=== PATIENT | male | born 1945 | race Caucasian/White ===

== ENCOUNTER 2020-07-25 16:13 | Outpatient (CLI) | payer BC, SELFPAY ==
--- NOTE | ~2020-07-25 | XR_ITS ---
XR foot LT min 3V 07/25/2020 17:17 Indication: Diabetic foot ulcer Procedure: 4 views left foot Comparison: No prior studies for comparison. Findings: There is soft tissue gas along the plantar surface at the metatarsophalangeal level. There is moderate osteoarthritis of the first MTP joint. Mild osteoarthritis of the distal interphalangeal and proximal interphalangeal joints. No erosive changes to suggest osteomyelitis. Lisfranc joint inta ct. There is a degenerative calcaneal enthesophyte at the plantar surface. No fracture or traumatic m alalignment. Impression: 1: No evidence for osteomyelitis. Subtle soft tissue gas along the plantar surface, suspicious for ce llulitis. If there is continuing concern for osteomyelitis, correlation with MRI recommended. 2: Mild-moderate polyarticular osteoarthritis. Reviewed, dictated and finalized at location A. Impression: 1: No evidence for osteomyelitis. Subtle soft tissue gas along the plantar surf mundo, suspicious for cellulitis. If there is continuing concern for osteomyeliti s, correlation with MRI recommended. 2: Mild-moderate polyarticular osteoarthritis.
--- NOTE | ~2020-07-25 | XR_ITS ---
EXAMINATION: XR chest 2V 07/25/2020 17:13 INDICATION: Diabetes. Chest pain. PROCEDURE: 2 view chest COMPARISON: No prior studies for comparison. FINDINGS: The lungs are clear. The cardiomediastinal silhouette is within normal limits. There are no pleural effusions. There is no pneumothorax suspected. IMPRESSION: 1: NO ACUTE CARDIOPULMONARY DISEASE. Reviewed, dictated and finalized at location A.
[2020-07-25 16:47] LABS: Basophils Percent Auto 1.4 % (0.0-1.0); Eosinophils Absolute Auto 0.13 K/mm3 (0.02-0.50); Eosinophils Percent Auto 1.8 % (1.0-6.0); Hematocrit 35.2 % (37.0-46.0); Hemoglobin 11.1 g/dL (12.4-15.3); Immature Granulocyte Absolute 0.03 K/mm3 (0.00-0.00); Immature Granulocyte Percent A 0.4 % (0.0-0.0); Lymphocytes Absolute Auto 1.54 K/mm3 (1.10-4.50); Lymphocytes Percent Auto 21.7 % (18.0-42.0); Mean Corpuscular HGB Conc 31.5 g/dL (32.0-36.0); Mean Corpuscular Hemoglobin 28.8 pg (27.0-31.0); Mean Corpuscular Volume 91.2 fL (78.0-102.0); Mean Platelet Volume 9.6 fl (8.7-11.0); Monocytes Absolute Auto 0.45 K/mm3 (0.10-0.90); Monocytes Percent Auto 6.3 % (2.0-11.0); Neutrophils Absolute Auto 4.8 K/mm3 (1.7-7.2); Neutrophils Percent Auto 68.4 % (50.0-70.0); Platelet Count Result 317 K/mm3 (150-420); Red Blood Count 3.86 M/mm3 (4.70-6.10); Red Cell Distribution Width 12.2 % (11.6-14.4); White Blood Count 7.1 K/mm3 (4.8-10.8)
[2020-07-25 16:48] LABS: Add Urine Microscopic? YES; Appearance Urine Clear (Clear); Bilirubin Urine Negative (Negative); Blood Urine Negative (Negative); Color Urine Yellow (Yellow); Glucose Urine UA Negative (Negative); Ketones Urine Negative (Negative); Leukocyte Esterase Ur Negative (Negative); Nitrate Urine Negative (Negative); Protein Urine 1+ (Negative); Urobilinogen Urine 0.2 mg/dL (0.2-1.0)
[2020-07-25 16:56] LABS: Bacteria Urine 1+ /hpf; RBC Urine 0-2 /hpf (0-2); Squamous Epithelial Cell Urine Few /hpf (Few); WBC Urine 0-3 /hpf (0-3)
[2020-07-25 17:00] LABS: Hemoglobin A1C 7.9 % (<5.7)
[2020-07-25 17:01] LABS: Creatinine Urine 126.04 mg/dL (40-278)
[2020-07-25 17:03] LABS: MALB Creatinine Ratio 174.7 mg/g (0-30); Microalbumin Urine Random 220.3 mg/L
[2020-07-25 17:33] LABS: Alanine Aminotransferase 27 U/L (16-63); Albumin Level 3.6 g/dL (3.4-5.0); Alkaline Phosphatase 86 U/L (46-116); Anion Gap 11 mmol/L (8-16); Aspartate Amino Transferase 22 U/L (15-37); Bilirubin,Total 0.2 mg/dL (0.00-1.00); Blood Urea Nitrogen 22 mg/dL (7-18); Calcium 9.3 mg/dL (8.5-10.1); Carbon Dioxide 24 mmol/L (21-32); Chloride 101 mmol/L (98-108); Cholesterol 112 mg/dL (0-200); Estimated Glomerular Filt Rate 35; Free T3 1.99 pg/mL (2.18-3.98); Free T4 Free Thyroxine 0.94 ng/dL (0.76-1.46); Glucose 158 mg/dL (70-99); HDL Direct 34 mg/dL (40-60); LDL Cholesterol Calculated 61 mg/dL (<130); Osmolality Calculated 288 mOsm/kg (285-295); Potassium 4.7 mmol/L (3.5-5.1); Sodium 136 mmol/L (136-145); Thyroid Stimulating Hormone 1.49 uIU/mL (0.36-3.74); Total Protein 7.2 g/dL (6.4-8.2); Triglycerides 84 mg/dL (0-150)
[2020-07-25 17:34] LABS: CRP < 0.5 mg/dL (0.0-0.9)
== END 2020-07-25 16:14 | disposition home or self-care (01) ==
LOC: CHSLAB 16:24
PROVIDERS: PCP Internal Medicine; Visit Provider Internal Medicine
DX: E78.5 Hyperlipidemia, unspecified (principal); R63.4 Abnormal weight loss; E11.621 Type 2 diabetes mellitus with foot ulcer
CPT/HCPCS: 36415; 71046; 73630; 80053; 80061; 81001; 82043; 83036; 84439; 84443; 84481; 85025; 86140

== ENCOUNTER 2020-07-30 12:04 | Outpatient (CLI) | payer BC, SELFPAY ==
--- NOTE | ~2020-07-30 | US_ITS ---
EXAMINATION: US arterial ankle brachial ind DATE: 07/30/2020 13:06 INDICATION: Peripheral arterial occlusive disease. TECHNIQUE: Segmental pressures and plethysmographic and Doppler waveforms of the brachial and lower e xtremity arteries were obtained. COMPARISON: None. FINDINGS: Right and left brachial artery pressures of 122 mm Hg and 123 mm Hg, respectively, are concordant (no rmal difference <= 30 mmHg). The right ankle-brachial index (NARAYAN) is 1.54 (normal >= 0.9-1.0). The right great toe-brachial index (TBI) is 0.52 (normal >= 0.65). Arterial Doppler waveforms are biphasic with brisk systolic upstrokes at both the right posterior tibial and dorsalis pedis arteries. The left NARAYAN is 1.05. The left TBI is 0.91. Arterial Doppler waveforms are biphasic at the left poste rior tibial artery and triphasic at the left dorsalis pedis artery, both with brisk systolic upstroke s. IMPRESSION: 1. Arterial occlusive disease to the right lower limb with mildly decreased right TBI. 2. No significant arterial occlusive disease to the left lower limb with normal left NARAYAN and TBI. Reviewed, dictated and finalized at location A. IMPRESSION: 1. Arterial occlusive disease to the right lower limb with mildly decreased rig ht TBI. 2. No significant arterial occlusive disease to the left lower limb with normal left NARAYAN and TBI.
== END 2020-07-30 12:05 | disposition home or self-care (01) ==
LOC: CHSIMG 12:06
PROVIDERS: PCP Internal Medicine; Visit Provider Internal Medicine
DX: I73.9 Peripheral vascular disease, unspecified (principal)
CPT/HCPCS: 93922

== ENCOUNTER 2020-08-19 13:36 | Outpatient (CLI) | payer BC, SELFPAY ==
--- NOTE | ~2020-08-19 | US_ITS ---
US retroperitoneal comp 08/19/2020 14:10 Procedure: Realtime transabdominal ultrasound of the kidneys and bladder. Indication: Diabetic nephropathy Comparison: No prior studies for comparison. Findings: Renal echotexture is normal bilaterally without hydronephrosis, contour deforming mass or r enal calculus. The right kidney measures 10.9 cm and left kidney measures 11 cm. There are bilateral renal cysts measuring 1.6 cm on the right and 2.3 cm on the left. Bladder within normal limits. Impression: 1: Bilateral renal cysts. Reviewed, dictated and finalized at location B. Impression: 1: Bilateral renal cysts.
== END 2020-08-19 13:37 | disposition home or self-care (01) ==
LOC: CHSIMG 13:40
PROVIDERS: PCP Internal Medicine; Visit Provider Internal Medicine
DX: E11.21 Type 2 diabetes mellitus with diabetic nephropathy (principal)
CPT/HCPCS: 76770

== ENCOUNTER 2020-08-28 14:23 | Outpatient (CLI) | payer BC, SELFPAY ==
--- NOTE | ~2020-08-28 | XR_ITS ---
EXAMINATION: XR foot LT min 3V DATE: 08/28/2020 14:51 INDICATION: Left foot diabetic ulcer. TECHNIQUE: 4 views of left foot were obtained. COMPARISON: Left foot radiographs 07/25/2020 FINDINGS: Bone alignment is normal. No fracture. There is moderate osteoarthritis of first metatarsop halangeal joint and mild osteoarthritis of some of the interphalangeal joints and midfoot joints. The re is an enthesophyte at plantar aspect of calcaneal tuberosity. IMPRESSION: 1. No evidence of osteomyelitis. 2. Polyarticular osteoarthritis. Reviewed, dictated and finalized at location A.
== END 2020-08-28 14:24 | disposition home or self-care (01) ==
LOC: CHSIMG 14:31
PROVIDERS: PCP Internal Medicine; Visit Provider Internal Medicine
DX: E11.621 Type 2 diabetes mellitus with foot ulcer (principal)
CPT/HCPCS: 73630

== ENCOUNTER 2020-10-20 15:44 | Outpatient (CLI) | payer BC, SELFPAY ==
[2020-10-20 17:37] LABS: SARS-CoV-2 Ag Negative (Negative)
== END 2020-10-20 15:45 | disposition home or self-care (01) ==
LOC: CHSLAB 15:49
PROVIDERS: PCP Internal Medicine; Visit Provider Nurse Practitioner Family
DX: J02.9 Acute pharyngitis, unspecified (principal); Z20.822 Contact with and (suspected) exposure to COVID-19
CPT/HCPCS: 87081; 87426; 87880; C9803

== ENCOUNTER 2020-11-07 07:17 | Outpatient (RCR) | payer BC, SELFPAY ==
[2020-08-12 13:00] VITALS: BMI 21.4
--- NOTE | 2020-09-09 10:17 | PM.CNOR ---
Assessment and Plan Assessment and plan (1) Diabetic foot ulcer associated with type 2 diabetes mellitus: Qualifiers: Diabetic foot ulcer location: toe Laterality: left Non-pressure ulcer stage: with bone involvement without evidence of necrosis Qualified Code(s): E11.621 - Type 2 diabetes mellitus with foot ulcer; L97.526 - Non-pressure chronic ulcer of other part of left foot with bone involvement without evidence of necrosis Code(s): E11.621 - Type 2 diabetes mellitus with foot ulcer; L97.509 - Non-pressure chronic ulcer of other part of unspecified foot with unspecified severity Status: Acute Assessment and Plan: New patient evaluation for chief complaint left foot plantar ulcer, diabetes, neuropathy. History, physical exam and radiographs reviewed with the patient. Chronic ulceration with more recent treatment over the past month. Patient with uncontrolled diabetes until this year. Previous A1c in 2020 was over 13. Currently 7.9. Radiographs reviewed. Prominent sesamoids noted otherwise normal radiographs. No evidence of osteomyelitis. Discussed the condition, nature, etiology and course of natural history with the patient. Treatment options including surgical and nonoperative treatment were reviewed. Risks and benefits of each as well as alternatives reviewed. The patient's questions were answered. Patient has declined surgical treatment at this time. He would like to continue with non operative treatment and reserve operative treatment for failure of conservative. Conservative treatment compression and elevation. Patient has had a fracture boot. He has not had any improvement in the ulcer size. We discussed further offloading with a total contact cast. Risks and benefits discussed in detail. He is in agreement with starting with total contact casting. Absorbent dressing placed on the left foot followed by well-padded total contact cast. Discussed activity limitations. Follow up in 1 week for cast change. (2) Diabetes mellitus with autonomic neuropathy: Qualifiers: Diabetes mellitus type: type 2 Diabetes mellitus [facility] insulin use: with [facility] use Qualified Code(s): E11.43 - Type 2 diabetes mellitus with diabetic autonomic (poly)neuropathy; Z79.4 - rn long term care (current) use of insulin Code(s): E11.43 - Type 2 diabetes mellitus with diabetic autonomic (poly)neuropathy Status: Acute (3) Neuropathy in diabetes: Qualifiers: Diabetes mellitus type: type 2 Diabetes mellitus complication detail: diabetic polyneuropathy Qualified Code(s): E11.42 - Type 2 diabetes mellitus with diabetic polyneuropathy Code(s): E11.40 - Type 2 diabetes mellitus with diabetic neuropathy, unspecified Status: Acute (4) Peripheral arterial disease: Code(s): I73.9 - Peripheral vascular disease, unspecified Status: Acute Assessment and Plan: Pulses not palpable bilateral feet. Patient had ABIs and toe pressures performed. Moderate decreased blood flow on the right. Fairly normal measurements on the left. Will continue to observe at this time. May need vascular evaluation. History of Present Illness HPI Consult date: 09/09/20 Requesting physician: Shawn Vargas MD Chief complaint: wound left plantar foot Narrative: 75-year-old gentleman presents to the [facility] for evaluation of left diabetic foot ulcer. Ulcer on the plantar aspect of the great toe for some time. Patient noted bleeding from the foot a month ago. He states that prior to that there may have been wound that he was unaware about. He has been followed here in the Wound Clinic with the wound care team doing dressing changes. He denies fever or chills. He states he has complete absence of sensation in both feet secondary to neuropathy. Review of Systems Constitutional: Constitutional: Denies fever(s) Eyes: Eyes: Denies blurry vision ENT: Repo
--- NOTE | 2020-09-16 12:10 | PM.IMHP ---
H&P: HPI History of Present Illness Date/Time: 09/16/20 12:10 Chief Complaint: left diabetic foot ulcer Narrative: Patient presents [place] wound clinic today for re-evaluation of left plantar diabetic foot ulcer. Patient underwent total contact casting last week to begin conservative treatment for a chronic ulcer on the plantar aspect of the 1st MTP joint. Patient reports having taken a shower on Tuesday with his cast on. He has not sought medical treatment in the interim. Cast removed today and his foot has a very wet appearance. No new signs of infection. Patient denies fever, chills, night sweats, nausea, vomiting or diarrhea. Review of Systems Constitutional: Constitutional: Denies fever(s) Eyes: Eyes: Denies blurry vision ENT: Reports Normal hearing present Cardiovascular: Cardiovascular: Denies chest pain and Denies dyspnea Respiratory: Respiratory: Denies dyspnea and Denies wheezing Gastrointestinal: Gastrointestinal: Denies abdominal pain Genitourinary: Genitourinary: Denies urinary urgency Musculoskeletal: Musculoskeletal: Reports as per HPI and Reports numbness ( Both feet) Integumentary/Breasts: Skin/Breast: Denies changing lesions and Denies sores Neurologic: Reports Normal hearing present, Denies behavioral changes, Denies confusion, Reports numbness ( bilateral feet) and Denies convulsions Psychiatric: Psychiatric: Denies behavioral changes, Denies confusion and Denies hallucinations Endocrine: Endocrine: Denies heat intolerance Hematologic/Lymphatic: Hematologic/Lymphatic: Denies easy bleeding Allergic/Immunologic: Allergic/Immunologic: Denies wheezing [facility] Past Medical History Medical History Diabetes mellitus with autonomic neuropathy Diabetic foot ulcer associated with type 2 diabetes mellitus Neuropathy in diabetes Peripheral arterial disease Social History Social History Gender identity (if verbalized by the patient): Male Meds Home Medications and Allergies Home Medications Medication Instructions Recorded Confirmed Type aspirin [Adult Aspirin] 81 mg PO DAILY 08/12/20 08/12/20 History cholecalciferol (vitamin D3) 50 mcg PO DAILY 08/12/20 08/12/20 History dulaglutide [Trulicity] 1.5 mg SUBCUT WEEKLY 08/12/20 08/12/20 History insulin degludec [Tresiba U-100 40 unit SUBCUT DAILY 08/12/20 08/12/20 History Insulin] levofloxacin 250 mg PO DAILY 08/12/20 08/12/20 History metronidazole 500 mg PO Q8H 08/12/20 08/12/20 History omeprazole 20 mg PO 3XW 08/12/20 08/12/20 History rosuvastatin 20 mg PO DAILY 08/12/20 08/12/20 History Allergies Allergy/AdvReac Type Severity Reaction Status Date / Time No Known Allergies Allergy Verified 08/21/20 12:42 Exam Const: General: healthy appearing; No in distress or confusion Orientation/consciousness: oriented to person, oriented to place, oriented to time and No confusion HENMT: Head: normal to inspection, normocephalic and atraumatic Eyes: Conjunctivae: conjunctivae normal Sclera: sclerae normal Neck: Neck: supple and nontender Resp: Effort & Inspection: normal respiratory effort and no audible wheezes Cardio: Rhythm: regular rhythm Skin: General skin exam: no rashes or lesions noted Neuro: General: oriented to person, oriented to place, oriented to time and No confusion Extrem: Right upper extremity: normal to inspection Left upper extremity: normal to inspection Right lower extremity: ankle Details: normal ROM; no tenderness and no swelling and foot Details: toes with normal ROM, vascular exam Details: normal capillary refill; dorsalis pedis pulse absent and posterior tibial pulse absent and motor-sensory exam Details: two point discrimination abnormal Location: in all toes and light-touch abnormal Location: in all toes; no tenderness and no unusual warmth Left lower extremity: ankle Details: normal to inspe
--- NOTE | 2020-09-23 09:02 | PM.IMHP ---
H&P: HPI History of Present Illness Date/Time: 09/23/20 09:02 Chief Complaint: Left diabetic foot ulcer Narrative: 75-year-old male returns to [place] [facility] 1 week status post discontinuation of total contact cast due to maceration past have look. Patient denies new concerns. No fever, chills, night sweats, nausea, vomiting or diarrhea. He has been performing daily dressing changes with antibiotic ointment, Mepilex foam and covering dry. He has been continuing his fracture boot without complications. Review of Systems Constitutional: Constitutional: Denies fever(s) Eyes: Eyes: Denies blurry vision ENT: Reports Normal hearing present Cardiovascular: Cardiovascular: Denies chest pain and Denies dyspnea Respiratory: Respiratory: Denies dyspnea and Denies wheezing Gastrointestinal: Gastrointestinal: Denies abdominal pain Genitourinary: Genitourinary: Denies urinary urgency Musculoskeletal: Musculoskeletal: Reports as per HPI and Reports numbness ( Both feet) Integumentary/Breasts: Skin/Breast: Denies changing lesions and Denies sores Neurologic: Reports Normal hearing present, Denies behavioral changes, Denies confusion, Reports numbness ( bilateral feet) and Denies convulsions Psychiatric: Psychiatric: Denies behavioral changes, Denies confusion and Denies hallucinations Endocrine: Endocrine: Denies heat intolerance Hematologic/Lymphatic: Hematologic/Lymphatic: Denies easy bleeding Allergic/Immunologic: Allergic/Immunologic: Denies wheezing PMFSH Past Medical History Medical History Diabetes mellitus with autonomic neuropathy Diabetic foot ulcer associated with type 2 diabetes mellitus Neuropathy in diabetes Peripheral arterial disease Social History Social History Gender identity (if verbalized by the patient): Male Meds Home Medications and Allergies Home Medications Medication Instructions Recorded Confirmed Type aspirin [Adult Aspirin] 81 mg PO DAILY 08/12/20 08/12/20 History cholecalciferol (vitamin D3) 50 mcg PO DAILY 08/12/20 08/12/20 History dulaglutide [Trulicity] 1.5 mg SUBCUT WEEKLY 08/12/20 08/12/20 History insulin degludec [Tresiba U-100 40 unit SUBCUT DAILY 08/12/20 08/12/20 History Insulin] levofloxacin 250 mg PO DAILY 08/12/20 08/12/20 History metronidazole 500 mg PO Q8H 08/12/20 08/12/20 History omeprazole 20 mg PO 3XW 08/12/20 08/12/20 History rosuvastatin 20 mg PO DAILY 08/12/20 08/12/20 History Allergies Allergy/AdvReac Type Severity Reaction Status Date / Time No Known Allergies Allergy Verified 08/21/20 12:42 Exam Const: General: healthy appearing; No in distress or confusion Orientation/consciousness: oriented to person, oriented to place, oriented to time and No confusion HENMT: Head: normal to inspection, normocephalic and atraumatic Eyes: Conjunctivae: conjunctivae normal Sclera: sclerae normal Neck: Neck: supple and nontender Resp: Effort & Inspection: normal respiratory effort and no audible wheezes Cardio: Rhythm: regular rhythm Skin: General skin exam: no rashes or lesions noted Neuro: General: oriented to person, oriented to place, oriented to time and No confusion Extrem: Right upper extremity: normal to inspection Left upper extremity: normal to inspection Right lower extremity: ankle Details: normal ROM; no tenderness and no swelling and foot Details: toes with normal ROM, vascular exam Details: normal capillary refill; dorsalis pedis pulse absent and posterior tibial pulse absent and motor-sensory exam Details: two point discrimination abnormal Location: in all toes and light-touch abnormal Location: in all toes; no tenderness and no unusual warmth Left lower extremity: ankle Details: normal to inspection, normal ROM ( ankle dorsiflexion 5?, plantar flexion 45?, inversion 20?, eversion 10?) and other ( negative Homans sign,
--- NOTE | 2020-09-30 09:27 | PM.IMHP ---
H&P: HPI History of Present Illness Date/Time: 09/30/20 09:27 Chief Complaint: Left DFU Narrative: 75-year-old male returns to [place] [facility] clinic 2 week status post discontinuation of total contact cast due to maceration past have look. Patient denies new concerns. No fever, chills, night sweats, nausea, vomiting or diarrhea. He has been performing daily dressing changes with antibiotic ointment, Mepilex foam and covering dry. He has been continuing his fracture boot without complications. Review of Systems Constitutional: Constitutional: Denies fever(s) Eyes: Eyes: Denies blurry vision ENT: Reports Normal hearing present Cardiovascular: Cardiovascular: Denies chest pain and Denies dyspnea Respiratory: Respiratory: Denies dyspnea and Denies wheezing Gastrointestinal: Gastrointestinal: Denies abdominal pain Genitourinary: Genitourinary: Denies urinary urgency Musculoskeletal: Musculoskeletal: Reports as per HPI and Reports numbness ( Both feet) Integumentary/Breasts: Skin/Breast: Denies changing lesions and Denies sores Neurologic: Reports Normal hearing present, Denies behavioral changes, Denies confusion, Reports numbness ( bilateral feet) and Denies convulsions Psychiatric: Psychiatric: Denies behavioral changes, Denies confusion and Denies hallucinations Endocrine: Endocrine: Denies heat intolerance Hematologic/Lymphatic: Hematologic/Lymphatic: Denies easy bleeding Allergic/Immunologic: Allergic/Immunologic: Denies wheezing PMFSH Past Medical History Medical History Diabetes mellitus with autonomic neuropathy Diabetic foot ulcer associated with type 2 diabetes mellitus Neuropathy in diabetes Peripheral arterial disease Social History Social History Gender identity (if verbalized by the patient): Male Meds Home Medications and Allergies Home Medications Medication Instructions Recorded Confirmed Type aspirin [Adult Aspirin] 81 mg PO DAILY 08/12/20 08/12/20 History cholecalciferol (vitamin D3) 50 mcg PO DAILY 08/12/20 08/12/20 History dulaglutide [Trulicity] 1.5 mg SUBCUT WEEKLY 08/12/20 08/12/20 History insulin degludec [Tresiba U-100 40 unit SUBCUT DAILY 08/12/20 08/12/20 History Insulin] levofloxacin 250 mg PO DAILY 08/12/20 08/12/20 History metronidazole 500 mg PO Q8H 08/12/20 08/12/20 History omeprazole 20 mg PO 3XW 08/12/20 08/12/20 History rosuvastatin 20 mg PO DAILY 08/12/20 08/12/20 History Allergies Allergy/AdvReac Type Severity Reaction Status Date / Time No Known Allergies Allergy Verified 08/21/20 12:42 Exam Const: General: healthy appearing; No in distress or confusion Orientation/consciousness: oriented to person, oriented to place, oriented to time and No confusion HENMT: Head: normal to inspection, normocephalic and atraumatic Eyes: Conjunctivae: conjunctivae normal Sclera: sclerae normal Neck: Neck: supple and nontender Resp: Effort & Inspection: normal respiratory effort and no audible wheezes Cardio: Rhythm: regular rhythm Skin: General skin exam: no rashes or lesions noted Neuro: General: oriented to person, oriented to place, oriented to time and No confusion Extrem: Right upper extremity: normal to inspection Left upper extremity: normal to inspection Right lower extremity: ankle Details: normal ROM; no tenderness and no swelling and foot Details: toes with normal ROM, vascular exam Details: normal capillary refill; dorsalis pedis pulse absent and posterior tibial pulse absent and motor-sensory exam Details: two point discrimination abnormal Location: in all toes and light-touch abnormal Location: in all toes; no tenderness and no unusual warmth Left lower extremity: ankle Details: normal to inspection, normal ROM ( ankle dorsiflexion 5?, plantar flexion 45?, inversion 20?, eversion 10?) and other ( negative Homans sign, negative Lamar'
--- NOTE | 2020-10-07 09:31 | PM.IMHP ---
H&P: HPI History of Present Illness Date/Time: 10/07/20 09:31 Chief Complaint: Left DFU Narrative: 75-year-old male returns to [place] wound clinic for reevaluation of left plantar DFU. Patient denies new concerns. No fever, chills, night sweats, nausea, vomiting or diarrhea. He has been performing daily dressing changes with antibiotic ointment, Mepilex foam and covering dry. He has been continuing his fracture boot without complications. He attempted to obtain custom orthotics/depth shoes but is waiting on final sign off from PCP who manages his diabetes. Review of Systems Constitutional: Constitutional: Denies fever(s) Eyes: Eyes: Denies blurry vision ENT: Reports Normal hearing present Cardiovascular: Cardiovascular: Denies chest pain and Denies dyspnea Respiratory: Respiratory: Denies dyspnea and Denies wheezing Gastrointestinal: Gastrointestinal: Denies abdominal pain Genitourinary: Genitourinary: Denies urinary urgency Musculoskeletal: Musculoskeletal: Reports as per HPI and Reports numbness ( Both feet) Integumentary/Breasts: Skin/Breast: Denies changing lesions and Denies sores Neurologic: Reports Normal hearing present, Denies behavioral changes, Denies confusion, Reports numbness ( bilateral feet) and Denies convulsions Psychiatric: Psychiatric: Denies behavioral changes, Denies confusion and Denies hallucinations Endocrine: Endocrine: Denies heat intolerance Hematologic/Lymphatic: Hematologic/Lymphatic: Denies easy bleeding Allergic/Immunologic: Allergic/Immunologic: Denies wheezing PMFSH Past Medical History Medical History Diabetes mellitus with autonomic neuropathy Diabetic foot ulcer associated with type 2 diabetes mellitus Neuropathy in diabetes Peripheral arterial disease Social History Social History Gender identity (if verbalized by the patient): Male Meds Home Medications and Allergies Home Medications Medication Instructions Recorded Confirmed Type aspirin [Adult Aspirin] 81 mg PO DAILY 08/12/20 08/12/20 History cholecalciferol (vitamin D3) 50 mcg PO DAILY 08/12/20 08/12/20 History dulaglutide [Trulicity] 1.5 mg SUBCUT WEEKLY 08/12/20 08/12/20 History insulin degludec [Tresiba U-100 40 unit SUBCUT DAILY 08/12/20 08/12/20 History Insulin] levofloxacin 250 mg PO DAILY 08/12/20 08/12/20 History metronidazole 500 mg PO Q8H 08/12/20 08/12/20 History omeprazole 20 mg PO 3XW 08/12/20 08/12/20 History rosuvastatin 20 mg PO DAILY 08/12/20 08/12/20 History Allergies Allergy/AdvReac Type Severity Reaction Status Date / Time No Known Allergies Allergy Verified 08/21/20 12:42 Exam Const: General: healthy appearing; No in distress or confusion Orientation/consciousness: oriented to person, oriented to place, oriented to time and No confusion HENMT: Head: normal to inspection, normocephalic and atraumatic Eyes: Conjunctivae: conjunctivae normal Sclera: sclerae normal Neck: Neck: supple and nontender Resp: Effort & Inspection: normal respiratory effort and no audible wheezes Cardio: Rhythm: regular rhythm Skin: General skin exam: no rashes or lesions noted Neuro: General: oriented to person, oriented to place, oriented to time and No confusion Extrem: Right upper extremity: normal to inspection Left upper extremity: normal to inspection Right lower extremity: ankle Details: normal ROM; no tenderness and no swelling and foot Details: toes with normal ROM, vascular exam Details: normal capillary refill; dorsalis pedis pulse absent and posterior tibial pulse absent and motor-sensory exam Details: two point discrimination abnormal Location: in all toes and light-touch abnormal Location: in all toes; no tenderness and no unusual warmth Left lower extremity: ankle Details: normal to inspection, normal ROM ( ankle dorsiflexion 5?, plantar flexion 45?, inversion 20?
--- NOTE | 2020-11-07 10:06 | PM.IMHP ---
H&P: HPI History of Present Illness Date/Time: 11/07/20 10:06 Chief Complaint: Left DFU Narrative: Patient returns today for reevaluation of left DFU. No new complaints. Awaiting custom orthotics/depth shoes from [facility]. Still with no appt for fitting. PCP and patient have attempted to call. No new open ulcers. No signs of infection. Review of Systems Constitutional: Constitutional: Denies fever(s) Eyes: Eyes: Denies blurry vision ENT: Reports Normal hearing present Cardiovascular: Cardiovascular: Denies chest pain and Denies dyspnea Respiratory: Respiratory: Denies dyspnea and Denies wheezing Gastrointestinal: Gastrointestinal: Denies abdominal pain Genitourinary: Genitourinary: Denies urinary urgency Musculoskeletal: Musculoskeletal: Reports as per HPI and Reports numbness ( Both feet) Integumentary/Breasts: Skin/Breast: Denies changing lesions and Denies sores Neurologic: Reports Normal hearing present, Denies behavioral changes, Denies confusion, Reports numbness ( bilateral feet) and Denies convulsions Psychiatric: Psychiatric: Denies behavioral changes, Denies confusion and Denies hallucinations Endocrine: Endocrine: Denies heat intolerance Hematologic/Lymphatic: Hematologic/Lymphatic: Denies easy bleeding Allergic/Immunologic: Allergic/Immunologic: Denies wheezing PMFSH Past Medical History Medical History Diabetes mellitus with autonomic neuropathy Diabetic foot ulcer associated with type 2 diabetes mellitus Neuropathy in diabetes Peripheral arterial disease Social History Social History Gender identity (if verbalized by the patient): Male Meds Home Medications and Allergies Home Medications Medication Instructions Recorded Confirmed Type aspirin [Adult Aspirin] 81 mg PO DAILY 08/12/20 08/12/20 History cholecalciferol (vitamin D3) 50 mcg PO DAILY 08/12/20 08/12/20 History dulaglutide [Trulicity] 1.5 mg SUBCUT WEEKLY 08/12/20 08/12/20 History insulin degludec [Tresiba U-100 40 unit SUBCUT DAILY 08/12/20 08/12/20 History Insulin] levofloxacin 250 mg PO DAILY 08/12/20 08/12/20 History metronidazole 500 mg PO Q8H 08/12/20 08/12/20 History omeprazole 20 mg PO 3XW 08/12/20 08/12/20 History rosuvastatin 20 mg PO DAILY 08/12/20 08/12/20 History Allergies Allergy/AdvReac Type Severity Reaction Status Date / Time No Known Allergies Allergy Verified 08/21/20 12:42 Exam Const: General: healthy appearing; No in distress or confusion Orientation/consciousness: oriented to person, oriented to place, oriented to time and No confusion HENMT: Head: normal to inspection, normocephalic and atraumatic Eyes: Conjunctivae: conjunctivae normal Sclera: sclerae normal Neck: Neck: supple and nontender Resp: Effort & Inspection: normal respiratory effort and no audible wheezes Cardio: Rhythm: regular rhythm Skin: General skin exam: no rashes or lesions noted Neuro: General: oriented to person, oriented to place, oriented to time and No confusion Extrem: Right upper extremity: normal to inspection Left upper extremity: normal to inspection Right lower extremity: ankle Details: normal ROM; no tenderness and no swelling and foot Details: toes with normal ROM, vascular exam Details: normal capillary refill; dorsalis pedis pulse absent and posterior tibial pulse absent and motor-sensory exam Details: two point discrimination abnormal Location: in all toes and light-touch abnormal Location: in all toes; no tenderness and no unusual warmth Left lower extremity: ankle Details: normal to inspection, normal ROM ( ankle dorsiflexion 5?, plantar flexion 45?, inversion 20?, eversion 10?) and other ( negative Homans sign, negative Lamar's test); no tenderness and no swelling and foot Details: normal capillary refill, tenderness (hallux mtp joint), abnormal ROM of toe (Hallux DF 25, PF 10
== END 2020-11-10 23:59 | disposition home or self-care (01) ==
LOC: ANHWOC 07:17
PROVIDERS: PCP Internal Medicine; Referring Provider Nurse Practitioner Family; Visit Provider Orthopaedic Surgery
DX: S91.302D Unspecified open wound, left foot, subsequent encounter (principal)
CPT/HCPCS: 11042; 29445; 99212; 99213; A9270; G0463; L2116

== ENCOUNTER 2020-11-11 07:24 | Outpatient (CLI) | payer BC, SELFPAY ==
--- NOTE | ~2020-11-11 | US_ITS ---
US right upper quadrant INDICATION: Abnormal liver function tests. PROCEDURE: Realtime right upper abdominal ultrasound. COMPARISON: No prior studies for comparison. FINDINGS: The pancreas is normal without focal mass or pancreatic ductal dilation. Within the right hepatic lobe there is a 1 cm hyperechoic mass. There is normal directional flow in the portal vein. The gallbladder is normal without stones, gallbladder wall thickening or pericholecystic fluid. Comm on bile duct measures 4 mm. No sonographic Roca's sign. There are right renal cysts, largest measu ring 1.4 cm. IMPRESSION: 1: Hyperechoic 1 cm liver mass right hepatic lobe. This likely represents benign hemangioma in the ab sence of known malignancy. Recommend follow-up ultrasound in 6 months. Reviewed, dictated and finalized at location A. IMPRESSION: 1: Hyperechoic 1 cm liver mass right hepatic lobe. This likely represents benig n hemangioma in the absence of known malignancy. Recommend follow-up ultrasound in 6 months.
== END 2020-11-11 07:25 | disposition home or self-care (01) ==
LOC: CHSIMG 07:25
PROVIDERS: PCP Internal Medicine; Visit Provider Internal Medicine
DX: R94.5 Abnormal results of liver function studies (principal)
CPT/HCPCS: 76705

== ENCOUNTER 2021-03-17 13:40 | Outpatient (CLI) | payer BC, SELFPAY ==
[2021-03-17 14:39] LABS: SARS-CoV-2 Ag Positive (Negative)
== END 2021-03-17 13:41 | disposition home or self-care (01) ==
LOC: CHSLAB 13:44
PROVIDERS: PCP Internal Medicine; Visit Provider Internal Medicine
DX: U07.1 COVID-19 (principal); J06.9 Acute upper respiratory infection, unspecified
CPT/HCPCS: 87426; C9803

== ENCOUNTER 2021-06-15 01:04 | Day surgery (SDC) | payer BC, SELFPAY ==
[2021-06-01 15:34] VITALS: BMI 22.7
[2021-06-15 08:06] VITALS: BP 142/69; PULSE 74; RESP 18; TEMP 36.7; O2SAT 99
--- NOTE | 2021-06-15 08:07 | SUR.PREOP ---
Dr Branch made aware patient took two glucose tablets this morning at 0700 for a low blood sugar at home.
[2021-06-15 08:22] LABS: Glucose Point of Care 97 mg/dl (65-105)
--- NOTE | 2021-06-15 08:23 | P.PNAN_ITS ---
Anes - Initial Pre Proc Eval Procedure: Operation Date: 06/15/21 09:15 Proposed Procedures p Esophagogastroduodenoscopy - Elvis Stern MD Date/Time: 06/15/21 08:23 Surgeon: Elvis Stern MD Pre Op Diagnosis: GERD Patient Data Age: 76 Gender: M Height: 1.83 m Weight: 78.5 kg Last Vital Signs Temp 36.7 C 06/15/21 08:06 Pulse 74 06/15/21 08:06 Resp 18 06/15/21 08:06 BP 142/69 H 06/15/21 08:06 Pulse Ox 99 06/15/21 08:06 Allergies Allergy/AdvReac Type Severity Reaction Status Date / Time No Known Allergies Allergy Verified 06/15/21 08:05 Home Medications Medication Instructions Recorded Confirmed Type aspirin [Adult Aspirin] 81 mg PO DAILY 08/12/20 06/01/21 History cholecalciferol (vitamin D3) 50 mcg PO DAILY 08/12/20 06/01/21 History dulaglutide [Trulicity] 1.5 mg SUBCUT WEEKLY 08/12/20 06/01/21 History insulin degludec [Tresiba U-100 40 unit SUBCUT DAILY 08/12/20 06/01/21 History Insulin] omeprazole 20 mg PO DAILY 08/12/20 06/01/21 History rosuvastatin 20 mg PO DAILY 08/12/20 06/01/21 History Laboratory Tests 06/15/21 08:18 POC Capillary Glucose 97 mg/dl mg/dl (65-105) Patient hx anesthesia problems: none Family hx anesthesia problems: none Results Review: All pre-operative results and documents have been reviewed as part of the pre-operative evaluation. [facility] Past Medical History Medical History Diabetes mellitus with autonomic neuropathy Diabetic foot ulcer associated with type 2 diabetes mellitus Neuropathy in diabetes Peripheral arterial disease Social History Social History Smoking status: Former smoker Additional smoking assessment comments: HAS NOT SMOKED IN OVER 30 YRS Substance use: never Substance use type: does not use Living arrangements: with family Gender identity (if verbalized by the patient): Male Spiritual care concerns: No Anes - Eval Final PreProcedure Day of Procedure 06/15/21 08:23 Patient weight: normal Heart: regular rate and rhythm Lungs: clear to auscultation Airway: Mallampati scale class III Neurological: alert and oriented Last oral intake: >/= 8 hours ASA classification: III Emergent: no Anesthetic plan: proceed Anesthesia type and monitoring: general GIVS and standard monitoring Results Review: All pre-operative results and documents have been reviewed as part of the pre-operative evaluation. Informed Consent: The patient's anesthetic plan and its attendant risks and benefits were discussed with the patient/family/POA. Questions were solicited and answers provided to the satisfaction of the patient/family/POA.
[2021-06-15] MEDS: LACTATED RINGERS 1,000 ML 150 ML IV CONT (08:25)
--- NOTE | 2021-06-15 08:52 | PM.HPGS ---
History of Present Illness History of Present Illness Consent: Risks, benefits, and alternatives have been discussed and questions answered. Patient agrees to proceed with procedure. Chief complaint: GERD Narrative: Charles Hannah is a 76 year old male He who has difficulty swallowing. He may be eating a meal or even finish the meal and will bring up foamy liquid. He has had difficulty with rice. He cannot tell if it is stuck substernally or not. He does not have chronic acid reflux problems. He did try omeprazole for a while which did not seem to help. He also tried famotidine without much benefit, adding that he does not get heartburn. Review of Systems Review of Systems: All systems reviewed & are unremarkable except as noted in HPI and below PMFSH Past Medical History Medical History Diabetes mellitus with autonomic neuropathy Diabetic foot ulcer associated with type 2 diabetes mellitus Neuropathy in diabetes Peripheral arterial disease Social History Social History Smoking status: Former smoker Additional smoking assessment comments: HAS NOT SMOKED IN OVER 30 YRS Substance use: never Substance use type: does not use Living arrangements: with family Gender identity (if verbalized by the patient): Male Spiritual care concerns: No Meds Home Medications and Allergies Home Medications Medication Instructions Recorded Confirmed Type aspirin [Adult Aspirin] 81 mg PO DAILY 08/12/20 06/01/21 History cholecalciferol (vitamin D3) 50 mcg PO DAILY 08/12/20 06/01/21 History dulaglutide [Trulicity] 1.5 mg SUBCUT WEEKLY 08/12/20 06/01/21 History insulin degludec [Tresiba U-100 40 unit SUBCUT DAILY 08/12/20 06/01/21 History Insulin] omeprazole 20 mg PO DAILY 08/12/20 06/01/21 History rosuvastatin 20 mg PO DAILY 08/12/20 06/01/21 History Allergies Allergy/AdvReac Type Severity Reaction Status Date / Time No Known Allergies Allergy Verified 06/15/21 08:05 Vital Signs Vital Signs - 24 hr 06/15/21 08:06 Temperature 36.7 C Pulse Rate 74 Respiratory Rate 18 Blood Pressure 142/69 H Pulse Oximetry 99 Exam Const: General: alert Orientation/consciousness: patient oriented x3 Resp: Auscultation: clear to auscultation bilaterally Cardio: Rhythm: regular rhythm GI: GI Palp: Yes Soft to palpation and No Tenderness to palpation present (GI) Neuro: General: patient oriented x3 Assessment and Plan Assessment and plan (1) Dysphagia: Code(s): R13.10 - Dysphagia, unspecified Status: Acute Assessment and Plan: EGD with possible biopsy or dilatation or cautery.
[2021-06-15] MEDS: BENZOCAINE (*SP) 60 ML SPRAY CAN (HURRICAINE) 1 SPRAY MUCOUS MEM (09:05)
[2021-06-15 09:18] VITALS: BP 99/52; PULSE 73; RESP 16; O2SAT 100
[2021-06-15 09:27] LABS: Glucose Point of Care 89 mg/dl (65-105)
[2021-06-15 09:28] VITALS: BP 118/70; PULSE 78; RESP 19; O2SAT 100
[2021-06-15 09:38] VITALS: BP 129/72; PULSE 79; RESP 17; O2SAT 100
== END 2021-06-15 09:55 | disposition home or self-care (01) ==
PROVIDERS: PCP Internal Medicine; Visit Provider Internal Medicine Gastroenterology
PROC: 0DJ08ZZ Inspection of Upper Intestinal Tract, Via Natural or Artificial Opening Endoscopic (ICD-10-PCS; CPT 43235; principal; 2021-06-15 09:15)
DX: K22.2 Esophageal obstruction (principal); E11.43 Type 2 diabetes mellitus with diabetic autonomic (poly)neuropathy; E11.51 Type 2 diabetes mellitus with diabetic peripheral angiopathy without gangrene; E11.40 Type 2 diabetes mellitus with diabetic neuropathy, unspecified; Z79.899 Other long term (current) drug therapy; Z79.82 Long term (current) use of aspirin; Z79.4 Long term (current) use of insulin
CPT/HCPCS: 43249; 82948; 88305; C1726; J2704; J7120

== ENCOUNTER 2021-09-10 14:34 | Outpatient (CLI) | payer BC, SELFPAY ==
--- NOTE | ~2021-09-10 | XR_ITS ---
XR lumbar spine 2-3V 09/10/2021 15:07 Indication: Low back pain Procedure: 3 views lumbar spine Comparison: No prior studies for comparison. Findings: There is mild disc narrowing at all lumbar levels. There is mild facet hypertrophy at L3-4, L4-5 and L5-S1. No fracture, subluxation or spondylolisthesis. There is atherosclerosis of the aorta . Pedicles intact. Sacral foramen are symmetric. Moderate retained fecal material in the colon. Bowel pattern nonobstructive. Impression: 1: Moderate lumbar spondylosis. Reviewed, dictated and finalized at location A. Impression: 1: Moderate lumbar spondylosis.
== END 2021-09-10 14:35 | disposition home or self-care (01) ==
LOC: CHSIMG 14:36
PROVIDERS: PCP Internal Medicine; Visit Provider Nurse Practitioner Family
DX: M54.50 Low back pain, unspecified (principal)
CPT/HCPCS: 72100

== ENCOUNTER 2021-09-16 17:00 | Outpatient (RCR) | payer BC, SELFPAY ==
--- NOTE | 2021-09-17 07:50 | PTOPEVAL ---
Thank you for referring Charles Hannah to [facility].? The patient is scheduled to be seen for therapy? 1-2x/week for 10 visits. Please review, sign, date and return this plan of care CHARLY. I agree with and certify that the following plan of care is medically necessary. Referring Physician Date Admitting Provider: Attending Provider: Shawn Vargas MD Referring Provider: *PT Outpatient Evaluation Start: 09/16/21 17:01 Freq: Status: Active Protocol: Document 09/16/21 17:01 [facility] (Rec: 09/16/21 18:23 [facility] [id number]) Therapy Assessment Status Assessment Status Assessment Status Evaluation Outpatient Past Medical History Neurological History Hx Other Neurological Disorders Yes: neuropathy in feet Cardiovascular History Hx Hypercholesterolemia Yes Respiratory History Hx COVID-19 Yes: 03/08/2021 Gastrointestinal History Hx Gastroesophageal Reflux Disease Yes Genitourinary History Hx Renal Disease Yes Musculoskeletal History Hx Musculoskeletal Disorders No Significant History Hematological History Hx Hematological Disorders No Significant History Endocrine History Hx Diabetes Yes: TYPE 2 HEENT History Hx Cataracts Yes: both eyes SURGERY Integumentary History Hx Skin Disorders No Significant History Reproductive History Hx Reproductive Disorders No Significant History Psychosocial History Hx Psychiatric Disorders No Significant History Pain History History of Any Previous or Ongoing No Significant History Instance of Pain Anesthesia History Hx Anesthesia Reactions No Significant History Evaluation Information Problem Diagnosis lower back pain Onset 08/26/21 Subjective Information Pt reports history of low back Query Text:As Reported By Patient/ pain initially starting 2 Family years ago after reaching down and now flared up again 3 weeks ago. 3 weeks ago he was staring up at a hawk in the [place] and turned to watch it fly when he felt shooting pain in back and R leg. He reports that pain waxes and wanes but is generally worse with extension-based activities and maintaining positions for much longer than 10 min. Pt does not want to have surgery and is looking for other forms of relief. He wants to be able to keep active to keep up
== END 2021-09-29 13:56 | disposition home or self-care (01) ==
LOC: CHSPT 17:00
PROVIDERS: PCP Internal Medicine; Visit Provider Internal Medicine
DX: M54.50 Low back pain, unspecified (principal); G89.29 Other chronic pain
CPT/HCPCS: 97014; 97110; 97140; 97161; G0283

== ENCOUNTER 2021-10-10 09:28 | Outpatient (CLI) | payer BC, SELFPAY ==
--- NOTE | ~2021-10-10 | MR_ITS ---
EXAMINATION: MR lumbar spine wo con DATE: 10/10/2021 10:10 INDICATION: Spinal stenosis with low back pain TECHNIQUE: Magnetic resonance imaging (MRI) of the lumbar spine was performed without intravenous con trast. Sequences included sagittal T2-weighted FSE, sagittal T2-weighted FS FSE, sagittal T1-weighted FSE, and axial T2-weighted FSE. COMPARISON: Lumbar spine radiographs dated 09/10/2021 FINDINGS: Alignment is normal. Vertebral body heights are normal. Small Schmorl's nodes along the endplates at both sides of the L3-L4 disc space and along the inferior endplate of L2. Low signal intensity sclero tic bone island at L2.. Minimal fibrovascular degenerative endplate changes at a few levels in the kenny mbar spine. Marrow signal is otherwise normal. Mild disc desiccation throughout the lumbar spine with mild disc height loss at L2-L3 and L3-L4 and without minimal disc height loss at L1-L2, L4-L5 and L5 -S1. The conus medullaris terminates at L1. There is normal signal in the caudal spinal cord. Bilater al T2 hyperintense renal cysts, the larger at the lower pole of the left kidney measuring 2.7 cm in m aximal diameter. Paravertebral soft tissues are unremarkable. The following disc levels are specifica lly discussed: T12-L1: The disc does not extend beyond the endplate margin. There is mild bilateral facet joint oste oarthritis. There is no neural foraminal stenosis. There is no central canal stenosis. L1-L2: Disc is mildly bulging with superimposed left subarticular zone disc protrusion. There is mild hypertrophy of the ligamentum flavum. There is mild bilateral facet joint osteoarthritis. There is m ild bilateral, left greater than right neural foraminal stenosis. There is mild central canal stenosi s. L2-L3: Moderate diffuse disc bulge. There is hypertrophy of the ligamentum flavum. There is mild denys ateral facet joint osteoarthritis. There is moderate right and mild to moderate left neural foraminal stenosis. There is mild to moderate central canal stenosis. L3-L4: Moderate diffuse disc bulge. There is hypertrophy of the ligamentum flavum. There is mild to m oderate left and moderate right greater than facet joint osteoarthritis. There is moderate right and mild to moderate left neural foraminal stenosis. There is moderate to severe central canal stenosis. L4-L5: Disc is mildly bulging. There is mild hypertrophy of the ligamentum flavum. There is mild bila teral facet joint osteoarthritis. There is moderate right and mild to moderate left neural foraminal stenosis. There is mild central canal stenosis. L5-S1: Disc is mildly bulging. There is mild right and moderate left facet joint osteoarthritis. Ther e is mild bilateral neural foraminal stenosis. There is no central canal stenosis. IMPRESSION: 1. Mild to moderate lumbar spondylosis most notable for moderate to severe central canal stenosis at L3-L4. Reviewed, dictated and finalized at location A. IMPRESSION: 1. Mild to moderate lumbar spondylosis most notable for moderate to severe cent ral canal stenosis at L3-L4.
== END 2021-10-10 09:29 | disposition home or self-care (01) ==
LOC: CHSIMG 09:31
PROVIDERS: PCP Internal Medicine; Visit Provider Internal Medicine
DX: M48.00 Spinal stenosis, site unspecified (principal)
CPT/HCPCS: 72148

== ENCOUNTER 2021-11-10 19:02 | Emergency (ER) | payer BC, SELFPAY ==
--- NOTE | ~2021-11-10 | XR_ITS ---
EXAM: XR forearm LT 2V DATE: 11/10/2021 19:32 HISTORY: fall TODAY,DISTAL ULNA PAIN WITH SMALL LAC . COMPARISON: None available. FINDINGS: Normal mineralization. Oblique fracture of the distal left ulna with mild posterior displa cement. No lytic or blastic lesion. Degenerative change at the elbow. No erosion or periosteal change . Soft tissues within normal limits. IMPRESSION: Mildly displaced oblique fracture of the distal left ulna. Reviewed, dictated and finalized at location K.
[2021-11-10 19:24] VITALS: BP 145/65; PULSE 70; RESP 16; TEMP 36.4; O2SAT 99
--- NOTE | 2021-11-10 19:56 | ED.FALL ---
HPI - Fall General Chief Complaint: Fall Stated Complaint: fell, has pain in left wrist Time Seen by Provider: 11/10/21 19:06 Source: patient and RN notes reviewed Mode of arrival: ambulatory Limitations: no limitations History of Present Illness MD complaint: fall Onset (ago): day(s) (1) Fall from: standing Place fall occurred: home Loss of consciousness: none Prolonged down time: no Symptoms prior to fall: none Context: tripped/slipped Location of injury: other (left wrist) Location of injury - extremities: Left: forearm Severity scale (1-10): 3 Quality: aching Associated symptoms (after fall): other (none) Related Data Home Medications Medication Instructions Recorded Confirmed aspirin 81 mg tablet 81 mg PO DAILY 08/12/20 11/10/21 cholecalciferol (vitamin D3) 50 50 mcg PO DAILY 08/12/20 11/10/21 mcg (2,000 unit) tablet dulaglutide 1.5 mg/0.5 mL 1.5 mg subcut WEEKLY 08/12/20 11/10/21 subcutaneous pen injector ([id number]) insulin degludec 100 unit/mL 40 unit subcut DAILY 08/12/20 11/10/21 subcutaneous solution (Tresiba U-100 Insulin) omeprazole 20 mg tablet,delayed 20 mg PO DAILY 08/12/20 11/10/21 release rosuvastatin 20 mg tablet 20 mg PO DAILY 08/12/20 11/10/21 duloxetine 20 mg capsule,delayed 20 mg PO DAILY 11/10/21 11/10/21 release gabapentin 100 mg capsule 100 mg PO DAILY 11/10/21 11/10/21 insulin glargine 100 unit/mL (3 100 unit subcut DAILY 11/10/21 11/10/21 mL) subcutaneous pen (Basaglar KwikPen U-100 Insulin) Allergies Allergy/AdvReac Type Severity Reaction Status Date / Time No Known Allergies Allergy Verified 11/10/21 19:16 Review of Systems Review of Systems: All systems reviewed & are unremarkable except as noted in HPI and below Constitutional: Constitutional: Reports no additional constitutional complaints Eyes: Eyes: Reports no additional eye complaints ENT: Reports system reviewed and no additional complaints, except as documented Cardiovascular: Cardiovascular: Reports no additional cardiovascular complaints Respiratory: Respiratory: Reports no additional respiratory complaints Gastrointestinal: Gastrointestinal: Reports no additional gastrointestinal complaints Musculoskeletal: Musculoskeletal: Reports arthralgias Integumentary/Breasts: Skin/Breast: Reports system reviewed and no additional complaints, except as docu Neurologic: Reports system reviewed and no additional complaints, except as documented Psychiatric: Psychiatric: Reports no additional psychiatric complaints Endocrine: Endocrine: Reports no additional endocrine complaints Hematologic/Lymphatic: Hematologic/Lymphatic: Reports no additional hematologic/lymphatic complaints Allergic/Immunologic: Allergic/Immunologic: Reports no additional allergic/immunologic complaints [facility] Past Medical History Medical History Diabetes mellitus with autonomic neuropathy Diabetic foot ulcer associated with type 2 diabetes mellitus Left wrist fracture Neuropathy in diabetes Peripheral arterial disease Social History Social History Smoking status: Former smoker Additional smoking assessment comments: HAS NOT SMOKED IN OVER 30 YRS Substance use: never Substance use type: does not use Gender identity (if verbalized by the patient): Male Spiritual care concerns: No Exam Const: General: no acute distress Nutritional Appearance: well nourished Orientation/consciousness: patient oriented x3 Limitations: no limitations HENMT: Head: normal to inspection Ears: external ears normal, TM's normal bilaterally and EAC's normal General nose exam: Normal external nose present and Normal nares present Face and sinus: normal facial exam and sinuses nontender Mouth: Yes Normal oral and palatal mucosa present and Yes moist mucous membranes Teeth and gingiva: dentition normal Throat: post
[2021-11-10 20:00] VITALS: BP 147/69; PULSE 67; RESP 18; O2SAT 99
[2021-11-10] MEDS: IBUPROFEN 600 MG TABLET PO (20:09)
[2021-11-10] MEDS: cefTRIAXone 1 GM, LIDOCAINE HCL 1% LOCAL INJ 2.1 ML IM (20:10)
[2021-11-10 20:57] VITALS: BP 158/76; PULSE 67; RESP 18; O2SAT 99
== END 2021-11-10 20:58 | disposition home or self-care (01) ==
PROVIDERS: Emergency Provider Emergency Medicine; PCP Internal Medicine
DX: S52.602A Unspecified fracture of lower end of left ulna, initial encounter for closed fracture (principal); W19.XXXA Unspecified fall, initial encounter
CPT/HCPCS: 29125; 73090; 96372; 99284; A4565; A9270; J0696

== ENCOUNTER 2022-07-04 08:59 | Emergency (ER) | payer BC, SELFPAY ==
[2022-07-04 09:00] VITALS: BP 156/70; PULSE 63; RESP 16; TEMP 36.2; O2SAT 99
--- NOTE | 2022-07-04 09:03 | ECG_ITS ---
Measurements Intervals [place] Rate: 61 P: 44 MN: 206 QRS: 65 QRSD: 102 T: 66 QT: 404 QTc: 408 Interpretive Statements SINUS RHYTHM NORMAL ECG NO PREVIOUS ECG AVAILABLE FOR COMPARISON Electronically Signed On 07-04-2022 13:00:36 CDT by Chris Martínez D.O.
--- NOTE | 2022-07-04 09:04 | ED.GENADULT ---
HPI - General Adult General Chief complaint: Dizziness Stated complaint: dizziness History of Present Illness HPI narrative: Charles is a 77M with a PMH of diabetes, HLD and GERD that presented to the ED with weakness and syncope. He had an episode last night where he became lightheaded and fell into the bed. He continues to have vertigo with position changes. He vomited twice since last night. There is no CP, dyspnea, or palpitations. There is no vertigo when he is lying still. Related Data Home Medications Medication Instructions Recorded Confirmed aspirin 81 mg tablet 81 mg PO DAILY 08/12/20 07/04/22 rosuvastatin 20 mg tablet 20 mg PO DAILY 08/12/20 07/04/22 dapagliflozin 5 mg tablet (Farxiga) 5 mg PO DAILY 03/31/22 07/04/22 dulaglutide 1.5 mg/0.5 mL 3 mg subcut WEEKLY 03/31/22 07/04/22 subcutaneous pen injector (Trulicity) insulin glargine 100 unit/mL (3 50 unit subcut DAILY 03/31/22 07/04/22 mL) subcutaneous pen (Basaglar KwikPen U-100 Insulin) glimepiride 1 mg tablet 1 mg PO DAILY 07/04/22 07/04/22 pantoprazole 40 mg tablet,delayed 40 mg PO DAILY 07/04/22 07/04/22 release Allergies Allergy/AdvReac Type Severity Reaction Status Date / Time No Known Allergies Allergy Verified 07/04/22 09:01 Review of Systems Review of Systems: All systems reviewed & are unremarkable except as noted in HPI and below [facility] Past Medical History Medical History Diabetes mellitus with autonomic neuropathy Diabetic foot ulcer associated with type 2 diabetes mellitus Left wrist fracture Neuropathy in diabetes Peripheral arterial disease Social History Social History Smoking status: Former smoker Additional smoking assessment comments: HAS NOT SMOKED IN OVER 30 YRS Substance use: never Substance use type: does not use Lack of Transportation: No Lack of Food: Never True Current Housing: I Have Housing Concerned About Future Housing: No Difficulty Paying Gas/Electric Bills: No Difficulty Paying for Meds: No Currently Unemployed: No Education: High School Diploma/GED Difficulty w/ Childcare or Family Care: No Living arrangements: with family Gender identity (if verbalized by the patient): Male Spiritual care concerns: No Exam Const: General: healthy appearing, no acute distress and alert; No confusion Nutritional Appearance: well nourished Orientation/consciousness: patient oriented x3 Limitations: no limitations HENMT: Head: normal to inspection Ears: external ears normal Face/Nose/Sinus: Normal external nose present Face and sinus: normal facial exam Eyes: Conjunctivae: conjunctivae normal Pupils: Equal, round and reactive pupils present Neck: Neck: normal visual inspection Chest: Chest palpation & inspection: normal inspection of the chest Resp: Effort & Inspection: normal respiratory effort Auscultation: clear to auscultation bilaterally Cardio: Rate: regular rate Rhythm: regular rhythm GI: Inspection: non-distended GI Palp: Yes Soft to palpation, No Tenderness to palpation present (GI) and No Guarding due to palpation present (GI) Auscultation: normal bowel sounds Back/Spine/Pelvis: Back: no CVA tenderness Skin: General skin exam: normal color Rashes: no rashes Neuro: General: patient oriented x3 and moves all extremities Speech: normal speech Gait exam (Neuro): Normal gait present Other: CNII-XII intact as tested. 3 beats of left sided nystagmus. No vertical nystagmus. The remainder of HINTS was WNL Symmetrical in strength in the upper and lower extremities. He had an episode of vertigo when I sat him up to listen to his lungs. Extrem: General: normal to inspection Psych: Mental Status: mental status grossly normal Affect: normal affect Attitude: cooperative Course Course Emergency Course: Ordered labs, EKG EKG showed NSR wi
[2022-07-04 09:58] LABS: Basophils Absolute Auto 0.09 K/mm3 (0.00-0.10); Basophils Percent Auto 1.6 % (0.0-1.0); Eosinophils Absolute Auto 0.11 K/mm3 (0.02-0.50); Hematocrit 37.2 % (37.0-46.0); Hemoglobin 12.2 g/dL (12.4-15.3); Immature Granulocyte Absolute 0.02 K/mm3 (0.00-0.00); Immature Granulocyte Percent A 0.4 % (0.0-0.0); Lymphocytes Absolute Auto 0.95 K/mm3 (1.10-4.50); Mean Corpuscular HGB Conc 32.8 g/dL (32.0-36.0); Mean Corpuscular Hemoglobin 29.5 pg (27.0-31.0); Mean Corpuscular Volume 90.1 fL (78.0-102.0); Mean Platelet Volume 9.6 fl (8.7-11.0); Monocytes Absolute Auto 0.31 K/mm3 (0.10-0.90); Monocytes Percent Auto 5.5 % (2.0-11.0); Neutrophils Absolute Auto 4.1 K/mm3 (1.7-7.2); Neutrophils Percent Auto 73.5 % (50.0-70.0); Platelet Count Result 212 K/mm3 (150-420); Red Blood Count 4.13 M/mm3 (4.70-6.10); Red Cell Distribution Width 12.1 % (11.6-14.4); White Blood Count 5.6 K/mm3 (4.8-10.8)
[2022-07-04 10:14] LABS: Alanine Aminotransferase 22 U/L (16-63); Albumin Level 3.8 g/dL (3.4-5.0); Alkaline Phosphatase 78 U/L (46-116); Amphetamine Screen Urine Negative (Negative); Anion Gap 7 mmol/L (8-16); Aspartate Amino Transferase 20 U/L (15-37); Barbiturate Screen Urine Positive (Negative); Benzodiazepines Screen Urine Negative (Negative); Bilirubin,Total 0.3 mg/dL (0.00-1.00); Blood Urea Nitrogen 22 mg/dL (7-18); Calcium 8.7 mg/dL (8.5-10.1); Cannabinoid Screen Urine Negative (Negative); Carbon Dioxide 28 mmol/L (21-32); Chloride 104 mmol/L (98-108); Cocaine Screen Urine Negative (Negative); Estimated CRCL calculation 38 ml/min; Estimated Glomerular Filt Rate 42; Glucose 136 mg/dL (70-99); Magnesium 2.3 mg/dL (1.8-2.4); Methadone Screen Urine Negative (Negative); Opiate Screen Urine Negative (Negative); Osmolality Calculated 293 mOsm/kg (285-295); Phencyclidine Screen Urine Negative (Negative); Sodium 139 mmol/L (136-145); Total Protein 7.3 g/dL (6.4-8.2); Troponin I 10.4 ng/L (0.00-60.4)
[2022-07-04 10:21] VITALS: BP 143/69; PULSE 74; RESP 16; TEMP 36.6; O2SAT 98
[2022-07-04 10:29] LABS: Ethanol < 3 mg/dL (0-6)
[2022-07-04] MEDS: MECLIZINE HCL 25 MG TABLET PO (11:02)
[2022-07-04 11:05] VITALS: BP 139/65; PULSE 70; RESP 16; TEMP 36.7; O2SAT 100
[2022-07-04 11:15] LABS: Influenza A QL RT-PCR Negative (Negative); Influenza B QL RT-PCR Negative (Negative); RSV RNA, RT-PCR Negative (Negative); SARS-CoV-2 RNA PCR Negative (Negative)
== END 2022-07-04 11:10 | disposition home or self-care (01) ==
PROVIDERS: Emergency Provider Family Medicine; PCP Internal Medicine
DX: H81.10 Benign paroxysmal vertigo, unspecified ear (principal); T42.3X1A Poisoning by barbiturates, accidental (unintentional), initial encounter; E11.9 Type 2 diabetes mellitus without complications; E78.5 Hyperlipidemia, unspecified; Z79.82 Long term (current) use of aspirin; Z79.4 Long term (current) use of insulin; Z87.891 Personal history of nicotine dependence; Z20.822 Contact with and (suspected) exposure to COVID-19
CPT/HCPCS: 36415; 80053; 80307; 83735; 84484; 85025; 87637; 93005; 99284; A9270

== ENCOUNTER 2022-07-14 14:19 | Outpatient (CLI) | payer BC, SELFPAY ==
--- NOTE | ~2022-07-14 | US_ITS ---
EXAMINATION: US carotid duplex BI DATE: 07/14/2022 14:56 INDICATION: Syncope. TECHNIQUE: Grayscale, color Doppler, and pulsed Doppler images of the cervical carotid arteries were obtained. The degree of vessel stenosis is placed in one of the following categories: normal, <50%, 5 0-69%, >=70% but less than near-occlusion, near-occlusion, or total occlusion. Note that percent sten osis relative to normal distal artery lumen diameter is indirectly measured from velocity measurement s as described by Jac, et al. Radiology 2003; 229:340-346. COMPARISON: None. FINDINGS: RIGHT: The right common carotid artery (CCA) peak systolic velocity (PSV) is 75 cm/s. The right internal car otid artery (ICA) PSV is 126 cm/s. The right ICA end-diastolic velocity (EDV) is 32 cm/s. The right I CA/CCA PSV ratio is 1.7. Grayscale and color Doppler images yield an estimate of <50% diameter reduct ion from plaque in the ICA. There is antegrade flow in the right vertebral artery. LEFT: The left CCA PSV is 54 cm/s. The left ICA PSV is 251 cm/s. The left ICA EDV is 63 cm/s. The left ICA/ CCA PSV ratio is 4.6. Grayscale and color Doppler images yield an estimate of >=50% diameter reductio n from plaque in the ICA. There is antegrade flow in the left vertebral artery. IMPRESSION: 1. <50% stenosis in the right internal carotid artery. 2. >70% stenosis in the left internal carotid artery, but less than near occlusion. Reviewed, dictated and finalized at location A. IMPRESSION: 1. <50% stenosis in the right internal carotid artery. 2. >70% stenosis in the left internal carotid artery, but less than near occlus ion.
--- NOTE | ~2022-07-14 | XR_ITS ---
EXAMINATION:XR_[id number]_CR DATE: 07/14/2022 14:58 INDICATION: Neck pain, dizziness and syncope TECHNIQUE: AP, lateral, lateral swimmers and odontoid views of the cervical spine are provided. COMPARISON: None FINDINGS: Straightening of the normal cervical lordosis. No spondylolisthesis or facet subluxation. Odontoid i s intact. Normal atlantoaxial interval. Vertebral body heights are normal. Moderate to severe disc h eight loss at C4-C5 and C5-C6 and mild disc height loss at C3-C4 and C6-C7. Moderate to severe uncove rtebral osteoarthritis on the left at 4 C5-C6 C7 and on the right at C5-C6 and C6-C7. There is also m ild to moderate multilevel bilateral facet osteoarthritis. Small posterior endplate osteophytes contr ibute to mild central canal stenosis at C4-C5. Prevertebral soft tissues are normal. Visualized apice s of lungs are clear. IMPRESSION: 1. Moderate to severe lower cervical spondylosis. Reviewed, dictated and finalized at location A.
== END 2022-07-14 14:20 | disposition home or self-care (01) ==
LOC: CHSIMG 14:21
PROVIDERS: PCP Internal Medicine; Visit Provider Internal Medicine
DX: R42 Dizziness and giddiness (principal); R55 Syncope and collapse; R94.31 Abnormal electrocardiogram [ECG] [EKG]; M54.2 Cervicalgia; M43.02 Spondylolysis, cervical region; I65.23 Occlusion and stenosis of bilateral carotid arteries
CPT/HCPCS: 72040; 93880

== ENCOUNTER 2022-07-19 14:56 | Outpatient (RCR) | payer BC, SELFPAY ==
--- NOTE | 2022-07-19 16:16 | PTOPDC ---
Assessment and note entered by Lilly Moon DPT Evaluation Information Assessment Status Evaluation Diagnosis dizziness Onset 07/12/22 Subjective Information Patient reports he has had chronic light headedness. He reports no room spinning sensation or pattern to onset of light headedness. He reports he has had instances of blacking out and went to the ER. He has since had a carotid artery doppler that shows blockage and he goes to see a surgeon on 07/28. He reports he feels his balance is good but walks with a cane due to fear of light headedness. Reported Pain Level Pain Score 0: Self Report Assessment PT Clinical Summary Patient presents today with no signs of BPPV or other positive vestibular tests and measures. He was educated on presentation of vertigo and vestibular symptoms along with his grand daughter. At this time he will not benefit from skilled PT and will follow up with any change in presention. Plan of Care PT Services Indicated No
--- NOTE | 2022-07-20 07:57 | OPREHPOC ---
Outpatient Therapy Plan of Care This is a Multidisciplinary Plan of Care that may contain components documented by all disciplines (PT, OT, and ST.)
== END 2022-07-19 15:22 | disposition home or self-care (01) ==
LOC: CHSPT 14:56
PROVIDERS: PCP Internal Medicine; Visit Provider Internal Medicine
DX: R42 Dizziness and giddiness (principal)
CPT/HCPCS: 97161

== ENCOUNTER 2022-07-22 07:35 | Outpatient (CLI) | payer BC, SELFPAY ==
--- NOTE | ~2022-07-22 | MR_ITS ---
MRI of the brain Clinical History: Dizziness, syncope Technique: Axial and sagittal T1-weighted images were acquired. These were followed by axial T2-weigh jessica, diffusion weighted, gradient, and FLAIR images. Findings: There is no acute infarct, intracranial hemorrhage or mass lesion. There are mild chronic w khadijah matter changes in the periventricular white matter bilaterally. Ventricles and subarachnoid spaces are unremarkable. Orbits are unremarkable. Paranasal sinuses and m astoid air cells are clear. Major intracranial flow voids appear intact. Sagittal midline structures are intact. IMPRESSION: No acute infarct, internal hemorrhage, or mass lesion. Mild chronic microvascular ischemic changes. Reviewed, dictated and finalized at location M.
== END 2022-07-22 07:36 | disposition home or self-care (01) ==
LOC: CHSIMG 07:37
PROVIDERS: PCP Internal Medicine; Visit Provider Internal Medicine
DX: R42 Dizziness and giddiness (principal); R55 Syncope and collapse; R94.31 Abnormal electrocardiogram [ECG] [EKG]; M54.2 Cervicalgia
CPT/HCPCS: 70551

== ENCOUNTER 2022-07-30 14:27 | Outpatient (CLI) | payer BC, SELFPAY ==
--- NOTE | 2022-07-30 14:34 | ECHO_ITS ---
Patient Info Name: Charles Hannah Age: 77 years : 1945 Gender: Male Ht: 72 in Wt: 160 lbs BSA: 1.92 m2 HR: 70 bpm BP: 153 / 76 mmHg Technical Quality: Fair Exam Date: 07/30/2022 2:45 PM Exam Location: [facility] Patient Status: Outpatient Admit Date: 07/30/2022 Staff Ordering Physician: Shawn Vargas MD Manager Testing: Laura Balbuena RDCS Attending Provider: Shawn Vargas MD Exam Type: CA echo doppler color flow Study Info Indications R42 - Dizziness and giddiness R94.31 - Abnormal electrocardiogram ECG EKG R55 - Syncope and collapse Complete two-dimensional, color flow and Doppler transthoracic echocardiogram is performed. Summary 1. Complete two-dimensional, color flow and Doppler transthoracic echocardiogram is performed. 2. Left ventricular chamber dimension is normal. 3. Left ventricular systolic function is normal, estimated at 60-65%. 4. The left ventricular diastolic function is grade I diastolic dysfunction. 5. E/e' 7 is not elevated. 6. There is mild aortic valve sclerosis. 7. There is mild tricuspid valve regurgitation. 8. No pulmonary hypertension, estimated pulmonary arterial systolic pressure is 10 mmHg. 9. There is trace pulmonic regurgitation. Left Ventricle E/e' 7 is not elevated. Left ventricular chamber dimension is normal. Left ventricular systolic function is normal, estimated at 60-65%. The left ventricular diastolic function is grade I diastolic dysfunction. Right Ventricle Right ventricular systolic function is normal and with normal TAPSE 3.0 cm. Right ventricular chamber dimension is normal. Left Atria Left atrial chamber dimension is normal. Right Atria Right atrial chamber dimension is normal. Aortic Valve The aortic valve is trileaflet. There is mild aortic valve sclerosis. There is no aortic valve stenosis. There is no aortic valve regurgitation. Pulmonic Valve There is trace pulmonic regurgitation. Mitral Valve There is no mitral valve stenosis. There is no mitral valve regurgitation. Tricuspid Valve There is mild tricuspid valve regurgitation. No pulmonary hypertension, estimated pulmonary arterial systolic pressure is 10 mmHg. Pericardium/Pleural There is no pericardial effusion. Inferior Vena Cava Normal inferior vena cava with >50% collapse upon inspiration consistent with normal right atrial pressure, 5 mmHg. Aorta The aortic root size at the sinus of Valsalva is normal. Left Ventricular Outflow Tract Name Value Normal LVOT 2D LVOT Diameter 2.1 cm LVOT Doppler LVOT Peak Velocity 58 cm/s LVOT Peak Gradient 1 mmHg LVOT Mean Gradient 1 mmHg LVOT VTI 13 cm LVOT VTI/AV VTI Ratio 0.5 LVOT Stroke Volume 43 ml Mitral Valve Name Value Normal MV Doppler MV Decel Fajardo 149 cm/s2 M
== END 2022-07-30 14:28 | disposition home or self-care (01) ==
LOC: CHSIMG 14:28
PROVIDERS: PCP Internal Medicine; Visit Provider Internal Medicine
DX: R42 Dizziness and giddiness (principal); R55 Syncope and collapse; R94.31 Abnormal electrocardiogram [ECG] [EKG]; M54.2 Cervicalgia; I08.2 Rheumatic disorders of both aortic and tricuspid valves
CPT/HCPCS: 93306

== ENCOUNTER 2023-01-05 07:32 | Emergency (ER) | payer BC, SELFPAY ==
[2023-01-05 07:43] VITALS: BP 154/82; O2SAT 95
[2023-01-05 07:44] VITALS: BP 148/88; PULSE 88; RESP 18; TEMP 36.4; O2SAT 96
[2023-01-05 08:06] LABS: Glucose Point of Care 216 mg/dl (65-105)
--- NOTE | 2023-01-05 08:09 | ED.GENADULT ---
HPI - General Adult General Chief complaint: Nausea/Vomiting/Diarrhea Stated complaint: sick for a week Time Seen by Provider: 01/05/23 07:38 History of Present Illness HPI narrative: Patient is a 77-year-old male who presents ER with upper abdominal pain for the last week. Reports its a burning that goes up into his chest and into the back of his throat. It makes him nauseous and he occasionally vomits. Reports he has been having occasional dark black stools. He has not been taking Pepto-Bismol. He is not on any blood thinners. No dizziness or loss of consciousness. Denies history of gastric ulcer. Related Data Home Medications Medication Instructions Recorded Confirmed aspirin 81 mg tablet 81 mg PO DAILY 08/12/20 10/13/22 rosuvastatin 20 mg tablet 20 mg PO DAILY 08/12/20 10/13/22 dapagliflozin propanediol 5 mg 5 mg PO DAILY 03/31/22 10/13/22 tablet (Farxiga) dulaglutide 1.5 mg/0.5 mL 3 mg subcut WEEKLY 03/31/22 10/13/22 subcutaneous pen injector (Trulicity) insulin glargine 100 unit/mL (3 50 unit subcut DAILY 03/31/22 10/13/22 mL) subcutaneous pen (Basaglar KwikPen U-100 Insulin) glimepiride 1 mg tablet 1 mg PO DAILY 07/04/22 10/13/22 pantoprazole 40 mg tablet,delayed 40 mg PO DAILY 07/04/22 10/13/22 release Allergies Allergy/AdvReac Type Severity Reaction Status Date / Time No Known Allergies Allergy Verified 10/13/22 14:00 Review of Systems Review of Systems: All systems reviewed & are unremarkable except as noted in HPI and below Constitutional: Constitutional: Denies chills, Denies fatigue and Denies fever(s) ENT: Denies nasal congestion and Denies sore throat Cardiovascular: Cardiovascular: Denies chest pain, Denies rapid heart rate and Denies radiating jaw, neck or arm pain Respiratory: Respiratory: Reports no additional respiratory complaints Gastrointestinal: Gastrointestinal: Reports abdominal pain, Reports heartburn, Reports nausea and Reports vomiting Genitourinary: Genitourinary: Reports no additional male genitourinary complaints [facility] Past Medical History Medical History Diabetes mellitus with autonomic neuropathy Diabetic foot ulcer associated with type 2 diabetes mellitus Left wrist fracture Neuropathy in diabetes Peripheral arterial disease Social History Social History Smoking status: Former smoker Additional smoking assessment comments: HAS NOT SMOKED IN OVER 30 YRS Substance use: never Substance use type: does not use Lack of Transportation: No Lack of Food: Never True Current Housing: I Have Housing Concerned About Future Housing: No Difficulty Paying Gas/Electric Bills: No Difficulty Paying for Meds: No Currently Unemployed: No Education: High School Diploma/GED Difficulty w/ Childcare or Family Care: No Living arrangements: with family Gender identity (if verbalized by the patient): Male Spiritual care concerns: No Exam Narrative: GENERAL: Well-appearing, well-nourished, and in no acute distress. HEAD: Normocephalic, atraumatic. EYES: PERRL and EOMI. ENT: Mucous membranes moist. CHEST: Clear to auscultation. No respiratory distress. HEART: Regular rate and rhythm. Normal peripheral pulses. ABDOMEN: Soft, nontender, nondistended. Firm stool in rectal vault that is Hemoccult negative and is not dark black in appearance. EXTREMITIES: Normal range of motion. No edema. SKIN: Warm, dry, no rash. NEURO: Alert and oriented x3. PSYCH: Normal mood and affect. Course Course Emergency Course: Patient resting comfortably. Informed of results, creatinine at baseline as his hemoglobin. Discussed treatment plan and need for follow-up with GI. Patient and family verbalized understanding. Discharge home. Vital Signs Vital signs: Vital Signs Blood Pressure 154/82 H 01/05/23 07:43 Pulse Oximetry 95 11/0
[2023-01-05 08:11] LABS: Basophils Absolute Auto 0.1 K/mm3 (0.0-0.1); Eosinophils Absolute Auto 0.1 K/mm3 (0-0.3); Eosinophils Percent Auto 1.1 % (0-4.4); Hematocrit 41.3 % (42.0-52.0); Hemoglobin 12.9 g/dL (14.0-18.0); Immature Granulocyte Absolute 0.02 K/mm3 (0.00-0.031); Immature Granulocyte Percent A 0.2 % (0-0.5); Lymphocytes Absolute Auto 0.91 K/mm3 (0.9-3.2); Lymphocytes Percent Auto 11.2 % (18.3-44.2); Mean Corpuscular HGB Conc 31.2 g/dl (32-36); Mean Corpuscular Hemoglobin 28.4 pg (26-34); Mean Platelet Volume 9.9 fl (7.4-10.4); Monocytes Absolute Auto 0.5 K/mm3 (0.1-0.6); Monocytes Percent Auto 5.9 % (2.6-8.5); Neutrophils Absolute Auto 6.6 K/mm3 (1.3-6.7); Neutrophils Percent Auto 80.6 % (45.5-73.1); Platelet Count Result 258 k/mm3 (150-375); Red Blood Count 4.54 M/mm3 (4.6-6.20); Red Cell Distribution Width 12.6 % (11.5-14.5); White Blood Count 8.2 K/mm3 (4.5-10.0)
[2023-01-05 08:29] LABS: Alanine Aminotransferase 27 U/L (6-50); Albumin Level 4.6 g/dL (3.5-5.1); Alkaline Phosphatase 97 U/L (38-126); Anion Gap 9 mmol/L (8-16); Aspartate Amino Transferase 30 U/L (17-59); Bilirubin,Total 0.6 mg/dL (0.2-1.3); Blood Urea Nitrogen 23 mg/dL (9-20); Calcium 9.5 mg/dL (8.4-10.2); Carbon Dioxide 26 mmol/L (22-30); Chloride 103 mmol/L (98-107); Estimated Glomerular Filt Rate 39; Glucose 199 mg/dL (65-110); Potassium 4.8 mmol/L (3.4-5.0); Sodium 138 mmol/L (137-145)
[2023-01-05 08:38] LABS: Prothrombin Time 13.2 Seconds (11.1-14.7)
[2023-01-05 08:39] LABS: Partial Thromboplastin Time 24.9 SECONDS (22.3-36.8)
[2023-01-05] MEDS: SODIUM CHLORIDE 0.9% IV 1,000 ML 999 ML IV CONT (08:44)
[2023-01-05] MEDS: PANTOPRAZOLE SODIUM IV 40 MG VIAL IV PUSH (08:45)
[2023-01-05] MEDS: ONDANSETRON INJ 4 MG/2 ML VIAL IV PUSH (08:45)
[2023-01-05 09:31] VITALS: BP 175/81; O2SAT 99
[2023-01-05 10:24] VITALS: BP 157/82; PULSE 71; RESP 18; O2SAT 99
== END 2023-01-05 10:26 | disposition home or self-care (01) ==
PROVIDERS: Emergency Provider Emergency Medicine; PCP Internal Medicine
DX: K21.9 Gastro-esophageal reflux disease without esophagitis (principal); E11.51 Type 2 diabetes mellitus with diabetic peripheral angiopathy without gangrene; I73.9 Peripheral vascular disease, unspecified; E11.43 Type 2 diabetes mellitus with diabetic autonomic (poly)neuropathy; Z87.891 Personal history of nicotine dependence; Z79.85 Long-term (current) use of injectable non-insulin antidiabetic drugs; Z79.4 Long term (current) use of insulin; Z79.84 Long term (current) use of oral hypoglycemic drugs
CPT/HCPCS: 36415; 80053; 82948; 85025; 85610; 85730; 96361; 96374; 96375; 99284; C9113; J2405; J7030

== ENCOUNTER 2023-01-28 01:52 | Day surgery (SDC) | payer BC, SELFPAY ==
[2023-01-17 09:18] VITALS: BMI 24.6
--- NOTE | 2023-01-26 09:55 | SUR.PREOP ---
Patient called regarding upcoming procedure. Reviewed preop instructions, appointment times, and procedure prep.
--- NOTE | 2023-01-27 14:28 | PM.HPGS ---
History of Present Illness History of Present Illness Consent: Risks, benefits, and alternatives have been discussed and questions answered. Patient agrees to proceed with procedure. Chief complaint: Dysphagia Narrative: Charles Hannah is a 77 year old male who was having dysphagia for solid food. About 18 months ago he was found to have an esophageal stricture on endoscopy and it was dilated up to 20 mm at that time. Review of Systems Review of Systems: All systems reviewed & are unremarkable except as noted in HPI and below [facility] Past Medical History Medical History Diabetes mellitus with autonomic neuropathy Diabetic foot ulcer associated with type 2 diabetes mellitus Left wrist fracture Neuropathy in diabetes Peripheral arterial disease Social History Social History Smoking status: Never smoker Additional smoking assessment comments: HAS NOT SMOKED IN OVER 30 YRS Substance use: never Substance use type: does not use Lack of Transportation: No Lack of Food: Never True Current Housing: I Have Housing Concerned About Future Housing: No Difficulty Paying Gas/Electric Bills: No Difficulty Paying for Meds: No Currently Unemployed: No Education: High School Diploma/GED Difficulty w/ Childcare or Family Care: No Living arrangements: with family Additional living arrangements comments: With granddaughter Gender identity (if verbalized by the patient): Male Spiritual care concerns: No Meds Home Medications and Allergies Home Medications Medication Instructions Recorded Confirmed Type aspirin 81 mg tablet 81 mg PO DAILY 08/12/20 01/17/23 History rosuvastatin 20 mg tablet 20 mg PO DAILY 08/12/20 01/17/23 History dapagliflozin propanediol 5 mg 5 mg PO DAILY 03/31/22 01/17/23 History tablet (Farxiga) dulaglutide 1.5 mg/0.5 mL 1.5 mg subcut WEEKLY 03/31/22 01/17/23 History subcutaneous pen injector (Trulicity) insulin glargine 100 unit/mL (3 See Rx Instructions .Route .COMPLEX 03/31/22 01/17/23 History mL) subcutaneous pen (Basaglar KwikPen U-100 Insulin) glimepiride 1 mg tablet 1 mg PO PRN PRN Other 07/04/22 01/17/23 History pantoprazole 40 mg tablet,delayed 40 mg PO DAILY 07/04/22 01/17/23 History release cetirizine 10 mg capsule (Zyrtec) 10 mg PO DAILY 01/17/23 01/17/23 History Allergies Allergy/AdvReac Type Severity Reaction Status Date / Time lisinopril Allergy Swelling Verified 01/17/23 09:18 of Lip/Tongue/Throat Exam Const: General: alert Orientation/consciousness: patient oriented x3 Resp: Auscultation: clear to auscultation bilaterally Cardio: Rhythm: regular rhythm GI: GI Palp: Yes Soft to palpation and No Tenderness to palpation present (GI) Neuro: General: patient oriented x3 Assessment and Plan Assessment and plan (1) Dysphagia: Code(s): R13.10 - Dysphagia, unspecified Status: Acute Assessment and Plan: EGD with possible biopsy or dilatation or cautery.
[2023-01-28 13:03] VITALS: BP 144/71; PULSE 70; RESP 20; TEMP 36.4; O2SAT 98; BMI 23.3
[2023-01-28] MEDS: LACTATED RINGERS 1,000 ML 150 ML IV CONT (13:16)
[2023-01-28 13:23] LABS: Glucose Point of Care 136 mg/dl (65-105)
--- NOTE | 2023-01-28 13:37 | WPDANESEPPF ---
Anes - Initial Pre Proc Eval Procedure: Operation Date: 01/28/23 14:00 Proposed Procedures p Esophagogastroduodenoscopy - Elvis Stern MD Date/Time: 01/28/23 13:37 Surgeon: Elvis Stern MD Pre Op Diagnosis: Dysphagia Patient Data Age: 77 Gender: M Height: 1.83 m Weight: 78 kg Last Vital Signs Temp 97.5 F L 01/28/23 13:03 Pulse 70 01/28/23 13:03 Resp 20 01/28/23 13:03 BP 144/71 H 01/28/23 13:03 Pulse Ox 98 01/28/23 13:03 O2 Del Method Room Air 01/28/23 13:03 Allergies Allergy/AdvReac Type Severity Reaction Status Date / Time lisinopril Allergy Swelling Verified 01/17/23 09:18 of Lip/Tongue/Throat Home Medications Medication Instructions Recorded Confirmed Type aspirin 81 mg tablet 81 mg PO DAILY 08/12/20 01/17/23 History rosuvastatin 20 mg tablet 20 mg PO DAILY 08/12/20 01/17/23 History dapagliflozin propanediol 5 mg 5 mg PO DAILY 03/31/22 01/17/23 History tablet (Farxiga) dulaglutide 1.5 mg/0.5 mL 1.5 mg subcut WEEKLY 03/31/22 01/17/23 History subcutaneous pen injector (Trulicity) insulin glargine 100 unit/mL (3 See Rx Instructions .Route .COMPLEX 03/31/22 01/17/23 History mL) subcutaneous pen (Basaglar KwikPen U-100 Insulin) glimepiride 1 mg tablet 1 mg PO PRN PRN Other 07/04/22 01/17/23 History pantoprazole 40 mg tablet,delayed 40 mg PO DAILY 07/04/22 01/17/23 History release cetirizine 10 mg capsule (Zyrtec) 10 mg PO DAILY 01/17/23 01/17/23 History Laboratory Tests 01/28/23 13:19 POC Capillary Glucose 136 H mg/dl (65-105) Patient hx anesthesia problems: none Family hx anesthesia problems: none Results Review: All pre-operative results and documents have been reviewed as part of the pre-operative evaluation. [facility] Past Medical History Medical History Diabetes mellitus with autonomic neuropathy Diabetic foot ulcer associated with type 2 diabetes mellitus Left wrist fracture Neuropathy in diabetes Peripheral arterial disease Social History Social History Smoking status: Never smoker Additional smoking assessment comments: HAS NOT SMOKED IN OVER 30 YRS Substance use: never Substance use type: does not use Lack of Transportation: No Lack of Food: Never True Current Housing: I Have Housing Concerned About Future Housing: No Difficulty Paying Gas/Electric Bills: No Difficulty Paying for Meds: No Currently Unemployed: No Education: High School Diploma/GED Difficulty w/ Childcare or Family Care: No Living arrangements: with family Additional living arrangements comments: With granddaughter Gender identity (if verbalized by the patient): Male Spiritual care concerns: No Anes - Eval Final PreProcedure Day of Procedure 01/28/23 13:37 Patient weight: normal Heart: regular rate and rhythm Lungs: clear to auscultation Neurological: alert and oriented Last oral intake: >/= 8 hours ASA classification: III Emergent: no Anesthetic plan: proceed Anesthesia type and monitoring: general GIVS and standard monitoring Results Review: All pre-operative results and documents have been reviewed as part of the pre-operative evaluation. Informed Consent: The patient's anesthetic plan and its attendant risks and benefits were discussed with the patient/family/POA. Questions were solicited and answers provided to the satisfaction of the patient/family/POA.
[2023-01-28 13:51] VITALS: BP 122/68; PULSE 78; RESP 18; O2SAT 99
[2023-01-28 14:01] VITALS: BP 122/75; PULSE 63; RESP 18; O2SAT 100
[2023-01-28 14:11] VITALS: BP 134/76; PULSE 64; RESP 18; O2SAT 100
[2023-01-28 14:36] LABS: Glucose Point of Care 116 mg/dl (65-105)
== END 2023-01-28 14:27 | disposition home or self-care (01) ==
PROVIDERS: PCP Internal Medicine; Visit Provider Internal Medicine Gastroenterology
PROC: 0DJ08ZZ Inspection of Upper Intestinal Tract, Via Natural or Artificial Opening Endoscopic (ICD-10-PCS; CPT 43235; principal; 2023-01-28 14:00)
DX: K21.9 Gastro-esophageal reflux disease without esophagitis (principal); E11.43 Type 2 diabetes mellitus with diabetic autonomic (poly)neuropathy; Z79.82 Long term (current) use of aspirin; Z79.85 Long-term (current) use of injectable non-insulin antidiabetic drugs; Z79.4 Long term (current) use of insulin; Z79.84 Long term (current) use of oral hypoglycemic drugs; Z86.79 Personal history of other diseases of the circulatory system
CPT/HCPCS: 43235; 82948; J2704; J7120

== ENCOUNTER 2023-03-03 12:13 | Outpatient (CLI) | payer BC, SELFPAY ==
[2023-03-03 12:37] LABS: Basophils Absolute Auto 0.12 K/mm3 (0.00-0.10); Basophils Percent Auto 1.6 % (0.0-1.0); Eosinophils Absolute Auto 0.16 K/mm3 (0.02-0.50); Eosinophils Percent Auto 2.2 % (1.0-6.0); Hematocrit 41.4 % (37.0-46.0); Hemoglobin 13.1 g/dL (12.4-15.3); Immature Granulocyte Absolute 0.02 K/mm3 (0.00-0.00); Immature Granulocyte Percent A 0.3 % (0.0-0.0); Lymphocytes Absolute Auto 1.28 K/mm3 (1.10-4.50); Lymphocytes Percent Auto 17.6 % (18.0-42.0); Mean Corpuscular HGB Conc 31.6 g/dL (32.0-36.0); Mean Corpuscular Hemoglobin 28.7 pg (27.0-31.0); Mean Corpuscular Volume 90.8 fL (78.0-102.0); Mean Platelet Volume 9.8 fl (8.7-11.0); Monocytes Percent Auto 6.9 % (2.0-11.0); Neutrophils Absolute Auto 5.2 K/mm3 (1.7-7.2); Neutrophils Percent Auto 71.4 % (50.0-70.0); Platelet Count Result 303 K/mm3 (150-420); Red Blood Count 4.56 M/mm3 (4.70-6.10); Red Cell Distribution Width 12.6 % (11.6-14.4); White Blood Count 7.3 K/mm3 (4.8-10.8)
[2023-03-03 12:47] LABS: D Dimer 0.39 mg/L (0.19-0.50)
[2023-03-03 13:03] LABS: Alanine Aminotransferase 30 U/L (16-63); Albumin Level 4.1 g/dL (3.4-5.0); Alkaline Phosphatase 93 U/L (46-116); Anion Gap 11 mmol/L (8-16); Aspartate Amino Transferase 16 U/L (15-37); Bilirubin,Total 0.5 mg/dL (0.00-1.00); Blood Urea Nitrogen 23 mg/dL (7-18); Calcium 9.5 mg/dL (8.5-10.1); Carbon Dioxide 28 mmol/L (21-32); Chloride 100 mmol/L (98-108); Creatine Kinase 59 U/L (39-308); Estimated Glomerular Filt Rate 34; Glucose 247 mg/dL (70-99); Magnesium 2.3 mg/dL (1.8-2.4); NT Pro B Type Natriuretic Pept 17 pg/mL (0-450); Osmolality Calculated 299 mOsm/kg (285-295); Potassium 5.1 mmol/L (3.5-5.1); Sodium 139 mmol/L (136-145); Troponin I 7.1 ng/L (0.00-60.4)
== END 2023-03-03 12:14 | disposition home or self-care (01) ==
LOC: CHSLAB 12:15
PROVIDERS: PCP Internal Medicine; Visit Provider Internal Medicine
DX: R42 Dizziness and giddiness (principal); R06.00 Dyspnea, unspecified
CPT/HCPCS: 36415; 80053; 82550; 82553; 83735; 83880; 84484; 85025; 85380

== ENCOUNTER 2024-09-04 13:41 | Outpatient (CLI) | payer BC, SELFPAY ==
--- OUTSIDE RECORDS SUMMARY | 2024-09-04 13:45 | XMS_ITS | Clinical Summary ---
Author Organization [facility] Address [address] [place] [address] Phone Care Team Providers Care Home Health Physical Therapist Name Role Phone Shawn Vargas MD Primary Care Provider Allergies Active Allergy Reactions Criticality Noted Date Comments Lisinopril 09/04/2020 angioedema Medications [facility] D3 50 MCG (1999) capsule Take 1 tablet by mouth 1 (one) time each day 07/25/2020 Active Basaglar KwikPen 100 UNIT/ML injection INJECT 40UNITS UNDER THE SKIN IN THE MORNING 08/05/2020 Active UltiCare Mini Pen [place] 31G X 6 MM misc USE WITH INSULIN DAILY DX E11.9 08/14/2020 Active Omeprazole 20 MG tablet delayed-release Take 1 tablet by mouth 1 (one) time each day 07/28/2020 Active rosuvastatin (CRESTOR) 20 MG tablet Take 20 mg by mouth 1 (one) time each day 08/04/2020 Active Dulaglutide 0.75 MG/0.5ML solution pen-injector Inject under the skin weekly Active aspirin (ST MARITZA) 81 MG EC tablet Take 81 mg by mouth 1 (one) time each day Active True Metrix Blood Glucose Test test strip 12/31/2020 Act avery Active Problems Problem Noted Date Diagnosed Date Chronic kidney disease stage 3A 02/19/2021 Nonspecific abnormal results of function study o f kidney 09/07/2020 Tired 09/07/2020 Diabetes mellitus without me ntion of complication, type II or unspecified type, not stated as uncontrolled 09/07/2020 Immunizations Immunization Administration Dates Next Due Influenza TIV (IM) 10/29/2020 Pneumococcal Conjugate 10/30/2019 Family History Medical History Relation Comments Kidney disease Neg Hx Social History Tobacco Use Types Packs/Day Years Used Date Smoking Tobacco: Former Smokeless Tobacco: Never Alcohol Use Standard Drinks/Week Comments Not Currently 0 (1 standard drink = 0.6 oz pur e alcohol) Sex and Gender Information Value Date Recorded Sex Assigned at Not on file Legal Sex Male 8:37 AM MDT Gender Identity Not on file Sexual Orientation Not on file Last Filed Vital Signs Vital Sign Reading Time Taken Comments Blood Pressure 124/70 02/19/2021 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 Pulse 72 02/19/2021 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 Temperature 35.7 C (96.3 F) 02/19/2021 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 Respiratory Rate - - Oxygen Saturation - - Inhaled Oxygen Concentration - - Weight 78.9 kg (174 lb) 02/19/2021 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
--- OUTSIDE RECORDS SUMMARY | 2024-09-04 13:45 | XMS_ITS | Clinical Summary ---
Author Organization [facility] Address [address] [place] [address] Phone Care Team Providers Care Superintendent Landfill Operations Name Role Phone Shawn Vargas MD Primary Care Provider [phone] Anurag Avila MD Unavailable [phone] Allergies Active Allergy Reactions Criticality Noted Date Comments Lisinopril Anaphylaxis 03/29/2023 Medications Insulin Glargine (BASAGLAR KWIKPEN SC) 30 paul-units by Subcutaneous route. Active rosuvastatin (CRESTOR) 20 MG Tablet Take 20 mg by mouth daily. Active Dapagliflozin Propanediol (Farxiga) 5 MG Tablet Take 10 mg by mouth. Active famotidine (PEPCID) 40 MG Tablet Take 40 mg by mouth 2 times daily. Active Cetirizine HCl (ZYRTEC ALLERGY PO) Take by mouth. Activ e aspirin EC 81 MG Tablet Delayed Response Take 81 mg by mouth daily. 025 Discontin ued(Med List Clean Up) Insulin Lispro, 1 Unit Dial, 100 UNIT/ML Solution Pen-injector INJECT 4 UNITS SUBCUTANEOUSLY TWICE A DAY BEFORE MEALS FOR 90 DAYS 11/09/19 24 025 Discontin ued(Med List Clean Up) carbidopa-levod opa (SINEMET) 25-100 MG Tablet Take 0.5 Tablets by mouth 3 times daily. 1/2 hour before eating 135 Tablet 1 01/19/20 24 025 Discontin ued(Alter migel therapy) donepezil (ARICEPT) 10 MG Tablet TAKE 1 TABLET BY MOUTH EVERY NIGHT 90 Tablet 3 02 025 Discontin ued(Med List Clean Up) Active Problems Problem Noted Date Diagnosed Date Parkinsonism, unspecified Parkinsonism type 07/29 Encounters Date Type Department Care Team Description 08/10/2024 10:45 AM CDT Office Visit [facility] [address] [place] [address] Anurag Avila MD Parkinsonism, unspecified Parkinsonism type (HCC) (Primary Dx); OAB (overactive bladder); Balance disorder Discharge Disposition: Discharged to home or Selfcare 08/10/2024 Travel 06/25/2024 [facility] [address] [place] [address] Anurag Avila MD from Last 3 Months Family History Medical History Relation Name Comments Diabetes Brother No Known Problems Father Breast Cancer Mother Relation Name Status Comments Brother Alive Father Maternal Grandfather Maternal Grandmother Mother Sister Alive Social History Tobacco Use Types Packs/Day Years Used Date Smoking Tobacco: Former Cigarettes Q uit: 2015 Smokeless Tobacco: Never Tobacco Cessation:Counseling Given: Not Answered Sex and Gender Information Value Date Recorded Sex Assigned at Not on file Legal Sex Male 10:52 AM CDT Gender Identity Not on file Sexual Orientation Not on file Last Filed Vital Signs Vital Sign Reading Time Taken Comments Blood Pressure 106/60 08/10/2024 10:50 AM CDT Pulse 67 08/10/2024 10:50 AM CDT Temperature 36.7 C (98.1 F) 08/10/2024 10:50 AM CDT Respiratory Rate 17 08/10/2024 10:50 AM CDT Oxygen Saturation 97% 08/10/2024 10:50 AM CDT Inhaled Oxygen Concentration - - Weight 77.3 kg (170 lb 8 oz) 08/10/2024 10:50 AM CDT Height 185.4 cm (6' 1) 08/10/2024 10:50 AM CDT Body Mass Index 22.49 08/10/2024 10:50 AM CDT Plan of Treatment Upcoming Encounters Date Type Department Care Team (Late st Contact Info) Description 08/08/2025 2:30 PM CDT Office Visit [facility] [address] [place] [address] Anurag Avila MD [address] [place] [address] Health Maintenance Due Date Last Done Comments Hepatitis C Virus (HCV) Screening 1945 TdaP Immunization 1945 Pneumococcal Immunization (50+ years) (1 of 1 - PCV) 1994 10/30/2019 Zoster Immunization (1 of 2) 1994 Respiratory Syncytial Virus (RSV) Immunization (Adult) (1 - 1-dose 75+ series) 06/12/2019 SARS-COV-2 Immunization (2 - season) 2023 01/28/2021 Influenza Immunization (Season Ended) 2024 11/04/2022, 12/01/2021, 11/14/2020, Additional history exists Hepatitis B Immunization Aged Out No longer eligible based on patient's age to complete this topic Human Papillomavirus (HPV) Immunization Aged Out No longer eligible based on patient's age to complete this topic Meningococcal Immunization (ACWY) Aged Out No longer eligible based on patient's age to complete this topic Rotavirus Immunization Aged Out No lo nger eligible based on patient's age to complete this topic Insurance [facility] MEDICARE Care Teams Superintendent Landfill Operations Relationship Specialty Start Date End Date Shawn Vargas MD [address] [place], [place] [id number] PCP - General Internal Medicine 02/22/23 Anurag Avila MD [address] [place] [address] Consulting Physician Neurology 03/29/23
--- OUTSIDE RECORDS SUMMARY | 2024-09-04 13:45 | XMS_ITS | Encounter Summary ---
Author Organization [facility] Address [address] [place] [address] Phone Care Team Providers Care Collection Specialist Name Role Phone Shawn Vargas MD Primary Care Provider [phone] Anurag Avila MD Unavailable Reason for Visit * Reason Comments Medication Refill Encounter Details Date Type Department Care Team (Late st Contact Info) Description 12/15/2023 [facility] [address] [place] [address] Anurag Avila MD [address] [place] [address] Medication Refill Social History Tobacco Use Types Packs/Day Years Used Date Smoking Tobacco: Former Cigarettes Q uit: 2015 Smokeless Tobacco: Never Sex and Gender Information Value Date Recorded Sex Assigned at Not on file Legal Sex Male 10:52 AM CDT Gender Identity Not on file Sexual Orientation Not on file documented as of this encounter Plan of Treatment Upcoming Encounters Date Type Department Care Team (Late st Contact Info) Description 08/08/2025 2:30 PM CDT Office Visit [facility] [address] [place] [address] Anurag Avila MD [address] [place] [address] documented as of this encounter Visit Diagnoses Not on filedocumented in this encounter Care Teams Collection Specialist Relationship Specialty Start Date End Date Shawn Vargas MD [address] [place] [address] PCP - General Internal Medicine 02/22/23 Anurag Avila MD [address] [place] [address] Consulting Physician Neurology 03/29/23 documented as of this encounter
--- OUTSIDE RECORDS SUMMARY | 2024-09-04 13:45 | XMS_ITS | Encounter Summary ---
Author Organization [facility] Address [address] [place] [address] Care Team Providers Care Fiber Optics Engineer Name Role Phone Woo Hurtado MD Unavailable [phone] Shawn Vargas MD Primary Care Provider [phone] Shiva Ugarte MD Unavailable [phone] Nereida Acosta [facility] Unavailable [phone] Emile Veras MD Unavailable Encounter Details Date Type Department Care Team (Late st Contact Info) Description 08/13/2022 Hospital Orders Only [place] [address] [place] [address] Woo Hurtado MD [address] [facility], [address] [place] [address] Social History Tobacco Use Types Packs/Day Years Used Date Smoking Tobacco: Former Cigarettes Alcohol Use Standard Drinks/Week Comments Yes 0 (1 standard drink = 0.6 oz pur e alcohol) Comments Unknown Sex and Gender Information Value Date Recorded Sex Assigned at Choose not to disclose 10:00 AM CDT Legal Sex Male 8:49 AM CDT Gender Identity Not on file Sexual Orientation Not on file COVID-19 Exposure Response Date Recorded In the last 10 days, have yo u been in contact with someone who was confirmed or suspected to have Coronavirus/COVID-19? No / Unsure 07/28/2022 9:41 AM CDT documented as of this encounter Plan of Treatment Upcoming Encounters Date Type Department Care Team (Late st Contact Info) Description 11/26/2024 2:00 PM CDT Appointment [facility] - [facility] [address] [place], [place] [address] Woo Hurtado MD [address] [facility] [place] [address] documented as of this encounter Visit Diagnoses Not on filedocumented in this encounter Care Teams Fiber Optics Engineer Relationship Specialty Start Date End Date Shawn Vargas MD [address] [place] [address] PCP - General INTERNAL MEDICINE 07/15/22 Woo Hurtado MD Consulting Physician INTERVENTIONAL CARDIOLOGY 07/15/22 05/21/24 Shiva Ugarte MD [address] [place] [address] CARDIOTHORACIC SURGERY 08/25/22 Nereida Acosta AGACNP- [address] [id number] Nurse Practitioner NURSE PRACTITIONER 09/30/22 Emile Veras MD [address] [place] [address] Consulting Physician CARDIOVASCULAR DISEASE 05/22/24 documented as of this encounter
--- OUTSIDE RECORDS SUMMARY | 2024-09-04 13:45 | XMS_ITS | Encounter Summary ---
Author Organization [facility] Address [address] [place] [address] Phone Care Team Providers Care Supervisor Engine Assembly Name Role Phone Shawn Vargas MD Primary Care Provider [phone] Anurag Avila MD Unavailable [phone] Reason for Visit * Reason Comments Medication Refill Encounter Details Date Type Department Care Team (Late st Contact Info) Description 04/08/2023 [facility] [place] [address] Anurag Avila MD [address] [place] [address] Medication Refill Social History Tobacco [...] Description 08/08/2025 2:30 PM CDT Office Visit [facility] [address] [place] [address] Anurag Avila MD [address] [place] [address] documented as of this encounter Visit Diagnoses Not on filedocumented in this encounter Care Teams Supervisor Engine Assembly Relationship Specialty Start Date End Date Shawn Vargas MD [address] [place] [address] PCP - General Internal Medicine 02/22/23 Anurag Avila MD [address] [place] [address] Consulting Physician Neurology 03/29/23 documented as of this encounter
--- OUTSIDE RECORDS SUMMARY | 2024-09-04 13:46 | XMS_ITS | Clinical Summary ---
Author Organization [facility] Address [address] [place] [address] Care Team Providers Care Bean Sprout Laborer Name Role Phone Shawn Vargas MD Primary Care Provider [phone] Shiva Ugarte MD Unavailable [phone] Nereida Acosta AGACNP- Unavailable [phone] Emile Veras MD Unavailable Allergies Active Allergy Reactions Criticality Noted Date Comments Lisinopril Angioedema High 09/13/2022 Pt states tongue swelled, couldn't breathe, couldn't talk well Medications famotidine (PEPCID) 20 MG tablet Take 1 tablet (20 mg total) by mouth daily. Active cetirizine (ZYRTEC) 10 MG tablet Take 1 tablet (10 mg total) by mouth daily. Active rosuvastatin (CRESTOR) 20 MG tablet Take 1 tablet (20 mg total) by mouth nightly at bedtime. Active BASAGLAR KWIKPEN 100 UNIT/ML injection (PEN) Inject into the skin 2 (two) times daily. 14 units in the morning and 16 units in the evening 3 Active FARXIGA 5 MG Tab Take 1 tablet by mouth every morning. 3 Active TRUE METRIX BLOOD GLUCOSE TEST test strip 1 strip by Other route as needed. 3 Active dulaglutide (TRULICITY) 1.5 MG/0.5ML injection Inject 1.5 mg into the skin once a week. 08/10/19 25 Discontinued glimepiride (AMARYL) 1 MG tablet Take 0.5 tablets (0.5 mg total) by mouth as needed. When Blood sugar >100 pt takes .5mg When blood sugar >130 pt takes 1mg 3 08/10/19 25 Discontinued primidone (MYSOLINE) 50 MG tablet Take 3 tablets (150 mg total) by mouth daily. 08/10/19 25 Discontinued aspirin EC (ECOTRIN) 81 MG tablet Take 1 tablet (81 mg total) by mouth daily. 30 tablet 3 08/10/19 25 Discontinued Active Problems Problem Noted Date Diagnosed Date S/P carotid endarterectomy 09/30/2022 Asymptomatic carotid artery stenosis, left 09/13 CKD (chronic kidney disease) stage 3, GFR 30-59 ml/min 08/24/2022 Stenosis of left carotid artery 07/27/2022 Encounters Date Type Department Care Team Description 08/09/2024 9:15 AM CDT Office Visit [facility] [address] [place] [address] Emile Veras MD Heart Problem 08/09/2024 Telephone [facility] [address] [place] [address] Emile Veras MD Schedule Test; Referral 08/09/2024 Travel 08/02/2024 Telephone [facility] [address] [place] [address] Emile Veras MD Appointment Request from Last 3 Months Immunizations Immunization Administration Dates Next Due Influenza (Generic) 10/29/2020 Influenza Adult (Generic) 12/01/2021,11/14/2020 PFIZER COVID-19 (ORIGINAL FO RMULATION, PURPLE CAP) mRNA, LNP-S, PF, 30 MCG/0.3 ML DOSE 01/28/2021 Pneumococcal (Prevnar 7) 10/30/2019 Family History Medical History Relation Comments No Known Problems Father No Known Problems Mother Relation Status Comments Father Mother Social History Tobacco Use Types Packs/Day Years Used Date Smoking Tobacco: Former Cigarettes 1 5 - 1997 Smokeless Tobacco: Never Tobacco Cessation:Counseling Given: Not Answered Alcohol Use Standard Drinks/Week Comments Not Currently 0 (1 standard drink = 0.6 oz pur e alcohol) Humiliation, Afraid, Rape, and Kick questionnair e Answer Date Recorded Within the last year, have y ou been afraid of your partner or ex-partner? No 09/13/2022 Within the last year, have y ou been humiliated or emotionally abused in other ways by your partner or ex-partner? No Within the last year, have y ou been kicked, hit, slapped, or otherwise physically hurt by your partner or ex-partner? No 09/13/2022 Within the last year, have y ou been raped or forced to have any kind of sexual activity by your partner or ex-partner? No 09/13/2022 Overall Financial Resource Strain (CARDIA) Answe r Date Recorded How hard is it for you to pa y for the very basics like food, housing, medical care, and heating? Not hard at all 09/13/2022 Hunger Vital Sign Answer Date Recorded Within the past 12 months, y ou worried that your food would run out before you got the money to buy more. Never true 09/14/19 23 Within the past 12 months, t he food you bought just didn't last and you didn't have money to get more. Never true 09/13/2022 PRAPARE - Transportation Answer Date Re corded In the past 12 months, has l ack of transportation kept you from medical appointments or from getting medications? No 08/28 In the past 12 months, has l ack of transportation kept you from meetings, work, or from getting things needed for daily living? No 09/13/2022 Housing Stability Vital Sign Answer Kishan e Recorded In the last 12 months, was t here a time when you were not able to pay the mortgage or rent on time? No 09/13/2022 In the last 12 months, how many places have you lived? 1 09/13/2022 In the last 12 months, was t here a time when you did not have a steady place to sleep or slept in a assisted (including now)? No 09/13/2022 Comments Unknown Sex and Gender Information Value Date Recorded Sex Assigned at Choose not to disclose 10:00 AM CDT Legal Sex Male 8:49 AM CDT Gender Identity Not on file Sexual Orientation Not on file Last Filed Vital Signs Vital Sign Reading Time Taken Comments Blood Pressure 112/64 08/09/2024 9:26 AM CDT Pulse 80 08/09/2024 9:26 AM CDT Temperature 37 C (98.6 F) 09/14/2022 12:00 PM CDT Respiratory Rate 16 08/09/2024 9:26 AM CDT Oxygen Saturation 94% 08/09/2024 9:26 AM CDT Inhaled Oxygen Concentration - - Weight 75.2 kg (165 lb 12.8 oz) 08/09/2024 9:26 AM CDT Height 185.4 cm (6' 1) 08/09/2024 9:26 AM CDT Body Mass Index 21.87 08/09/2024 9:26 AM CDT Plan of Treatment Upcoming Encounters Date Type Department Care Team (Late st Contact Info) Description 11/26/2024 2:00 PM CDT Appointment [facility] Vascular Ultrasound [place] [address] [place] [address] Woo Hurtado MD [address] [facility], [address] [place] [address] Health Maintenance Due Date Last Done Comments Kidney Health Evaluation 1945 Diabetes: Retinopathy Eye Exam 1962 DTaP, Tdap and Td Vaccines ( 1 - Tdap) 06/12/1963 Pneumococcal Vaccine: 50+ Years (1 of 2 - PCV) 06/12/1963 10/30/2019 Zoster Vaccines (1 of 2) 1994 RSV Immunization or 60+ Years (1 - 1-dose 75+ series) 06/12/2019 Hemoglobin A1C 03/05/2023 09/02/2022, 06/10/2022 Lipid Panel 09/03/2023 09/02/2022, 06/10/2022 COVID-19 Vaccine (2 - 2023-2 5 season) 2023 01/28/2021 Meningococcal B Vaccine Aged Out No l onger eligible based on patient's age to complete this topic Meningococcal Vaccine Aged Out No tana taniya eligible based on patient's age to complete this topic RSV Immunizations Under 20 Months Aged Out No longer eligible b ased on patient's age to complete this topic Goals Goal Patient Goal Type Associated Problems Recent Progress Patient-Stated? Author Safety Patient/family will have appropriate support at home upon discharge Lifestyle No Yue Rider, RN Medical Devices Implanted Type Area Chief Dietitian Device Identifier Shelf Expiration Date Model / Serial / Lot Graft Patch Hemashield [place] 0.8cmx7.6cm - [id number] Implanted:Qty: 1 on 09/13/2022 by Shiva Ugarte MD at [facility] Graft Left: Neck L8 SmartLight [facility] [id number] / / Procedures Procedure Name Priority Date/Time Associated Diagnosis Comments LIPID PANEL Routine 09/02/2022 11:55 AM CDT Stenosis of left carotid artery Stage 3 chronic kidney disease, unspecified whether stage 3a or 3b CKD Encounter for preoperative anesthesiology assessment for vascular surgery Encounter for pre-operative laboratory testing HEMOGLOBIN, GLYCOSYLATED Routine 09/02/2022 11:55 AM CDT Stenosis of left carotid artery Stage 3 chronic kidney disease, unspecified whether stage 3a or 3b CKD Encounter for preoperative anesthesiology assessment for vascular surgery Encounter for pre-operative laboratory testing from Last 3 Months or Most Recently Relevant to Health Maintenance Results * (ABNORMAL) HEMOGLOBIN, GLYCATED (09/02/2022 11:55 AM CDT) HGB A1C 8.0(H) <5.7 % 09/02/2022 1:18 PM CDT [facility] ESTIMATED AVG GLUCOSE 183(H) 74 - 114 MG/DL 09/02/2022 1:18 PM CDT [facility] 09/02/2022 11:5 5 AM CDT us Shiva Ugarte MD LABORATORY Final Resul t [facility] [address] [place] [address], [id number] * (ABNORMAL) LIPID PANEL (09/02/2022 11:55 AM CDT) CHOLESTEROL 163 MG/DL 09/02/2022 12:52 PM CDT [facility] Comment:DESIRABLE: <200 TRIGLYCERIDES 238 MG/DL 09/02/2022 12:52 PM CDT [facility] Comment:200-499 HIGH HDL 33(L) >39 MG/DL 09/02/2022 12:52 PM CDT [facility] LDL (CALCULATED) 82 MG/DL 09/03/19 12:52 PM CDT [facility] Comment:<100 OPTIMAL VLDL CALCULATION 48 MG/DL 09/03/19 12:52 PM CDT [facility] Comment:REFERENCE RANGE NOT ESTABLISHED CHOL/HDL RATIO 4.9 09/02/2022 12:52 PM CDT [facility] Comment:REFERENCE RANGE NOT ESTABLISHED LDL/HDL 2.5 09/02/2022 12:52 PM CDT [facility] Comment:REFERENCE RANGE NOT ESTABLISHED NON HDL CHOLESTEROL 130 MG/DL 09/02/2022 12:52 PM CDT [facility] Comment:REFERENCE RANGE NOT ESTABLISHED 09/02/2022 11:5 5 AM CDT Shiva Ugarte MD LABORATORY Final Resul t [facility] [address] [place] [address], [id number] from Last 3 Months or Most Recently Relevant to Health Maintenance Insurance [facility] MEDICARE PART A Advance Directives Documents on File Type Date Recorded Patient Sales Representative Printing Paper Expl anation Power of Community Health Nurse 09/13/2022 2:32 PM * Full Code (Latest Code Status on File) Date Activated Date Inactivated Comments 09/13/2022 10:05 AM 09/14/2022 3:54 PM * Full Code Date Activated Date Inactivated Comments 08/18/2022 4:18 PM 08/19/2022 9:54 AM Care Teams Bean Sprout Laborer Relationship Specialty Start Date End Date Shawn Vargas MD [address] [place] [address] PCP - General INTERNAL MEDICINE 07/15/22 Shiva Ugarte MD [address] [place] [address] CARDIOTHORACIC SURGERY 08/25/22 Nereida Acosta AGACNP- [address] [facility] [address] [place] [address] Nurse Practitioner NURSE PRACTITIONER 09/30/22 Emile Veras MD [address] [place] [address] Consulting Physician CARDIOVASCULAR DISEASE 05/22/24
--- NOTE | 2024-09-04 13:47 | ECHO_ITS ---
Patient Info Name: Charles Hannah Age: 79 years : 1945 Gender: Male Ht: 73 in Wt: 160 lbs BSA: 1.93 m2 HR: 84 bpm BP: 144 / 54 mmHg Technical Quality: Good Exam Date: 09/04/2024 1:51 PM Patient Status: O Admit Date: 09/04/2024 Exam Type: CA echo doppler color flow Complete two-dimensional, color flow and Doppler transthoracic echocardiogram is performed. [employer] Laborer: Mikayla Esaprza Summary 1. Complete two-dimensional, color flow and Doppler transthoracic echocardiogram is performed. 2. Left ventricular chamber dimension is normal. 3. Left ventricular systolic function is normal, estimated at 65-70. 4. There is mild concentric increased left ventricular wall thickness. 5. The left ventricular diastolic function is grade I diastolic dysfunction. 6. E/e' 7 is not elevated. 7. There is mild tricuspid valve regurgitation. 8. Mild pulmonary hypertension, estimated pulmonary arterial systolic pressure is 45 mmHg. Left Ventricle E/e' 7 is not elevated. Left ventricular chamber dimension is normal. Left ventricular systolic function is normal, estimated at 65-70. There is mild concentric increased left ventricular wall thickness. The left ventricular diastolic function is grade I diastolic dysfunction. Right Ventricle Right ventricular chamber dimension is normal. Right ventricular systolic function is normal and with normal TAPSE 2.5 cm. Left Atria Left atrial chamber dimension is normal. Right Atria Right atrial chamber dimension is normal. Aortic Valve The aortic valve is trileaflet. There is no aortic valve stenosis. There is no aortic valve regurgitation. Pulmonic Valve There is no pulmonic regurgitation. Mitral Valve There is no mitral valve stenosis. There is no mitral valve regurgitation. Tricuspid Valve There is mild tricuspid valve regurgitation. Mild pulmonary hypertension, estimated pulmonary arterial systolic pressure is 45 mmHg. Pericardium/Pleural There is no pericardial effusion. Inferior Vena Cava Normal inferior vena cava with >50% collapse upon inspiration consistent with normal right atrial pressure, 5 mmHg. Aorta The aortic root size at the sinus of Valsalva is normal. Left Ventricular Outflow Tract Name Value Normal LVOT 2D LVOT Diameter 2.3 cm LVOT Doppler LVOT Peak Velocity 124 cm/s LVOT Peak Gradient 6 mmHg LVOT Mean Gradient 3 mmHg LVOT VTI 21 cm LVOT VTI/AV VTI Ratio 0.6 LVOT Stroke Volume 92 ml LVOT CO 6.5 l/min LVOT CI 3.3 l/min/m2 Pulmonic Valve Name Value Normal PV Doppler PV Peak Velocity 135 cm/s PV Peak Gradient 7 mmHg Mitral Valve Name Value Normal MV Diastolic Function MV E Peak Velocity 78 cm/s MV A Peak Velocity 84 cm/s MV E/A 0.9 MV Decel Time (PW) 208 ms MV Annular TDI MV E/e' (Septal) 9.2 MV E/e' (Lateral) 6.7 MV E/e' (Average) 7.9 Tricuspid Valve Name Value Normal TV Regurgitation Doppler TR Peak Velocity 315 cm/s TR Peak Gradient 40 mmHg Estimated PAP/RSVP RA Pressure 5 mmHg <=5 PA Systolic Pressure 45 mmHg <36 RV Systolic Pressure 45 mmHg <36 TV Annular TDI TV Lateral Hanna s' Velocity 15.0 cm/s >=9.5 Aortic Valve Name Value Normal AV Doppler AV Peak Velocity 166 cm/s AV Peak Gradient 11 mmHg AV Mean Gradient 5 mmHg AV VTI 34 cm AV Area (Cont Eq VTI) 2.7 cm2 >=3.0 AV Area (Cont Eq Pete) 3.2 cm2 AV DI (Pete) 0.75 AV Regurgitation 2D LVOT Area 4.3 cm2 Ventricles Name Value Normal LV Dimensions 2D/MM IVS Diastolic Thickness (2D) 1.1 cm 0.6-1.0 LVID Diastole (2D) 4.5 cm 4.2-5.8 LVIW Diastolic Thickness (2D) 1.1 cm 0.6-1.0 LVID Systole (2D) 3.1 cm 2.5-4.0 LVOT Diameter 2.3 cm LV Mass (2D Cubed) 168.16 g 88.00-224.00 LV Mass Index (2D Cubed) 87 g/m2 49-115 Relative Wall Thickness (2D) 0.48 <=0.42 LV Fractional Shortening/Ejection Fraction 2D/MM LV Fractional Shortening (2D) 30 % 25-43 LV EF (2D Teichholz) 57 % LV Diastolic Volume (4C MOD) 92 ml LV EF (4C MOD) 68 % LV Diastolic Volume (2C MOD) 74 ml LV EF (2C MOD) 67 % LV Diastolic Volume (BP MOD) 83 ml 62-150 LV Diastolic Volume Index (BP MOD) 43 ml/m2 34-74 LV Systolic Volume (BP MOD) 27 ml 21-61 LV Systolic Volume Index (BP MOD) 14 ml/m2 11-31 LV EF (BP MOD) 67 % 52-72 LV Diastolic Length (4C) 9.0 cm LV Systolic Length (4C) 7.0 cm LV Stroke Volume (4C MOD) 63 ml Atria Name Value Normal LA Dimensions LA Volume (4C A-L) 33 ml LA Volume (BP A-L) 34 ml RA Dimensions RA Systolic Major Ferguson Length (4C) 5.2 cm 2.1-2.7 RA Area (4C) 11.1 cm2 <=18.0 Report Signatures
== END 2024-09-04 13:42 | disposition home or self-care (01) ==
PROVIDERS: PCP Internal Medicine
DX: I65.22 Occlusion and stenosis of left carotid artery (principal); R55 Syncope and collapse; R06.02 Shortness of breath; I27.20 Pulmonary hypertension, unspecified; I07.1 Rheumatic tricuspid insufficiency
CPT/HCPCS: 93306

== ENCOUNTER 2024-09-06 00:28 | Day surgery (SDC) | payer BC, SELFPAY ==
[2024-08-30 08:48] VITALS: BMI 23.0
--- OUTSIDE RECORDS SUMMARY | 2024-09-06 00:30 | XMS_ITS | Encounter Summary ---
Author Organization [facility] Address [address] [place] [address] Care Team Providers Care Floor Installation Mechanic Name Role Phone Woo Hurtado MD Unavailable [phone] Shawn Vargas MD Primary Care Provider [phone] Shiva Ugarte MD Unavailable [phone] Nereida Acosta [facility]ANNER MD [facility] Unavailable [phone] Emile Versa MD Unavailable Encounter Details Date Type Department Care Team (Late st Contact Info) Description 08/13/2022 Hospital Orders Only [facility] [address] [place] [address] Woo Hurtado MD [address] [facility], [place], [address] [place] [address] Social History Tobacco Use Types [...] Info) Description 11/26/2024 2:[address] [facility] Vascular Ultrasound - [facility] [address] [place], [place] [address] Woo Hurtado MD [address] [facility] [address] [place] [address] documented as of this encounter Visit Diagnoses Not on filedocumented in this encounter Care Teams Floor Installation Mechanic Relationship Specialty Start Date End Date Shawn Vargas MD [address] [place] [address] PCP - General INTERNAL MEDICINE 07/15/22 Woo Hurtado MD Consulting Physician INTERVENTIONAL CARDIOLOGY 07/15/22 05/21/24 Shiva Ugarte MD [address] [place] [phone] CARDIOTHORACIC SURGERY 08/25/22 Nereida Acosta AGACNP- [address] [address] Nurse Practitioner NURSE PRACTITIONER 09/30/22 Emile Veras MD [address] [place] [address] Consulting Physician CARDIOVASCULAR DISEASE 05/22/24 documented as of this encounter
--- OUTSIDE RECORDS SUMMARY | 2024-09-06 00:30 | XMS_ITS | Clinical Summary ---
Author Organization [facility] Address [address] [place] [address] Phone Care Team Providers Care Facility Assistant Name Role Phone Shawn Vargas MD Primary Care Provider [phone] Anurag Avila MD Unavailable [phone] Allergies Active Allergy Reactions Criticality Noted Date [...] 08/10/2024 10:45 AM CDT Office Visit [facility] Neurology [facility] [address] [place] [address] Anurag Avila MD Parkinsonism, unspecified Parkinsonism type (HCC) (Primary Dx); OAB (overactive bladder); Balance disorder Discharge Disposition: Discharged to home or Selfcare 08/10/2024 Travel 06/25/2024 [facility]phone [facility] [address] [place] [address] Anurag Avila MD from Last 3 Months [...] Visit [facility] [address] [place] [address] Anurag Avila MD [address] [place] [address] Health Maintenance Due Date Last Done Comments [...] patient's age to complete this topic Insurance [facility] MEDICARE Care Teams Facility Assistant Relationship Specialty Start Date End Date Shawn Vargas MD [address] [place], [place] [id number] PCP - General Internal Medicine 02/22/23 Anurag Avila MD [address] [place] [address] Consulting Physician Neurology 03/29/23
--- OUTSIDE RECORDS SUMMARY | 2024-09-06 00:30 | XMS_ITS | Encounter Summary ---
Author Organization [facility] Address [address] [place] [address] Phone Care Team Providers Care Scheme Technician Name Role Phone Shawn Vargas MD Primary Care Provider [phone] Anurag Avila MD Unavailable [phone] Reason for Visit * Reason Comments Medication Refill Encounter Details Date Type Department Care Team (Late st Contact Info) Description [facility] [place] [address] Anurag Avila MD [address] [place] [address] Medication Refill Social History Tobacco [...] Description 08/08/2025 2:30 PM CDT Office Visit [facility] [address] [place] [address] Anurag Avila MD [address] [place] [address] documented as of this encounter Visit Diagnoses Not on filedocumented in this encounter Care Teams Scheme Technician Relationship Specialty Start Date End Date Shawn Vargas MD [address] [place] [address] PCP - General Internal Medicine 02/22/23 Anurag Avila MD [address] [place] [address] Consulting Physician Neurology 03/29/23 documented as of this encounter
--- OUTSIDE RECORDS SUMMARY | 2024-09-06 00:30 | XMS_ITS | Clinical Summary ---
Author Organization [facility] Address [address] [place] [address] Care Team Providers Care Integrated Pest Management Technician Name Role Phone Shawn Vargas MD Primary Care Provider [phone] Shiva Ugarte MD Unavailable [phone] Nereida Acosta AGACNP- Unavailable [phone] Emile Veras MD Unavailable Allergies Active Allergy [...] Description 08/09/2024 9:15 AM CDT Office Visit [facility] [address] [place] [address] Emile Veras MD Heart Problem 08/09/2024 Telephone [facility] [address] [place] [address] Emile Veras MD Schedule Test; Referral 08/09/2024 Travel 08/02/2024 Telephone [facility] [address] [place] [address] Emile Veras MD Appointment Request from Last [...] place to sleep or slept in a fpc (including now)? No 09/13/2022 Comments Unknown Sex [...] Info) Description 11/26/2024 2:00 PM CDT Appointment [facility] Vascular Ultrasound [address] [place] [address] Woo Hurtado MD [address] [facility] [place], [address] [place] [address] Health Maintenance Due Date Last Done Comments [...] Rider, RN Medical Devices Implanted Type Area Software Quality Test Engineer Device Identifier Shelf Expiration Date Model / Serial / Lot Graft Patch [employer]ield [place] 0.8cmx7.6cm - [id number] Implanted:Qty: 1 on 09/13/2022 by Shiva Ugarte MD at [facility] Graft Left: Neck [employer] [facility] [id number] / / Procedures Procedure Name Priority [...] 8.0(H) <5.7 % 09/02/2022 1:18 PM CDT [facility] ESTIMATED AVG GLUCOSE 183(H) 74 - 114 MG/DL 09/02/2022 1:18 PM CDT [facility] 09/02/2022 11:5 5 AM CDT us Shiva Ugarte MD LABORATORY Final Resul t [facility] [address] [place] [address], [id number] * (ABNORMAL) LIPID PANEL (09/02/2022 11:55 AM CDT) CHOLESTEROL 163 MG/DL 09/02/2022 12:52 PM CDT [facility] Comment:DESIRABLE: <200 TRIGLYCERIDES 238 MG/DL 09/02/2022 12:52 PM CDT [facility] Comment:200-499 HIGH HDL 33(L) >39 MG/DL 09/02/2022 12:52 PM CDT [facility] LDL (CALCULATED) 82 MG/DL 09/03/19 12:52 PM CDT [facility] Comment:<100 OPTIMAL VLDL CALCULATION 48 MG/DL 09/03/19 12:52 PM CDT [facility] Comment:REFERENCE RANGE NOT ESTABLISHED CHOL/HDL RATIO 4.9 09/02/2022 12:52 PM CDT [facility] Comment:REFERENCE RANGE NOT ESTABLISHED LDL/HDL 2.5 09/02/2022 12:52 PM CDT [facility] Comment:REFERENCE RANGE NOT ESTABLISHED NON HDL CHOLESTEROL 130 MG/DL 09/02/2022 12:52 PM CDT [facility] Comment:REFERENCE RANGE NOT ESTABLISHED 09/02/2022 11:5 5 AM CDT Shiva Ugarte MD LABORATORY Final Resul t [facility] [address] [place] [address], [id number] from Last 3 Months or Most Recently Relevant to Health Maintenance Insurance [facility] MEDICARE PART A Advance Directives Documents on File Type Date Recorded Patient Insurance Sales Supervisor Expl anation Power of Floor Technician 09/13/2022 2:32 PM * Full Code (Latest Code Status on File) Date Activated Date Inactivated Comments 09/13/2022 10:05 AM 09/14/2022 3:54 PM * Full Code Date Activated Date Inactivated Comments 08/18/2022 4:18 PM 08/19/2022 9:54 AM Care Teams Integrated Pest Management Technician Relationship Specialty Start Date End Date Shawn Vargas MD [address] [place] [phone] PCP - General INTERNAL MEDICINE 07/15/22 Shiva Ugarte MD [address] [place] [address] CARDIOTHORACIC SURGERY 08/25/22 Nereida Acosta AGACNP- [address] [facility] [address] [place] [address] Nurse Practitioner NURSE PRACTITIONER 09/30/22 Emile Vears MD [address] [place] [address] Consulting Physician CARDIOVASCULAR DISEASE 05/22/24
--- OUTSIDE RECORDS SUMMARY | 2024-09-06 00:30 | XMS_ITS | Encounter Summary ---
Author Organization [facility] Address [address] [place] [address] Phone Care Team Providers Care Trophy Assembler Name Role Phone Shawn Vargas MD Primary Care Provider [phone] Anurag Avila MD Unavailable [phone] Reason for Visit * Reason Comments Medication Refill Encounter Details Date Type Department Care Team (Late st Contact Info) Description [facility] [place] [address] Anurag Avila MD [address] [place] [address] Medication Refill Social History Tobacco [...] Description 08/08/2025 2:30 PM CDT Office Visit [facility] [address] [place] [address] Anurag Avila MD [address] [place] [address] documented as of this encounter Visit Diagnoses Not on filedocumented in this encounter Care Teams Trophy Assembler Relationship Specialty Start Date End Date Shawn Vargas MD [address] [place] [address] PCP - General Internal Medicine 02/22/23 Anurag Avila MD [address] [place] [address] Consulting Physician Neurology 03/29/23 documented as of this encounter
--- OUTSIDE RECORDS SUMMARY | 2024-09-06 00:30 | XMS_ITS | Clinical Summary ---
Author Organization [facility] Address [address] [place] [address] Phone Care Team Providers Care Vice President Of Procurement Name Role Phone Shawn Vargas MD Primary Care Provider [phone] Allergies Active Allergy Reactions Criticality Noted Date Comments Lisinopril 09/04/2020 angioedema Medications [facility] D3 50 MCG (1999) capsule Take 1 tablet by mouth 1 (one) time each day 07/25/2020 Active Basaglar KwikPen 100 UNIT/ML injection INJECT 40UNITS UNDER THE SKIN IN THE MORNING 08/05/2020 Active UltiCare Mini Pen [place] 31G X 6 MM misc USE WITH [...] Comments Blood Pressure 124/70 02/19/2021 9:30 AM PATTERNMAKER BENCH Pulse 72 02/19/2021 9:30 AM PATTERNMAKER BENCH Temperature 35.7 C (96.3 F) 02/19/2021 9:30 AM PATTERNMAKER BENCH Respiratory Rate - - Oxygen Saturation - - Inhaled Oxygen Concentration - - Weight 78.9 kg (174 lb) 02/19/2021 9:30 AM PATTERNMAKER BENCH Height 185.4 cm (6' 1) 02/19/2021 9:30 AM PATTERNMAKER BENCH Body Mass Index 22.96 02/19/2021 9:30 AM PATTERNMAKER BENCH Plan of Treatment Health Maintenance Due Date Last Done Comments Pneumococcal PPSV23/PCV13 65 + Years / Low and Medium Risk (1 of 2 - PCV) 1994 Influenza Vaccine (#1) 2024 10/29/2020 Insurance [facility] Care Teams Vice President Of Procurement Relationship Specialty Start Date End Date Shawn Vargas MD [address] [place] [address] PCP - General Internal Medicine 08/18/21
[2024-09-06 10:26] VITALS: BP 131/47; PULSE 73; RESP 20; TEMP 36.9; O2SAT 100; BMI 22.4
[2024-09-06] MEDS: LACTATED RINGERS 1,000 ML 150 ML IV CONT (10:34)
[2024-09-06] MEDS: SIMETHICONE ORAL SUSPENSION 20 MG/0.3 ML 30 ML BOTTLE 1.8 ML PO (10:35)
--- NOTE | 2024-09-06 11:17 | WPDANESEPPF ---
Anes - Initial Pre Proc Eval Procedure: Operation Date: 09/06/24 11:30 Proposed Procedures p Esophagogastroduodenoscopy - Nhan Frank MD Date/Time: 09/06/24 11:17 Surgeon: Nhan Frank MD Pre Op Diagnosis: Esophageal obstruction Patient Data Age: 79 Gender: M Height: 1.83 m Weight: 75 kg Last Vital Signs Temp 98.4 F 09/06/24 10:26 Pulse 73 09/06/24 10:26 Resp 20 09/06/24 10:26 BP 131/47 L 09/06/24 10:26 Pulse Ox 100 09/06/24 10:26 O2 Del Method Room Air 09/06/24 10:26 Allergies Allergy/AdvReac Type Severity Reaction Status Date / Time lisinopril Allergy Swelling Verified 09/06/24 10:23 of Lip/Tongue/Throat Home Medications ?Medication ?Instructions ?Recorded ?Confirmed ?Type cetirizine 10 mg capsule (Zyrtec) 10 mg PO DAILY 01/17/23 09/06/24 History famotidine 40 mg tablet 40 mg PO HS 04/20/23 09/06/24 History pen needle, diabetic 31 gauge x #400 ea 06/27/23 09/05/24 Rx 1/4 (UltiCare Pen Needle) dapagliflozin propanediol 10 mg See Rx Instructions .Route 03/19/24 09/06/24 Rx tablet .COMPLEX #90 tabs omeprazole 40 mg capsule,delayed See Rx Instructions .Route 08/30/24 09/06/24 Rx release .COMPLEX #90 caps blood sugar diagnostic (True #400 strips 09/05/24 09/05/24 Rx Metrix Glucose Test Strip) insulin glargine 100 unit/mL (3 See Rx Instructions .Route 09/05/24 09/06/24 Rx mL) subcutaneous pen (Basaglar .COMPLEX #27 mL KwikPen U-100 Insulin) lancets 30 gauge #400 ea 09/05/24 09/05/24 Rx rosuvastatin 40 mg tablet 40 mg PO DAILY #90 tabs 09/05/24 09/06/24 Rx Laboratory Tests 09/06/24 10:32 POC Capillary Glucose 175 H mg/dl (65-105) Patient hx anesthesia problems: none Family hx anesthesia problems: none Results Review: All pre-operative results and documents have been reviewed as part of the pre-operative evaluation. [facility] Past Medical History Medical History Nausea & vomiting Parkinsons disease Esophageal stricture Left wrist fracture Peripheral arterial disease Neuropathy in diabetes Diabetes mellitus with autonomic neuropathy Diabetic foot ulcer associated with type 2 diabetes mellitus Social History Social History Smoking status: Never smoker Tobacco type: pipe Additional smoking assessment comments: HAS NOT SMOKED IN OVER 30 YRS Alcohol intake: unknown Alcohol use details: none past 10 yrs Substance use: never Substance use type: does not use Do You Feel Safe in your Home?: Yes Lack of Transportation: No Lack of Food: Never True Current Housing: I Have Housing Concerned About Future Housing: No Difficulty Paying Gas/Electric Bills: No Difficulty Paying for Meds: No Currently Unemployed: No Education: High School Diploma/GED Difficulty w/ Childcare or Family Care: No Living arrangements: with family Additional living arrangements comments: With granddaughter Gender identity (if verbalized by the patient): Male Spiritual care concerns: No Anes - Eval Final PreProcedure Day of Procedure 09/06/24 11:17 Patient weight: normal Lungs: normal air movement Airway: Mallampati scale class II and special considerations (Missing several, multiple small chips. ) Neurological: alert and oriented Last oral intake: >/= 8 hours ASA classification: III Emergent: no Anesthetic plan: proceed Anesthesia type and monitoring: general GIVS and standard monitoring Results Review: All pre-operative results and documents have been reviewed as part of the pre-operative evaluation. Parkinsons, hx of CKD 3, Hx of CEA 2022, DM, fsbs 175, ex cigar smoker, quit approx 1989. Informed Consent: The patient's anesthetic plan and its attendant risks and benefits were discussed with the patient/family/POA. Questions were solicited and answers provided to the satisfaction of the patient/family/POA.
--- NOTE | 2024-09-06 11:45 | P.HP_ITS ---
H&P: HPI History of Present Illness Date/Time: 09/06/24 11:45 Chief Complaint: Dysphagia Narrative: patient referred for EGD. He has been seen in clinic, with a history of esophageal dilation in 2021, however in 2022 another EGD did not show any stenosis. In addition, the patient has Parkinson disease, and a suspicion for dysmotility related to his Parkinson's disease is raised. Review of Systems Review of Systems: All systems reviewed & are unremarkable except as noted in HPI and below [facility] Past Medical History Medical History Nausea & vomiting Parkinsons disease Esophageal stricture Left wrist fracture Peripheral arterial disease Neuropathy in diabetes Diabetes mellitus with autonomic neuropathy Diabetic foot ulcer associated with type 2 diabetes mellitus Social History Social History Smoking status: Never smoker Tobacco type: pipe Additional smoking assessment comments: HAS NOT SMOKED IN OVER 30 YRS Alcohol intake: unknown Alcohol use details: none past 10 yrs Substance use: never Substance use type: does not use Do You Feel Safe in your Home?: Yes Lack of Transportation: No Lack of Food: Never True Current Housing: I Have Housing Concerned About Future Housing: No Difficulty Paying Gas/Electric Bills: No Difficulty Paying for Meds: No Currently Unemployed: No Education: High School Diploma/GED Difficulty w/ Childcare or Family Care: No Living arrangements: with family Additional living arrangements comments: With granddaughter Gender identity (if verbalized by the patient): Male Spiritual care concerns: No Meds Home Medications and Allergies Home Medications ?Medication ?Instructions ?Recorded ?Confirmed ?Type cetirizine 10 mg capsule (Zyrtec) 10 mg PO DAILY 01/17/23 09/06/24 History famotidine 40 mg tablet 40 mg PO HS 04/20/23 09/06/24 History pen needle, diabetic 31 gauge x #400 ea 06/27/23 09/05/24 Rx 1/4 (UltiCare Pen Needle) dapagliflozin propanediol 10 mg See Rx Instructions .Route 03/19/24 09/06/24 Rx tablet .COMPLEX #90 tabs omeprazole 40 mg capsule,delayed See Rx Instructions .Route 08/30/24 09/06/24 Rx release .COMPLEX #90 caps blood sugar diagnostic (True #400 strips 09/05/24 09/05/24 Rx Metrix Glucose Test Strip) insulin glargine 100 unit/mL (3 See Rx Instructions .Route 09/05/24 09/06/24 Rx mL) subcutaneous pen (Basaglar .COMPLEX #27 mL KwikPen U-100 Insulin) lancets 30 gauge #400 ea 09/05/24 09/05/24 Rx rosuvastatin 40 mg tablet 40 mg PO DAILY #90 tabs 09/05/24 09/06/24 Rx Allergies Allergy/AdvReac Type Severity Reaction Status Date / Time lisinopril Allergy Swelling Verified 09/06/24 10:23 of Lip/Tongue/Throat Vital Signs Vital Signs - 24 hr 09/06/24 10:26 Temperature 98.4 F Pulse Rate 73 Respiratory Rate 20 Blood Pressure 131/47 L Pulse Oximetry 100 Oxygen Delivery Room Air Exam Const: General: cooperative and healthy appearing Resp: Effort & Inspection: normal respiratory effort and able to speak in complete sentences Auscultation: clear to auscultation bilaterally Cardio: Rate: regular rate Rhythm: regular rhythm GI: Inspection: normal to inspection GI Palp: No No hepatosplenomegaly present Auscultation: normal bowel sounds Rectal Exam: deferred Skin: General skin exam: normal color Psych: Appearance: grossly normal Mental Status: mental status grossly normal Assessment and Plan Assessment and plan (1) Dysphagia: Code(s): R13.10 - Dysphagia, unspecified Status: Acute Assessment and Plan: The patient is deemed a good candidate for the procedure. Consent signed. Will proceed.
[2024-09-06 12:03] VITALS: BP 109/70; PULSE 54; RESP 22; O2SAT 97
[2024-09-06 12:13] VITALS: BP 128/75; PULSE 66; RESP 23; O2SAT 100
[2024-09-06 12:23] VITALS: BP 119/65; PULSE 66; RESP 24; O2SAT 100
== END 2024-09-06 12:31 | disposition home or self-care (01) ==
PROVIDERS: PCP Internal Medicine; Referring Provider Nurse Practitioner Family; Visit Provider Internal Medicine Gastroenterology
PROC: 0DJ08ZZ Inspection of Upper Intestinal Tract, Via Natural or Artificial Opening Endoscopic (ICD-10-PCS; CPT 43249; principal; 2024-09-06 11:30)
DX: K22.2 Esophageal obstruction (principal); K44.9 Diaphragmatic hernia without obstruction or gangrene; G20.A1 Parkinson's disease without dyskinesia, without mention of fluctuations; I73.9 Peripheral vascular disease, unspecified; E11.22 Type 2 diabetes mellitus with diabetic chronic kidney disease; N18.30 Chronic kidney disease, stage 3 unspecified; E11.43 Type 2 diabetes mellitus with diabetic autonomic (poly)neuropathy; E11.621 Type 2 diabetes mellitus with foot ulcer; Z79.4 Long term (current) use of insulin; Z87.891 Personal history of nicotine dependence; Z87.19 Personal history of other diseases of the digestive system
CPT/HCPCS: 43249; 82948; C1726; J2003; J2704; J7120

== ENCOUNTER 2024-10-03 14:30 | Inpatient (IN) | payer MEDICARE, BC, SELFPAY ==
[2024-10-03] VITALS (9 sets, daily range): BP systolic 129–143; BP diastolic 58–68; PULSE 64–80; RESP 12–20; TEMP 36.4–37.2; O2SAT 93–100; BMI 22.5
--- NOTE | ~2024-10-03 | XR_ITS ---
EXAMINATION: XR chest 1V portable 10/03/2024 15:22 INDICATION: Anemia PROCEDURE: Anemia COMPARISON: AP portable chest FINDINGS: The lungs are clear. The cardiomediastinal silhouette is within normal limits. There are no pleural effusions. There is no pneumothorax suspected. IMPRESSION: 1: NO ACUTE CARDIOPULMONARY DISEASE. Reviewed, dictated and finalized at location A.
--- NOTE | ~2024-10-03 | US_ITS ---
EXAM: Focused ultrasound examination of the male pelvis HISTORY: anemia with microhematuria, evaluate for blood clots. TECHNIQUE: Sonographic evaluation of the bladder was performed assessing grayscale appearance and col or Doppler flow. COMPARISON: No prior cross-sectional imaging has been performed for comparison. FINDINGS: The bladder is distended and contains simple fluid. No blood clots are detected within the patient's bladder. Bilateral ureteral jets are detected. IMPRESSION: No sonographic abnormality is appreciated on focused ultrasound examination of the bladder. Given the results of the urinalysis performed earlier today, would recommend cross-sectional imaging of the abdomen and pelvis, if patient is clinically able. Reviewed, dictated and finalized at location A. IMPRESSION: No sonographic abnormality is appreciated on focused ultrasound examination of the bladder. Given the results of the urinalysis performed earlier today, would recommend cr oss-sectional imaging of the abdomen and pelvis, if patient is clinically able.
--- OUTSIDE RECORDS SUMMARY | 2024-10-03 14:38 | XMS_ITS | Clinical Summary ---
Author Organization [facility] Address [address] [place] [address] Phone Care Team Providers Care Engineering Production Liaison Name Role Phone Shawn Vargas MD Primary Care Provider [phone] Allergies Active Allergy Reactions Criticality Noted Date Comments Lisinopril 09/04/2020 angioedema Medications [facility] D3 50 MCG (1999) capsule Take 1 tablet by mouth 1 (one) time each day 07/25/2020 Active Basaglar KwikPen 100 UNIT/ML injection INJECT 40UNITS UNDER THE SKIN IN THE MORNING 08/05/2020 Active UltiCare Mini Pen [place] 31G X 6 MM misc USE WITH [...] Comments Blood Pressure 124/70 02/19/2021 9:30 AM DRAFTER MARINE Pulse 72 02/19/2021 9:30 AM DRAFTER MARINE Temperature 35.7 C (96.3 F) 02/19/2021 9:30 AM DRAFTER MARINE Respiratory Rate - - Oxygen Saturation - - Inhaled Oxygen Concentration - - Weight 78.9 kg (174 lb) 02/19/2021 9:30 AM DRAFTER MARINE Height 185.4 cm (6' 1) 02/19/2021 9:30 AM DRAFTER MARINE Body Mass Index 22.96 02/19/2021 9:30 AM DRAFTER MARINE Plan of Treatment Health Maintenance Due Date Last Done Comments Pneumococcal PPSV23/PCV13 65 + Years / Low and Medium Risk (1 of 2 - PCV) 1994 Influenza Vaccine (#1) 2024 10/29/2020 Insurance [facility] Care Teams Engineering Production Liaison Relationship Specialty Start Date End Date Shawn Vargas MD [address] [place] [address] PCP - General Internal Medicine 08/18/21
--- OUTSIDE RECORDS SUMMARY | 2024-10-03 14:38 | XMS_ITS | Clinical Summary ---
Author Organization [facility] Address [address] [place] [address] Phone Care Team Providers Care Communication Coordinator Name Role Phone Shawn Vargas MD Primary Care Provider [phone] Anurag Avila MD Unavailable [phone] Allergies Active Allergy Reactions Criticality Noted Date [...] ALLERGY PO) Take by mouth. Activ e Active Problems Problem Noted Date Diagnosed Date Parkinsonism, unspecified Parkinsonism type 07/29 Encounters Date Type Department Care Team Description 08/10/2024 10:45 AM CDT Office Visit [facility] Neu[facility] - [place] [address] [place] [address] Anurag Avila MD Parkinsonism, unspecified Parkinsonism type (HCC) (Primary Dx); OAB (overactive bladder); Balance disorder Discharge Disposition: Discharged to home or Selfcare 08/10/2024 Travel from Last 3 Months Family History Medical History Relation Name Comments Diabetes Brother No Known Problems Father Breast Cancer Mother Relation Name Status Comments Brother Alive Father Maternal Grandfather Maternal Grandmother Mother Sister Alive Social History Tobacco Use Types Packs/Day Years Used Date Smoking Tobacco: Former Cigarettes Q uit: 2014 Smokeless Tobacco: Never Tobacco Cessation:Counseling Given: Not [...] Office Visit [facility] [address] [place] [address] Anurag Avila MD [address] [place] [address] Health Maintenance Due Date Last Done Comments Hepatitis C Virus (HCV) Screening 1945 TdaP Immunization 1945 Pneumococcal Immunization (50+ years) (1 of 1 - PCV) 1994 10/30/2019 Zoster Immunization (1 of 2) 1994 Respiratory Syncytial Virus (RSV) Immunization (Adult) (1 - 1-dose 75+ series) 06/12/2019 SARS-COV-2 Immunization (2 - season) 2023 01/28/2021 Influenza Immunization (#1) 2024 09/0 08/2022, 12/01/2021, 11/14/2020, Additional history exists Hepatitis B [...] patient's age to complete this topic Insurance [facility] MEDICARE Care Teams Communication Coordinator Relationship Specialty Start Date End Date Shawn Vargas MD [address] [place] [address] PCP - General Internal Medicine 02/22/23 Anurag Avila MD [address] [place] [address] Consulting Physician Neurology 03/29/23
--- OUTSIDE RECORDS SUMMARY | 2024-10-03 14:38 | XMS_ITS | Encounter Summary ---
Author Organization [facility] Address [address] [place] [address] Care Team Providers Care Shipping Track Supervisor Name Role Phone Woo Hurtado MD Unavailable [phone] Shawn Vargas MD Primary Care Provider [phone] Shiva Ugarte MD Unavailable [phone] Nereida Acosta [facility] Unavailable [phone] Emile Veras MD Unavailable Encounter Details Date Type Department Care Team (Late st Contact Info) Description 08/13/2022 Hospital Orders Only [place] Senior Property Manager Pre/Post [address] [place] [address] Woo Hurtado MD [address] [facility], [address] [place] [address] Social History Tobacco Use Types [...] Info) Description 11/26/2024 2:00 PM CDT Appointment [facility] Vascular Ultrasound - [facility] [address] [place], [place] [address] Woo Hurtado MD [address] [facility] [place] [address] documented as of this encounter Visit Diagnoses Not on filedocumented in this encounter Care Teams Shipping Track Supervisor Relationship Specialty Start Date End Date Shawn Vargas MD [address] [place] [address] PCP - General INTERNAL MEDICINE 07/15/22 Woo Hurtado MD Consulting Physician INTERVENTIONAL CARDIOLOGY 07/15/22 05/21/24 Shiva Ugarte MD [address] [place] [address] CARDIOTHORACIC SURGERY 08/25/22 Nereida Acosta AGACNP- [address] [id number] Nurse Practitioner NURSE PRACTITIONER 09/30/22 Emile Veras MD [address] [place] [address] Consulting Physician CARDIOVASCULAR DISEASE 05/22/24 documented as of this encounter
--- OUTSIDE RECORDS SUMMARY | 2024-10-03 14:38 | XMS_ITS | Encounter Summary ---
Author Organization [facility] Address [address] [place] [address] Phone Care Team Providers Care Flight Surgeon Name Role Phone Shawn Vargas MD Primary Care Provider [phone] Anurag Avila MD Unavailable [phone] Reason for Visit * Reason Comments Medication Refill Encounter Details Date Type Department Care Team (Late st Contact Info) Description 04/08/2023 [facility] [place] [address] Anurag Avila MD [address] [place] [address] Medication Refill Social History Tobacco [...] Description 08/08/2025 2:30 PM CDT Office Visit [facility] [address] [place] [address] Anurag Avila MD [address] [place] [address] documented as of this encounter Visit Diagnoses Not on filedocumented in this encounter Care Teams Flight Surgeon Relationship Specialty Start Date End Date Shawn Vargas MD [address] [place] [address] PCP - General Internal Medicine 02/22/23 Anurag Avila MD [address] [place] [address] Consulting Physician Neurology 03/29/23 documented as of this encounter
--- OUTSIDE RECORDS SUMMARY | 2024-10-03 14:38 | XMS_ITS | Clinical Summary ---
Author Organization [facility] Address [address] [place] [address] Care Team Providers Care Real Estate Assessor Name Role Phone Shawn Vargas MD Primary Care Provider [phone] Shiva Ugarte MD Unavailable [phone] Nereida Acosta AGACNP- Unavailable [phone] Emile Veras MD Unavailable Allergies Active Allergy [...] morning and 16 units in the evening 06/25/2022 Active FARXIGA 5 MG Tab Take 1 tablet by mouth every morning. 07/06/2022 Active TRUE METRIX BLOOD GLUCOSE TEST test strip 1 strip by Other route as needed. 06/29/2022 Active Active Problems Problem Noted Date Diagnosed Date S/P carotid endarterectomy 09/30/2022 Asymptomatic carotid artery stenosis, left 09/13 CKD (chronic kidney disease) stage 3, GFR 30-59 ml/min 08/24/2022 Stenosis of left carotid artery 07/27/2022 Encounters Date Type Department Care Team Description 08/09/2024 9:15 AM CDT Office Visit [facility] [address] [place] [address] Emile Veras MD Heart Problem 08/09/2024 Telephone [facility] [address] [place] [address] Emile Veras MD Schedule Test; Referral 08/09/2024 Travel 08/02/2024 Telephone [facility] [address] [place] [address] Emile Veras MD Appointment Request from Last [...] Years Used Date Smoking Tobacco: Former Cigarettes 1997 Smokeless Tobacco: Never Tobacco Cessation:Counseling Given: [...] place to sleep or slept in a senior care (including now)? No 09/13/2022 Comments Unknown Sex [...] Description 11/26/2024 2:00 PM CDT Appointment [facility] Vascular [facility] [address] [place] [address] Woo Hurtado MD [address] [facility], [address] [place] [id number] Health Maintenance Due Date Last Done Comments [...] Rider, RN Medical Devices Implanted Type Area Shallot Packer Device Identifier Shelf Expiration Date Model / Serial / Lot Graft Patch Hemashield [place] 0.8cmx7.6cm - [id number] Implanted:Qty: 1 on 09/13/2022 by Shiva Ugarte MD at [facility] Graft Left: Neck [employer] [id number] / / Procedures Procedure Name Priority [...] 8.0(H) <5.7 % 09/02/2022 1:[address] [facility] ESTIMATED AVG GLUCOSE 183(H) 74 - 114 MG/DL 09/02/2022 1:[address] [facility] 09/02/2022 11:5 5 AM CDT us Shiva Ugarte MD LABORATORY Final Resul t [facility] [address] [place] [address], [phone] * (ABNORMAL) LIPID PANEL (09/02/2022 11:55 AM CDT) CHOLESTEROL 163 MG/DL 09/02/2022 12:[address] [facility] Comment:DESIRABLE: <200 TRIGLYCERIDES 238 MG/DL 09/02/2022 12:[address] [facility] Comment:200-499 HIGH HDL 33(L) >39 MG/DL 09/02/2022 12:[address] [facility] LDL (CALCULATED) 82 MG/DL 09/03/19 12:[address] [facility] Comment:<100 OPTIMAL VLDL CALCULATION 48 MG/DL 09/03/19 12:[address] [facility] Comment:REFERENCE RANGE NOT ESTABLISHED CHOL/HDL RATIO 4.9 09/02/2022 12:[address] [facility] Comment:REFERENCE RANGE NOT ESTABLISHED LDL/HDL 2.5 09/02/2022 12:[address] [facility] Comment:REFERENCE RANGE NOT ESTABLISHED NON HDL CHOLESTEROL 130 MG/DL 09/02/2022 12:[address] [facility] Comment:REFERENCE RANGE NOT ESTABLISHED 09/02/2022 11:5 5 AM CDT us Shiva Ugarte MD LABORATORY Final Resul t [facility] [address] [place] [address], [phone] from Last 3 Months or Most Recently Relevant to Health Maintenance Insurance [facility] MEDICARE PART A Advance Directives Documents on File Type Date Recorded Patient Bull Gang Supervisor Expl anation Power of Web Search Evaluator 09/13/2022 2:32 PM * Full Code (Latest Code Status on File) Date Activated Date Inactivated Comments 09/13/2022 10:05 AM 09/14/2022 3:54 PM * Full Code Date Activated Date Inactivated Comments 08/18/2022 4:18 PM 08/19/2022 9:54 AM Care Teams Real Estate Assessor Relationship Specialty Start Date End Date Shawn Vargas MD [address] [place] [phone] PCP - General INTERNAL MEDICINE 07/15/22 Shiva Ugarte MD [address] [place] [phone] CARDIOTHORACIC SURGERY 08/25/22 Nereida Acosta AGACNP- [address] [place] [address] Nurse Practitioner NURSE PRACTITIONER 09/30/22 Emile Veras MD [address] [place] [address] Consulting Physician CARDIOVASCULAR DISEASE 05/22/24
--- OUTSIDE RECORDS SUMMARY | 2024-10-03 14:38 | XMS_ITS | Encounter Summary ---
Author Organization [facility] Address [address] [place] [address] Phone Care Team Providers Care Costume Specialist Name Role Phone Shawn Vargas MD Primary Care Provider [phone] Anurag Avila MD Unavailable [phone] Reason for Visit * Reason Comments Medication Refill Encounter Details Date Type Department Care Team (Late st Contact Info) Description [facility]20[facility] [place] [address] Anurag Aivla MD [address] [place] [address] Medication Refill Social History Tobacco [...] Description 08/08/2025 2:30 PM CDT Office Visit [facility] [address] [place] [address] Anurag Avila MD [address] [place] [address] documented as of this encounter Visit Diagnoses Not on filedocumented in this encounter Care Teams Costume Specialist Relationship Specialty Start Date End Date Shawn Vargas MD [address] [place] [address] PCP - General Internal Medicine 02/22/23 Anurag Avila MD [address] [place] [address] Consulting Physician Neurology 03/29/23 documented as of this encounter
--- NOTE | 2024-10-03 14:50 | ECG_ITS ---
Test Date: 2024-10-03 15:01:26 Measurements Intervals [place] Rate: 74 P: 9 OR: 156 QRS: 52 QRSD: 93 T: 49 QT: 375 QTc: 417 Interpretive Statements SINUS RHYTHM BASELINE ARTIFACT- I, III, AVR, AVL, AVF, V1, V3 NORMAL ECG Electronically Signed On 10-03-2024 15:02:45 CDT by Chris Martínez D.O.
[2024-10-03 15:20] LABS: Fractional Inspired Oxygen 21 %; HCO3 VBG 20.6 mEq/l (24.0-30.0); PCO2 VBG 37.3 mmHg (42.0-48.0); PO2 VBG 31.7 mmHg (35.0-45.0); pH VBG 7.359 (7.300-7.400)
[2024-10-03 15:21] LABS: Liters per Minute 0.0 LPM
[2024-10-03 15:23] LABS: Hematocrit 22.1 % (42.0-52.0); Immature Granulocyte Percent A 0.5 % (0-0.5); Lymphocytes Absolute Auto 0.99 K/mm3 (0.9-3.2); Mean Corpuscular HGB Conc 28.1 g/dl (32-36); Mean Corpuscular Hemoglobin 20.2 pg (26-34); Mean Corpuscular Volume 72.0 fl (80-100); Nucleated Red Blood Cells Absolute Auto 0.000 K/mm3 (0.0-0.012); Nucleated Red Blood Cells Perc 0.0 % (0.0-0.2); Platelet Count Result 328 k/mm3 (150-375); Red Blood Count 3.07 M/mm3 (4.6-6.20); White Blood Count 7.7 K/mm3 (4.5-10.0)
--- NOTE | 2024-10-03 15:31 | ED_ITS ---
HPI - General Adult General Chief complaint: Recheck/Abnormal Lab/Rx Stated complaint: abnormal labs Time Seen by Provider: 10/03/24 14:46 History of Present Illness HPI narrative: This is an 79-year-old male sent in for abnormal labs. Patient sent in by Dr. Cosme because his hemoglobin showed 6.6. Patient himself states that he feels fine and is denying any complaints. He denies any melena, hematochezia or other sources of bleeding. He denies any use of blood thinners. His granddaughter is at bedside and she says that he has been getting steadily worse over the last 6 weeks. He says that he is becoming weak and becoming more unsteady on his feet and has had several falls. Related Data Home Medications ?Medication ?Instructions ?Recorded ?Confirmed ?Last Taken ?Type cetirizine 10 mg capsule (Zyrtec) 10 mg PO DAILY 01/17/23 10/03/24 09/05/24 History famotidine 40 mg tablet 40 mg PO HS 04/20/23 10/03/24 09/05/24 History Allergies Allergy/AdvReac Type Severity Reaction Status Date / Time lisinopril Allergy Swelling Verified 10/03/24 15:16 of Lip/Tongue/Throat PMFSH Past Medical History Medical History Nausea & vomiting Parkinsons disease Esophageal stricture Left wrist fracture Peripheral arterial disease Neuropathy in diabetes Diabetes mellitus with autonomic neuropathy Diabetic foot ulcer associated with type 2 diabetes mellitus Social History Social History Smoking status: Never smoker Tobacco type: pipe Additional smoking assessment comments: HAS NOT SMOKED IN OVER 30 YRS Alcohol intake: unknown Alcohol use details: none past 10 yrs Substance use: never Substance use type: does not use Do You Feel Safe in your Home?: Yes Lack of Transportation: No Lack of Food: Never True Current Housing: I Have Housing Concerned About Future Housing: No Difficulty Paying Gas/Electric Bills: No Difficulty Paying for Meds: No Currently Unemployed: No Education: High School Diploma/GED Difficulty w/ Childcare or Family Care: No Living arrangements: with family Additional living arrangements comments: With granddaughter Gender identity (if verbalized by the patient): Male Spiritual care concerns: No Exam 2 Narrative: APPEARANCE: No apparent distress. Head: atraumatic. EYES: EOMI, NOSE: Atraumatic NECK: Trachea midline RESPIRATORY: No increased rate of breathing clear to auscultation CARDIOVASCULAR: RRR, no peripheral edema ABDOMINAL: Non-distended soft nontender Rectal exam: Brown stool in the rectal vault, Hemoccult negative MUSCULOSKELETAl: No obvious deformities NEURO: Alert. Moving 4/4 extremities SKIN:: Warm, dry. Normal color PSYCHIATRIC: Normal affect Course Vital Signs Vital signs: Vital Signs Temperature 97.6 F 10/03/24 15:08 Pulse Rate 80 10/03/24 15:08 Respiratory Rate 14 10/03/24 15:08 Blood Pressure 130/59 L 10/03/24 15:08 Pulse Oximetry 99 10/03/24 15:08 Oxygen Delivery Room Air 10/03/24 15:08 Temperature 97.6 F 10/03/24 15:08 Pulse Rate 74 10/03/24 15:52 Respiratory Rate 12 10/03/24 15:52 Blood Pressure 134/58 L 10/03/24 15:52 Pulse Oximetry 98 10/03/24 15:52 Oxygen Delivery Room Air 10/03/24 15:08 Medical Decision Making [facility] Narrative Medical decision making narrative: -Course: Pleasant 79-year-old gentleman presenting for progressive weakness over the last 6 weeks. Hemoglobin found to be 6.2. Digital rectal exam did not reveal any hematochezia or melena. Patient will be transfused 1 unit of PRBCs for symptomatic anemia. Patient will be placed in observation for anemia workup and PT OT eval. -DDX includes but is not limited to: Anemia of chronic disease, occult gi bleed, neoplasm Vital Signs Vital Signs: Vital Signs Temperature 97.6 F 10/03/24 15:08 Pulse Rate 80 10/03/24 15:08 Respiratory Rate 14 10/03/24 15:08 Blood Pressure 130/59 L 10/03/24 15:08 Pulse Oximetry 99 10/03/24 15:08 Oxygen Delivery Room Air 10/03/24 15:08 Temperature 97.6 F 10/03/24 15:08 Pulse Rate 74 10/03/24 15:52 Respiratory Rate 12 10/03/24 15:52 Blood Pressure 134/58 L 10/03/24 15:52 Pulse Oximetry 98 10/03/24 15:52 Oxygen Delivery Room Air 10/03/24 15:08 Lab Data 10/03/24 15:15 10/03/24 15:15 Labs: Lab Results 10/03/24 10/03/24 Range/Units 15:15 16:08 WBC 7.7 (4.5-10.0) K/mm3 RBC 3.07 L (4.6-6.20) M/mm3 Hgb 6.2 L* D (14.0-18.0) g/dL Hct 22.1 L (42.0-52.0) % MCV 72.0 L (80-100) fl MCH 20.2 L (26-34) pg MCHC 28.1 L (32-36) g/dl RDW 16.2 H (11.5-14.5) % Plt Count 328 (150-375) k/mm3 MPV 9.4 (7.4-10.4) fl Immature Gran % (Auto) 0.5 (0-0.5) % Neut % (Auto) 74.3 H (45.5-73.1) % Lymph % (Auto) 12.8 L (18.3-44.2) % [place] % (Auto) 7.8 (2.6-8.5) % Eos % (Auto) 3.0 (0-4.4) % Baso % (Auto) 1.6 H (0.2-1.2) % Lymph # (Auto) 0.99 (0.9-3.2) K/mm3 [place] # (Auto) 0.6 (0.1-0.6) K/mm3 Eos # (Auto) 0.2 (0-0.3) K/mm3 Baso # (Auto) 0.1 (0.0-0.1) K/mm3 Abs Immat Gran (auto) 0.04 H (0.00-0.031) K/mm3 Absolute Neuts (auto) 5.8 (1.3-6.7) K/mm3 Absolute Nucleated RBC 0.000 (0.0-0.012) K/mm3 Band Neutrophils % Not Reportable Nucleated RBC % 0.0 (0.0-0.2) % Platelet Estimate Adequate (Adequate) Hypochromasia 1+ Poikilocytosis 1+ Anisocytosis 2+ Ovalocytes 1+ Schistocytes None seen PT 13.9 (11.1-14.7) Seconds INR 1.1 APTT 25.5 (22.3-36.8) Seconds Sodium 132 L (137-145) mmol/L Potassium 4.3 (3.4-5.0) mmol/L Chloride 104 (98-107) mmol/L Carbon Dioxide 20 L (22-30) mmol/L Anion Gap 8 (4-12) mmol/L BUN 17 (9-20) mg/dL Creatinine 1.23 (0.7-1.3) mg/dL Estim Creat Clear Calc 47 ml/min Estimated GFR 57 L (59 - ) Glucose 266 H (65-110) mg/dL Lactic Acid 1.6 (0.7-2.0) mmol/L Calcium 8.3 L (8.4-10.2) mg/dL Total Bilirubin 0.2 (0.2-1.3) mg/dL AST 19 (17-59) U/L ALT 13 (6-50) U/L Alkaline Phosphatase 85 (38-126) U/L Total Protein 6.3 (6.3-8.2) g/dL Albumin 3.5 (3.5-5.1) g/dL Urine Color Pending Urine Appearance Pending Urine pH Pending Ur Specific [place] Pending Urine Protein Pending Urine Glucose (UA) Pending Urine Ketones Pending Ur Blood (Man) Pending Urine Nitrate Pending Urine Bilirubin Pending Urine Urobilinogen Pending Leukocyte Esterase Rfl Pending Blood Type O Positive Antibody Screen Negative Crossmatch See Detail ABG Data ABG results: 10/03/24 15:14 VBG pH 7.359 VBG pCO2 37.3 L VBG pO2 31.7 L VBG HCO3 20.6 L O2 Delivery Device Room air O2 Liters/Min 0.0 FiO2 21 Discharge Plan Discharge Clinical Impression: Symptomatic anemia Patient Disposition: Still a Patient Condition: Stable Patient Language: Barbadian Prescriptions: No Action famotidine 40 mg tablet 40 mg PO HS rosuvastatin 40 mg tablet 40 mg PO DAILY Qty: 90 3RF insulin glargine [Basaglar KwikPen U-100 Insulin] 100 unit/mL (3 mL) insulin pen See Rx Instructions .ROUTE .COMPLEX MDD 30 Qty: 27 3RF Rx Instructions: 15 units in morning, 12 units in evening (DME) lancets 30 gauge misc See Rx Instructions .ROUTE .COMPLEX Qty: 400 1RF Dose Instruction: USE TWICE DAILY DIRECTED Rx Instructions: USE four times DAILY DIRECTED (DME) True Metrix Glucose Test Strip Strip See Rx Instructions .ROUTE .COMPLEX Qty: 400 2RF Dose Instruction: TEST BEFORE MEALS Rx Instructions: TEST BEFORE MEALS 4 times a day Zyrtec 10 mg Capsule 10 mg PO DAILY (DME) pen needle, diabetic [UltiCare Pen Needle] 31 gauge x 1/4 needle See Rx Instructions .Route Qty: 400 1RF Rx Instructions: Use four times daily omeprazole 40 mg capsule,delayed release(DR/EC) See Rx Instructions .ROUTE .COMPLEX Qty: 90 1RF Dose Instruction: TAKE 1 CAPSULE BY MOUTH EVERY DAY Rx Instructions: TAKE 1 CAPSULE BY MOUTH EVERY DAY dapagliflozin propanediol 10 mg tablet See Rx Instructions .ROUTE .COMPLEX Qty: 90 1RF Dose Instruction: TAKE 1 TABLET BY MOUTH EVERY DAY Rx Instructions: TAKE 1 TABLET BY MOUTH EVERY DAY Follow-up/Referrals: Shawn Vargas MD [Primary Care Provider] -
[2024-10-03 15:33] LABS: INR 1.1; Prothrombin Time 13.9 Seconds (11.1-14.7)
[2024-10-03 15:34] LABS: Partial Thromboplastin Time 25.5 Seconds (22.3-36.8)
[2024-10-03 15:37] LABS: Alanine Aminotransferase 13 U/L (6-50); Albumin Level 3.5 g/dL (3.5-5.1); Alkaline Phosphatase 85 U/L (38-126); Anion Gap 8 mmol/L (4-12); Aspartate Amino Transferase 19 U/L (17-59); Bilirubin,Total 0.2 mg/dL (0.2-1.3); Blood Urea Nitrogen 17 mg/dL (9-20); Calcium 8.3 mg/dL (8.4-10.2); Carbon Dioxide 20 mmol/L (22-30); Chloride 104 mmol/L (98-107); Estimated CRCL calculation 47 ml/min; Estimated Glomerular Filt Rate 57; Glucose 266 mg/dL (65-110); Potassium 4.3 mmol/L (3.4-5.0); Sodium 132 mmol/L (137-145); Total Protein 6.3 g/dL (6.3-8.2)
--- OUTSIDE RECORDS SUMMARY | 2024-10-03 15:38 | XMS_ITS | Encounter Summary ---
Author Organization [facility] Address [address] [place] [address] Phone Care Team Providers Care Pad Machine Offbearer Name Role Phone Shawn Vargas MD Primary Care Provider [phone] Anurag Avila MD Unavailable Reason for Visit * Reason Comments Medication Refill Encounter Details Date Type Department Care Team (Late st Contact Info) Description [facility] [place] [address] Anurag Avila MD [address] [place] [address] Medication Refill Social History Tobacco [...] Description 08/08/2025 2:30 PM CDT Office Visit [facility] [address] [place] [address] Anurag Avila MD [address] [place] [address] documented as of this encounter Visit Diagnoses Not on filedocumented in this encounter Care Teams Pad Machine Offbearer Relationship Specialty Start Date End Date Shawn Vargas MD [address] [place] [address] PCP - General Internal Medicine 02/22/23 Anurag Avila MD [address] [place] [address] Consulting Physician Neurology 03/29/23 documented as of this encounter
--- OUTSIDE RECORDS SUMMARY | 2024-10-03 15:38 | XMS_ITS | Clinical Summary ---
Author Organization [facility] Address [address] [place] [address] Phone Care Team Providers Care Dental Hygienist Mobile Coordinator Name Role Phone Shawn Vargas MD Primary Care Provider [phone] Allergies Active Allergy Reactions Criticality Noted Date Comments Lisinopril 09/04/2020 angioedema Medications [facility] D3 50 MCG (1999) capsule Take 1 tablet by mouth 1 (one) time each day 07/25/2020 Active Basaglar KwikPen 100 UNIT/ML injection INJECT 40UNITS UNDER THE SKIN IN THE MORNING 08/05/2020 Active UltiCare Mini Pen [place] 31G X 6 MM misc USE WITH [...] Comments Blood Pressure 124/70 02/19/2021 9:30 AM RECEIVER BULK SYSTEM Pulse 72 02/19/2021 9:30 AM RECEIVER BULK SYSTEM Temperature 35.7 C (96.3 F) 02/19/2021 9:30 AM RECEIVER BULK SYSTEM Respiratory Rate - - Oxygen Saturation - - Inhaled Oxygen Concentration - - Weight 78.9 kg (174 lb) 02/19/2021 9:30 AM RECEIVER BULK SYSTEM Height 185.4 cm (6' 1) 02/19/2021 9:30 AM RECEIVER BULK SYSTEM Body Mass Index 22.96 02/19/2021 9:30 AM RECEIVER BULK SYSTEM Plan of Treatment Health Maintenance Due Date Last Done Comments Pneumococcal PPSV23/PCV13 65 + Years / Low and Medium Risk (1 of 2 - PCV) 1994 Influenza Vaccine (#1) 2024 10/29/2020 Insurance [facility] Care Teams Dental Hygienist Mobile Coordinator Relationship Specialty Start Date End Date Shawn Vargas MD [address] [place] [address] PCP - General Internal Medicine 08/18/21
--- OUTSIDE RECORDS SUMMARY | 2024-10-03 15:38 | XMS_ITS | Encounter Summary ---
Author Organization [facility] Address [address] [place] [address] Phone Care Team Providers Care Superintendent Laundry Name Role Phone Shawn Vargas MD Primary Care Provider [phone] Anurag Avila MD Unavailable [phone] Reason for Visit * Reason Comments Medication Refill Encounter Details Date Type Department Care Team (Late st Contact Info) Description 04/08[facility]20[facility] [place] [address] Anurag Avila MD [address] [place] [address] Medication Refill Social History Tobacco [...] Description 08/08/2025 2:30 PM CDT Office Visit [facility] [address] [place] [phone] Anurag Avila MD [address] [place] [phone] documented as of this encounter Visit Diagnoses Not on filedocumented in this encounter Care Teams Superintendent Laundry Relationship Specialty Start Date End Date Shawn Vargas MD [address] [place] [address] PCP - General Internal Medicine 02/22/23 Anurag Avila MD [address] [place] [phone] Consulting Physician Neurology 03/29/23 documented as of this encounter
--- OUTSIDE RECORDS SUMMARY | 2024-10-03 15:38 | XMS_ITS | Clinical Summary ---
Author Organization [facility] Address [address] [place] [address] Phone Care Team Providers Care Production Line Assembler Name Role Phone Shawn Vargas MD Primary Care Provider [phone] Anurag Avila MD Unavailable [phone] Allergies Active Allergy Reactions Criticality Noted Date [...] Description 08/10/2024 10:45 AM CDT Office Visit [facility] [place] [address] [place] [address] Anurag Avila MD Parkinsonism, unspecified [...] Visit [facility] [address] [place] [address] Anurag Avila MD [address] [place] [address] Health Maintenance Due Date Last Done Comments [...] patient's age to complete this topic Insurance [facility] MEDICARE Care Teams Production Line Assembler Relationship Specialty Start Date End Date Shawn Vargas MD [address] [place] [address] PCP - General Internal Medicine 02/22/23 Anurag Avila MD [address] [place] [address] Consulting Physician Neurology 03/29/23
--- OUTSIDE RECORDS SUMMARY | 2024-10-03 15:38 | XMS_ITS | Encounter Summary ---
Author Organization [facility] Address [address] [place] [address] Care Team Providers Care Student Finance Advisor Name Role Phone Woo Hurtado MD Unavailable [phone] Shawn Vargas MD Primary Care Provider [phone] Shiva Ugarte MD Unavailable [phone] Nereida Acosta [facility] Unavailable [phone] Emile Veras MD Unavailable Encounter Details Date Type Department Care Team (Late st Contact Info) Description 08/13/2022 Hospital Orders Only [facility] [employer] Pre/Post [address] [place] [address] Woo Hurtado MD [address] [facility], [address] [place] [address] Social History Tobacco Use Types [...] Info) Description 11/26/2024 2:00 PM CDT Appointment [facility] Vascular Ultrasound - [facility] [address] [place], [place] [address] Woo Hurtado MD [address] [facility] [facility] [place] [address] documented as of this encounter Visit Diagnoses Not on filedocumented in this encounter Care Teams Student Finance Advisor Relationship Specialty Start Date End Date Shawn Vargas MD [address] [place] [address] PCP - General INTERNAL MEDICINE 07/15/22 Woo Hurtado MD Consulting Physician INTERVENTIONAL CARDIOLOGY 07/15/22 05/21/24 Shiva Ugarte MD [address] [place] [phone] CARDIOTHORACIC SURGERY 08/25/22 Nereida Acosta AGACNP- [address] [phone] Nurse Practitioner NURSE PRACTITIONER 09/30/22 Emile Veras MD [address] [place] [address] Consulting Physician CARDIOVASCULAR DISEASE 05/22/24 documented as of this encounter
--- OUTSIDE RECORDS SUMMARY | 2024-10-03 15:38 | XMS_ITS | Clinical Summary ---
Author Organization [facility] Address [address] [place] [address] Care Team Providers Care Material Expeditor Name Role Phone Shawn Vargas MD Primary Care Provider [phone] Sihva Ugarte MD Unavailable [phone] Nereida Acosta AGACNP- Unavailable [phone] Emile Veras MD Unavailable Allergies Active Allergy [...] Description 08/09/2024 9:15 AM CDT Office Visit [facility] [address] [place] [address] Emile Veras MD Heart Problem 08/09/2024 Telephone [facility] [address] [place] [address] Emile Veras MD Schedule Test; Referral 08/09/2024 Travel 08/02/2024 Telephone [facility] [address] [place] [address] Emile Veras MD Appointment Request from Last [...] Info) Description 11/26/2024 2:00 PM CDT Appointment [facility] Vascular [facility] [address] [place] [address] Woo Hurtado MD [address] [facility], [address] [place] [id number] Health Maintenance Due Date Last Done Comments [...] this topic Meningococcal Vaccine Aged Out No taan taniya eligible based on patient's age to complete this topic RSV Immunizations Under 20 Months Aged Out No longer eligible b ased on patient's age to complete this topic Goals Goal Patient Goal Type Associated Problems Recent Progress Patient-Stated? Author Safety Patient/family will have appropriate support at home upon discharge Lifestyle No Yue Rider, RN Medical Devices Implanted Type Area Kiln Packer Device Identifier Shelf Expiration Date Model / Serial / Lot Graft Patch Hemashield [place] 0.8cmx7.6cm - [id number] Implanted:Qty: 1 on 09/13/2022 by Shiva Ugarte MD at [facility] Graft Left: Neck [employer] [id number] / / Procedures Procedure Name Priority [...] 8.0(H) <5.7 % 09/02/2022 1:18 PM CDT [facility] ESTIMATED AVG GLUCOSE 183(H) 74 - 114 MG/DL 09/02/2022 1:18 PM CDT [facility] 09/02/2022 11:5 5 AM CDT us Shiva Ugarte MD LABORATORY Final Resul t [facility] [address] [place] [address], [id number] * (ABNORMAL) LIPID PANEL (09/02/2022 11:55 AM CDT) CHOLESTEROL 163 MG/DL 09/02/2022 12:52 PM CDT [facility] Comment:DESIRABLE: <200 TRIGLYCERIDES 238 MG/DL 09/02/2022 12:52 PM CDT [facility] Comment:200-499 HIGH HDL 33(L) >39 MG/DL 09/02/2022 12:52 PM CDT [facility] LDL (CALCULATED) 82 MG/DL 09/03/19 12:52 PM CDT [facility] Comment:<100 OPTIMAL VLDL CALCULATION 48 MG/DL 09/03/19 12:52 PM CDT [facility] Comment:REFERENCE RANGE NOT ESTABLISHED CHOL/HDL RATIO 4.9 09/02/2022 12:52 PM CDT [facility] Comment:REFERENCE RANGE NOT ESTABLISHED LDL/HDL 2.5 09/02/2022 12:52 PM CDT [facility] Comment:REFERENCE RANGE NOT ESTABLISHED NON HDL CHOLESTEROL 130 MG/DL 09/02/2022 12:52 PM CDT [facility] Comment:REFERENCE RANGE NOT ESTABLISHED 09/02/2022 11:5 5 AM CDT us Shiva Ugarte MD LABORATORY Final Resul t [facility] [address] [place] [address], [id number] from Last 3 Months or Most Recently Relevant to Health Maintenance Insurance [facility] MEDICARE PART A Advance Directives Documents on File Type Date Recorded Patient Rivet Hole Puncher Expl anation Power of Loss Prevention Consultant 09/13/2022 2:32 PM * Full Code (Latest Code Status on File) Date Activated Date Inactivated Comments 09/13/2022 10:05 AM 09/14/2022 3:54 PM * Full Code Date Activated Date Inactivated Comments 08/18/2022 4:18 PM 08/19/2022 9:54 AM Care Teams Material Expeditor Relationship Specialty Start Date End Date Shawn Vargas MD [address] [place] [phone] PCP - General INTERNAL MEDICINE 07/15/22 Shiva Ugarte MD [address] [place] [phone] CARDIOTHORACIC SURGERY 08/25/22 Nereida Acosta AGACNP- [address] [place] [address] Nurse Practitioner NURSE PRACTITIONER 09/30/22 Emile Veras MD [address] [place] [address] Consulting Physician CARDIOVASCULAR DISEASE 05/22/24
[2024-10-03 15:40] LABS: Hemoglobin 6.2 g/dL (14.0-18.0)
[2024-10-03 15:41] LABS: Anisocytosis 2+; Hypochromasia 1+; Ovalocytes 1+; Poikilocytosis 1+
[2024-10-03 15:42] LABS: Schistocytes None Seen
[2024-10-03 16:17] LABS: Non Pathogenic Casts 0-2
[2024-10-03 16:30] LABS: Add Urine Microscopic? YES; Appearance Urine Clear (Clear); Glucose Urine UA 3+ mg/dL (Negative); Leukocyte Esterase Ur Negative LEU/UL (Negative); Nitrate Urine Negative (Negative); Specific Grav Ur 1.025 (1.001-1.035)
[2024-10-03] MEDS: SODIUM CHLORIDE 0.9% IV 250 ML 30 ML IV CONT (16:30)
[2024-10-03] MEDS: TUBING, BLOOD PLUM PUMP TUBING 1 EACH XX (16:35)
--- NOTE | 2024-10-03 18:40 | ADMGEN ---
This patient, Charles Hannah, was admitted to [address] [place] [address] Room 321-02. Patient/family oriented to hospital policies and general routines including ID bracelet, bed and alarms, visiting hours, pain management, procedures, bathroom and other care routines, personal items, smoking policy, room service/diet, and visiting hours. Information on how to activate the Rapid Response Team has been discussed. Patient/Family are encouraged to report perceived risks to care and to ask questions if they do not understand what they are told or what they should do.
--- NOTE | 2024-10-03 20:32 | P.HP_ITS ---
H&P: HPI History of Present Illness Date/Time: 10/03/24 20:32 Chief Complaint: Anemia Narrative: 79-year-old male presents the hospital with anemia. Patient thought that he was slowing down in life due to being 79 years old. Per the patient's granddaughter she thinks that he is weaker than normal. Patient gone to his kidney doctor and had labs drawn. Which showed hemoglobin of 6.6 so he was told to come to the emergency room. Patient denies noticeable blood in his urine or stool. Patient seen after blood transfuse in and he says he feels like he is starting to perk up. Lab work shows a hemoglobin of 6.2, sodium of 123, carbon dioxide 28, GFR 57, creatinine of 1.23, glucose of 266, urine is orange with 3+ blood and over 100 RBCs. Review of Systems Review of Systems: 12 systems were reviewed and are negativ e except for as per HPI. [facility] Past Medical History Medical History Nausea & vomiting Parkinsons disease Esophageal stricture Left wrist fracture Peripheral arterial disease Neuropathy in diabetes Diabetes mellitus with autonomic neuropathy Diabetic foot ulcer associated with type 2 diabetes mellitus Social History Social History Smoking status: Never smoker Tobacco type: pipe Additional smoking assessment comments: HAS NOT SMOKED IN OVER 30 YRS Alcohol intake: never Alcohol use details: none past 10 yrs Substance use: never Substance use type: does not use Do You Feel Safe in your Home?: Yes Lack of Transportation: No Lack of Food: Never True Current Housing: I Have Housing Concerned About Future Housing: No Difficulty Paying Gas/Electric Bills: No Difficulty Paying for Meds: No Currently Unemployed: No Education: Decline to Answer Difficulty w/ Childcare or Family Care: No Living arrangements: with family Additional living arrangements comments: With granddaughter Gender identity (if verbalized by the patient): Male Spiritual care concerns: No Meds Home Medications and Allergies Home Medications ?Medication ?Instructions ?Recorded ?Confirmed ?Type cetirizine 10 mg capsule (Zyrtec) 10 mg PO DAILY 01/17/23 10/03/24 History famotidine 40 mg tablet 40 mg PO HS 04/20/23 10/03/24 History pen needle, diabetic 31 gauge x #400 ea 06/27/23 10/03/24 Rx 1/4 (UltiCare Pen Needle) omeprazole 40 mg capsule,delayed See Rx Instructions .Route 08/30/24 10/03/24 Rx release .COMPLEX #90 caps blood sugar diagnostic (True #400 strips 09/05/24 10/03/24 Rx Metrix Glucose Test Strip) insulin glargine 100 unit/mL (3 See Rx Instructions .Route 09/05/24 10/03/24 Rx mL) subcutaneous pen (Basaglar .COMPLEX #27 mL KwikPen U-100 Insulin) lancets 30 gauge #400 ea 09/05/24 10/03/24 Rx rosuvastatin 40 mg tablet 40 mg PO DAILY #90 tabs 09/05/24 10/03/24 Rx dapagliflozin propanediol 10 mg See Rx Instructions .Route 09/24/24 10/03/24 Rx tablet .COMPLEX #90 tabs Allergies Allergy/AdvReac Type Severity Reaction Status Date / Time lisinopril Allergy Swelling Verified 10/03/24 18:52 of Lip/Tongue/Throat Vital Signs Vital Signs - 24 hr 10/03/24 15:08 10/03/24 15:52 10/03/24 16:31 Temperature 97.6 F 97.9 F Pulse Rate 80 74 74 Respiratory Rate 14 12 16 Blood Pressure 130/59 L 134/58 L 139/62 Pulse Oximetry 99 98 99 Oxygen Delivery Room Air 10/03/24 16:34 10/03/24 16:47 10/03/24 17:28 Temperature 97.9 F 98.5 F Pulse Rate 69 72 68 Respiratory Rate 16 13 17 Blood Pressure 139/62 142/61 H 141/65 H Pulse Oximetry 99 100 93 Oxygen Delivery 10/03/24 17:47 10/03/24 18:28 Temperature 97.9 F 97.7 F Pulse Rate 68 72 Respiratory Rate 17 20 Blood Pressure 141/65 H 143/68 H Pulse Oximetry 95 98 Oxygen Delivery Exam Narrative: General: well appearing, appears stated age. HEENT: normocephalic, atraumatic. Mucous membranes moist. EOMI, PERRLA, bilateral sclera anicteric, no conjunctival injection. Neck supple without JVD, lymphadenopathy, or bruit. Respiratory: clear to ascultation bilaterally. No rales/rhonic/wheezes. Cardiovascular: Regular rate and rhythm, normal S1-S2 upon ascultation. No murmurs, rubs, or clicks. PMI is nondisplaced, capillary refill less than 3 second. Abdomen: Soft, round, no pulsatile masses, nondistended and nontender. No reboun d, no guarding. No CVA tenderness, no hepatosplenomegaly. Bowel sounds present to all four quadrants. No high pitch or tinkling sounds, resonant to percussion. Extremities: No cyanosis, clubbing, or edema present. Pulses are palpable 2/2. Active ROM to all four extremities. Neuro: Alert and orientated x 4. PERRLA. Cranial nerves 2-12 intact without focal deficit. Skin: Warm, dry, and intact, without rash, erythema, or lesion. Psych: pleasant, cooperative, normal speech, normal affect, no hallucinations, no dysarthia H&P: Results Labs Labs: Short CBC 10/03/24 Range/Units 15:15 WBC 7.7 (4.5-10.0) K/mm3 Hgb 6.2 L* D (14.0-18.0) g/dL Hct 22.1 L (42.0-52.0) % Plt Count 328 (150-375) k/mm3 BMP 10/03/24 15:15 Sodium 132 L Potassium 4.3 Chloride 104 Carbon Dioxide 20 L BUN 17 Creatinine 1.23 Glucose 266 H Calcium 8.3 L Liver Function 10/03/24 Range/Units 15:15 Total Bilirubin 0.2 (0.2-1.3) mg/dL AST 19 (17-59) U/L ALT 13 (6-50) U/L Alkaline Phosphatase 85 (38-126) U/L Albumin 3.5 (3.5-5.1) g/dL Urine 10/03/24 Range/Units 16:08 Urine Color [place] H (Yellow) Urine Appearance Clear (Clear) Urine pH 5.5 (5.0-9.0) Ur Specific [place] 1.025 (1.001-1.035) Urine Protein Negative (Negative) mg/dL Urine Glucose (UA) 3+ H (Negative) mg/dL Assessment and Plan Assessment and plan (1) Symptomatic anemia: Code(s): D64.9 - Anemia, unspecified Status: Acute Assessment and Plan: Hemoglobin 6.2 on admission Transfuse 1 unit RBCs 10/03/2024 Q.6 our H&H Transfuse for hemoglobin less than 7 Anemia workup pending Bladder ultrasound to look for clot (2) Weakness: Code(s): R53.1 - Weakness Status: Acute Assessment and Plan: PT OT eval (3) Diabetes mellitus with autonomic neuropathy: Qualifiers: Diabetes mellitus type: type 2 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 HS SSI and Lantus Quality VTE Prophylaxis VTE prophylaxis: mechanical ordered If No VTE Prophylaxis Answer both mechanical and pharmacologic: Reason no pharmacologic proph: medical contraindication Hospitalist MIPS Advance Care Plan I have confirmed that the patient's Advanced Care Plan is present, code status is documented, or surrogate decision maker is listed in patient medical record.: Yes Medication Reconciliation I have utilized all available resources to obtain, update and review the patients current medications (includes all prescriptions, OTC, herbals, cannabis, and nutritional supplements).: Yes
[2024-10-03 20:39] LABS: Hematocrit 27.3 % (42.0-52.0); Hemoglobin 8.0 g/dL (14.0-18.0)
[2024-10-03 20:58] LABS: Iron 53 ug/dL (49-181)
[2024-10-03 21:08] LABS: Percent Iron Saturation 13 % (20-50)
[2024-10-03] MEDS: INSULIN GLARGINE (*BKC) 100 UNITS/ML 12 UNITS SUB-Q (21:23)
[2024-10-03] MEDS: INSULIN ASPART (*BKC) 100 UNITS/ML SUB-Q (21:24)
[2024-10-03 21:35] LABS: Thyroid Stimulating Hormone Reflex 3.020 uIU/mL (0.465-4.68)
[2024-10-03 21:39] LABS: Ferritin 4.74 ng/mL (11.1-264)
[2024-10-03] MEDS: PANTOPRAZOLE 40 MG TABLET PO (21:39)
[2024-10-03] MEDS: FAMOTIDINE 20 MG TABLET 40 MG PO (21:40)
[2024-10-03 22:00] LABS: Vitamin B12 291.0 pg/mL (239-931)
[2024-10-04] VITALS (8 sets, daily range): BP systolic 129–154; BP diastolic 54–85; PULSE 65–99; RESP 14–18; TEMP 36.3–37.1; O2SAT 91–99
[2024-10-04 01:58] LABS: Hematocrit 24.3 % (42.0-52.0); Hemoglobin 7.1 g/dL (14.0-18.0); Immature Granulocyte Percent A 0.3 % (0-0.5); Lymphocytes Absolute Auto 1.44 K/mm3 (0.9-3.2); Mean Corpuscular HGB Conc 29.2 g/dl (32-36); Mean Corpuscular Hemoglobin 21.3 pg (26-34); Mean Corpuscular Volume 73.0 fl (80-100); Nucleated Red Blood Cells Absolute Auto 0.000 K/mm3 (0.0-0.012); Nucleated Red Blood Cells Perc 0.0 % (0.0-0.2); Platelet Count Result 276 k/mm3 (150-375); Red Blood Count 3.33 M/mm3 (4.6-6.20); White Blood Count 7.3 K/mm3 (4.5-10.0)
[2024-10-04 02:17] LABS: Anion Gap 7 mmol/L (4-12); Blood Urea Nitrogen 18 mg/dL (9-20); Calcium 8.4 mg/dL (8.4-10.2); Carbon Dioxide 22 mmol/L (22-30); Chloride 106 mmol/L (98-107); Estimated CRCL calculation 45 ml/min; Estimated Glomerular Filt Rate 55; Glucose 142 mg/dL (65-110); Potassium 3.9 mmol/L (3.4-5.0); Sodium 135 mmol/L (137-145)
[2024-10-04 02:22] LABS: Band Neutrophils Percent 0 % (0-6); Hypochromasia 1+; Ovalocytes 1+
[2024-10-04 02:23] LABS: Schistocytes None Seen
--- NOTE | 2024-10-04 03:04 | PC.NURSE ---
there is an order for H and H q6, 2 am HB 7.1, Provider complaint evaluation officer Cali was notified. no intervention at this time. transfuse below 7. by provider keep monitoring (next draw 8 am, provider aware).
[2024-10-04 08:03] LABS: Hematocrit 27.4 % (42.0-52.0); Hemoglobin 7.9 g/dL (14.0-18.0)
--- NOTE | 2024-10-04 08:30 | P.PNIM_ITS ---
Progress Note: A&P Assessment and Plan (1) Symptomatic anemia: Code(s): D64.9 - Anemia, unspecified Status: Acute Assessment and Plan: Hemoglobin 6.2 on admission Transfuse 1 unit RBCs 10/03/2024 Q.6 our H&H Transfuse for hemoglobin less than 7 Anemia workup pending Bladder ultrasound 10/03 The bladder is distended and contains simple fluid. No blood clots are detected within the patient's bladder. Bilateral ureteral jets are detected. Monitor urine and stool for evidence of blood, repeat UA. If blood count stable and microscopic hematuria, can follow up with urology. 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 HS Lispro 3 TID Lantus 12 hs SSI (4) Hematuria: Code(s): R31.9 - Hematuria, unspecified Status: Acute Time Spent With Patient Time: 54 minutes Subjective Date/time seen: 10/04/24 08:30 Interval history: VSS Hgb 7.9 this morning Ultrasound showed a distended bladder. No clots. Bladder scan today. Patient reported dark stools but staff reports normal brown. Repeating a UA. Urology consult if large hematuria. Urinal at bedside Monitoring stools CTA if acute bleeding. but otherwise holding off on CT abd/pelvis given CKD Repeating CBC Review of Systems Review of Systems: 12 systems were reviewed and are negativ e except for as per HPI. Exam Narrative: General: well appearing, appears stated age. HEENT: normocephalic, atraumatic. Mucous membranes moist. EOMI, PERRLA, bilateral sclera anicteric, no conjunctival injection. Neck supple without JVD, lymphadenopathy, or bruit. Respiratory: clear to ascultation bilaterally. No rales/rhonic/wheezes. Cardiovascular: Regular rate and rhythm, normal S1-S2 upon ascultation. No murmurs, rubs, or clicks. PMI is nondisplaced, capillary refill less than 3 second. Abdomen: Soft, round, no pulsatile masses, nondistended and nontender. No rebound, no guarding. No CVA tenderness, no hepatosplenomegaly. Bowel sounds present to all four quadrants. No high pitch or tinkling sounds, resonant to percussion. Extremities: No cyanosis, clubbing, or edema present. Pulses are palpable 2/2. Active ROM to all four extremities. Neuro: Alert and orientated x 4. PERRLA. Cranial nerves 2-12 intact without focal deficit. Skin: Warm, dry, and intact, without rash, erythema, or lesion. Psych: pleasant, cooperative, normal speech, normal affect, no hallucinations, no dysarthia Objective Data Vital Signs Vital Signs: Vital Signs - 24 hr 10/03/24 15:08 10/03/24 15:52 10/03/24 16:31 Temperature 97.6 F 97.9 F Pulse Rate 80 74 74 Respiratory Rate 14 12 16 Blood Pressure 130/59 L 134/58 L 139/62 Pulse Oximetry 99 98 99 Oxygen Delivery Room Air 10/03/24 16:34 10/03/24 16:47 10/03/24 17:28 Temperature 97.9 F 98.5 F Pulse Rate 69 72 68 Respiratory Rate 16 13 17 Blood Pressure 139/62 142/61 H 141/65 H Pulse Oximetry 99 100 93 Oxygen Delivery 10/03/24 17:47 10/03/24 18:28 10/03/24 20:45 Temperature 97.9 F 97.7 F 98.9 F Pulse Rate 68 72 64 Respiratory Rate 17 20 18 Blood Pressure 141/65 H 143/68 H 129/59 L Pulse Oximetry 95 98 99 Oxygen Delivery 10/04/24 00:22 10/04/24 04:35 Temperature 98.7 F 98.0 F Pulse Rate 66 79 Respiratory Rate 16 14 Blood Pressure 142/70 H 129/54 L Pulse Oximetry 99 96 Oxygen Delivery Intake/Output Intake/Output: Intake & Output 10/01/24 10/02/24 10/03/24 10/04/24 23:59 23:59 23:59 23:59 Intake Total 330 500 Balance 330 500 Meds/Results Medications: Active Medications Generic Name Dose Route Start Last Admin Trade Name Freq PRN Reason Stop Dose Admin Acetaminophen 650 mg 10/03/24 18:06 Acetaminophen 325 Mg Tablet PO Q4H PRN Mild Pain (1-3) or Fever Dextrose 12.5 gm 10/03/24 20:11 Dextrose 50% 25 Gm/50 Ml Syringe IV PUSH PRN PRN Hypoglycemia Protocol Famotidine 40 mg 10/03/24 21:00 10/03/24 21:40 Famotidine 20 Mg Tablet PO 40 mg HS JOSE Administration Glucagon 1 mg 10/03/24 20:11 Glucagon For Inj 1 Mg Vial IM PRN PRN Hypoglycemia Protocol Glucose 15 gm 10/03/24 20:11 Glucose Oral Gel 15 Gm Of Glucse In 37.5 Gm Tube PO PRN PRN Hypoglycemia Protocol Dextrose 1,000 mls @ 100 mls/hr 10/03/24 20:11 Dextrose 5% 1,000 Ml IVPB PRN PRN Hypoglycemia Protocol Insulin Aspart 3 - 6 units 10/04/24 08:00 Insulin Aspart (*Bkc) 100 Units/Ml SUB-Q TIDWM JOSE Protocol Insulin Aspart 1 - 3 units 10/03/24 21:00 08/06/25 21:24 Insulin Aspart (*Bkc) 100 Units/Ml SUB-Q 2 units HS [facility] Administration Protocol Insulin Aspart 3 units 10/04/24 12:00 Insulin Aspart (*Bkc) 100 Units/Ml SUB-Q TIDWM JOSE Insulin Glargine 12 units 10/03/24 21:00 10/03/24 21:23 Insulin Glargine (*Bkc) 100 Units/Ml 0.15 units/kg (12 units) 12 units SUB-Q Administration HS [facility] Loratadine 10 mg 10/04/24 09:00 Loratadine 10 Mg Tablet PO DAILY JOSE Pantoprazole Sodium 40 mg 10/03/24 20:30 10/03/24 21:39 Pantoprazole 40 Mg Tablet PO 40 mg BID JOSE Administration Rosuvastatin Calcium 40 mg 10/04/24 09:00 Rosuvastatin 20 Mg Tablet PO DAILY [facility] Radiology Results: ITS Impressions Chest X-Ray 10/03/24 15:24 IMPRESSION: 1: NO ACUTE CARDIOPULMONARY DISEASE. Pelvis Ultrasound 10/03/24 23:48 IMPRESSION: No sonographic abnormality is appreciated on focused ultrasound examination of the bladder. Given the results of the urinalysis performed earlier today, would recommend cross-sectional imaging of the abdomen and pelvis, if patient is clinically able. Labs Labs: Laboratory Results - last 24 hr 10/03/24 10/03/24 10/03/24 15:14 15:15 16:08 WBC 7.7 RBC 3.07 L Hgb 6.2 L* D Hct 22.1 L MCV 72.0 L MCH 20.2 L MCHC 28.1 L RDW 16.2 H Plt Count 328 MPV 9.4 Immature Gran % (Auto) 0.5 Neut % (Auto) 74.3 H Lymph % (Auto) 12.8 L [place] % (Auto) 7.8 Eos % (Auto) 3.0 Baso % (Auto) 1.6 H Lymph # (Auto) 0.99 [place] # (Auto) 0.6 Eos # (Auto) 0.2 Baso # (Auto) 0.1 Abs Immat Gran (auto) 0.04 H Absolute Neuts (auto) 5.8 Absolute Nucleated RBC 0.000 Band Neutrophils % Not Reportable Nucleated RBC % 0.0 Platelet Estimate Adequate Hypochromasia 1+ Poikilocytosis 1+ Anisocytosis 2+ Ovalocytes 1+ Schistocytes None seen PT 13.9 INR 1.1 APTT 25.5 VBG pH 7.359 VBG pCO2 37.3 L VBG pO2 31.7 L VBG HCO3 20.6 L O2 Delivery Device Room air O2 Liters/Min 0.0 FiO2 21 Sodium 132 L Potassium 4.3 Chloride 104 Carbon Dioxide 20 L Anion Gap 8 BUN 17 Creatinine 1.23 Estim Creat Clear Calc 47 Estimated GFR 57 L Glucose 266 H POC Capillary Glucose Lactic Acid 1.6 Calcium 8.3 L Iron TIBC % Saturation Ferritin Total Bilirubin 0.2 AST 19 ALT 13 Alkaline Phosphatase 85 Total Protein 6.3 Albumin 3.5 Vitamin B12 Folate TSH (Reflex) Urine Color [place] H Urine Appearance Clear Urine pH 5.5 Ur Specific [place] 1.025 Urine Protein Negative Urine Glucose (UA) 3+ H Urine Ketones Negative Ur Blood (Man) 3+ H Urine Nitrate Negative Urine Bilirubin Negative Urine Urobilinogen 0.2 Leukocyte Esterase Rfl Negative Urine RBC >100 H Urine WBC 0-5 Ur Squamous Epith Cells None seen Urine Bacteria None seen Urine Casts 0-2 Blood Type O Positive Antibody Screen Negative Crossmatch See Detail 10/03/24 10/03/24 10/04/24 20:34 21:11 01:51 WBC 7.3 RBC 3.33 L Hgb 8.0 L 7.1 L Hct 27.3 L 24.3 L MCV 73.0 L MCH 21.3 L D MCHC 29.2 L RDW 17.0 H Plt Count 276 MPV 9.2 Immature Gran % (Auto) 0.3 Neut % (Auto) 64.7 Lymph % (Auto) 19.6 [place] % (Auto) 10.4 H Eos % (Auto) 3.5 Baso % (Auto) 1.5 H Lymph # (Auto) 1.44 [place] # (Auto) 0.8 H Eos # (Auto) 0.3 Baso # (Auto) 0.1 Abs Immat Gran (auto) 0.02 Absolute Neuts (auto) 4.8 Absolute Nucleated RBC 0.000 Band Neutrophils % 0 Nucleated RBC % 0.0 Platelet Estimate Adequate Hypochromasia 1+ Poikilocytosis Anisocytosis Ovalocytes 1+ Schistocytes None seen PT INR APTT VBG pH VBG pCO2 VBG pO2 VBG HCO3 O2 Delivery Device O2 Liters/Min FiO2 Sodium 135 L Potassium 3.9 Chloride 106 Carbon Dioxide 22 Anion Gap 7 BUN 18 Creatinine 1.27 Estim Creat Clear Calc 45 Estimated GFR 55 L Glucose 142 H POC Capillary Glucose 263 H Lactic Acid Calcium 8.4 Iron 53 TIBC 420 % Saturation 13 L Ferritin 4.74 L Total Bilirubin AST ALT Alkaline Phosphatase Total Protein Albumin Vitamin B12 291.0 Folate 9.0 TSH (Reflex) 3.020 Urine Color Urine Appearance Urine pH Ur Specific [place] Urine Protein Urine Glucose (UA) Urine Ketones Ur Blood (Man) Urine Nitrate Urine Bilirubin Urine Urobilinogen Leukocyte Esterase Rfl Urine RBC Urine WBC Ur Squamous Epith Cells Urine Bacteria Urine Casts Blood Type Antibody Screen Crossmatch 10/04/24 10/04/24 07:30 07:51 WBC RBC Hgb 7.9 L Hct 27.4 L MCV MCH MCHC RDW Plt Count MPV Immature Gran % (Auto) Neut % (Auto) Lymph % (Auto) [place] % (Auto) Eos % (Auto) Baso % (Auto) Lymph # (Auto) [place] # (Auto) Eos # (Auto) Baso # (Auto) Abs Immat Gran (auto) Absolute Neuts (auto) Absolute Nucleated RBC Band Neutrophils % Nucleated RBC % Platelet Estimate Hypochromasia Poikilocytosis Anisocytosis Ovalocytes Schistocytes PT INR APTT VBG pH VBG pCO2 VBG pO2 VBG HCO3 O2 Delivery Device O2 Liters/Min FiO2 Sodium Potassium Chloride Carbon Dioxide Anion Gap BUN Creatinine Estim Creat Clear Calc Estimated GFR Glucose POC Capillary Glucose 137 H Lactic Acid Calcium Iron TIBC % Saturation Ferritin Total Bilirubin AST ALT Alkaline Phosphatase Total Protein Albumin Vitamin B12 Folate TSH (Reflex) Urine Color Urine Appearance Urine pH Ur Specific [place] Urine Protein Urine Glucose (UA) Urine Ketones Ur Blood (Man) Urine Nitrate Urine Bilirubin Urine Urobilinogen Leukocyte Esterase Rfl Urine RBC Urine WBC Ur Squamous Epith Cells Urine Bacteria Urine Casts Blood Type Antibody Screen Crossmatch Quality VTE Prophylaxis VTE prophylaxis: mechanical ordered Hospitalist MIPS Advance Care Plan I have confirmed that the patient's Advanced Care Plan is present, code status is documented, or surrogate decision maker is listed in patient medical record.: Yes Medication Reconciliation I have utilized all available resources to obtain, update and review the patients current medications (includes all prescriptions, OTC, herbals, cannabis, and nutritional supplements).: Yes
[2024-10-04] MEDS: IRON SUCROSE COMPLEX 400 MG, IRON SUCROSE COMPLEX 100 MG in SODIUM CHLORIDE 0.9% IV 250 ML 78.57 MG IVPB (09:20)
[2024-10-04] MEDS: PANTOPRAZOLE 40 MG TABLET PO ×2 (09:21→17:27)
[2024-10-04] MEDS: ROSUVASTATIN 20 MG TABLET 40 MG PO (09:21)
[2024-10-04] MEDS: LORATADINE 10 MG TABLET PO (09:21)
[2024-10-04] MEDS: INSULIN ASPART (*BKC) 100 UNITS/ML SUB-Q ×4 (12:57→21:20)
--- NOTE | 2024-10-04 16:47 | PC.NURSE ---
post void residual bladder scan 287mls.
[2024-10-04 17:17] LABS: Hematocrit 27.3 % (42.0-52.0); Hemoglobin 8.0 g/dL (14.0-18.0); Immature Granulocyte Percent A 0.4 % (0-0.5); Lymphocytes Absolute Auto 1.12 K/mm3 (0.9-3.2); Mean Corpuscular HGB Conc 29.3 g/dl (32-36); Mean Corpuscular Hemoglobin 21.5 pg (26-34); Mean Corpuscular Volume 73.4 fl (80-100); Nucleated Red Blood Cells Absolute Auto 0.000 K/mm3 (0.0-0.012); Nucleated Red Blood Cells Perc 0.0 % (0.0-0.2); Platelet Count Result 319 k/mm3 (150-375); Red Blood Count 3.72 M/mm3 (4.6-6.20); White Blood Count 8.5 K/mm3 (4.5-10.0)
[2024-10-04 17:27] LABS: Anion Gap 8 mmol/L (4-12); Blood Urea Nitrogen 19 mg/dL (9-20); Calcium 8.7 mg/dL (8.4-10.2); Carbon Dioxide 23 mmol/L (22-30); Chloride 105 mmol/L (98-107); Estimated CRCL calculation 46 ml/min; Estimated Glomerular Filt Rate 56; Glucose 192 mg/dL (65-110); Potassium 4.3 mmol/L (3.4-5.0); Sodium 136 mmol/L (137-145)
[2024-10-04 17:30] LABS: Hypochromasia 1+; Ovalocytes 1+
[2024-10-04 17:31] LABS: Schistocytes None Seen
[2024-10-04 17:41] LABS: Add Urine Microscopic? YES; Appearance Urine Cloudy (Clear); Glucose Urine UA 3+ mg/dL (Negative); Leukocyte Esterase Ur Negative LEU/UL (Negative); Nitrate Urine Negative (Negative); Non Pathogenic Casts 0-2; Specific Grav Ur 1.011 (1.001-1.035)
--- NOTE | 2024-10-04 18:11 | PC.NURSE ---
PVR completed. Pt voided 325 and blader scan result [id number]. Provider notified stating to just watch at this time.
[2024-10-04] MEDS: INSULIN GLARGINE (*BKC) 100 UNITS/ML 12 UNITS SUB-Q (21:20)
[2024-10-04] MEDS: FAMOTIDINE 20 MG TABLET 40 MG PO (21:21)
[2024-10-05 00:11] VITALS: BP 123/45; PULSE 105; RESP 18; TEMP 36.1; O2SAT 96
[2024-10-05 04:47] VITALS: BP 122/50; PULSE 62; RESP 16; TEMP 36.6; O2SAT 95
[2024-10-05 06:41] LABS: Immature Reticulocyte Fraction 34.6 % (3.0-15.9); Reticulocyte Hemoglobin Conten 18.9 pg (28.2-36.6); Reticulocytes Absolute 0.06 10^6/uL (0.02-0.10)
[2024-10-05 07:35] VITALS: BP 131/52; PULSE 60; RESP 16; TEMP 36.2; O2SAT 98
[2024-10-05 07:52] LABS: Hematocrit 26.3 % (42.0-52.0); Hemoglobin 7.7 g/dL (14.0-18.0); Immature Granulocyte Percent A 1.2 % (0-0.5); Lymphocytes Absolute Auto 1.21 K/mm3 (0.9-3.2); Mean Corpuscular HGB Conc 29.3 g/dl (32-36); Mean Corpuscular Hemoglobin 21.5 pg (26-34); Mean Corpuscular Volume 73.5 fl (80-100); Nucleated Red Blood Cells Absolute Auto 0.000 K/mm3 (0.0-0.012); Nucleated Red Blood Cells Perc 0.0 % (0.0-0.2); Platelet Count Result 303 k/mm3 (150-375); Red Blood Count 3.58 M/mm3 (4.6-6.20); White Blood Count 7.2 K/mm3 (4.5-10.0)
[2024-10-05 08:13] LABS: Acanthocytes 1+; Anisocytosis 1+; Burr Cells 1+; Crenated RBC 1+; Hypochromasia 2+; Ovalocytes 1+; Polychromasia 1+; Schistocytes Rare; Tear Drop Cells 1+
[2024-10-05] MEDS: ROSUVASTATIN 20 MG TABLET 40 MG PO (08:56)
[2024-10-05] MEDS: LORATADINE 10 MG TABLET PO (08:56)
[2024-10-05] MEDS: INSULIN ASPART (*BKC) 100 UNITS/ML SUB-Q ×5 (08:56→21:53)
[2024-10-05] MEDS: PANTOPRAZOLE 40 MG TABLET PO ×2 (08:56→17:17)
[2024-10-05] MEDS: IRON SUCROSE COMPLEX 400 MG, IRON SUCROSE COMPLEX 100 MG in SODIUM CHLORIDE 0.9% IV 250 ML 78.6 MG IVPB (09:01)
[2024-10-05 11:52] VITALS: BP 118/53; PULSE 76; RESP 16; TEMP 36.5; O2SAT 98
--- NOTE | 2024-10-05 13:56 | P.PNIM_ITS ---
Progress Note: A&P Assessment and Plan (1) Symptomatic anemia: Code(s): D64.9 - Anemia, unspecified Status: Acute Assessment and Plan: Hemoglobin 6.2 on admission Transfuse 1 unit RBCs 10/03/2024 Q6 H&H Transfuse for hemoglobin less than 7 Anemia workup pending Bladder ultrasound 10/03 The bladder is distended and contains simple fluid. No blood clots are detected within the patient's bladder. Bilateral ureteral jets are detected. Monitor urine and stool for evidence of blood, repeat UA If blood count stable and microscopic hematuria, can follow up with urology. 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 HS Lispro 3<4 TID Lantus 12 hs SSI (4) Hematuria: Code(s): R31.9 - Hematuria, unspecified Status: Acute Assessment and Plan: Resolving, now trace blood. Time Spent With Patient Time: 55 minutes Subjective Date/time seen: 10/05/24 13:56 Interval history: VSS Hgb 7.7/26.3 Hematuria improved, trace blood on UA Review of Systems Review of Systems: 12 systems were reviewed and are negativ e except for as per HPI. Exam Narrative: General: well appearing, appears stated age. HEENT: normocephalic, atraumatic. Mucous membranes moist. EOMI, PERRLA, bilateral sclera anicteric, no conjunctival injection. Neck supple without JVD, lymphadenopathy, or bruit. Respiratory: clear to auscultation bilaterally. No rales/rhonchi/wheezes. Cardiovascular: Regular rate and rhythm, normal S1-S2 upon auscultation. No murmurs, rubs, or clicks. PMI is nondisplaced, capillary refill less than 3 second. Abdomen: Soft, round, no pulsatile masses, nondistended and nontender. No rebound, no guarding. No CVA tenderness, no hepatosplenomegaly. Bowel sounds present to all four quadrants. No high pitch or tinkling sounds, resonant to percussion. Extremities: No cyanosis, clubbing, or edema present. Pulses are palpable 2/2. Active ROM to all four extremities. Neuro: Alert and orientated x 4. PERRLA. Cranial nerves 2-12 intact without focal deficit. Skin: Warm, dry, and intact, without rash, erythema, or lesion. Psych: pleasant, cooperative, normal speech, normal affect, no hallucinations, no dysarthria Objective Data Vital Signs Vital Signs: Vital Signs - 24 hr 10/04/24 16:00 10/04/24 20:00 10/04/24 20:21 Temperature 98.7 F 98.1 F Pulse Rate 99 65 65 Respiratory Rate 18 18 18 Blood Pressure 136/85 131/56 L Pulse Oximetry 91 93 98 Oxygen Delivery Room Air 10/04/24 20:42 10/05/24 00:11 10/05/24 04:47 Temperature 97.0 F L 97.9 F Pulse Rate 105 H 62 Respiratory Rate 18 16 Blood Pressure 123/45 L 122/50 L Pulse Oximetry 93 96 95 Oxygen Delivery Room Air 10/05/24 07:35 10/05/24 11:52 Temperature 97.2 F L 97.7 F Pulse Rate 60 76 Respiratory Rate 16 16 Blood Pressure 131/52 L 118/53 L Pulse Oximetry 98 98 Oxygen Delivery Intake/Output Intake/Output: Intake & Output 10/02/24 10/03/24 10/04/24 10/05/24 23:59 23:59 23:59 23:59 Intake Total 330 2107 240 Output Total 1000 600 Balance 330 1107 -360 Meds/Results Medications: Active Medications Generic Name Dose Route Start Last Admin Trade Name Freq PRN Reason Stop Dose Admin Acetaminophen 650 mg 10/03/24 18:06 Acetaminophen 325 Mg Tablet PO Q4H PRN Mild Pain (1-3) or Fever Dextrose 12.5 gm 10/03/24 20:11 Dextrose 50% 25 Gm/50 Ml Syringe IV PUSH PRN PRN Hypoglycemia Protocol Famotidine 40 mg 10/03/24 21:00 10/04/24 21:21 Famotidine 20 Mg Tablet PO 40 mg HS JOSE Administration Glucagon 1 mg 10/03/24 20:11 Glucagon For Inj 1 Mg Vial IM PRN PRN Hypoglycemia Protocol Glucose 15 gm 10/03/24 20:11 Glucose Oral Gel 15 Gm Of Glucse In 37.5 Gm Tube PO PRN PRN Hypoglycemia Protocol Dextrose 1,000 mls @ 100 mls/hr 10/03/24 20:11 Dextrose 5% 1,000 Ml IVPB PRN PRN Hypoglycemia Protocol Insulin Aspart 3 - 6 units 10/04/24 08:00 10/05/24 12:31 Insulin Aspart (*Bkc) 100 Units/Ml SUB-Q 4 units TIDWM JOSE Administration Protocol Insulin Aspart 1 - 3 units 10/03/24 21:00 10/04/24 21:20 Insulin Aspart (*Bkc) 100 Units/Ml SUB-Q 1 units HS JOSE Administration Protocol Insulin Aspart 3 units 10/04/24 12:00 10/05/24 12:31 Insulin Aspart (*Bkc) 100 Units/Ml SUB-Q 3 units TIDWM JOSE Administration Insulin Glargine 12 units 10/03/24 21:00 10/04/24 21:20 Insulin Glargine (*Bkc) 100 Units/Ml 0.15 units/kg (12 units) 12 units SUB-Q Administration HS JOSE Loratadine 10 mg 10/04/24 09:00 10/05/24 08:56 Loratadine 10 Mg Tablet PO 10 mg DAILY JOSE Administration Pantoprazole Sodium 40 mg 10/03/24 20:30 10/05/24 08:56 Pantoprazole 40 Mg Tablet PO 40 mg BID JOSE Administration Rosuvastatin Calcium 40 mg 10/04/24 09:00 10/05/24 08:56 Rosuvastatin 20 Mg Tablet PO 40 mg DAILY JOSE Administration Radiology Results: ITS Impressions Chest X-Ray 10/03/24 15:24 IMPRESSION: 1: NO ACUTE CARDIOPULMONARY DISEASE. Pelvis Ultrasound 10/03/24 23:48 IMPRESSION: No sonographic abnormality is appreciated on focused ultrasound examination of the bladder. Given the results of the urinalysis performed earlier today, would recommend cross-sectional imaging of the abdomen and pelvis, if patient is clinically able. Labs Labs: Laboratory Results - last 24 hr 10/04/24 10/04/24 10/04/24 16:49 17:09 17:17 WBC 8.5 RBC 3.72 L Hgb 8.0 L Hct 27.3 L MCV 73.4 L MCH 21.5 L MCHC 29.3 L RDW 17.1 H Plt Count 319 MPV 9.2 Immature Gran % (Auto) 0.4 Neut % (Auto) 73.4 H Lymph % (Auto) 13.1 L [place] % (Auto) 9.0 H Eos % (Auto) 2.9 Baso % (Auto) 1.2 Lymph # (Auto) 1.12 [place] # (Auto) 0.8 H Eos # (Auto) 0.3 Baso # (Auto) 0.1 Abs Immat Gran (auto) 0.03 Absolute Neuts (auto) 6.3 Absolute Nucleated RBC 0.000 Band Neutrophils % Not Reportable Nucleated RBC % 0.0 Platelet Estimate Adequate Polychromasia Hypochromasia 1+ Anisocytosis Tear Drop Cells Ovalocytes 1+ [place] Cells Crenated Cell Acanthocytes (Spur) Schistocytes None seen Absolute Retic Percent Retic Immature Retic Fraction Retic Hgb Content Sodium 136 L Potassium 4.3 Chloride 105 Carbon Dioxide 23 Anion Gap 8 BUN 19 Creatinine 1.25 Estim Creat Clear Calc 46 Estimated GFR 56 L Glucose 192 H POC Capillary Glucose 184 H Calcium 8.7 Urine Color Yellow Urine Appearance Cloudy H Urine pH 6.0 Ur Specific [place] 1.011 Urine Protein Negative Urine Glucose (UA) 3+ H Urine Ketones Negative Ur Blood (Man) Non-hemolyzed trace Urine Nitrate Negative Urine Bilirubin Negative Urine Urobilinogen 0.2 Leukocyte Esterase Rfl Negative Urine RBC 6-10 H Urine WBC 0-5 Ur Squamous Epith Cells None seen Urine Bacteria None seen Urine Casts 0-2 10/04/24 10/05/24 10/05/24 20:24 06:14 06:18 WBC 7.2 RBC 3.58 L Hgb 7.7 L Hct 26.3 L MCV 73.5 L MCH 21.5 L MCHC 29.3 L RDW 17.1 H Plt Count 303 MPV 9.6 Immature Gran % (Auto) 1.2 H Neut % (Auto) 67.0 Lymph % (Auto) 16.8 L [place] % (Auto) 10.1 H Eos % (Auto) 3.5 Baso % (Auto) 1.4 H Lymph # (Auto) 1.21 [place] # (Auto) 0.7 H Eos # (Auto) 0.3 Baso # (Auto) 0.1 Abs Immat Gran (auto) 0.09 H Absolute Neuts (auto) 4.8 Absolute Nucleated RBC 0.000 Band Neutrophils % Not Reportable Nucleated RBC % 0.0 Platelet Estimate Adequate Polychromasia 1+ Hypochromasia 2+ Anisocytosis 1+ Tear Drop Cells 1+ Ovalocytes 1+ [place] Cells 1+ Crenated Cell 1+ Acanthocytes (Spur) 1+ Schistocytes Rare Absolute Retic 0.06 Percent Retic 1.62 Immature Retic Fraction 34.6 H Retic Hgb Content 18.9 L Sodium Potassium Chloride Carbon Dioxide Anion Gap BUN Creatinine Estim Creat Clear Calc Estimated GFR Glucose POC Capillary Glucose 216 H Calcium Urine Color Urine Appearance Urine pH Ur Specific [place] Urine Protein Urine Glucose (UA) Urine Ketones Ur Blood (Man) Urine Nitrate Urine Bilirubin Urine Urobilinogen Leukocyte Esterase Rfl Urine RBC Urine WBC Ur Squamous Epith Cells Urine Bacteria Urine Casts 10/05/24 10/05/24 07:37 11:51 WBC RBC Hgb Hct MCV MCH MCHC RDW Plt Count MPV Immature Gran % (Auto) Neut % (Auto) Lymph % (Auto) [place] % (Auto) Eos % (Auto) Baso % (Auto) Lymph # (Auto) [place] # (Auto) Eos # (Auto) Baso # (Auto) Abs Immat Gran (auto) Absolute Neuts (auto) Absolute Nucleated RBC Band Neutrophils % Nucleated RBC % Platelet Estimate Polychromasia Hypochromasia Anisocytosis Tear Drop Cells Ovalocytes [place] Cells Crenated Cell Acanthocytes (Spur) Schistocytes Absolute Retic Percent Retic Immature Retic Fraction Retic Hgb Content Sodium Potassium Chloride Carbon Dioxide Anion Gap BUN Creatinine Estim Creat Clear Calc Estimated GFR Glucose POC Capillary Glucose 140 H 262 H Calcium Urine Color Urine Appearance Urine pH Ur Specific [place] Urine Protein Urine Glucose (UA) Urine Ketones Ur Blood (Man) Urine Nitrate Urine Bilirubin Urine Urobilinogen Leukocyte Esterase Rfl Urine RBC Urine WBC Ur Squamous Epith Cells Urine Bacteria Urine Casts Quality VTE Prophylaxis VTE prophylaxis: mechanical ordered Hospitalist MIPS Advance Care Plan I have confirmed that the patient's Advanced Care Plan is present, code status is documented, or surrogate decision maker is listed in patient medical record.: Yes Medication Reconciliation I have utilized all available resources to obtain, update and review the patients current medications (includes all prescriptions, OTC, herbals, cannabis, and nutritional supplements).: Yes
[2024-10-05] MEDS: CYANOCOBALAMIN INJ 1,000 MCG/ML VIAL 1000 MCG IM (15:05)
[2024-10-05 17:00] VITALS: BP 115/53; PULSE 79; RESP 17; TEMP 36.8; O2SAT 98
[2024-10-05 20:00] VITALS: BP 124/57; PULSE 82; RESP 20; TEMP 37; O2SAT 98
[2024-10-05] MEDS: INSULIN GLARGINE (*BKC) 100 UNITS/ML 12 UNITS SUB-Q (21:53)
[2024-10-05] MEDS: FAMOTIDINE 20 MG TABLET 40 MG PO (21:53)
[2024-10-06] VITALS: BP 122/54; PULSE 72; RESP 20; TEMP 36.4; O2SAT 98
[2024-10-06 04:00] VITALS: BP 115/83; PULSE 87; RESP 18; TEMP 37; O2SAT 92
[2024-10-06 04:17] VITALS: BP 124/54; PULSE 67; RESP 18; TEMP 37; O2SAT 97
--- NOTE | 2024-10-06 07:19 | P.PNIM_ITS ---
Progress Note: A&P Assessment and Plan (1) Symptomatic anemia: Code(s): D64.9 - Anemia, unspecified Status: Acute Assessment and Plan: Hemoglobin 6.2 on admission Transfuse 1 unit RBCs 10/03/2024 Q6 H&H Transfuse for hemoglobin less than 7 Anemia workup pending Bladder ultrasound 10/03 The bladder is distended and contains simple fluid. No blood clots are detected within the patient's bladder. Bilateral ureteral jets are detected. Monitor urine and stool for evidence of blood, repeat UA If blood count stable and microscopic hematuria, can follow up with urology. 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 HS Lispro 3<4 TID Lantus 12 hs SSI (4) Hematuria: Code(s): R31.9 - Hematuria, unspecified Status: Acute Assessment and Plan: Resolving, now trace blood. Subjective Date/time seen: 10/06/24 07:19 Interval history: H&H 7.7/26.3 Review of Systems Review of Systems: 12 systems were reviewed and are negativ e except for as per HPI. Exam Narrative: General: well appearing, appears stated age. HEENT: normocephalic, atraumatic. Mucous membranes moist. EOMI, PERRLA, bilateral sclera anicteric, no conjunctival injection. Neck supple without JVD, lymphadenopathy, or bruit. Respiratory: clear to auscultation bilaterally. No rales/rhonchi/wheezes. Cardiovascular: Regular rate and rhythm, normal S1-S2 upon auscultation. No murmurs, rubs, or clicks. PMI is nondisplaced, capillary refill less than 3 second. Abdomen: Soft, round, no pulsatile masses, nondistended and nontender. No rebound, no guarding. No CVA tenderness, no hepatosplenomegaly. Bowel sounds present to all four quadrants. No high pitch or tinkling sounds, resonant to percussion. Extremities: No cyanosis, clubbing, or edema present. Pulses are palpable 2/2. Active ROM to all four extremities. Neuro: Alert and orientated x 4. PERRLA. Cranial nerves 2-12 intact without focal deficit. Skin: Warm, dry, and intact, without rash, erythema, or lesion. Psych: pleasant, cooperative, normal speech, normal affect, no hallucinations, no dysarthria Objective Data Vital Signs Vital Signs: Vital Signs - 24 hr 10/05/24 07:35 10/05/24 08:00 10/05/24 11:52 Temperature 97.2 F L 97.7 F Pulse Rate 60 76 Respiratory Rate 16 16 Blood Pressure 131/52 L 118/53 L Pulse Oximetry 98 98 Oxygen Delivery Room Air 10/05/24 17:00 10/05/24 20:00 10/06/24 00:00 Temperature 98.2 F 98.6 F 97.6 F Pulse Rate 79 82 72 Respiratory Rate 17 20 20 Blood Pressure 115/53 L 124/57 L 122/54 L Pulse Oximetry 98 98 98 Oxygen Delivery 10/06/24 04:00 10/06/24 04:17 Temperature 98.6 F 98.6 F Pulse Rate 87 67 Respiratory Rate 18 18 Blood Pressure 115/83 124/54 L Pulse Oximetry 92 97 Oxygen Delivery Intake/Output Intake/Output: Intake & Output 10/03/24 10/04/24 10/05/24 10/06/24 23:59 23:59 23:59 23:59 Intake Total 330 2107 1820 Output Total 1000 900 Balance 330 1107 920 Meds/Results Medications: Active Medications Generic Name Dose Route Start Last Admin Trade Name Freq PRN Reason Stop Dose Admin Acetaminophen 650 mg 10/03/24 18:06 Acetaminophen 325 Mg Tablet PO Q4H PRN Mild Pain (1-3) or Fever Cyanocobalamin 1,000 mcg 10/06/24 09:00 Cyanocobalamin 1,000 Mcg Tablet PO QAM JOSE Dextrose 12.5 gm 10/03/24 20:11 Dextrose 50% 25 Gm/50 Ml Syringe IV PUSH PRN PRN Hypoglycemia Protocol Famotidine 40 mg 10/03/24 21:00 10/05/24 21:53 Famotidine 20 Mg Tablet PO 40 mg HS JOSE Administration Glucagon 1 mg 10/03/24 20:11 Glucagon For Inj 1 Mg Vial IM PRN PRN Hypoglycemia Protocol Glucose 15 gm 10/03/24 20:11 Glucose Oral Gel 15 Gm Of Glucse In 37.5 Gm Tube PO PRN PRN Hypoglycemia Protocol Dextrose 1,000 mls @ 100 mls/hr 10/03/24 20:11 Dextrose 5% 1,000 Ml IVPB PRN PRN Hypoglycemia Protocol Insulin Aspart 3 - 6 units 10/04/24 08:00 10/05/24 17:06 Insulin Aspart (*Bkc) 100 Units/Ml SUB-Q Not Given TIDWM [facility] Protocol Insulin Aspart 1 - 3 units 10/03/24 21:00 10/05/24 21:53 Insulin Aspart (*Bkc) 100 Units/Ml SUB-Q 1 units HS JOSE Administration Protocol Insulin Aspart 4 units 10/05/24 17:00 10/05/24 17:16 Insulin Aspart (*Bkc) 100 Units/Ml SUB-Q 4 units TIDWM JOSE Administration Insulin Glargine 12 units 08/06/25 21:00 10/05/24 21:53 Insulin Glargine (*Bkc) 100 Units/Ml 0.15 units/kg (12 units) 12 units SUB-Q Administration HS JOSE Loratadine 10 mg 10/04/24 09:00 10/05/24 08:56 Loratadine 10 Mg Tablet PO 10 mg DAILY JOSE Administration Multivitamins/Calcium 1 tablet 10/06/24 09:00 Therapeutic Multivitamins/Minerals Tab (*Bkc) PO DAILY JOSE Pantoprazole Sodium 40 mg 10/03/24 20:30 10/05/24 17:17 Pantoprazole 40 Mg Tablet PO 40 mg BID JOSE Administration Rosuvastatin Calcium 40 mg 10/04/24 09:00 10/05/24 08:56 Rosuvastatin 20 Mg Tablet PO 40 mg DAILY JOSE Administration Radiology Results: ITS Impressions Chest X-Ray 10/03/24 15:24 IMPRESSION: 1: NO ACUTE CARDIOPULMONARY DISEASE. Pelvis Ultrasound 10/03/24 23:48 IMPRESSION: No sonographic abnormality is appreciated on focused ultrasound examination of the bladder. Given the results of the urinalysis performed earlier today, would recommend cross-sectional imaging of the abdomen and pelvis, if patient is clinically able. Labs Labs: Laboratory Results - last 24 hr 10/05/24 10/05/24 10/05/24 06:14 07:37 11:51 WBC 7.2 RBC 3.58 L Hgb 7.7 L Hct 26.3 L MCV 73.5 L MCH 21.5 L MCHC 29.3 L RDW 17.1 H Plt Count 303 MPV 9.6 Immature Gran % (Auto) 1.2 H Neut % (Auto) 67.0 Lymph % (Auto) 16.8 L [place] % (Auto) 10.1 H Eos % (Auto) 3.5 Baso % (Auto) 1.4 H Lymph # (Auto) 1.21 [place] # (Auto) 0.7 H Eos # (Auto) 0.3 Baso # (Auto) 0.1 Abs Immat Gran (auto) 0.09 H Absolute Neuts (auto) 4.8 Absolute Nucleated RBC 0.000 Band Neutrophils % Not Reportable Nucleated RBC % 0.0 Platelet Estimate Adequate Polychromasia 1+ Hypochromasia 2+ Anisocytosis 1+ Tear Drop Cells 1+ Ovalocytes 1+ Krystian Cells 1+ Crenated Cell 1+ Acanthocytes (Spur) 1+ Schistocytes Rare POC Capillary Glucose 140 H 262 H 10/05/24 10/05/24 16:55 20:27 WBC RBC Hgb Hct MCV MCH MCHC RDW Plt Count MPV Immature Gran % (Auto) Neut % (Auto) Lymph % (Auto) [place] % (Auto) Eos % (Auto) Baso % (Auto) Lymph # (Auto) [place] # (Auto) Eos # (Auto) Baso # (Auto) Abs Immat Gran (auto) Absolute Neuts (auto) Absolute Nucleated RBC Band Neutrophils % Nucleated RBC % Platelet Estimate Polychromasia Hypochromasia Anisocytosis Tear Drop Cells Ovalocytes Krystian Cells Crenated Cell Acanthocytes (Spur) Schistocytes POC Capillary Glucose 195 H 244 H Quality VTE Prophylaxis VTE prophylaxis: mechanical ordered
[2024-10-06 08:08] LABS: Hematocrit 27.0 % (42.0-52.0); Hemoglobin 7.8 g/dL (14.0-18.0); Immature Granulocyte Percent A 0.5 % (0-0.5); Lymphocytes Absolute Auto 1.28 K/mm3 (0.9-3.2); Mean Corpuscular HGB Conc 28.9 g/dl (32-36); Mean Corpuscular Hemoglobin 21.4 pg (26-34); Mean Corpuscular Volume 74.2 fl (80-100); Nucleated Red Blood Cells Absolute Auto 0.000 K/mm3 (0.0-0.012); Nucleated Red Blood Cells Perc 0.0 % (0.0-0.2); Platelet Count Result 311 k/mm3 (150-375); Red Blood Count 3.64 M/mm3 (4.6-6.20); White Blood Count 8.7 K/mm3 (4.5-10.0)
[2024-10-06] MEDS: PANTOPRAZOLE 40 MG TABLET PO (08:25)
[2024-10-06] MEDS: CYANOCOBALAMIN 1,000 MCG TABLET 1000 MCG PO (08:26)
[2024-10-06] MEDS: THERAPEUTIC MULTIVITAMINS/MINERALS TAB (*BKC) 1 TABLET PO (08:26)
[2024-10-06] MEDS: ROSUVASTATIN 20 MG TABLET 40 MG PO (08:26)
[2024-10-06] MEDS: LORATADINE 10 MG TABLET PO (08:26)
[2024-10-06] MEDS: INSULIN ASPART (*BKC) 100 UNITS/ML SUB-Q (08:26)
[2024-10-06 08:32] LABS: Anion Gap 9 mmol/L (4-12); Blood Urea Nitrogen 16 mg/dL (9-20); Calcium 8.6 mg/dL (8.4-10.2); Carbon Dioxide 22 mmol/L (22-30); Chloride 106 mmol/L (98-107); Estimated CRCL calculation 47 ml/min; Estimated Glomerular Filt Rate 57; Glucose 182 mg/dL (65-110); Potassium 4.0 mmol/L (3.4-5.0); Sodium 137 mmol/L (137-145)
[2024-10-06 08:48] LABS: Anisocytosis 1+; Burr Cells 1+; Hypochromasia 2+; Ovalocytes 1+; Schistocytes Rare
[2024-10-06 08:49] LABS: Acanthocytes 1+
--- NOTE | 2024-10-06 10:36 | PM.DS ---
DS: Admitting Diagnosis Discharge Date 10/06/24 Admitting Diagnosis Symptomatic anemia Weakness DS: Discharge Diagnosis Discharge Diagnosis (1) Symptomatic anemia: Code(s): D64.9 - Anemia, unspecified Status: Acute (2) B12 deficiency: Code(s): E53.8 - Deficiency of other specified B group vitamins Status: Acute (3) Hematuria: Code(s): R31.9 - Hematuria, unspecified Status: Acute (4) Weakness: Code(s): R53.1 - Weakness Status: Acute DS: Summary Hospital Course Reason for hospitalization: 79 y/o man admitted for anemia Copied from [facility] 10/03 79-year-old male presents the hospital with anemia. Patient thought that he was slowing down in life due to being 79 years old. Per the patient's granddaughter she thinks that he is weaker than normal. Patient gone to his kidney doctor and had labs drawn. Which showed hemoglobin of 6.6 so he was told to come to the emergency room. Patient denies noticeable blood in his urine or stool. Patient seen after blood transfuse in and he says he feels like he is starting to perk up. Lab work shows a hemoglobin of 6.2, sodium of 123, carbon dioxide 28, GFR 57, creatinine of 1.23, glucose of 266, urine is orange with 3+ blood and over 100 RBCs. Hospital Course: Symptomatic anemia: Hemoglobin 6.2 on admission. Transfuse 1 unit RBCs 10/03/2024. Also received 1G IV iron 10/04 & 10/05 for iron deficiency anemia. Treated B12 deficiency and started daily b12 Has a family history of colon cancer and no colonoscopy in about 20 years. --Did not prescribe iron for discharge, was repleted and can monitor for black stools --Referral to GI --Repeat CBC in 1-2 weeks CKD Hematuria Large blood in urine on admission. Trace blood on repeat. Also reported urinary urgency. No evidence of infection --Follow up with PCP --Likely urology follow up Plevic Ultrasound 10/03 The bladder is distended and contains simple fluid. No blood clots are detected within the patient's bladder. Bilateral ureteral jets are detected. No sonographic abnormality is appreciated on focused ultrasound examination of the bladder. Given the results of the urinalysis performed earlier today, would recommend cross-sectional imaging of the abdomen and pelvis, if patient is clinically able. Bladder scanned during admission and <300ml so did not start tamsulosin given risk for falls Since repeat UA trace blood did not order CT during admission. Avoiding contrast with CKD since stable and possible GI source Weakness: PT OT evalated. Was ambulating with a walker with standby assistance Lives with granddaughter Diabetes mellitus with autonomic neuropathy: Diabetic diet. Held Home dapagliflozin during admission. Blood sugars 152-244 with Lantus 12, Lispro 4 TID & Accu-Cheks a.c. & hs --Resumed home dapagliflozin 10 and home dose lantus 15/12 for discharge Status at Discharge Cognitive/behavioral status at discharge: A&Ox2-3 Time Spent with Patient Time attestation: Total time spent providing and/or coordinating discharge services: 58 minutes Specific discharge activities: Discharge instructions, evaluating patient and exam, speaking with family, reviewing chart Exam Narrative: General - Awake and alert. No acute distress Eyes - PERRLA, EOM intact ENT - No thrush, No erythema Neck - No noticeable or palpable swelling Lymph Nodes - No lymphadenopathy Cardiovascular - RRR no m/r/g, no JVD Lungs: Clear to auscultation, No wheezing, use of accessory muscles, no crackles or wheezes. Skin - Skin warm and dry, no wounds or rashes Abdomen - Normal bowel sounds, abdomen soft and nontender Extremities - No edema, cyanosis or clubbing Musculoskeletal - 5/5 strength, normal range of motion, no swollen or erythematous joints. Neurological ? Alert and oriented x 3, CN 2-12 grossly intact. Psych: Normal mood and affect DS: Data Data Completed and Pending Labs on day of discharge: Labs from last 24 hours 10/06/24 10/06/24 10/05/24 08:04 07:38 20:27 WBC 8.7 RBC 3.64 L Hgb 7.8 L Hct 27.0 L MCV 74.2 L MCH 21.4 L MCHC 28.9 L RDW 17.7 H Plt Count 311 MPV 9.2 Immature Gran % (Auto) 0.5 Neut % (Auto) 68.6 Lymph % (Auto) 14.7 L [place] % (Auto) 11.5 H Eos % (Auto) 3.2 Baso % (Auto) 1.5 H Lymph # (Auto) 1.28 [place] # (Auto) 1.0 H Eos # (Auto) 0.3 Baso # (Auto) 0.1 Abs Immat Gran (auto) 0.04 H Absolute Neuts (auto) 6.0 Absolute Nucleated RBC 0.000 Band Neutrophils % Not Reportable Nucleated RBC % 0.0 Platelet Estimate Adequate Hypochromasia 2+ Anisocytosis 1+ Ovalocytes 1+ Krystian Cells 1+ Acanthocytes (Spur) 1+ Schistocytes Rare Sodium 137 Potassium 4.0 Chloride 106 Carbon Dioxide 22 Anion Gap 9 BUN 16 Creatinine 1.23 Estim Creat Clear Calc 47 Estimated GFR 57 L Glucose 182 H POC Capillary Glucose 152 H 244 H Calcium 8.6 10/05/24 10/05/24 16:55 11:51 WBC RBC Hgb Hct MCV MCH MCHC RDW Plt Count MPV Immature Gran % (Auto) Neut % (Auto) Lymph % (Auto) [place] % (Auto) Eos % (Auto) Baso % (Auto) Lymph # (Auto) [place] # (Auto) Eos # (Auto) Baso # (Auto) Abs Immat Gran (auto) Absolute Neuts (auto) Absolute Nucleated RBC Band Neutrophils % Nucleated RBC % Platelet Estimate Hypochromasia Anisocytosis Ovalocytes [place] Cells Acanthocytes (Spur) Schistocytes Sodium Potassium Chloride Carbon Dioxide Anion Gap BUN Creatinine Estim Creat Clear Calc Estimated GFR Glucose POC Capillary Glucose 195 H 262 H Calcium Discharge Plan Discharge Attending physician on discharge: Montserrat Augustin Consulting providers: Montserrat Augustin Discharging Clinician: Montserrat Augustin Anticipated Discharge Date/Time: 10/06/24 10:21 Patient Disposition: Home Activity: may shower Diet: regular Discharge Instructions: Follow up with PCP in 1-2 weeks. Follow up with GI to discuss colonoscopy, Dr. Frank [phone]. Follow up with urology as needed, Dr. Romano ? [phone], after discussion with PCP Started B12 and a multivitamin because your B12 was low. Hold iron tablets for now and monitor for black or bloody stools. You should have repeat labs in 1-2 weeks to follow your blood count. Patient Instructions: Antibiotic Form Patient Language: Prydeinig Stand Alone Forms: General Discharge Information Follow-up/Referrals: Bassam Romano MD [Physician] - Call for Appointment Shawn Vargas MD [Primary Care Provider] - 2 Weeks Nhan Frank MD [Physician] - Call for Appointment Discharge Medications: New cyanocobalamin (vitamin B-12) [Vitamin B-12] 1,000 mcg Tablet 1,000 mcg PO QAM Qty: 90 0RF multivitamin with minerals Capsule 1 cap PO DAILY Qty: 90 3RF Continued famotidine 40 mg tablet 40 mg PO HS rosuvastatin 40 mg tablet 40 mg PO DAILY Qty: 90 3RF insulin glargine [Basaglar KwikPen U-100 Insulin] 100 unit/mL (3 mL) insulin pen See Rx Instructions .ROUTE .COMPLEX MDD 30 Qty: 27 3RF Rx Instructions: 15 units in morning, 12 units in evening (DME) lancets 30 gauge misc See Rx Instructions .ROUTE .COMPLEX Qty: 400 1RF Dose Instruction: USE TWICE DAILY DIRECTED Rx Instructions: USE four times DAILY DIRECTED (DME) True Metrix Glucose Test Strip Strip See Rx Instructions .ROUTE .COMPLEX Qty: 400 2RF Dose Instruction: TEST BEFORE MEALS Rx Instructions: TEST BEFORE MEALS 4 times a day Zyrtec 10 mg Capsule 10 mg PO DAILY omeprazole 40 mg capsule,delayed release(DR/EC) See Rx Instructions .ROUTE .COMPLEX Qty: 90 1RF Dose Instruction: TAKE 1 CAPSULE BY MOUTH EVERY DAY Rx Instructions: TAKE 1 CAPSULE BY MOUTH EVERY DAY (DME) pen needle, diabetic [UltiCare Pen Needle] 31 gauge x 1/4 needle See Rx Instructions .Route Qty: 400 1RF Rx Instructions: Use four times daily dapagliflozin propanediol 10 mg tablet See Rx Instructions .ROUTE .COMPLEX Qty: 90 1RF Dose Instruction: TAKE 1 TABLET BY MOUTH EVERY DAY Rx Instructions: TAKE 1 TABLET BY MOUTH EVERY DAY Other Ambulatory Orders: Basic Metabolic Panel (Routine) Timeframe: 1 Week Location: Determined by Patient Ordered By: Montserrat Augustin Complete Blood Count no Diff (Routine) Timeframe: 1 Week Location: Determined by Patient Ordered By: Montserrat Augustin Date of admission: 10/05/24 14:58 Primary Care Provider: Shawn Vargas Admitting Provider: Sudha Robert Attending physician on admission: Sudha Robert Condition: Stable Quality VTE Prophylaxis VTE prophylaxis: mechanical ordered Hospitalist MIPS Heart Failure (Exclusion) Patient has history of Heart Transplant or Left Ventricular Assistive Device?: No IF YES, STOP HERE Heart Failure (Qualifier) Patient has current or prior documentation of LVEF less than or equal to 40%, or mod/servere depressed LVSF?: No IF NO, STOP HERE
== END 2024-10-06 11:25 | disposition home or self-care (01) | DRG 812 ==
LOC: ANHED 16:32 → ANH3MEDSUR 17:26
PROVIDERS: Nurse Practitioner Gerontology; Admitting Provider Internal Medicine; Emergency Provider Emergency Medicine; PCP Internal Medicine; Visit Provider Nurse Practitioner Acute Care
DX: D64.9 Anemia, unspecified (principal); E11.43 Type 2 diabetes mellitus with diabetic autonomic (poly)neuropathy; E11.51 Type 2 diabetes mellitus with diabetic peripheral angiopathy without gangrene; E53.8 Deficiency of other specified B group vitamins; G20.A1 Parkinson's disease without dyskinesia, without mention of fluctuations; R31.9 Hematuria, unspecified; R53.1 Weakness; Z79.4 Long term (current) use of insulin; Z87.891 Personal history of nicotine dependence
CPT/HCPCS: 36415; 36430; 71045; 76857; 80048; 80053; 81001; 82607; 82728; 82746; 82803; 82948; 83540; 83550; 83605; 84443; 85014; 85018; 85025; 85046; 85610; 85730; 86850; 86900; 86901; 86923; 93005; 96360; 96361; 96365; 96366; 96372; 97161; 97165; 97530; 99285; A9270; G0378; J1756; J1815; J3420; J7050; P9016

== ENCOUNTER 2024-12-12 02:36 | Day surgery (SDC) | payer BC, SELFPAY ==
[2024-12-07 09:29] VITALS: BMI 24.0
--- OUTSIDE RECORDS SUMMARY | 2024-12-12 02:41 | XMS_ITS | Clinical Summary ---
Author Organization [facility] Address [address] [place] [address] Care Team Providers Care Sheet Metal Operator Name Role Phone Shawn aVrgas MD Primary Care Provider [phone] Shiva Ugarte MD Unavailable [phone] Nereida Acosta AGACNP- Unavailable [phone] Emile Veras MD Unavailable Allergies Active Allergy [...] 08/24/2022 Stenosis of left carotid artery 07/27/2022 Immunizations Immunization Administration Dates Next Due Influenza [...] Used Date Smoking Tobacco: Former Cigarettes 1 1997 Smokeless Tobacco: Never Tobacco Cessation:Counseling Given: [...] place to sleep or slept in a half-way (including now)? No 09/13/2022 Comments Unknown Sex [...] 08/09/2024 9:26 AM CDT Plan of Treatment Health Maintenance Due Date [...] 09/03/2023 09/02/2022, 06/10/2022 COVID-19 Vaccine (2 - 2024-2 6 season) 2024 01/28/2021 Influenza Adult (#1) 2024 12/01/2021, 11/14/2020, 10/29/2020 Hepatitis A Vaccines Aged Out No long er eligible based on patient's age to complete this topic Meningococcal B Vaccine Aged Out No l [...] at home upon discharge Lifestyle No Yue Rider RN Medical Devices Implanted Type Area Flooring Mechanic Device Identifier Shelf Expiration Date Model / Serial / Lot Graft Patch Hemashield [place] 0.8cmx7.6cm - [id number] Implanted:Qty: 1 on 09/13/2022 by Shiva Ugarte MD at [facility] Graft Left: Neck [employer] [id number] / / Procedures Procedure Name Priority [...] 8.0(H) <5.7 % 09/02/2022 1:18 PM CDT [facility] ESTIMATED AVG GLUCOSE 183(H) 74 - 114 MG/DL 09/02/2022 1:18 PM CDT [facility] 09/02/2022 11:5 5 AM CDT Shiva Ugarte MD LABORATORY Final Resul t Performing Organization Address [facility] Co de Phone Number [facility] [address] [place] [address], [id number] * (ABNORMAL) LIPID PANEL (09/02/2022 11:55 AM CDT) CHOLESTEROL 163 MG/DL 09/02/2022 12:52 PM CDT [facility] Comment:DESIRABLE: <200 TRIGLYCERIDES 238 MG/DL 09/02/2022 12:52 PM CDT [facility] Comment:200-499 HIGH HDL 33(L) >39 MG/DL 09/02/2022 12:52 PM CDT [facility] LDL (CALCULATED) 82 MG/DL 09/03/19 23 12:52 PM CDT [facility] Comment:<100 OPTIMAL VLDL CALCULATION 48 MG/DL 09/03/19 12:52 PM CDT [facility] Comment:REFERENCE RANGE NOT ESTABLISHED CHOL/HDL RATIO 4.9 09/02/2022 12:52 PM CDT [facility] Comment:REFERENCE RANGE NOT ESTABLISHED LDL/HDL 2.5 09/02/2022 12:52 PM CDT [facility] Comment:REFERENCE RANGE NOT ESTABLISHED NON HDL CHOLESTEROL 130 MG/DL 09/02/2022 12:52 PM CDT [facility] Comment:REFERENCE RANGE NOT ESTABLISHED 09/02/2022 11:5 5 AM CDT Shiva Ugarte MD LABORATORY Final Resul t Performing Organization Address [facility] Co de Phone Number [facility] [address] [place] [address], [place] [phone] from Last 3 Months or Most Recently Relevant to Health Maintenance Insurance [facility] MEDICARE PART A Advance Directives Documents on File Type Date Recorded Patient Assembler [employer] Expl anation Power of Director Regulatory Agency 09/13/2022 2:32 PM * Full Code (Latest Code Status on File) Date Activated Date Inactivated Comments 09/13/2022 10:05 AM 09/14/2022 3:54 PM * Full Code Date Activated Date Inactivated Comments 08/18/2022 4:18 PM 08/19/2022 9:54 AM Care Teams Sheet Metal Operator Relationship Specialty Start Date End Date Shawn Vargas MD [address] [place] [phone] PCP - General INTERNAL MEDICINE 07/15/22 Shiva Ugarte MD [address] [place] [phone] CARDIOTHORACIC SURGERY 08/25/22 Nereida Acosta, [facility]- [address] [place] [id number] Nurse Practitioner NURSE PRACTITIONER 09/30/22 Emile Veras MD [address] [place] [address] Consulting Physician CARDIOVASCULAR DISEASE 05/22/24
--- OUTSIDE RECORDS SUMMARY | 2024-12-12 02:41 | XMS_ITS | Clinical Summary ---
Author Organization [facility] Address [address] [place] [address] Phone Care Team Providers Care Tunnel Elastic Operator Chainstitch Name Role Phone Shawn Vargas MD Primary Care Provider [phone] Anurag Avila MD Unavailable [phone] Allergies Active Allergy Reactions Criticality Noted Date [...] Diagnosed Date Parkinsonism, unspecified Parkinsonism type 07/29 Family History Medical History Relation Name Comments [...] Visit [facility] [address] [place] [address] Anurag Avila MD [address] [place] [address] Health Maintenance Due Date Last Done Comments Hepatitis C Virus (HCV) Screening 1945 TdaP Immunization 1945 Pneumococcal Immunization (50+ years) (1 of 1 - PCV) 1994 10/30/2019 Zoster Immunization (1 of 2) 1994 Respiratory Syncytial Virus (RSV) Immunization (Adult) (1 - 1-dose 75+ series) 06/12/2019 Influenza Immunization (#1) 2024 09/0 08/2022, 12/01/2021, 11/14/2020, Additional history exists SARS-COV-2 Immunization ( - season) 2024 01/28/2021 Hepatitis B Immunization Aged Out No longer [...] patient's age to complete this topic Insurance [facility] MEDICARE Care Teams Tunnel Elastic Operator Chainstitch Relationship Specialty Start Date End Date Shawn Vargas MD [address] [place] [address] PCP - General Internal Medicine 02/22/23 Anurag Avila MD [address] [place] [phone] Consulting Physician Neurology 03/29/23
--- OUTSIDE RECORDS SUMMARY | 2024-12-12 02:41 | XMS_ITS ---
Author Organization [facility] Address [address] [place] [address] Phone Care Team Providers Care Technical Director Name Role Phone ROSEANN BARRERA YESSI Primary Care Provider [phone] Problems Includes: Active, inactive, and resolved Problems All Visits Onset Date Resolved Date Provider Condition S tatus Chronic Kidney Disease (Nkf Classification) Unknown RENE Jolley MANJEET HEARING AID FITTER-FPA, IRON ASSORTER-BC Active Last Documented On 2 10:05AM ; [facility] Diabetes Mellitus Unknown RENE Jolley MANJEET APR N-FPA, IRON ASSORTER-BC Active Last Documented On 2 9:14AM ; [facility] 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 Hyperlipidemia Unknown RENE Jolley MANJEET HEARING AID FITTER-F PA, IRON ASSORTER-BC Active Last Documented On 2 9:14AM ; [facility] Plan of Treatment Referrals To Diagnosis Pain Management [facility] - [address] [place] [address] - Radiculopathy, lumbar region Note: consent for Right L2-3 and L3-4 transforaminal epidural steroid injection under fluoroscopyNo need to hold NSAIDs/ASA Last Documented On 2 1:31PM ; [facility] Education and Decision Aids were provided during visit for: Lifestyle education Last Documented On 2 10:08AM ; [facility] Assessments Includes: Assessments for all patient encounters Findings Encounter Date Chronic pain syndrome PAIN MANAGEMENT NE W CONSULT with RENE BURROUGHS HEARING AID FITTER-FPPatt, IRON ASSORTER-BC 10/22/2021 Last Documented On 2 10:14AM ; [facility] Lumbar radiculopathy PAIN MANAGEMENT NEW CONSULT with RENE BURROUGHS HEARING AID FITTER-FPA, IRON ASSORTER-BC 10/22/2021 Last Documented On 2 10:14AM ; [facility] Lumbar spondylosis PAIN MANAGEMENT NEW CONSULT with RENE BURROUGHS HEARING AID FITTER-FPA, IRON ASSORTER-BC 10/22/2021 Last Documented On 2 10:14AM ; [facility] Lumbar stenosis with neuroge harinder claudication PAIN MANAGEMENT NEW CONSULT with RENE BURROUGHS HEARING AID FITTER-FPA, IRON ASSORTER-BC 10/22/2021 Last Documented On 2 10:14AM ; [facility] Instructions Includes: Instructions for all patient encounters Education and Decision Aids were provided during visit for: Lifestyle education Last Documented On 2 10:08AM ; [facility] Medical Equipment - Implanted Devices Includes: Current and historical Devices No Medical Equipment Recorded Medications Includes: Current and historical Medications Current Medications (continue as prescribed) Gabapentin 100 MG Oral Capsule 10/22/2021 Provider: REMINGTON ROJASBC Diagnosis: Radiculopathy, l umbar region 1-2 capsules three times daily Last Documented On 2 10:13AM By RENE AGUIAR ; [facility] Basaglar KwikPen 100 UNIT/ML Subcutaneous Solution Pen-injector 10/19/2021 Provider: YESSI WHITFIELD MD Diagnosis: 40 UNITS A DAY. Last Documented On 2 10:13AM By RENE AGUIAR ; [facility] DULoxetine HCl 20 MG Oral Ca psule Delayed Release Particles 10/14/2021 Provider: YESSI WHITFIELD MD Diagnosis: Last Documented On 2 10:13AM By RENE AGUIAR ; [facility] Trulicity 1.5 MG/0.5ML Subcu taneous Solution Pen-injector 10/05/2021 Provider: YESSI WHITFIELD MD Diagnosis: 1 INJECTION A WEEK. Last Documented On 2 10:13AM By RENE AGUIAR ; [facility] Pantoprazole Sodium 40 MG Or al Tablet Delayed Release 08/17/2021 Provider: YESSI WHITFIELD MD Diagnosis: NEEDED. Last Documented On 2 10:13AM By RENE AGUIAR ; [facility] Rosuvastatin Calcium 20 MG Oral Tablet 08/15/2021 Pr ovider: YESSI WHITFIELD MD Diagnosis: Last Documented On 2 10:13AM By RENE AGUIAR ; [facility] Adult Aspirin Regimen 81 MG Oral Tablet Delayed Release 07/28/2021 Provider: YESSI WHITFIELD MD Diagnosis: Last Documented On 2 10:13AM By RENE AGUIAR ; [facility] Medications Administered Includes: Administered Medications in patient's chart No Administered Medications Recorded Results Includes: Results from 12/13/2023 through 12/12/2024 No Results Recorded For Specified Dates History of Present Illness History of Present Illness not supported for this document type No History of Present Illness Recorded Social History Description Last Updated Tobacco non-user 10/22/2021 Last Documented On 2 10:14AM ; [facility] Smoking Status Unknown Medical History Includes: Medical History in patient's chart Description Last Updated Has a fear of falling. 10/22/2021 Last Documented On 2 10:14AM ; [facility] Has had a fall in the last 12 months. Last Documented On 2 10:14AM ; [facility] Family History Includes: Family History in patient's chart No Family History Recorded Review of Systems Review of Systems not supported for this document type No Review of Systems Recorded Mental Status No Mental Status Recorded Functional Status No Functional Status Recorded Physical Exam Physical Exam not supported for this document type No Physical Exam Recorded Allergies Includes: Active, inactive, and resolved Allergies No Known Allergies Insurance Includes: Active Insurance Policies Plan Name Member ID Group # Subscriber Relationship Effect avery Dates 1 - [facility] [id number] WENCESLAO Davis Clinical Notes Includes: Signed Clinical Notes starting from 03/19/2022 No Clinical Notes Recorded
--- OUTSIDE RECORDS SUMMARY | 2024-12-12 02:41 | XMS_ITS ---
Care Plan - [facility] Created on: December 12, 2024 WENCESLAO COTA : 1945 Sex: Male Author Organization [facility] Address [address] [place] [address] Phone Care Team Providers Care Production Graphic Designer Name Role Phone ROSEANN BARRERA, [facility] Primary Care Provider [phone]
--- OUTSIDE RECORDS SUMMARY | 2024-12-12 02:41 | XMS_ITS | Encounter Summary ---
Author Organization [facility] Address [address] [place] [address] Phone Care Team Providers Care News Video Editor Name Role Phone Shawn Vargas MD Primary Care Provider [phone] Anurag Avila MD Unavailable [phone] Reason for Visit * Reason Comments Medication Refill Encounter Details Date Type Department Care Team (Late st Contact Info) Description 04/08/[facility] [place] [address] Anurag Avila MD [address] [place] [address] Medication Refill Social History Tobacco [...] Description 08/08/2025 2:30 PM CDT Office Visit [facility] [address] [place] [phone] Anurag Avila MD [address] [place] [address] documented as of this encounter Visit Diagnoses Not on filedocumented in this encounter Care Teams News Video Editor Relationship Specialty Start Date End Date Shawn Vargas MD [address] [place] [address] PCP - General Internal Medicine 02/22/23 Anurag Avila MD [address] [place] [phone] Consulting Physician Neurology 03/29/23 documented as of this encounter
--- OUTSIDE RECORDS SUMMARY | 2024-12-12 02:41 | XMS_ITS | Clinical Summary ---
Author Organization [facility] Address [address] [place] [address] Phone Care Team Providers Care Student Accounts Coordinator Name Role Phone Shawn Vargas MD Primary Care Provider [phone] Allergies Active Allergy Reactions Criticality Noted Date Comments Lisinopril 09/04/2020 angioedema Medications [facility] D3 50 MCG (1999) capsule Take 1 tablet by mouth 1 (one) time each day 07/25/2020 Active Basaglar KwikPen 100 UNIT/ML injection INJECT 40UNITS UNDER THE SKIN IN THE MORNING 08/05/2020 Active UltiCare Mini Pen [place] 31G X 6 MM misc USE WITH [...] Comments Blood Pressure 124/70 02/19/2021 9:30 AM SUPERVISOR CRACK OFF Pulse 72 02/19/2021 9:30 AM SUPERVISOR CRACK OFF Temperature 35.7 C (96.3 F) 02/19/2021 9:30 AM SUPERVISOR CRACK OFF Respiratory Rate - - Oxygen Saturation - - Inhaled Oxygen Concentration - - Weight 78.9 kg (174 lb) 02/19/2021 9:30 AM SUPERVISOR CRACK OFF Height 185.4 cm (6' 1) 02/19/2021 9:30 AM SUPERVISOR CRACK OFF Body Mass Index 22.96 02/19/2021 9:30 AM SUPERVISOR CRACK OFF Plan of Treatment Health Maintenance Due Date Last Done Comments Pneumococcal PPSV23/PCV13 65 + Years / Low and Medium Risk (1 of 2 - PCV) 1994 Influenza Vaccine (#1) 2024 10/29/2020 Insurance [facility] Care Teams Student Accounts Coordinator Relationship Specialty Start Date End Date Shawn Vargas MD [address] [place] [address] PCP - General Internal Medicine 08/18/21
--- OUTSIDE RECORDS SUMMARY | 2024-12-12 02:41 | XMS_ITS | Encounter Summary ---
Author Organization [facility] Address [address] [place] [address] Phone Care Team Providers Care Kier Operator Name Role Phone Shawn Vargas MD Primary Care Provider [phone] Anurag Avila MD Unavailable [phone] Reason for Visit * Reason Comments Medication Refill Encounter Details Date Type Department Care Team (Late st Contact Info) Description [facility] [place] [address] Anurag Avila MD [address] [place] [address] Medication Refill Social History Tobacco [...] Description 08/08/2025 2:30 PM CDT Office Visit [facility] [address] [place] [phone] Anurag Avila MD [address] [place] [phone] documented as of this encounter Visit Diagnoses Not on filedocumented in this encounter Care Teams Kier Operator Relationship Specialty Start Date End Date Shawn Vargas MD [address] [place] [address] PCP - General Internal Medicine 02/22/23 Anurag Avila MD [address] [place] [address] Consulting Physician Neurology 03/29/23 documented as of this encounter
--- OUTSIDE RECORDS SUMMARY | 2024-12-12 02:41 | XMS_ITS | Clinical Summary ---
Author Organization [facility] Address [address] [place] [address] Phone Care Team Providers Care Steel Pickler Name Role Phone ROSEANN BARRERA, [facility] Primary Care Provider [phone] Reason for Visit and Chief Complaint The Chief Complaint is: rEFERRED BY dR. WHITFIELD FOR lUMBAR SPINE AND CHRONIC PAIN Problems Includes: Problems addressed during this encounter and other active Problems Current Visit Onset Date Resolved Date Provider Conditio n Status Chronic Kidney Disease (Nkf Classification) Unknown RENE Jolley MANJEET FUSE COILER-FPA, PUBLIC HEALTH AIDES TEACHER-BC Active Last Documented On 2 10:05AM ; [facility] Diabetes Mellitus Unknown RENE Jolley MANJEET APR N-FPA, PUBLIC HEALTH AIDES TEACHER-BC Active Last Documented On 2 9:14AM ; [facility] 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 Unknown RENE Jolley MANJEET FUSE COILER-FPA, PUBLIC HEALTH AIDES TEACHER-BC Active Last Documented On 2 10:06AM ; [facility] Hyperlipidemia Unknown RENE Jolley MANJEET FUSE COILER-F PA, PUBLIC HEALTH AIDES TEACHER-BC Active Last Documented On 2 9:14AM ; [facility] Plan of Treatment Patient was seen today for 3 chronic unstable conditions of the lumbosacral spine, and central nervous system.Without treatment patient is at risk for significant functional limitations resulting in diminished quality of life and impaired age appropriate activities of daily living. Multiple documents have been reviewed in combination with today's evaluation including imaging studies, outside provider notes, laboratory data, patient self-report questionnaires, and [place] prescription monitoring database entries. Significant social barriers exist to compliance resulting in limited prognosis. Decision to proceed with interventional therapies was made at the time of today's visit. - Last Documented On 10/22/2021 10:14AM ; [facility] Referrals To Diagnosis [facility] [address] [place] [phone] - Radiculopathy, lumbar region Note: consent for Right L2-3 and L3-4 transforaminal epidural steroid injection under fluoroscopyNo need to hold NSAIDs/ASA Last Documented On 2 1:31PM ; [facility] Education and Decision Aids were provided during visit for: Lifestyle education Last Documented On 10:08AM ; [facility] Assessments Includes: Assessments from this encounter Findings - [M47.896 - Other spondylosis, lumbar region] Lumbar spondylosis - Last Documented On 10/22/2021 10:14AM ; [facility] - [M48.062 - Spinal stenosis, lumbar region with neurogenic claudication] Lumbar stenosis with neurogenic claudication - Last Documented On 10/22/2021 10:14AM ; [facility] - [M54.16 - Radiculopathy, lumbar region] Lumbar radiculopathy - Last Documented On 10/22/2021 10:14AM ; [facility] - [G89.4 - Chronic pain syndrome] Chronic pain syndrome - Last Documented On 10/22/2021 10:14AM ; [facility] Instructions Includes: Instructions from this encounter Education and Decision Aids were provided during visit for: Lifestyle education Last Documented On 10:08AM ; [facility] Medical Equipment - Implanted Devices Includes: Current Devices No Medical Equipment Recorded Medications Includes: Medications discussed during this encounter and other current Medications New / Renewed during this visit COSME BANKS on 10/22/2021 Gabapentin 100 MG Oral Capsule Provider: COSME ROJAS 14 day supply: 84 capsule, 0 refills Diagnosis: Radiculopathy, lumbar region 1-2 capsules three times daily Pharmacy: [facility]/pharmacy #[id number], [address] - Last Documented On 2 10:13AM By RENE AGUIAR ; [facility] Current Medications (continue as prescribed) Basaglar KwikPen 100 UNIT/ML Subcutaneous Solution Pen-injector 10/19/2021 Provider: YESSI WHITFIELD MD Diagnosis: 40 UNITS A DAY. Last Documented On 2 10:13AM By RENE AGUIAR ; [facility] DULoxetine HCl 20 MG Oral Ca psule Delayed Release Particles 10/14/2021 Provider: YESSI WHITFIELD MD Diagnosis: Last Documented On 2 10:13AM By RENE AGUIAR ; [facility] Trulicity 1.5 MG/0.5ML Subcu taneous Solution Pen-injector 10/05/2021 Provider: YESSI WHITFIELD MD Diagnosis: 1 INJECTION A WEEK. Last Documented On 2 10:13AM By RENE AGUIAR ; [facility] Pantoprazole Sodium 40 MG Or al Tablet Delayed Release 08/17/2021 Provider: YESSI WHITFIELD MD Diagnosis: NEEDED. Last Documented On 2 10:13AM By RENE AGUIAR ; [facility] Rosuvastatin Calcium 20 MG Oral Tablet 08/15/2021 Pr ovider: YESSI WHITFIELD MD Diagnosis: Last Documented On 2 10:13AM By RENE AGUIAR ; [facility] Adult Aspirin Regimen 81 MG Oral Tablet Delayed Release 07/28/2021 Provider: YESSI WHITFIELD MD Diagnosis: Last Documented On 2 10:13AM By RENE AGUIAR ; [facility] Medications Administered Includes: Administered Medications from this encounter No Administered Medications Recorded Vital Signs Includes: Vital Signs from this encounter Vital Name 10/22/2021 09:06A Blood Pressure Sitting R 128/78 BP Cuff Size Regular Pulse Rate-Sitting (bpm) 83 Temp-Oral (F) 96.8 Height (in) 72 Weight (lb) 164 Body Mass Index (kg/m2) 22.2 Body Surface Area (m2) 2.0 Pain Level 8 Oxygen Saturation (%) 97 Last Documented: On 10/22/2021 9:09AM ; [facility] Results Includes: Results discussed during this encounter No Results Recorded For Specified Dates History of Present Illness Includes: History of Present Illness from this encounter HPI PHQ-9 Score: 6 Date: 10/22/2021PI Score: Date:MiDAS Score: Date:SOAPP-R Score: 3 LOW Date: 10/22/2021ain Location: LUMBAR SPINE (RIGHT SIDED)Quality: ACHING, THROBBING, TIGHT, SHARP, SHOOTINGRadiation: RIGHT LEG BUT AND THIGH TO RIGHT KNEESeverity: Timing: CONSTANTAssociated Sx: WEAKNESS, NAUSEA, DIINESS, DIFFICULT WALKINGAggravating Factors:SITTING, WALKING, LIFTING, BENDING, IN/OUT OF CAR, STAIRSAlleviating Factors: LYING DOWN. Past Tx: PHYSICAL THERAPY, XRAY, MRI (09/2021) WENCESLAO COTA is a 76 year old male. - Allergy list reviewed - Problem list reviewed - Medication reconciliation performed - Medication list reviewed - Primary Care Provider: DR. WIN - Prescription Drug Monitoring Program website checked. N/A - Last dose of medication? - Vertigo Discussion: Patient presents today for acute on chronic low back pain that started about one month ago. He states he twisted the wrong way and felt something tweak in his low back. The pain radiates down the right leg in a L3/L4 dermatomal pattern to the knee. He reports a similar episode two years ago that caused significant weakness he described as paralysis of both legs requiring extensive physical therapy. His current back pain is worse with sitting for long periods, standing, or walking for long periods of time. He can only stand or walk for less than five minutes before he has to sit down or lean forward on something. Laying down helps with the pain. He tried physical therapy but was only able to attend 3 visits because this increased his pain exponentially. He is not taking any [id number] pain medication. His primary started him on Duloxetine for the pain. He was taking this once a day and it was helping. It was recently increased to twice daily but is causing some significant nausea and increased dizziness. He has chronic neuropathy in the lower legs but no numbness or tingling in the upper legs. He is scheduled for surgery consultation on November 03 at [facility] but would like to avoid surgery if possible. I encouraged him to take Tylenol 1000 mg or the Tylenol arthritis 1 to 2 tablets two to three times a day. We will also add Gabapentin at a low dose. 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 He is a diabetic with his last A1c being around 8.3. I also advised him to decrease the Cymbalta to only once daily at night since the increased dose caused him significant side effects and concern for falls. He is to monitor any side effects of the Gabapentin. We will watch his kidney function closely. I will request his last lab so that we can monitor appropriately. We discussed scheduling him today for a transforaminal epidural steroid injection. We discussed possible side effects to include possible increased blood sugars. He will monitor this closely. His granddaughter is present with him today and helps manage his care. They would like to proceed with the injection. All questions answered. Imaging: All relevant imaging available was personally reviewed with the patient today with the following tests and results noted: X-ray Lumbar Spine Moderate lumbar spondylosis MRI Lumbar Spine 10/14/2021 Impression mild to moderate spondylosis most notable for moderate to severe central canal stenosis at L3-4 Endplate changes, degenerative disc disease, ligamentum flavum thickening Social History Description Last Updated Tobacco non-user 10/22/2021 Last Documented On 2 10:14AM ; [facility] Smoking Status Unknown Procedures and Surgical History Includes: Procedures from this encounter Procedures Code Diagnosis Performing Provider Service L ocation Service Date plan of care reviewed and agreed to Last Documented On 2 10:08AM ; [facility] plan of care reviewed and agreed to by t he patient Last Documented On 2 10:08AM ; [facility] use of tobacco assessment performed 1000F Last Documented On 2 8:47AM ; [facility] patient screened for future fall risk: documentation of any fall with injury in past year 1100F Last Documented On 2 8:50AM ; [facility] review of medications documented 1160F Last Documented On 2 8:47AM ; [facility] screening for adult depression: impressi on and score six Last Documented On 2 8:47AM ; [facility] standardized depression screening: posit avery for symptoms Last Documented On 2 8:47AM ; [facility] encouragement to exercise Last Documented On 2 10:08AM ; [facility] Clinical summary provided to patient Last Documented On 2 8:47AM ; [facility] Medical History Includes: Medical History addressed during this encounter Description Last Updated Has a fear of falling. 10/22/2021 Last Documented On 2 10:14AM ; [facility] Has had a fall in the last 12 months. Last Documented On 2 10:14AM ; [facility] Family History Includes: Family History addressed during this encounter No Family History Recorded Review of Systems Includes: Review of Systems from this encounter Systemic: No systemic symptoms other then noted. Feeling poorly (malaise). No recent weight loss. Head: No head symptoms other then noted. Neck: No neck pain. Eyes: Vision problems. Otolaryngeal: No otolaryngeal symptoms other than noted. Cardiovascular: No cardiovascular symptoms other than noted. Cardiovascular symptoms. Pulmonary: No pulmonary symptoms other than noted. Gastrointestinal: Appetite. No difficulty chewing and no dysphagia. Heartburn and abdominal pain. Genitourinary: No genitourinary symptoms other than noted. Endocrine: No endocrine symptoms other than noted. Hematologic: No easy bleeding and no tendency for easy bruising. Musculoskeletal: No musculoskeletal symptoms other than noted. Muscle aches, pain localized to one or more joints, and joint stiffness localized to one or more joints. Neurological: No neurological symptoms other than noted. Neurological symptoms. No fainting passing out with needles or medical procedures. Psychological: No sleep apnea. Skin: No skin symptoms other than noted. Mental Status Includes: Mental Status from this encounter No Mental Status Recorded Functional Status Includes: Functional Status from this encounter No Functional Status Recorded Physical Exam Includes: Physical Exam from this encounter Allergies Includes: Active Allergies No Known Allergies Encounters Encounter Provider Location Date Check-In Time Check-Out Time Diagnosis PAIN MANAGEMENT NEW CONSULT RENE BURROUGHS FUSE COILER-FPA, PUBLIC HEALTH AIDES TEACHER-BC [facility] ON 10/23/19 22 8:37AM 9:53AM Lumbar Spondylosis,Chr onic Pain Syndrome,Lumbar Radiculopathy,S hermilo Stenosis Lumbar with Neurogenic Claudication Insurance Includes: Active Insurance Policies Plan Name Member ID Group # Subscriber Relationship Effect avery Dates 1 - [facility] [id number] WENCESLAO COTA Self Clinical Notes Includes: Clinical Notes from this encounter No Clinical Notes Recorded
[2024-12-12 07:16] VITALS: BP 123/66; PULSE 81; RESP 18; TEMP 36.4; O2SAT 100
[2024-12-12] MEDS: LACTATED RINGERS 1,000 ML 150 ML IV CONT (07:33)
--- NOTE | 2024-12-12 07:51 | WPDANESEPPF ---
Anes - Initial Pre Proc Eval Procedure: Operation Date: 12/12/24 08:30 Proposed Procedures p Diagnostic Colonoscopy - Nhan Frank MD Date/Time: 12/12/24 07:51 Surgeon: Nhan Frank MD Pre Op Diagnosis: iron deficiency anemia Patient Data Age: 79 Gender: M Height: 1.83 m Weight: 69.6 kg Last Vital Signs Temp 97.5 F L 12/12/24 07:16 Pulse 81 12/12/24 07:16 Resp 18 12/12/24 07:16 BP 123/66 12/12/24 07:16 Pulse Ox 100 12/12/24 07:16 O2 Del Method Room Air 12/12/24 07:16 Allergies Allergy/AdvReac Type Severity Reaction Status Date / Time lisinopril Allergy Swelling Verified 12/12/24 07:14 of Lip/Tongue/Throat Home Medications ?Medication ?Instructions ?Recorded ?Confirmed ?Type cetirizine 10 mg capsule (Zyrtec) 10 mg PO DAILY 01/17/23 12/12/24 History famotidine 40 mg tablet 40 mg PO HS 04/20/23 12/12/24 History pen needle, diabetic 31 gauge x #400 ea 06/27/23 10/03/24 Rx 1/4 (UltiCare Pen Needle) blood sugar diagnostic (True #400 strips 09/05/24 10/03/24 Rx Metrix Glucose Test Strip) insulin glargine 100 unit/mL (3 See Rx Instructions .Route 09/05/24 12/12/24 Rx mL) subcutaneous pen (Basaglar .COMPLEX #27 mL KwikPen U-100 Insulin) lancets 30 gauge #400 ea 09/05/24 10/03/24 Rx rosuvastatin 40 mg tablet 40 mg PO DAILY #90 tabs 09/05/24 12/12/24 Rx dapagliflozin propanediol 10 mg See Rx Instructions .Route 09/24/24 12/12/24 Rx tablet .COMPLEX #90 tabs cyanocobalamin (vitamin B-12) 1,000 mcg PO QAM #90 tabs 10/06/24 12/12/24 Rx 1,000 mcg tablet (Vitamin B-12) multivitamin with minerals 1 cap PO DAILY #90 caps 10/06/24 12/12/24 Rx omeprazole 40 mg capsule,delayed See Rx Instructions .Route 10/06/24 12/12/24 Rx release .COMPLEX #90 caps Patient hx anesthesia problems: none Family hx anesthesia problems: none Results Review: All pre-operative results and documents have been reviewed as part of the pre-operative evaluation. [facility] Past Medical History Medical History (Updated 12/12/24 @ 07:53 by Berlin Bruce Jr. DOG CONTROL OFFICER) Hyperlipidemia LDL goal <70 Type 2 diabetes mellitus with hyperglycemia, with long-term current use of insulin Hematuria Weakness B12 deficiency Nausea & vomiting Parkinsons disease Esophageal stricture Left wrist fracture Peripheral arterial disease Neuropathy in diabetes Diabetes mellitus with autonomic neuropathy Diabetic foot ulcer associated with type 2 diabetes mellitus Social History Social History Years smoked: 20 Smoking status: Former smoker Tobacco type: cigarettes and cigars Additional smoking assessment comments: HAS NOT SMOKED IN OVER 30 YRS Alcohol intake: never Alcohol use details: none past 10 yrs Substance use: never Substance use type: does not use Do You Feel Safe in your Home?: Yes Lack of Transportation: No Lack of Food: Never True Current Housing: I Have Housing Concerned About Future Housing: No Difficulty Paying Gas/Electric Bills: No Difficulty Paying for Meds: No Currently Unemployed: No Education: Decline to Answer Difficulty w/ Childcare or Family Care: No Living arrangements: with family Additional living arrangements comments: With granddaughter Gender identity (if verbalized by the patient): Male Spiritual care concerns: No Anes - Eval Final PreProcedure Day of Procedure 12/12/24 07:51 Results Review: All pre-operative results and documents have been reviewed as part of the pre-operative evaluation. Informed Consent: The patient's anesthetic plan and its attendant risks and benefits were discussed with the patient/family/POA. Questions were solicited and answers provided to the satisfaction of the patient/family/POA.
--- NOTE | 2024-12-12 08:28 | PM.IMHP ---
H&P: HPI History of Present Illness Date/Time: 12/12/24 08:28 Chief Complaint: Iron deficiency anemia Narrative: The patient was admitted to hospital in September this year after being found to have hemoglobin of 6.2. His iron saturation percentage is 13%. He is now being referred for colonoscopy. Of note, around July this year he had dysphagia and I performed an EGD finding and Schatzki ring which was dilated with a balloon up to 20 mm. After that he felt well and now he is able to eat solid food normally. There were no suspicious lesions in the stomach or duodenum. Review of Systems Review of Systems: All systems reviewed & are unremarkable except as noted in HPI and below PMFSH Past Medical History Medical History (Updated 12/12/24 @ 08:29 by Nhan Frank MD) Hyperlipidemia LDL goal <70 Type 2 diabetes mellitus with hyperglycemia, with long-term current use of insulin Hematuria Weakness B12 deficiency Nausea & vomiting Parkinsons disease Esophageal stricture Left wrist fracture Peripheral arterial disease Neuropathy in diabetes Diabetes mellitus with autonomic neuropathy Diabetic foot ulcer associated with type 2 diabetes mellitus Social History Social History Years smoked: 20 Smoking status: Former smoker Tobacco type: cigarettes and cigars Additional smoking assessment comments: HAS NOT SMOKED IN OVER 30 YRS Alcohol intake: never Alcohol use details: none past 10 yrs Substance use: never Substance use type: does not use Do You Feel Safe in your Home?: Yes Lack of Transportation: No Lack of Food: Never True Current Housing: I Have Housing Concerned About Future Housing: No Difficulty Paying Gas/Electric Bills: No Difficulty Paying for Meds: No Currently Unemployed: No Education: Decline to Answer Difficulty w/ Childcare or Family Care: No Living arrangements: with family Additional living arrangements comments: With granddaughter Gender identity (if verbalized by the patient): Male Spiritual care concerns: No Meds Home Medications and Allergies Home Medications ?Medication ?Instructions ?Recorded ?Confirmed ?Type cetirizine 10 mg capsule (Zyrtec) 10 mg PO DAILY 01/17/23 12/12/24 History famotidine 40 mg tablet 40 mg PO HS 04/20/23 12/12/24 History pen needle, diabetic 31 gauge x #400 ea 06/27/23 10/03/24 Rx 1/4 (UltiCare Pen Needle) blood sugar diagnostic (True #400 strips 09/05/24 10/03/24 Rx Metrix Glucose Test Strip) insulin glargine 100 unit/mL (3 See Rx Instructions .Route 09/05/24 12/12/24 Rx mL) subcutaneous pen (Basaglar .COMPLEX #27 mL KwikPen U-100 Insulin) lancets 30 gauge #400 ea 09/05/24 10/03/24 Rx rosuvastatin 40 mg tablet 40 mg PO DAILY #90 tabs 09/05/24 12/12/24 Rx dapagliflozin propanediol 10 mg See Rx Instructions .Route 09/24/24 12/12/24 Rx tablet .COMPLEX #90 tabs cyanocobalamin (vitamin B-12) 1,000 mcg PO QAM #90 tabs 10/06/24 12/12/24 Rx 1,000 mcg tablet (Vitamin B-12) multivitamin with minerals 1 cap PO DAILY #90 caps 10/06/24 12/12/24 Rx omeprazole 40 mg capsule,delayed See Rx Instructions .Route 10/06/24 12/12/24 Rx release .COMPLEX #90 caps Allergies Allergy/AdvReac Type Severity Reaction Status Date / Time lisinopril Allergy Swelling Verified 12/12/24 07:14 of Lip/Tongue/Throat Vital Signs Vital Signs - 24 hr 12/12/24 07:16 Temperature 97.5 F L Pulse Rate 81 Respiratory Rate 18 Blood Pressure 123/66 Pulse Oximetry 100 Oxygen Delivery Room Air Exam Const: General: cooperative and healthy appearing Resp: Effort & Inspection: normal respiratory effort and able to speak in complete sentences Auscultation: clear to auscultation bilaterally Cardio: Rate: regular rate Rhythm: regular rhythm GI: Inspection: normal to inspection GI Palp: No No hepatosplenomegaly present Auscultation: normal bowel sounds Rectal Exam: deferred Skin: General skin exam: normal color Psych: Appearance: grossly normal Mental Status: mental status grossly normal Assessment and Plan Assessment and plan (1) Iron deficiency anemia: Code(s): D50.9 - Iron deficiency anemia, unspecified Status: Acute Assessment and Plan: The patient is deemed a good candidate for the procedure. Consent signed. Will proceed.
--- NOTE | 2024-12-12 08:59 | S_PTH ---
PATIENT: Charles Hannah LOC: [facility] Deleon#:[id number] AGE/SX: 79/M ROOM: RE12/12/[address]: Nhan Frank MD : 1945 BED: DIS: 12/12/2024 SPEC #: [id number] RECD: 12/12/24 10:52 STATUS: ORACIO REQ #: [id number] CRICKET: 12/12/24 08:[address]: Nhan Frank DEPT: [facility] Surgical RECD BY: Windy Cardozo ENTERED: 12/12/24 10:53 SP TYPE: Surgical OTHR DR: Shawn Vargas MD Tissues: A - Colon Biopsy Procedures: Hematoxylin and Eosin Stain Gross and Microscopic Level 4 MLH1 MSH2 MSH6 PMS2
[2024-12-12 09:02] VITALS: BP 124/102; PULSE 69; RESP 16; O2SAT 99
[2024-12-12 09:12] VITALS: BP 101/41; PULSE 69; RESP 21; O2SAT 100
[2024-12-12 09:22] VITALS: BP 138/72; PULSE 69; RESP 21; O2SAT 100
== END 2024-12-12 09:36 | disposition home or self-care (01) ==
PROVIDERS: PCP Internal Medicine; Referring Provider Internal Medicine; Visit Provider Internal Medicine Gastroenterology
PROC: 0DJD8ZZ Inspection of Lower Intestinal Tract, Via Natural or Artificial Opening Endoscopic (ICD-10-PCS; CPT 45378; principal; 2024-12-12 08:30)
DX: C18.0 Malignant neoplasm of cecum (principal); K64.8 Other hemorrhoids; K57.30 Diverticulosis of large intestine without perforation or abscess without bleeding; D50.9 Iron deficiency anemia, unspecified; E78.5 Hyperlipidemia, unspecified; E11.65 Type 2 diabetes mellitus with hyperglycemia; E11.43 Type 2 diabetes mellitus with diabetic autonomic (poly)neuropathy; E11.621 Type 2 diabetes mellitus with foot ulcer; E53.8 Deficiency of other specified B group vitamins; G20.A1 Parkinson's disease without dyskinesia, without mention of fluctuations; I73.9 Peripheral vascular disease, unspecified; Z79.4 Long term (current) use of insulin; Z87.891 Personal history of nicotine dependence; Z87.19 Personal history of other diseases of the digestive system
CPT/HCPCS: 45380; 45381; 82948; 88305; 88342; J2003; J2371; J2704; J7120

== ENCOUNTER 2024-12-13 09:25 | Outpatient (CLI) | payer BC, SELFPAY ==
--- NOTE | ~2024-12-13 | CT_ITS ---
EXAMINATION: CT chest abdomen pelvis w con DATE: 12/13/2024 09:58 INDICATION: Colon cancer. TECHNIQUE: Computed tomography (CT) of the chest, abdomen, and pelvis was performed with 100 mL Omnipaque 350 intravenous contrast. Automated exposure control and iterative reconstruction technique were employed. The dose-length product was 794.23 mGy-cm. COMPARISON: None FINDINGS: CHEST CT: The lungs demonstrate mild atelectasis. No pleural effusion. The heart size is normal. There are coronary artery calcifications. No pericardial effusion. Is mild thoracic spondylosis. ABDOMEN/PELVIS CT: There is a 7 mm hyperenhancing mass in right hepatic lobe. There is a 9 mm cyst in the liver. The gallbladder, spleen, pancreas, and adrenal glands are normal. There is cortical thinning of the kidneys. There are cysts in the kidneys measuring up to 3.1 cm on the left. The prostate is mildly enlarged. There is diffuse bladder wall thickening, likely secondary to chronic outlet obstruction. The appendix is normal. There is wall thickening in the proximal colon. There is a 14 x 10 mm ileocolic lymph node. There is no free intraperitoneal fluid. There is a left inguinal hernia containing fat. There is severe lumbar spondylosis. IMPRESSION: 1. Wall thickening in the proximal colon, consistent with primary malignancy. 2. Mildly enlarged ileocolic lymph nodes, consistent with metastatic disease. 3. 7 mm hyperenhancing liver mass, likely a hemangioma or focal nodular hyperplasia. Reviewed, dictated and finalized at location E. IMPRESSION: 1. Wall thickening in the proximal colon, consistent with primary malignancy. 2. Mildly enlarged ileocolic lymph nodes, consistent with metastatic disease. 3. 7 mm hyperenhancing liver mass, likely a hemangioma or focal nodular hyperpl jonel.
[2024-12-13 09:52] LABS: Estimated Glomerular Filt Rate > 60
--- OUTSIDE RECORDS SUMMARY | 2024-12-13 10:22 | XMS_ITS | Clinical Summary ---
Author Organization [facility] Address [address] [place] [address] Phone Care Team Providers Care Office Professionals Name Role Phone Shawn Vargas MD Primary Care Provider [phone] Allergies Active Allergy Reactions Criticality Noted Date Comments Lisinopril 09/04/2020 angioedema Medications [facility] D3 50 MCG (1999) capsule Take 1 tablet by mouth 1 (one) time each day 07/25/2020 Active Basaglar KwikPen 100 UNIT/ML injection INJECT 40UNITS UNDER THE SKIN IN THE MORNING 08/05/2020 Active UltiCare Mini Pen [place] 31G X 6 MM misc USE WITH [...] Comments Blood Pressure 124/70 02/19/2021 9:30 AM RADIO STATION MANAGER Pulse 72 02/19/2021 9:30 AM RADIO STATION MANAGER Temperature 35.7 C (96.3 F) 02/19/2021 9:30 AM RADIO STATION MANAGER Respiratory Rate - - Oxygen Saturation - - Inhaled Oxygen Concentration - - Weight 78.9 kg (174 lb) 02/19/2021 9:30 AM RADIO STATION MANAGER Height 185.4 cm (6' 1) 02/19/2021 9:30 AM RADIO STATION MANAGER Body Mass Index 22.96 02/19/2021 9:30 AM RADIO STATION MANAGER Plan of Treatment Health Maintenance Due Date Last Done Comments Pneumococcal PPSV23/PCV13 65 + Years / Low and Medium Risk (1 of 2 - PCV) 1994 Influenza Vaccine (#1) 2024 10/29/2020 Insurance [facility] Care Teams Office Professionals Relationship Specialty Start Date End Date Shawn Vargas MD [address] [place] [address] PCP - General Internal Medicine 08/18/21
--- OUTSIDE RECORDS SUMMARY | 2024-12-13 10:22 | XMS_ITS | Encounter Summary ---
Author Organization [facility] Address [address] [place] [address] Care Team Providers Care Fruit Sprayer Name Role Phone Woo Hurtado MD Unavailable [phone] Shawn Vargas MD Primary Care Provider [phone] Shiva Ugarte MD Unavailable [phone] Nereida Acosta [facility] Unavailable [phone] Emile Veras MD Unavailable Encounter Details Date Type Department Care Team (Late st Contact Info) Description 08/13/2022 Hospital Orders Only [employer] Manager Pre/Post [address] [place] [address] Woo Hurtado MD [address] [facility], [address] [place] [address] Social History Tobacco Use Types [...] as of this encounter Plan of Treatment Not on file documented as of this encounter Visit Diagnoses Not on filedocumented in this encounter Care Teams Fruit Sprayer Relationship Specialty Start Date End Date Shawn Vargas MD [address] [place] [phone] PCP - General INTERNAL MEDICINE 07/15/22 Woo Hurtado MD Consulting Physician INTERVENTIONAL CARDIOLOGY 07/15/22 05/21/24 Shiva Ugarte MD [address] [place] [phone] CARDIOTHORACIC SURGERY 08/25/22 Nereida Acosta AGACNP- [address] [place] [address] Nurse Practitioner NURSE PRACTITIONER 09/30/22 Emile Veras MD [address] [place] [address] Consulting Physician CARDIOVASCULAR DISEASE 05/22/24 documented as of this encounter
--- OUTSIDE RECORDS SUMMARY | 2024-12-13 10:22 | XMS_ITS | Clinical Summary ---
Author Organization [facility] Address [address] [place] [address] Phone Care Team Providers Care Electronics Supervisor Name Role Phone Shawn Vargas MD Primary Care Provider [phone] Anurag Avila MD Unavailable [phone] Allergies Active Allergy Reactions Criticality Noted Date Comments Lisinopril Anaphylaxis 03/29/2023 Medications Insulin Glargine (BASAGLAR KWIKPEN SC) 30 palu-units by Subcutaneous route. Active rosuvastatin (CRESTOR) 20 [...] Visit [facility] [address] [place] [address] Anurag Avila MD [address] [place] [address] Health Maintenance Due Date Last Done Comments [...] patient's age to complete this topic Insurance [facility] MEDICARE Care Teams Electronics Supervisor Relationship Specialty Start Date End Date Shawn Vargas MD [address] [place] [address] PCP - General Internal Medicine 02/22/23 Anurag Avila MD [address] [place] [phone] Consulting Physician Neurology 03/29/23
--- OUTSIDE RECORDS SUMMARY | 2024-12-13 10:22 | XMS_ITS | Encounter Summary ---
Author Organization [facility] Address [address] [place] [address] Phone Care Team Providers Care Commercial Litigation Attorney Name Role Phone Shawn Vargas MD Primary Care Provider [phone] Anurag Avila MD Unavailable [phone] Reason for Visit * Reason Comments Medication Refill Encounter Details Date Type Department Care Team (Late st Contact Info) Description [facility] [address] [place] [address] Anurag Avila MD [address] [place] [address] Medication Refill Social History Tobacco [...] Description 08/08/2025 2:30 PM CDT Office Visit [facility] [address] [place] [phone] Anurag Avila MD [address] [place] [address] documented as of this encounter Visit Diagnoses Not on filedocumented in this encounter Care Teams Commercial Litigation Attorney Relationship Specialty Start Date End Date Shawn Vargas MD [address] [place] [address] PCP - General Internal Medicine 02/22/23 Anurag Avila MD [address] [place] [phone] Consulting Physician Neurology 03/29/23 documented as of this encounter
--- OUTSIDE RECORDS SUMMARY | 2024-12-13 10:22 | XMS_ITS | Clinical Summary ---
Author Organization [facility] Address [address] [place] [address] Care Team Providers Care Stove Fitter Name Role Phone Shawn Vargas MD Primary Care Provider [phone] Shiva Ugarte MD Unavailable [phone] Nereida Acosta AGACNP- Unavailable [phone] Emile Veras MD Unavailable Allergies Active Allergy [...] place to sleep or slept in a m[facility]p (including now)? No 09/13/2022 Comments Unknown Sex [...] Rider RN Medical Devices Implanted Type Area Shot Bagger Device Identifier Shelf Expiration Date Model / Serial / Lot Graft Patch Hemashield Ruby 0.8cmx7.6cm - [id number] Implanted:Qty: 1 on 09/13/2022 by Shiva Ugarte MD at [facility] Graft Left: Neck [employer] [id number] / / Procedures Procedure Name Priority [...] 8.0(H) <5.7 % 09/02/2022 1:18 PM CDT [facility] ESTIMATED AVG GLUCOSE 183(H) 74 - 114 MG/DL 09/02/2022 1:18 PM CDT [facility] 09/02/2022 11:5 5 AM CDT Shiva Ugarte MD LABORATORY Final Resul t Performing Organization Address [facility] Co de Phone Number [facility] [address] [place] [address], [phone] * (ABNORMAL) LIPID PANEL (09/02/2022 11:55 AM CDT) CHOLESTEROL 163 MG/DL 09/02/2022 12:52 PM CDT [facility] Comment:DESIRABLE: <200 TRIGLYCERIDES 238 MG/DL 09/02/2022 12:52 PM CDT [facility] Comment:200-499 HIGH HDL 33(L) >39 MG/DL 09/02/2022 12:52 PM CDT [facility] LDL (CALCULATED) 82 MG/DL 09/03/19 23 12:52 PM CDT [facility] Comment:<100 OPTIMAL VLDL CALCULATION 48 MG/DL 09/03/19 12:52 PM CDT [facility] Comment:REFERENCE RANGE NOT ESTABLISHED CHOL/HDL RATIO 4.9 09/02/2022 12:52 PM CDT [facility] Comment:REFERENCE RANGE NOT ESTABLISHED LDL/HDL 2.5 09/02/2022 12:52 PM CDT [facility] Comment:REFERENCE RANGE NOT ESTABLISHED NON HDL CHOLESTEROL 130 MG/DL 09/02/2022 12:52 PM CDT [facility] Comment:REFERENCE RANGE NOT ESTABLISHED 09/02/2022 11:5 5 AM CDT Shiva Ugarte MD LABORATORY Final Resul t Performing Organization Address [facility] Co de Phone Number [facility] [address] [place] [address], [place] [phone] from Last 3 Months or Most Recently Relevant to Health Maintenance Insurance [facility] MEDICARE PART A Advance Directives Documents on File Type Date Recorded Patient Plastics Engineering Teacher Expl anation Power of Certified Control Systems Technician 09/13/2022 2:32 PM * Full Code (Latest Code Status on File) Date Activated Date Inactivated Comments 09/13/2022 10:05 AM 09/14/2022 3:54 PM * Full Code Date Activated Date Inactivated Comments 08/18/2022 4:18 PM 08/19/2022 9:54 AM Care Teams Stove Fitter Relationship Specialty Start Date End Date Shawn Vargas MD [address] [place] [phone] PCP - General INTERNAL MEDICINE 07/15/22 Shiva Ugarte MD [address] [place] [phone] CARDIOTHORACIC SURGERY 08/25/22 Nereida Acosta, [facility] [address] [place] [address] Nurse Practitioner NURSE PRACTITIONER 09/30/22 Emile Veras MD [address] [place] [address] Consulting Physician CARDIOVASCULAR DISEASE 05/22/24
--- OUTSIDE RECORDS SUMMARY | 2024-12-13 10:22 | XMS_ITS | Encounter Summary ---
Author Organization [facility] Address [address] [place] [address] Phone Care Team Providers Care Offset Label Rewinder Name Role Phone Shawn Vargas MD Primary Care Provider Anurag Avila MD Unavailable [phone] Reason for Visit * Reason Comments Medication Refill Encounter Details Date Type Department Care Team (Late st Contact Info) Description 04/08/[address] [facility] [address] [place] [address] Anurag Avila MD [address] [place] [address] Medication Refill Social History Tobacco [...] 08/08/2025 2:30 PM CDT Office Visit [facility] [address] [place] [phone] Anurag Avila MD [address] [place] [address] documented as of this encounter Visit Diagnoses Not on filedocumented in this encounter Care Teams Offset Label Rewinder Relationship Specialty Start Date End Date Shawn Vargas MD [address] [place] [address] PCP - General Internal Medicine 02/22/23 Anurag Avila MD [address] [place] [phone] Consulting Physician Neurology 03/29/23 documented as of this encounter
== END 2024-12-13 09:26 | disposition home or self-care (01) ==
PROVIDERS: PCP Internal Medicine; Visit Provider Internal Medicine Gastroenterology
DX: C18.9 Malignant neoplasm of colon, unspecified (principal); K63.89 Other specified diseases of intestine; R16.0 Hepatomegaly, not elsewhere classified
CPT/HCPCS: 71260; 74177; Q9967

== ENCOUNTER 2024-12-25 13:51 | Outpatient (CLI) | payer BC, SELFPAY ==
[2024-12-25 15:44] LABS: INR 1.1; Partial Thromboplastin Time 26.5 Seconds (22.3-36.8); Prothrombin Time 14.3 Seconds (11.1-14.7)
--- OUTSIDE RECORDS SUMMARY | 2024-12-25 16:09 | XMS_ITS | Encounter Summary ---
Author Organization [facility] Address [address] [place] [address] Phone Care Team Providers Care Slate Cutter Operator Name Role Phone Shawn Vargas MD Primary Care Provider [phone] Anurag Avila MD Unavailable [phone] Reason for Visit * Reason Comments Medication Refill Encounter Details Date Type Department Care Team (Late st Contact Info) Description 04/08/2023 [facility]ill [facility] [address] [place] [phone] Anurag Avila MD [address] [place] [address] Medication Refill Social History Tobacco Use Types Packs/Day Years Used Date Smoking Tobacco: Former Cigarettes 0 Q uit: 2015 Smokeless Tobacco: Never Sex and Gender Information Value Date Recorded Sex Assigned at Not on file Legal Sex Male 10:52 AM CDT Gender Identity Not on file Sexual Orientation Not on file documented as of this encounter Plan of Treatment Upcoming Encounters Date Type Department Care Team (Late st Contact Info) Description 08/08/2025 2:30 PM CDT Office Visit [facility] [address] [place] [phone] Anurag Avila MD [address] [place] [phone] documented as of this encounter Visit Diagnoses Not on filedocumented in this encounter Care Teams Slate Cutter Operator Relationship Specialty Start Date End Date Shawn Vargas MD [address] [place] [address] PCP - General Internal Medicine 02/22/23 Anurag Avila MD [address] [place] [phone] Consulting Physician Neurology 03/29/23 documented as of this encounter
--- OUTSIDE RECORDS SUMMARY | 2024-12-25 16:09 | XMS_ITS | Clinical Summary ---
Author Organization [facility] [place] Address [address] [place] [address] Phone Care Team Providers Care Correctional Case Records Supervisor Name Role Phone Shawn Vargas MD Primary Care Provider [phone] Anurag Avila MD Unavailable [phone] Allergies Active Allergy Reactions Criticality Noted Date [...] Smoking Tobacco: Former Cigarettes 0 Q uit: 2014 Smokeless Tobacco: Never Tobacco [...] Visit [facility] [address] [place] [address] Anurag Avila MD [address] [place] [address] Health Maintenance Due Date Last Done Comments [...] patient's age to complete this topic Insurance [facility] MEDICARE Care Teams Correctional Case Records Supervisor Relationship Specialty Start Date End Date Shawn Vargas MD [address] [place] [address] PCP - General Internal Medicine 02/22/23 Anurag Avila MD [address] [place] [address] Consulting Physician Neurology 03/29/23
--- OUTSIDE RECORDS SUMMARY | 2024-12-25 16:09 | XMS_ITS | Clinical Summary ---
Author Organization [facility] Address [address] [place] [address] Phone Care Team Providers Care Grounds Crew Supervisor Name Role Phone ROSEANN BARRERA, [facility] Primary Care Provider [phone] Reason for Visit and Chief Complaint The Chief Complaint is: rEFERRED BY dR. 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 Significant social barriers exist to compliance resulting in limited prognosis. Decision to proceed with interventional therapies was made at the time of today's visit. - Last Documented On 10/22/2021 10:14AM ; [facility] Referrals To Diagnosis [facility] [address] [place] [phone] - Radiculopathy, lumbar region Note: consent for Right L2-3 and L3-4 transforaminal epidural steroid injection under fluoroscopyNo need to hold NSAIDs/ASA Last Documented On 2 1:31PM ; [facility] Education and Decision Aids were provided during visit for: Lifestyle education Last Documented On 10:08AM ; [facility] Assessments Includes: Assessments from this encounter Findings - [M47.896 - Other spondylosis, lumbar region] Lumbar spondylosis - Last Documented On 10/22/2021 10:14AM ; [facility] - [M48.062 - Spinal stenosis, lumbar region with neurogenic claudication] Lumbar stenosis with neurogenic claudication - Last Documented On 10/22/2021 10:14AM ; [facility] - [M54.16 - Radiculopathy, lumbar region] Lumbar radiculopathy - Last Documented On 10/22/2021 10:14AM ; [facility] - [G89.4 - Chronic pain syndrome] Chronic pain syndrome - Last Documented On 10/22/2021 10:14AM ; [facility] Instructions Includes: Instructions from this encounter Education and Decision Aids were provided during visit for: Lifestyle education Last Documented On 10:08AM ; [facility] Medical Equipment - Implanted Devices Includes: Current Devices No Medical Equipment Recorded Medications Includes: Medications discussed during this encounter and other current Medications New / Renewed during this visit COSME BANKS on 10/22/2021 Gabapentin 100 MG Oral Capsule Provider: COSME ROJAS 14 day supply: 84 capsule, 0 refills Diagnosis: Radiculopathy, lumbar region 1-2 capsules three times daily Pharmacy: [facility]/pharmacy #[id number], [address] - Last Documented On 2 10:13AM By RENE AGUIAR ; [facility] Current Medications (continue as prescribed) Basaglar KwikPen 100 UNIT/ML Subcutaneous Solution Pen-injector 10/19/2021 Provider: YESSI WHITFIELD MD Diagnosis: 40 UNITS A DAY. Last Documented On 2 10:13AM By RENE AGUIAR ; [facility] DULoxetine HCl 20 MG Oral Ca psule Delayed Release Particles 10/14/2021 Provider: YESSI WHITFIELD MD Diagnosis: Last Documented On 2 10:13AM By RENE AGUIAR ; [facility] Trulicity 1.5 MG/0.5ML Subcu taneous Solution Pen-injector 10/05/2021 Provider: YESSI WHITFIELD MD Diagnosis: 1 INJECTION A WEEK. Last Documented On 2 10:13AM By RENE AGUIAR ; [facility] Pantoprazole Sodium 40 MG Or al Tablet Delayed Release 08/17/2021 Provider: YESSI WHITFIELD MD Diagnosis: NEEDED. Last Documented On 2 10:13AM By RENE AGUIAR ; [facility] Rosuvastatin Calcium 20 MG Oral Tablet 08/15/2021 Pr ovider: YESSI WHITFIELD MD Diagnosis: Last Documented On 2 10:13AM By RENE AGUIAR ; [facility] Adult Aspirin Regimen 81 MG Oral Tablet Delayed Release 07/28/2021 Provider: YESSI WHITFIELD MD Diagnosis: Last Documented On 2 10:13AM By RENE AGUIAR ; [facility] Medications Administered Includes: Administered Medications [...] 97 Last Documented: On 10/22/2021 9:09AM ; [facility] Results Includes: Results discussed during [...] pain exponentially. He is not taking any [id number] pain medication. His primary started him on [...] for surgery consultation on November 03 at [facility] but would like to avoid surgery if [...] 10/22/2021 Last Documented On 2 10:14AM ; [facility] Smoking Status Unknown Procedures and Surgical History Includes: Procedures from this encounter Procedures Code Diagnosis Performing Provider Service L ocation Service Date plan of care reviewed and agreed to Last Documented On 2 10:08AM ; [facility] plan of care reviewed and agreed to by t he patient Last Documented On 2 10:08AM ; [facility] use of tobacco assessment performed 1000F Last Documented On 2 8:47AM ; [facility] patient screened for future fall risk: documentation of any fall with injury in past year 1100F Last Documented On 2 8:50AM ; [facility] review of medications documented 1160F Last Documented On 2 8:47AM ; [facility] screening for adult depression: impressi on and score six Last Documented On 2 8:47AM ; [facility] standardized depression screening: posit avery for symptoms Last Documented On 2 8:47AM ; [facility] encouragement to exercise Last Documented On 2 10:08AM ; [facility] Clinical summary provided to patient Last Documented On 2 8:47AM ; [facility] Medical History Includes: Medical History addressed during this encounter Description Last Updated Has a fear of falling. 10/22/2021 Last Documented On 2 10:14AM ; [facility] Has had a fall in the last 12 months. Last Documented On 2 10:14AM ; [facility] Family History Includes: Family History addressed [...] Diagnosis PAIN MANAGEMENT NEW CONSULT RENE BURROUGHS DIRECTOR OF SLEEP-FPA, COKE WORKER-BC [facility] ON 10/23/19 22 8:37AM 9:53AM Lumbar Spondylosis,Chr onic Pain Syndrome,Lumbar Radiculopathy,S hermilo Stenosis Lumbar with Neurogenic Claudication Insurance Includes: Active Insurance Policies Plan Name Member ID Group # Subscriber Relationship Effect avery Dates 1 - [facility] [id number] WENCESLAO COTA Self Clinical Notes Includes: Clinical Notes from this encounter No Clinical Notes Recorded
--- OUTSIDE RECORDS SUMMARY | 2024-12-25 16:09 | XMS_ITS | Clinical Summary ---
Author Organization [facility] Address [address] [place] [address] Phone Care Team Providers Care Ladle Repairman Name Role Phone Shawn Vargas MD Primary Care Provider Allergies Active Allergy Reactions Criticality Noted Date Comments Lisinopril 09/04/2020 angioedema Medications CVS D3 50 MCG (1999) capsule Take 1 tablet by mouth 1 (one) time each day 07/25/2020 Active Basaglar KwikPen 100 UNIT/ML injection INJECT 40UNITS UNDER THE SKIN IN THE MORNING 08/05/2020 Active UltiCare Mini Pen [place]bler 31G X 6 MM misc USE WITH [...] Comments Blood Pressure 124/70 02/19/2021 9:30 AM FARM MORTGAGE AGENT Pulse 72 02/19/2021 9:30 AM FARM MORTGAGE AGENT Temperature 35.7 C (96.3 F) 02/19/2021 9:30 AM FARM MORTGAGE AGENT Respiratory Rate - - Oxygen Saturation - - Inhaled Oxygen Concentration - - Weight 78.9 kg (174 lb) 02/19/2021 9:30 AM FARM MORTGAGE AGENT Height 185.4 cm (6' 1) 02/19/2021 9:30 AM FARM MORTGAGE AGENT Body Mass Index 22.96 02/19/2021 9:30 AM FARM MORTGAGE AGENT Plan of Treatment Health Maintenance Due Date Last Done Comments Pneumococcal PPSV23/PCV13 65 + Years / Low and Medium Risk (1 of 2 - PCV) 1994 Influenza Vaccine (#1) 2024 10/29/2020 Insurance [facility] Care Teams Ladle Repairman Relationship Specialty Start Date End Date Shawn Vargas MD [address] [place] [address] PCP - General Internal Medicine 08/18/21
--- OUTSIDE RECORDS SUMMARY | 2024-12-25 16:09 | XMS_ITS ---
Author Organization [facility] Address [address] [place] [address] Phone Care Team Providers Care Certified Green Building Engineer Name Role Phone ROSEANN BARRERA YESSI Primary Care Provider [phone] Problems Includes: Active, inactive, and resolved Problems All Visits Onset Date Resolved Date Provider Condition S tatus Chronic Kidney Disease (Nkf Classification) Unknown RENE Jolley MANJEET REGISTERED DIETITIAN-FPA, BOLTER HELPER-BC Active Last Documented On 2 10:05AM ; [facility] Diabetes Mellitus Unknown RENE Jolley MANJEET APR N-FPA, BOLTER HELPER-BC Active Last Documented On 2 9:14AM ; [facility] 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 - [address] [place] [address] - Radiculopathy, lumbar region Note: consent for Right L2-3 and L3-4 transforaminal epidural steroid injection under fluoroscopyNo need to hold NSAIDs/ASA Last Documented On 2 1:31PM ; [facility] Education and Decision Aids were provided during visit for: Lifestyle education Last Documented On 2 10:08AM ; [facility] Assessments Includes: Assessments for all patient encounters Findings Encounter Date Chronic pain syndrome PAIN MANAGEMENT NE W CONSULT with RENE BURROUGHS REGISTERED DIETITIAN-FPPatt, BOLTER HELPER-BC 10/22/2021 Last Documented On 2 10:14AM ; [facility] Lumbar radiculopathy PAIN MANAGEMENT NEW CONSULT with RENE BURROUGHS REGISTERED DIETITIAN-FPA, BOLTER HELPER-BC 10/22/2021 Last Documented On 2 10:14AM ; [facility] Lumbar spondylosis PAIN MANAGEMENT NEW CONSULT with RENE BURROUGHS REGISTERED DIETITIAN-FPA, BOLTER HELPER-BC 10/22/2021 Last Documented On 2 10:14AM ; [facility] Lumbar stenosis with neuroge harinder claudication PAIN MANAGEMENT NEW CONSULT with RENE BURROUGHS REGISTERED DIETITIAN-FPA, BOLTER HELPER-BC 10/22/2021 Last Documented On 2 10:14AM ; [...] On 2 10:13AM By RENE AGUIAR ; [facility] Basaglar KwikPen 100 UNIT/ML Subcutaneous Solution Pen-injector 10/19/2021 Provider: YESSI WHITFIELD MD Diagnosis: 40 UNITS A DAY. Last Documented On 2 10:13AM By RENE AGUIAR ; [facility] DULoxetine HCl 20 MG Oral Ca psule Delayed Release Particles 10/14/2021 Provider: YESSI WHITFIELD MD Diagnosis: Last Documented On 2 10:13AM By RENE AGUIAR ; [facility] Trulicity 1.5 MG/0.5ML Subcu taneous Solution Pen-injector 10/05/2021 Provider: YESSI WHITFIELD MD Diagnosis: 1 INJECTION A WEEK. Last Documented On 2 10:13AM By RENE AGUIAR ; [facility] Pantoprazole Sodium 40 MG Or al Tablet Delayed Release 08/17/2021 Provider: YESSI WHITFIELD MD Diagnosis: NEEDED. Last Documented On 2 10:13AM By RENE AGUIAR ; [facility] Rosuvastatin Calcium 20 MG Oral Tablet 08/15/2021 Pr ovider: YESSI WHITFIELD MD Diagnosis: Last Documented On 2 10:13AM By RENE AGUIAR ; [facility] Adult Aspirin Regimen 81 MG Oral Tablet Delayed Release 07/28/2021 Provider: YESSI WHITFIELD MD Diagnosis: Last Documented On 2 10:13AM By RENE AGUIAR ; [facility] Medications Administered Includes: Administered Medications in patient's chart No Administered Medications Recorded Results Includes: Results from 12/26/2023 through 12/25/2024 No Results Recorded For Specified Dates History [...] Subscriber Relationship Effect avery Dates 1 - [facility] [id number] WENCESLAO Davis Clinical Notes Includes: Signed Clinical Notes starting from 03/19/2022 No Clinical Notes Recorded
--- OUTSIDE RECORDS SUMMARY | 2024-12-25 16:10 | XMS_ITS ---
Care Plan - [facility] Created on: December 25, 2024 WENCESLAO COTA : [id number] Sex: Male Author Organization [facility] Address [address] [place] [address] Phone Care Team Providers Care Organ Pipe Maker Metal Name Role Phone ROSEANN BARRERA, [facility] Primary Care Provider [phone]
== END 2024-12-25 13:52 | disposition home or self-care (01) ==
LOC: ANHSURGERY 13:55
PROVIDERS: Anesthesiology; PCP Internal Medicine; Visit Provider Surgery
DX: C18.0 Malignant neoplasm of cecum (principal); N18.31 Chronic kidney disease, stage 3a
CPT/HCPCS: 36415; 85610; 85730; 86850; 86900; 86901

== ENCOUNTER 2025-01-01 12:28 | Inpatient (IN) | payer MEDICARE, BC, SELFPAY ==
[2024-12-25 14:17] VITALS: BP 124/53; PULSE 72; RESP 16; TEMP 36.6; O2SAT 100; BMI 22.1
--- NOTE | 2024-12-25 14:48 | PC.NURSE ---
[facility] has started construction of its new state of the art ER which will open Spring 2026. With this, we anticipate parking may be a challenge for some our surgical patients and families. Parking spaces are limited but are available for all Surgical, obstetrics, and ER patients sharing this lot. If you arrive and find you are having a hard time finding a parking space, please note that we understand the challenges, please drive around the hospital and park near Hospital Entrance 1. When you enter this entrance, you can ask a volunteer to direct or take you back to the surgical waiting area to check in. We appreciate everyone?s understanding of these expected challenges while we build for your future. Report to the Outpatient Waiting Room, entrance under the green pavilion located off [address], at time ___6:30AM__ on date __01/01/25___. Planned Procedure Time: __8:30AM____.? Time changes happen often and if your time is changed the preop area will call you the afternoon before. - You and your visitor will be asked to self-screen and do not enter if you have any COVID symptoms. Please call surgeon if you need to reschedule. - A mask is optional within the hospital at this time. BOWEL PREP DAY BEFORE SURGERY PER DR CHARLTON. Patients may have clear liquids (water, carbonated beverages, clear teas, apple juice) until 3 hours prior to surgery (5:30AM) with a maximum of 20 ounces. - No food from midnight until time of surgery and no smoking, or chewing tobacco (or any form of nicotine). No chewing gum, candy or mints. Take only the following medications with a SIP of water on the morning of surgery: ___NONE DO NOT STOP ANY OF YOUR OTHER PRESCRIPTION MEDICATIONS PRIOR TO SURGERY EXCEPT THE FOLLOWING Hold all vitamins and supplements for 3 days per anesthesiologist. LAST DOSE 12/28/24 Please no make-up, nail bangladeshi, hairspray, perfume, deodorant, or body powder the day of surgery.? No jewelry (including any body piercings) or valuables the day of surgery, leave them at home.? Please take a shower or bath the night before, or the morning of, surgery with an antibacterial soap.? Wear comfortable, loose fitting clothing.? - Jewelry must be removed prior to entering the operating room.? Rings and piercings that are not removed may be cut off. - The hospital will not accept responsibility for valuables.? - Please leave all valuables, including medications, at home the day of surgery. If you are going home after surgery, a licensed lift driver must drive you home.? - NO public transportation without another adult if you receive anesthesia. - We recommend that an adult stay with you for 24 hours following discharge. - We also recommend that you do not drive, make important decision, drink alcoholic beverages, or take any drugs that were not prescribed by your health care provider for at least 24 hours after your discharge time. Follow any additional instructions given to you from your surgeon. Telephone instructions given to ___PATIENT & GRANDDAUGHTER and asked if any additional questions and then verbalized understanding. Patient advised to call surgeon office or pre surgery nurse liaison [phone] if any additional questions.
[2025-01-01] VITALS (15 sets, daily range): BP systolic 97–149; BP diastolic 43–70; PULSE 62–93; RESP 12–20; TEMP 36.3–37.5; O2SAT 93–100
--- OUTSIDE RECORDS SUMMARY | 2025-01-01 00:46 | XMS_ITS | Clinical Summary ---
Author Organization [facility] Address [address] [place] [address] Phone Care Team Providers Care Railway Head Tender Name Role Phone Shawn Vargas MD Primary Care Provider [phone] Allergies Active Allergy Reactions Criticality Noted Date Comments Lisinopril 09/04/2020 angioedema Medications CVS D3 50 MCG (1999) capsule Take 1 tablet by mouth 1 (one) time each day 07/25/2020 Active Basaglar KwikPen 100 UNIT/ML injection INJECT 40UNITS UNDER THE SKIN IN THE MORNING 08/05/2020 Active UltiCare Mini Pen [place] 31G X 6 MM misc USE [...] Comments Blood Pressure 124/70 02/19/2021 9:30 AM DRY CURE WORKER Pulse 72 02/19/2021 9:30 AM DRY CURE WORKER Temperature 35.7 C (96.3 F) 02/19/2021 9:30 AM DRY CURE WORKER Respiratory Rate - - Oxygen Saturation - - Inhaled Oxygen Concentration - - Weight 78.9 kg (174 lb) 02/19/2021 9:30 AM DRY CURE WORKER Height 185.4 cm (6' 1) 02/19/2021 9:30 AM DRY CURE WORKER Body Mass Index 22.96 02/19/2021 9:30 AM DRY CURE WORKER Plan of Treatment Health Maintenance Due Date Last Done Comments Pneumococcal PPSV23/PCV13 65 + Years / Low and Medium Risk (1 of 2 - PCV) 1994 Influenza Vaccine (#1) 2024 10/29/2020 Insurance [facility] Care Teams Railway Head Tender Relationship Specialty Start Date End Date Shawn Vargas MD [address] [place] [address] PCP - General Internal Medicine 08/18/21
--- OUTSIDE RECORDS SUMMARY | 2025-01-01 00:46 | XMS_ITS | Clinical Summary ---
Author Organization [facility] Address [address] [place] [address] Phone Care Team Providers Care Technical Editor Name Role Phone ROSEANN BARRERA, [facility] Primary Care Provider [phone] Reason for Visit and Chief Complaint The Chief Complaint is: rEFERRED BY dR. 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 Significant social barriers exist to compliance resulting in limited prognosis. Decision to proceed with interventional therapies was made at the time of today's visit. - Last Documented On 10/22/2021 10:14AM ; [facility] Referrals To Diagnosis [facility] - [address] [place] [phone] - Radiculopathy, lumbar region Note: consent for Right L2-3 and L3-4 transforaminal epidural steroid injection under fluoroscopyNo need to hold NSAIDs/ASA Last Documented On 2 1:31PM ; [facility] Education and Decision Aids were provided during visit for: Lifestyle education Last Documented On 10:08AM ; [facility] Assessments Includes: Assessments from this encounter Findings - [M47.896 - Other spondylosis, lumbar region] Lumbar spondylosis - Last Documented On 10/22/2021 10:14AM ; [facility] - [M48.062 - Spinal stenosis, lumbar region with neurogenic claudication] Lumbar stenosis with neurogenic claudication - Last Documented On 10/22/2021 10:14AM ; [facility] - [M54.16 - Radiculopathy, lumbar region] Lumbar radiculopathy - Last Documented On 10/22/2021 10:14AM ; [facility] - [G89.4 - Chronic pain syndrome] Chronic pain syndrome - Last Documented On 10/22/2021 10:14AM ; [facility] Instructions Includes: Instructions from this encounter Education and Decision Aids were provided during visit for: Lifestyle education Last Documented On 10:08AM ; [facility] Medical Equipment - Implanted Devices Includes: Current Devices No Medical Equipment Recorded Medications Includes: Medications discussed during this encounter and other current Medications New / Renewed during this visit COSME BANKS on 10/22/2021 Gabapentin 100 MG Oral Capsule Provider: COSME ROJAS 14 day supply: 84 capsule, 0 refills Diagnosis: Radiculopathy, lumbar region 1-2 capsules three times daily Pharmacy: [facility]/pharmacy #[id number], [address] - Last Documented On 2 10:13AM By RENE AGUIAR ; [facility] Current Medications (continue as prescribed) Basaglar KwikPen 100 UNIT/ML Subcutaneous Solution Pen-injector 10/19/2021 Provider: YESSI WHITFIELD MD Diagnosis: 40 UNITS A DAY. Last Documented On 2 10:13AM By RENE AGUIAR ; [facility] DULoxetine HCl 20 MG Oral Ca psule Delayed Release Particles 10/14/2021 Provider: YESSI WHITFIELD MD Diagnosis: Last Documented On 2 10:13AM By RENE AGUIAR ; [facility] Trulicity 1.5 MG/0.5ML Subcu taneous Solution Pen-injector 10/05/2021 Provider: YESSI WHITFIELD MD Diagnosis: 1 INJECTION A WEEK. Last Documented On 2 10:13AM By RENE AGUIAR ; [facility] Pantoprazole Sodium 40 MG Or al Tablet Delayed Release 08/17/2021 Provider: YESSI WHITFIELD MD Diagnosis: NEEDED. Last Documented On 2 10:13AM By RENE AGUIAR ; [facility] Rosuvastatin Calcium 20 MG Oral Tablet 08/15/2021 Pr ovider: YESSI WHITFIELD MD Diagnosis: Last Documented On 2 10:13AM By RENE AGUIAR ; [facility] Adult Aspirin Regimen 81 MG Oral Tablet Delayed Release 07/28/2021 Provider: YESSI WHITFIELD MD Diagnosis: Last Documented On 2 10:13AM By RENE AGUIAR ; [facility] Medications Administered Includes: Administered Medications [...] 97 Last Documented: On 10/22/2021 9:09AM ; [facility] Results Includes: Results discussed during [...] pain exponentially. He is not taking any mbix-ody-nxwdlez pain medication. His primary started him on [...] for surgery consultation on November 03 at [facility] but would like to avoid surgery if [...] 10/22/2021 Last Documented On 2 10:14AM ; [facility] Smoking Status Unknown Procedures and Surgical History Includes: Procedures from this encounter Procedures Code Diagnosis Performing Provider Service L ocation Service Date plan of care reviewed and agreed to Last Documented On 2 10:08AM ; [facility] plan of care reviewed and agreed to by t he patient Last Documented On 2 10:08AM ; [facility] use of tobacco assessment performed 1000F Last Documented On 2 8:47AM ; [facility] patient screened for future fall risk: documentation of any fall with injury in past year 1100F Last Documented On 2 8:50AM ; [facility] review of medications documented 1160F Last Documented On 2 8:47AM ; [facility] screening for adult depression: impressi on and score six Last Documented On 2 8:47AM ; [facility] standardized depression screening: posit avery for symptoms Last Documented On 2 8:47AM ; [facility] encouragement to exercise Last Documented On 2 10:08AM ; [facility] Clinical summary provided to patient Last Documented On 2 8:47AM ; [facility] Medical History Includes: Medical History addressed during this encounter Description Last Updated Has a fear of falling. 10/22/2021 Last Documented On 2 10:14AM ; [facility] Has had a fall in the last 12 months. Last Documented On 2 10:14AM ; [facility] Family History Includes: Family History [...] Diagnosis PAIN MANAGEMENT NEW CONSULT RENE BURROUGHS BI DATA ARCHITECT-FPA, METALIZING MACHINE OPERATOR AUTOMATIC-BC [facility] ON 10/23/19 22 8:37AM 9:53AM Lumbar Spondylosis,Chr onic Pain Syndrome,Lumbar Radiculopathy,S hermilo Stenosis Lumbar with Neurogenic Claudication Insurance Includes: Active Insurance Policies Plan Name Member ID Group # Subscriber Relationship Effect avery Dates 1 - [facility] [id number] WENCESLAO COTA Self Clinical Notes Includes: Clinical Notes from this encounter No Clinical Notes Recorded
--- OUTSIDE RECORDS SUMMARY | 2025-01-01 00:46 | XMS_ITS | Encounter Summary ---
Author Organization [facility] Address [address] [place] [address] Care Team Providers Care Pipe Welder Name Role Phone Woo Hurtado MD Unavailable [phone] Shawn Vargas MD Primary Care Provider [phone] Shiva Ugarte MD Unavailable [phone] [facility] Unavailable [phone] Emile Veras MD Unavailable Encounter Details Date Type Department Care Team (Late st Contact Info) Description 08/13/2022 Hospital Orders Only Isabela's Scale Mechanic Pre/Post [address] [place] [address] Woo Hurtado MD [address] [facility], [address] [place] [address] Social History Tobacco Use Types [...] on filedocumented in this encounter Care Teams Pipe Welder Relationship Specialty Start Date End Date Shawn Vargas MD [address] [place] [phone] PCP - General INTERNAL MEDICINE 07/15/22 Woo Hurtado MD Consulting Physician INTERVENTIONAL CARDIOLOGY 07/15/22 05/21/24 Shiva Ugarte MD [address] [place] [phone] CARDIOTHORACIC SURGERY 08/25/22 Nereida Acosta AGACNP- [address] [place] [address] Nurse Practitioner NURSE PRACTITIONER 09/30/22 Emile Veras MD [address] [place] [address] Consulting Physician CARDIOVASCULAR DISEASE 05/22/24 documented as of this encounter
--- OUTSIDE RECORDS SUMMARY | 2025-01-01 00:46 | XMS_ITS | Encounter Summary ---
Author Organization [facility] Address [address] [place] [address] Phone Care Team Providers Care Health Unit Coordinator Name Role Phone Shawn Vargas MD Primary Care Provider [phone] Anurag Avila MD Unavailable [phone] Reason for Visit * Reason Comments Medication Refill Encounter Details Date Type Department Care Team (Late Contact Info) Description 04/08/[address] [facility] Neurology [facility] [address] [place] [address] Anurag Avila MD [address] [place] [address] Medication Refill Social History Tobacco [...] Description 08/08/2025 2:30 PM CDT Office Visit [facility] [address] [place] [phone] Anurag Avila MD [address] [place] [address] documented as of this encounter Visit Diagnoses Not on filedocumented in this encounter Care Teams Health Unit Coordinator Relationship Specialty Start Date End Date Shawn Vargas MD [address] [place] [address] PCP - General Internal Medicine 02/22/23 Anurag Avila MD [address] [place] [phone] Consulting Physician Neurology 03/29/23 documented as of this encounter
--- OUTSIDE RECORDS SUMMARY | 2025-01-01 00:46 | XMS_ITS ---
Author Organization [facility] Address [address] [place] [address] Phone Care Team Providers Care Braider Operator Name Role Phone ROSEANN BARRERA YESSI Primary Care Provider [phone] Problems Includes: Active, inactive, and resolved Problems All Visits Onset Date Resolved Date Provider Condition S tatus Chronic Kidney Disease (Nkf Classification) Unknown RENE Jolley MANJEET FORMER HAND-FPA, APPLICATIONS ANALYST-BC Active Last Documented On 2 10:05AM ; [facility] Diabetes Mellitus Unknown RENE Jolley MANJEET APR N-FPA, APPLICATIONS ANALYST-BC Active Last Documented On 2 9:14AM ; [facility] 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 Unknown RENE Jolley MANJEET FORMER HAND-FPA, APPLICATIONS ANALYST-BC Active Last Documented On 2 10:06AM ; [facility] Hyperlipidemia Unknown RENE Jolley MANJEET FORMER HAND-F PA, APPLICATIONS ANALYST-BC Active Last Documented On 2 9:14AM ; [facility] Plan of Treatment Referrals To Diagnosis Pain Management [facility] - [address] [place] [address] - Radiculopathy, lumbar region Note: consent for Right L2-3 and L3-4 transforaminal epidural steroid injection under fluoroscopyNo need to hold NSAIDs/ASA Last Documented On 2 1:31PM ; [facility] Education and Decision Aids were provided during visit for: Lifestyle education Last Documented On 2 10:08AM ; [facility] Assessments Includes: Assessments for all patient encounters Findings Encounter Date Chronic pain syndrome PAIN MANAGEMENT NE W CONSULT with RENE BURROUGHS FORMER HAND-FPPatt, APPLICATIONS ANALYST-BC 10/22/2021 Last Documented On 2 10:14AM ; [facility] Lumbar radiculopathy PAIN MANAGEMENT NEW CONSULT with RENE BURROUGHS FORMER HAND-FPA, APPLICATIONS ANALYST-BC 10/22/2021 Last Documented On 2 10:14AM ; [facility] Lumbar spondylosis PAIN MANAGEMENT NEW CONSULT with RENE BURROUGHS FORMER HAND-FPA, APPLICATIONS ANALYST-BC 10/22/2021 Last Documented On 2 10:14AM ; [facility] Lumbar stenosis with neuroge harinder claudication PAIN MANAGEMENT NEW CONSULT with RENE BURROUGHS FORMER HAND-FPA, APPLICATIONS ANALYST-BC 10/22/2021 Last Documented On 2 10:14AM ; [facility] Instructions Includes: Instructions for all patient encounters Education and Decision Aids were provided during visit for: Lifestyle education Last Documented On 2 10:08AM ; [facility] Medical Equipment - Implanted Devices Includes: Current and historical Devices No Medical Equipment Recorded Medications Includes: Current and historical Medications Current Medications (continue as prescribed) Gabapentin 100 MG Oral Capsule 10/22/2021 Provider: REMINGTON ROJASBC Diagnosis: Radiculopathy, l umbar region 1-2 capsules three times daily Last Documented On 2 10:13AM By RENE AGUIAR ; [facility] Basaglar KwikPen 100 UNIT/ML Subcutaneous Solution Pen-injector 10/19/2021 Provider: YESSI WHITFIELD MD Diagnosis: 40 UNITS A DAY. Last Documented On 2 10:13AM By RENE AGUIAR ; [facility] DULoxetine HCl 20 MG Oral Ca psule Delayed Release Particles 10/14/2021 Provider: YESSI WHITFIELD MD Diagnosis: Last Documented On 2 10:13AM By RENE AGUIAR ; [facility] Trulicity 1.5 MG/0.5ML Subcu taneous Solution Pen-injector 10/05/2021 Provider: YESSI WHITFIELD MD Diagnosis: 1 INJECTION A WEEK. Last Documented On 2 10:13AM By RENE AGUIAR ; [facility] Pantoprazole Sodium 40 MG Or al Tablet Delayed Release 08/17/2021 Provider: YESSI WHITFIELD MD Diagnosis: NEEDED. Last Documented On 2 10:13AM By RENE AGUIAR ; [facility] Rosuvastatin Calcium 20 MG Oral Tablet 08/15/2021 Pr ovider: YESSI WHITFIELD MD Diagnosis: Last Documented On 2 10:13AM By RENE AGUIAR ; [facility] Adult Aspirin Regimen 81 MG Oral Tablet Delayed Release 07/28/2021 Provider: YESSI WHITFIELD MD Diagnosis: Last Documented On 2 10:13AM By RENE AGUIAR ; [facility] Medications Administered Includes: Administered Medications in patient's chart No Administered Medications Recorded Results Includes: Results from 01/02/2024 through 01/01/2025 No Results Recorded For Specified Dates History of Present Illness History of Present Illness not supported for this document type No History of Present Illness Recorded Social History Description Last Updated Tobacco non-user 10/22/2021 Last Documented On 2 10:14AM ; [facility] Smoking Status Unknown Medical History Includes: Medical History in patient's chart Description Last Updated Has a fear of falling. 10/22/2021 Last Documented On 2 10:14AM ; [facility] Has had a fall in the last 12 months. Last Documented On 2 10:14AM ; [facility] Family History Includes: Family History in [...] Subscriber Relationship Effect avery Dates 1 - [facility] [id number] WENCESLAO Davis Clinical Notes Includes: Signed Clinical Notes starting from 03/19/2022 No Clinical Notes Recorded
--- OUTSIDE RECORDS SUMMARY | 2025-01-01 00:46 | XMS_ITS | Clinical Summary ---
Author Organization [facility] Address [address] [place] [address] Phone Care Team Providers Care Russian History Professor Name Role Phone Shawn Vargas MD Primary Care Provider [phone] Anurag Avila MD Unavailable [phone] Allergies Active Allergy Reactions Criticality Noted Date [...] Visit [facility] Neu[facility] [address] [place] [address] Anurag Avila MD [address] [place] [address] Health Maintenance Due Date Last Done Comments [...] [facility] MEDIC[facility] Care Teams Russian History Professor Relationship Specialty Start Date End Date Shawn Vargas MD [address] [place] [address] PCP - General Internal Medicine 02/22/23 Anurag Avila MD [address] [place] [address] Consulting Physician Neurology 03/29/23
--- OUTSIDE RECORDS SUMMARY | 2025-01-01 00:46 | XMS_ITS | Encounter Summary ---
Author Organization [facility] Address [address] [place] [address] Phone Care Team Providers Care Hazardous Materials Waste Technician Name Role Phone Shawn Vargas MD Primary Care Provider [phone] Anurag Avila MD Unavailable [phone] Reason for Visit * Reason Comments Medication Refill Encounter Details Date Type Department Care Team (Late Contact Info) Description 12/15/2023 [facility] [address] [place] [address] Anurag Avila MD [address] [place] [address] Medication Refill Social History Tobacco [...] Description 08/08/2025 2:30 PM CDT Office Visit [facility] [address] [place] [address] Anurag Avila MD [address] [place] [address] documented as of this encounter Visit Diagnoses Not on filedocumented in this encounter Care Teams Hazardous Materials Waste Technician Relationship Specialty Start Date End Date Shawn Vargas MD [address] [place] [address] PCP - General Internal Medicine 02/22/23 Anurag Avila MD [address] [place] [address] Consulting Physician Neurology 03/29/23 documented as of this encounter
--- OUTSIDE RECORDS SUMMARY | 2025-01-01 00:46 | XMS_ITS ---
Care Plan - [facility] Created on: January 01, 2025 WENCESLAO COTA : 1945 Sex: Male Author Organization [facility] Address [address] [place] [address] Phone Care Team Providers Care Early Childhood Name Role Phone ROSEANN BARRERA, [facility] Primary Care Provider [phone]
--- OUTSIDE RECORDS SUMMARY | 2025-01-01 00:47 | XMS_ITS | Clinical Summary ---
Author Organization [facility] Address [address] [place] [address] Care Team Providers Care Data Integration Developer Name Role Phone Shawn Vargas MD Primary Care Provider [phone] Shiva Ugarte MD Unavailable [phone] Nereida Acosta AGACNP- Unavailable [phone] Emile Veras MD Unavailable Allergies Active Allergy [...] place to sleep or slept in a snf (including now)? No 09/13/2022 Comments Unknown Sex [...] Rider RN Medical Devices Implanted Type Area Shiatsu Therapist Device Identifier Shelf Expiration Date Model / Serial / Lot Graft Patch Hem[employer] [place] 0.8cmx7.6cm - [id number] Implanted:Qty: 1 on 09/13/2022 by Shiva Ugarte MD at [facility] Graft Left: Neck [employer] [id number] / / Procedures Procedure Name Priority [...] 8.0(H) <5.7 % 09/02/2022 1:18 PM CDT [facility] ESTIMATED AVG GLUCOSE 183(H) 74 - 114 MG/DL 09/02/2022 1:18 PM CDT [facility] 09/02/2022 11:5 5 AM CDT Shiva Ugarte MD LABORATORY Final Resul t Performing Organization Address [facility] Co de Phone Number [facility] [address] [place] [address], [phone] * (ABNORMAL) LIPID PANEL (09/02/2022 11:55 AM CDT) CHOLESTEROL 163 MG/DL 09/02/2022 12:52 PM CDT [facility] Comment:DESIRABLE: <200 TRIGLYCERIDES 238 MG/DL 09/02/2022 12:52 PM CDT [facility] Comment:200-499 HIGH HDL 33(L) >39 MG/DL 09/02/2022 12:52 PM CDT [facility] LDL (CALCULATED) 82 MG/DL 09/03/19 23 12:52 PM CDT [facility] Comment:<100 OPTIMAL VLDL CALCULATION 48 MG/DL 09/03/19 12:52 PM CDT [facility] Comment:REFERENCE RANGE NOT ESTABLISHED CHOL/HDL RATIO 4.9 09/02/2022 12:52 PM CDT [facility] Comment:REFERENCE RANGE NOT ESTABLISHED LDL/HDL 2.5 09/02/2022 12:52 PM CDT [facility] Comment:REFERENCE RANGE NOT ESTABLISHED NON HDL CHOLESTEROL 130 MG/DL 09/02/2022 12:52 PM CDT [facility] Comment:REFERENCE RANGE NOT ESTABLISHED 09/02/2022 11:5 5 AM CDT Shiva Ugarte MD LABORATORY Final Resul t Performing Organization Address [facility] Co de Phone Number [facility] [address] [place] [address], [place] [phone] from Last 3 Months or Most Recently Relevant to Health Maintenance Insurance [facility] MEDICARE PART A Advance Directives Documents on File Type Date Recorded Patient Bill Board Poster Expl anation Power 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 Tanker Driver 09/13/2022 2:32 PM * Full Code (Latest Code Status on File) Date Activated Date Inactivated Comments 09/13/2022 10:05 AM 09/14/2022 3:54 PM * Full Code Date Activated Date Inactivated Comments 08/18/2022 4:18 PM 08/19/2022 9:54 AM Care Teams Data Integration Developer Relationship Specialty Start Date End Date Shawn Vargas MD [address] [place] [phone] PCP - General INTERNAL MEDICINE 07/15/22 Shiva Ugarte MD [address] [place] [phone] CARDIOTHORACIC SURGERY 08/25/22 Nereida Acosta, [facility] [address] [place] [address] Nurse Practitioner NURSE PRACTITIONER 09/30/22 Emile Veras MD [address] [place] [address] Consulting Physician CARDIOVASCULAR DISEASE 05/22/24
[2025-01-01] MEDS: ACETAMINOPHEN 500 MG TABLET 1000 MG PO ×3 (06:59→23:38)
[2025-01-01] MEDS: LACTATED RINGERS 1,000 ML 30 ML IV CONT ×2 (07:10→11:50)
[2025-01-01] MEDS: KETOROLAC 15 MG/ML VIAL (*BKC) IV PUSH (07:10)
--- NOTE | 2025-01-01 07:13 | WPDHPUPDATE1 ---
History and Physical Update Update Date/Time: 01/01/25 07:13 History and Physical has been reviewed, including an updated exam of the patient. There are NO changes in the patient's condition. Risks, benefits, and alternatives have been discussed and questions answered. Patient agrees to proceed with procedure.
--- NOTE | 2025-01-01 08:00 | WPDANESEPPF ---
Anes - Initial Pre Proc Eval Procedure: Operation Date: 01/01/25 08:30 Proposed Procedures p Laparoscopic Right Hemicolectomy, DaVinci Assisted - Anil Reyna DO Date/Time: 01/01/25 08:00 Surgeon: Anil Reyna DO Pre Op Diagnosis: Cecal Adenocarcinoma Patient Data Age: 79 Gender: M Height: 1.83 m Weight: 69.94 kg Last Vital Signs Temp 36.4 C L 01/01/25 06:25 Pulse 79 01/01/25 06:25 Resp 16 01/01/25 06:25 BP 97/43 L 01/01/25 06:25 Pulse Ox 94 01/01/25 06:25 O2 Del Method Room Air 01/01/25 06:25 Allergies Allergy/AdvReac Type Severity Reaction Status Date / Time lisinopril Allergy Swelling Verified 01/01/25 07:44 of Lip/Tongue/Throat Home Medications ?Medication ?Instructions ?Recorded ?Confirmed ?Type cetirizine 10 mg capsule (Zyrtec) 10 mg PO DAILY 01/17/23 01/01/25 History famotidine 40 mg tablet 40 mg PO HS 04/20/23 01/01/25 History blood sugar diagnostic (True #400 strips 09/05/24 12/25/24 Rx Metrix Glucose Test Strip) insulin glargine 100 unit/mL (3 See Rx Instructions .Route 09/05/24 01/01/25 Rx mL) subcutaneous pen (Basaglar .COMPLEX #27 mL KwikPen U-100 Insulin) lancets 30 gauge #400 ea 09/05/24 12/25/24 Rx rosuvastatin 40 mg tablet 40 mg PO DAILY #90 tabs 09/05/24 01/01/25 Rx dapagliflozin propanediol 10 mg See Rx Instructions .Route 09/24/24 01/01/25 Rx tablet .COMPLEX #90 tabs cyanocobalamin (vitamin B-12) 1,000 mcg PO QAM #90 tabs 10/06/24 01/01/25 Rx 1,000 mcg tablet (Vitamin B-12) multivitamin with minerals 1 cap PO DAILY #90 caps 10/06/24 01/01/25 Rx omeprazole 40 mg capsule,delayed See Rx Instructions .Route 10/06/24 01/01/25 Rx release .COMPLEX #90 caps pen needle, diabetic 31 gauge x #400 ea 12/17/24 12/25/24 Rx 1/4 (UltiCare Pen Needle) ciprofloxacin HCl 500 mg tablet 500 mg PO .COMPLEX #1 tablet 12/27/24 01/01/25 Rx metronidazole 500 mg tablet 500 mg PO .COMPLEX #3 tabs 12/27/24 01/01/25 Rx Laboratory Tests 01/01/25 07:13 POC Capillary Glucose 204 H mg/dl (65-105) Patient hx anesthesia problems: none Family hx anesthesia problems: none Results Review: All pre-operative results and documents have been reviewed as part of the pre-operative evaluation. [facility] Past Medical History Medical History Hyperlipidemia LDL goal <70 Type 2 diabetes mellitus with hyperglycemia, with long-term current use of insulin Hematuria Weakness B12 deficiency Nausea & vomiting Parkinsons disease Esophageal stricture Left wrist fracture Peripheral arterial disease Neuropathy in diabetes Diabetes mellitus with autonomic neuropathy Diabetic foot ulcer associated with type 2 diabetes mellitus Social History Social History Smoking packs per day: 0.2 Smoking cigarettes per day: 4.0 Years smoked: 30 Smoking pack-years: 6.00 Smoking status: Former smoker Tobacco type: cigarettes, pipe and cigars Smoking end date: 08/28/94 Additional smoking assessment comments: HAS NOT SMOKED IN OVER 30 YRS Alcohol intake: never Alcohol use details: none past 10 yrs Substance use: never Substance use type: does not use Do You Feel Safe in your Home?: Yes Lack of Transportation: No Lack of Food: Never True Current Housing: I Have Housing Concerned About Future Housing: No Difficulty Paying Gas/Electric Bills: No Difficulty Paying for Meds: No Currently Unemployed: No Education: Decline to Answer Difficulty w/ Childcare or Family Care: No Living arrangements: with family Additional living arrangements comments: GRANDDAUGHTER & FAMILY Gender identity (if verbalized by the patient): Male Spiritual care concerns: No Anes - Eval Final PreProcedure Day of Procedure 01/01/25 08:00 Patient weight: normal Heart: regular rate and rhythm Lungs: decreased breath sounds Airway: Mallampati scale class II Neurological: alert and oriented Last oral intake: >/= 8 hours ASA classification: IV Emergent: no Anesthetic plan: proceed Anesthesia type and monitoring: general ETT and standard monitoring Results Review: All pre-operative results and documents have been reviewed as part of the pre-operative evaluation. Informed Consent: The patient's anesthetic plan and its attendant risks and benefits were discussed with the patient/family/POA. Questions were solicited and answers provided to the satisfaction of the patient/family/POA.
[2025-01-01] MEDS: ceFAZolin 2 GM in SODIUM CHLORIDE 0.9% IV 50 ML 100 ML IVPB (08:23)
[2025-01-01] MEDS: BUPIVACAINE/EPINEPHRINE 0.5% 50 ML VIAL 30 ML INFILTRATE (09:23)
--- NOTE | 2025-01-01 11:08 | S_PTH ---
PATIENT: Charles Hannah LOC: [id number] U#:[id number] AGE/SX: 79/M ROOM: 310 RE01/01/[address]: Marci Rey PA-C : 1945 BED: 01 DIS: 01/03/2025 SPEC #: [id number] RECD: 01/01/25 13:18 STATUS: ORACIO CRISTIAN #: [id number] CRICKET: 01/01/25 11:[address]: Anil Reyna DEPT: [facility] Surgical RECD BY: Lavon Saeed ENTERED: 01/01/25 13:18 SP TYPE: Surgical OTHR DR: Shawn Vargas MD Tissues: A - Colon Segment Tumor Procedures: Hematoxylin and Eosin Stain Gross and Microscopic Level 6 MLH1 MSH2 MSH6 PMS2 CDX2 CK 7
--- NOTE | 2025-01-01 11:57 | SUR.PHASEI ---
1155 - Dr. Souza aware of accucheck 210. no orders received
--- NOTE | 2025-01-01 12:40 | P.OP_ITS ---
Procedure Note - Detailed Date of Procedure 01/01/25 Pre-op Diagnosis Cecal Adenocarcinoma Post-op Diagnosis Same Procedure Performed Laparoscopic right hemicolectomy with ileocolic anastomosis, da [place] assisted Surgeon Anil Reyna, DO Anesthesia General and Local (0.5% bupivacaine with epinephrine) Indications This is an 79-year-old man who was hospitalized about 3 months ago for anemia. He was presented with weakness and was found to have a hemoglobin of 6.6. He received 1 unit of packed red blood cells and was able to be discharged home. He had a CT of his chest, abdomen, and pelvis done on 12/13/2024 which showed evidence of a malignant-appearing mass in the cecum. He then underwent colono scopy on 12/12/2024. This confirmed the findings on the CT and biopsy showed evidence of adenocarcinoma. He was then referred for surgical evaluation. Discussions were made with the patient about treatment options and decision was made to proceed with robotic assisted laparoscopic right hemicolectomy. Findings Robotic assisted laparoscopic right hemicolectomy with ileocolic anastomosis was performed. The mass and tattooed region was identified at the cecum. No other significant intra-abdominal abnormalities were noted. A high ligation of the ileocolic vessels was performed. Indocyanine green was utilized to assess bowel perfusion at the proximal and distal resection margins. And isoperistaltic [id number] anastomosis was then performed. The right colon was removed and sent to the lab for pathology. Description of Procedure Procedure as well as risks, benefits, and alternatives were discussed with the patient.? Written consent was obtained and placed in chart prior to procedure.? Patient was brought back to surgical suite.? He was placed supine on operating table.? Time-out was done to confirm patient and procedure.? He was then intubated by the anesthesia department.? His abdomen was prepped and draped in sterile fashion using chlorhexidine prep.? An 8 mm incision was made in the left upper quadrant and a 5 mm Optiview trocar was advanced through the abdominal layers under direct visualization.? Once inside the abdominal cavity, carbon dioxide insufflation was used to create a pneumoperitoneum.? Camera was inserted in the abdomen was inspected.? The patient was placed in 5 degree Trendelenburg and 10? rotated left an 8 mm incision was made in the suprapubic region in midline and an 8 mm trocar was inserted under direct visualization another 8 mm incision was made in the umbilical region just inferior into the left of the umbilicus and an 8 mm trocar was inserted under direct visualization.? A 12 mm incision was made in the left lateral abdomen and a 12 mm trocar was inserted under direct visualization.? An 8 mm incision was made in the left lower quadrant and an 8 mm assist port was placed under direct visualization.? The 5 mm port was then removed and exchanged for an 8 mm port.? The robotic arms were then brought up to the patient's bedside and secured to the ports.? The camera and instruments were then inserted.? I then moved over to the robotic console and took control of the camera and instruments.? Thorough inspection was made around the abdominal cavity.? The omentum was then reflected cephalad over the transverse colon.? The area near the ileocecal valve was grasped and retracted anterior and laterally to tent up the ileocolic pedicle.? Scissors with electrocautery were then used to perform the medial to lateral dissection.? I entered into the avascular plane just inferior to the ileocolic pedicle and carefully dissected cephalad to identify the duodenum.? Once the duodenum was identified and then continued sweeping the retroperitoneal structures posteriorly and then isolated the ileocolic pedicle.? A high ligation of the ileocolic vessels was then performed using the vessel sealer.? Hemostasis appeared adequate.? The medial to lateral dissection was then continued cephalad towards the hepatic flexure.? I continued this dissection until I created a window in the hepatocolic ligament.? I then took down the hepatic flexure using the vessel sealer and then continued this dissection caudally along the lateral peritoneal reflections of the ascending colon.? The root of the mesentery at the terminal ileum was then also taken down using scissors with electrocautery to allow adequate mobilization of the terminal ileum up to the transverse colon.? I then used the vessel sealer to continue taken down the mesentery of the terminal ileum all the way to the point of transection and then I also took down the mesocolon towards the point of transection for the transverse colon.? The right branch of the middle colic artery was ligated as the mesocolon was taken down using the vessel sealer.? Indocyanine green was then infused to ensure adequate perfusion to the proximal and distal limbs.? I confirmed adequate perfusion at the point of transection and then used a 60 mm blue load stapler to come across the terminal ileum.? I then identified my point for? proximal transverse colon transection and again came across the colon at this point with a 60 mm blue load stapler.? This took a 2nd firing of the stapler to come completely across the transverse colon.? Once this was done the right colon was completely freed up and was placed over the right lobe of the liver to be? removed at the end the procedure.? The 2 ends of the bowel were then brought together in appeared to come together in a [id number] fashion without any tension.? I placed the terminal ileum alongside the transverse colon in an isoperistaltic fashion.? Enterotomies were then made on the anti mesenteric border of the terminal ileum and transverse colon using scissors with electrocautery.? The 60 mm white load stapler was then advanced through each enterotomy and the bowel was clamped together in a [id number]-[id number] fashion.? Once the bowel appeared in proper position I then fired the stapler to create the [id number] anastomosis.? The anastomosis was carefully inspected and appeared patent and healthy and viable.? The enterotomy was then closed using 3 0 V lock running suture.? A 2nd layer closure was then performed using 3-0 V lock seromuscular imbricating sutures.? Indocyanine green was then used 1 final time to assess adequate perfusion.? One final inspection was made around the abdominal cavity and hemostasis appeared adequate and no other abnormalities were noted.? A laparoscopic grasper was then placed on the appendix to secure the specimen for extraction.? The robotic instruments were then removed and the robotic arms were disengaged from the ports.? The pneumoperitoneum was released and the ports were then removed.? The patient was flattened out in bed.? A 6 cm transverse incision was made at the lower suprapubic port site using a 15 blade scalpel.? Electrocautery was then used for hemostasis and for dissection through the subcutaneous tissue until the anterior rectus sheath was identified.? The anterior rectus sheath was then transected transversely using electrocautery.? The anterior rectus sheath was then carefully lifted off of the rectus muscle cephalad and caudad using electrocautery.? The peritoneum was then entered vertically between the rectus muscles using electrocautery.? The small Zackery wound protector was then inserted and the specimen was then delivered through the wound protector.? One final inspection was made through the small Pfannenstiel incision and no other abnormalities were noted.? The wound protector was then removed.? The peritoneum was then closed using 0 Vicryl running suture.? The anterior rectus sheath was then reapproximated using 0 PDS running suture.? The fascia of the 12 port incision was closed using an 0 Vicryl [id number] suture.? 0.5% bupivacaine with epinephrine was infiltrated locally around the incisions and abdominal wall.? The skin of all the incisions was then approximated using 4 Monocryl subcuticular suture.? Exofin glue was then applied on top.? The patient was then awakened from anesthesia, extubated, and transferred to recovery. Estimated Blood Loss 50 Pathology Yes (right colon) Complications No immediate complications Condition Stable Disposition Floor [facility] Billing Surgery - Charge Forward: Surgery Billing
--- NOTE | 2025-01-01 13:04 | ADMGEN ---
This patient, Charles Hannah, was admitted to [facility] Surg Room 309-01. Patient/family oriented to hospital policies and general routines including ID bracelet, bed and alarms, visiting hours, pain management, procedures, bathroom and other care routines, personal items, smoking policy, room service/diet, and visiting hours. Information on how to activate the Rapid Response Team has been discussed. Patient/Family are encouraged to report perceived risks to care and to ask questions if they do not understand what they are told or what they should do.
[2025-01-01] MEDS: LACTATED RINGERS 1,000 ML 100 ML IV CONT (13:22)
[2025-01-01] MEDS: ONDANSETRON INJ 4 MG/2 ML VIAL IV PUSH ×2 (13:22→18:01)
[2025-01-01] MEDS: INSULIN GLARGINE (*BKC) 100 UNITS/ML 12 UNITS SUB-Q (18:00)
[2025-01-01] MEDS: FAMOTIDINE 20 MG TABLET 40 MG PO (20:21)
[2025-01-02 00:01] VITALS: BP 130/57; PULSE 66; RESP 18; TEMP 36.7; O2SAT 98
[2025-01-02] MEDS: LACTATED RINGERS 1,000 ML 100 ML IV CONT (00:26)
[2025-01-02 05:15] VITALS: BP 108/54; PULSE 69; RESP 18; TEMP 37.5; O2SAT 97
[2025-01-02] MEDS: ACETAMINOPHEN 500 MG TABLET 1000 MG PO ×4 (05:55→23:27)
[2025-01-02 06:20] LABS: Hematocrit 23.3 % (42.0-52.0); Mean Corpuscular HGB Conc 29.6 g/dl (32-36); Mean Corpuscular Hemoglobin 24.2 pg (26-34); Mean Corpuscular Volume 81.8 fl (80-100); Platelet Count Result 315 k/mm3 (150-375); Red Blood Count 2.85 M/mm3 (4.6-6.20); White Blood Count 7.6 K/mm3 (4.5-10.0)
[2025-01-02 06:28] LABS: Hemoglobin 6.9 g/dL (14.0-18.0)
[2025-01-02 06:37] LABS: Anion Gap 2 mmol/L (4-12); Blood Urea Nitrogen 10 mg/dL (9-20); Calcium 8.1 mg/dL (8.4-10.2); Carbon Dioxide 27 mmol/L (22-30); Chloride 107 mmol/L (98-107); Estimated CRCL calculation 50 ml/min; Estimated Glomerular Filt Rate > 60; Glucose 108 mg/dL (65-110); Potassium 3.7 mmol/L (3.4-5.0); Sodium 136 mmol/L (137-145)
[2025-01-02 08:19] VITALS: PULSE 60; O2SAT 93
[2025-01-02] MEDS: EMPAGLIFLOZIN 25 MG TABLET BY MOUTH (09:38)
[2025-01-02] MEDS: ENOXAPARIN 40 MG/0.4 ML SYRINGE SUB-Q (09:38)
[2025-01-02] MEDS: INSULIN GLARGINE (*BKC) 100 UNITS/ML 15 UNITS SUB-Q (09:38)
[2025-01-02] MEDS: ROSUVASTATIN 20 MG TABLET 40 MG PO (09:38)
[2025-01-02 13:43] LABS: Hematocrit 23.0 % (42.0-52.0)
[2025-01-02 13:49] LABS: Hemoglobin 6.7 g/dL (14.0-18.0)
[2025-01-02 14:13] VITALS: BP 97/48; PULSE 70; RESP 18; TEMP 36.6; O2SAT 98
--- NOTE | 2025-01-02 14:43 | PM.PNGS ---
Progress Note: A&P Assessment and Plan (1) Malignant neoplasm of colon, unspecified: Code(s): C18.9 - Malignant neoplasm of colon, unspecified Status: Acute Assessment and Plan: POD1 s/p laparoscopic right hemicolectomy with ileocolic anastomosis, da [place] assisted. Patient states that he feels good today. Pain tolerable with Tylenol. Tolerating diet without nausea or vomiting. Passing flatus, but no BM yet. Has not ambulated today, but reportedly was able to ambulate with assistance last night. (2) Iron deficiency anemia: Code(s): D50.9 - Iron deficiency anemia, unspecified Status: Acute Assessment and Plan: Patient has chronic anemia, but has Hgb level of 6.9 this morning. Asymptomatic. No peritoneal signs that would point towards postop or abdominal etiology. Repeat hemoglobin 6.7. Will discuss with surgeon weatherization and housing inspector regarding transfusion. Plan Discussed patient's case and plan of care with Dr. Reyna. Subjective Subjective Date/Time Seen: 01/02/25 14:43 Post Op day: 1 (Laparoscopic right hemicolectomy with ileocolic anastomosis, da [place] assisted) Patient reports: no new complaints, feels better, tolerating a regular diet (diabetic diet), flatus and no bowel movement Interval history: Patient doing very well today. Minimal abdominal pain. Tolerating diet. Denies nausea and vomiting. Hemoglobin did drop to 6.9, but he is chronically anemic. No peritoneal signs. Exam Const: General: comfortable and no acute distress Eyes: General: appearance normal, both eyes and all related structures Resp: Effort & Inspection: normal respiratory effort Cardio: Rate: regular rate GI: Inspection: non-distended GI Palp: Yes Soft to palpation, No Tenderness to palpation present (GI) and No Guarding due to palpation present (GI) Auscultation: normal bowel sounds Other: Incisions are clean and dry with glue intact. Skin: General skin exam: normal color and no rashes or lesions noted Neuro: Sensory Exam: normal sensation Psych: Mental Status: mental status grossly normal Objective Data Vital Signs Vital Signs: Vital Signs - 24 hr 01/01/25 14:54 01/01/25 17:09 01/01/25 20:19 Temperature 97.8 F 99.5 F Pulse Rate 65 68 Respiratory Rate 17 18 Blood Pressure 133/57 L 133/64 Pulse Oximetry 94 98 99 Oxygen Delivery Room Air Fraction of Inspired Oxygen 01/02/25 00:01 01/02/25 05:15 01/02/25 08:19 Temperature 98.0 F 99.5 F Pulse Rate 66 69 60 Respiratory Rate 18 18 Blood Pressure 130/57 L 108/54 L Pulse Oximetry 98 97 93 Oxygen Delivery Room Air Fraction of Inspired Oxygen 21 Intake/Output Intake/Output: Intake & Output 12/30/24 12/31/24 01/01/25 01/02/25 22:59 23:59 23:59 23:59 Intake Total 1450 480 Output Total 400 Balance 1450 80 Meds/Results Medications: Active Medications Generic Name Dose Route Start Last Admin Trade Name Freq PRN Reason Stop Dose Admin Acetaminophen 1,000 mg 01/01/25 18:00 01/02/25 13:18 Acetaminophen 500 Mg Tablet PO 1,000 mg Q6HR JOSE Administration Dextrose 12.5 gm 01/01/25 13:19 Dextrose 50% 25 Gm/50 Ml Syringe IV PUSH PRN PRN Hypoglycemia Protocol Empagliflozin 25 mg 01/02/25 09:00 01/02/25 09:38 Empagliflozin 25 Mg Tablet BY MOUTH 25 mg DAILY JOSE Administration Enoxaparin Sodium 40 mg 01/02/25 09:00 01/02/25 09:38 Enoxaparin 40 Mg/0.4 Ml Syringe SUB-Q 40 mg DAILY JOSE Administration Famotidine 40 mg 01/01/25 21:00 01/01/25 20:21 Famotidine 20 Mg Tablet PO 40 mg HS JOSE Administration Glucagon 1 mg 01/01/25 13:19 Glucagon For Inj 1 Mg Vial IM PRN PRN Hypoglycemia Protocol Glucose 15 gm 01/01/25 13:19 Glucose Oral Gel 15 Gm Of Glucse In 37.5 Gm Tube PO PRN PRN Hypoglycemia Protocol Dextrose 1,000 mls @ 100 mls/hr 01/01/25 13:19 Dextrose 5% 1,000 Ml IVPB PRN PRN Hypoglycemia Protocol Insulin Glargine 15 units 01/02/25 09:00 01/02/25 09:38 Insulin Glargine (*Bkc) 100 Units/Ml SUB-Q 15 units DAILY JOSE Administration Insulin Glargine 12 units 01/01/25 17:00 01/01/25 18:00 Insulin Glargine (*Bkc) 100 Units/Ml SUB-Q 12 units DAILY@1700 JOSE Administration Morphine Sulfate 2 mg 01/01/25 12:28 Morphine Sulfate (*Crx) 4 Mg/Ml Inj IV PUSH Q2H PRN Breakthrough Pain Rated 4-6 or NPO Morphine Sulfate 4 mg 01/01/25 12:28 Morphine Sulfate (*Crx) 4 Mg/Ml Inj IV PUSH Q2H PRN Breakthrough Pain Rated 7-10 or NPO Naloxone HCl 0.1 mg 01/01/25 12:28 Naloxone Hcl 0.4 Mg/Ml Vial IV PUSH Q2M PRN Opiate Reversal Ondansetron HCl 4 mg 01/01/25 12:28 01/01/25 18:01 Ondansetron Inj 4 Mg/2 Ml Vial IV PUSH 4 mg Q4H PRN Administration Nausea And Vomiting Oxycodone HCl 2.5 mg 01/01/25 12:28 Oxycodone Hcl (*Crx) 2.5 Mg Tab Ir PO Q4H PRN Pain Rated 4-6 Oxycodone HCl 5 mg 01/01/25 12:28 Oxycodone Hcl (*Crx) 5 Mg Tab Ir PO Q4H PRN Pain Rated 7-10 Rosuvastatin Calcium 40 mg 01/02/25 09:00 01/02/25 09:38 Rosuvastatin 20 Mg Tablet PO 40 mg DAILY JOSE Administration Labs Labs: Laboratory Results - last 24 hr 01/01/25 01/01/25 01/02/25 16:47 20:08 05:52 WBC 7.6 RBC 2.85 L Hgb 6.9 L* Hct 23.3 L MCV 81.8 MCH 24.2 L MCHC 29.6 L RDW 18.1 H Plt Count 315 MPV 9.1 Sodium 136 L Potassium 3.7 Chloride 107 Carbon Dioxide 27 Anion Gap 2 L BUN 10 D Creatinine 1.05 Estim Creat Clear Calc 50 Estimated GFR > 60 Glucose 108 POC Capillary Glucose 198 H 198 H Calcium 8.1 L 01/02/25 01/02/25 01/02/25 08:02 11:43 11:50 WBC RBC Hgb 6.7 L* Hct 23.0 L MCV MCH MCHC RDW Plt Count MPV Sodium Potassium Chloride Carbon Dioxide Anion Gap BUN Creatinine Estim Creat Clear Calc Estimated GFR Glucose POC Capillary Glucose 122 H 106 H Calcium
[2025-01-02] MEDS: IRON SUCROSE COMPLEX 100 MG in SODIUM CHLORIDE 0.9% IV 50 ML 220 MG IVPB (17:40)
[2025-01-02] MEDS: INSULIN GLARGINE (*BKC) 100 UNITS/ML 12 UNITS SUB-Q (17:40)
[2025-01-02] MEDS: FAMOTIDINE 20 MG TABLET 40 MG PO (20:18)
[2025-01-02 21:30] VITALS: O2SAT 97
[2025-01-02 21:35] VITALS: BP 113/55; PULSE 72; RESP 16; TEMP 36.9; O2SAT 97
[2025-01-03] MEDS: ACETAMINOPHEN 500 MG TABLET 1000 MG PO ×2 (05:40→13:36)
[2025-01-03 06:00] VITALS: BP 130/58; PULSE 60; RESP 18; TEMP 36.6; O2SAT 99
[2025-01-03 06:00] LABS: Hematocrit 25.4 % (42.0-52.0); Hemoglobin 7.5 g/dL (14.0-18.0); Mean Corpuscular HGB Conc 29.5 g/dl (32-36); Mean Corpuscular Hemoglobin 24.3 pg (26-34); Mean Corpuscular Volume 82.2 fl (80-100); Platelet Count Result 334 k/mm3 (150-375); Red Blood Count 3.09 M/mm3 (4.6-6.20); White Blood Count 7.8 K/mm3 (4.5-10.0)
[2025-01-03 06:26] LABS: Anion Gap 4 mmol/L (4-12); Blood Urea Nitrogen 10 mg/dL (9-20); Calcium 8.2 mg/dL (8.4-10.2); Carbon Dioxide 28 mmol/L (22-30); Chloride 106 mmol/L (98-107); Estimated CRCL calculation 50 ml/min; Estimated Glomerular Filt Rate > 60; Glucose 85 mg/dL (65-110); Potassium 3.9 mmol/L (3.4-5.0); Sodium 138 mmol/L (137-145)
[2025-01-03] MEDS: ROSUVASTATIN 20 MG TABLET 40 MG PO (08:39)
[2025-01-03] MEDS: ENOXAPARIN 40 MG/0.4 ML SYRINGE SUB-Q (08:39)
[2025-01-03] MEDS: EMPAGLIFLOZIN 25 MG TABLET BY MOUTH (08:39)
[2025-01-03] MEDS: INSULIN GLARGINE (*BKC) 100 UNITS/ML 15 UNITS SUB-Q (08:45)
[2025-01-03 14:00] VITALS: BP 120/72; PULSE 70; RESP 16; TEMP 35.6; O2SAT 99
--- NOTE | 2025-01-03 14:14 | P.DS_ITS ---
DS: Admitting Diagnosis Discharge Date 01/03/2025 Admitting Diagnosis Adenocarcinoma of cecum DS: Discharge Diagnosis Discharge Diagnosis (1) Malignant neoplasm of colon, unspecified: Code(s): C18.9 - Malignant neoplasm of colon, unspecified Status: Acute (2) Type 2 diabetes mellitus with hyperglycemia, with long-term current use of insulin: Code(s): E11.65 - Type 2 diabetes mellitus with hyperglycemia; Z79.4 - correction (current) use of insulin Status: Acute (3) Iron deficiency anemia: Code(s): D50.9 - Iron deficiency anemia, unspecified Status: Acute Assessment and Plan: Hemoglobin 6.9 on 01/02/2025. Patient asymptomatic. Repeat hemoglobin 6.7. Patient again denied any abdominal pain or other symptoms. Benign abdominal exam. Patient has chronic anemia. Low hemoglobin levels were likely a result of this and also partially due to dilutional affects. Given iron sucrose on 01/02 and hemoglobin was up to 7.5 the following day. (4) Adenocarcinoma of cecum: Code(s): C18.0 - Malignant neoplasm of cecum Status: Acute DS: Summary Hospital Course Reason for hospitalization: Patient was seen in the general surgery office on 12/21/2024 at the request of Dr. Frank after a mass was identified in the cecum during a colonoscopy on 12/12/2024. The colonoscopy was performed after patient was recently admitted in September and found to have a hemoglobin of 6.2. A biopsy demonstrated well differentiated adenocarcinoma with extensive necrosis. Patient was scheduled for a right hemicolectomy on 01/01/[address] Reyna. Hospital Course: Patient underwent laparoscopic right hemicolectomy with ileocolic anastomosis, de [place] assisted on 01/01/2025. The patient tolerated the procedure well and was awakened from anesthesia, extubated, and transferred to recovery. Transferred to medical surgical floor for further monitoring. No acute events overnight. Patient did have a critically low hemoglobin level of 6.9 the following morning. He was asymptomatic and denied any abdominal pain. Abdominal exam benign. Incisions appeared clean and dry with glue intact. A repeat hemoglobin level was drawn around noon and was slightly lower at 6.7. This was presumably due to chronic anemia and dilutional effects. Patient still asymptomatic. Given a dose of iron sucrose. Patient passing flatus. Overnight he had several bowel movements. Did not ambulate much on 01/02. Doing well morning of 01/03. Hemoglobin up to 7.5. He reportedly endorsed some dizziness to family member at bedside and nursing staff. Tolerating his diet without any nausea or vomiting. Voiding appropriately. He was later able to ambulate with his walker without any dizziness or other symptoms. After the surgery, pain was tolerable with Tylenol only. Patient is surgically stable for discharge. He will follow up with General surgery office in 2 weeks. Status at Discharge Functional status at discharge: uses cane/walker Overall status at discharge: patient is back to baseline Time Spent with Patient Time attestation: Total time spent providing and/or coordinating discharge services: Time spent: Less than 30 minutes Exam Const: General: comfortable and no acute distress Eyes: General: appearance normal, both eyes and all related structures Neck: Neck: supple and no JVD Resp: Effort & Inspection: normal respiratory effort Cardio: Rate: regular rate GI: Inspection: non-distended GI Palp: Yes Soft to palpation, No Tenderness to palpation present (GI) and No Guarding due to palpation present (GI) Auscultation: normal bowel sounds Other: Incisions clean and dry with glue intact. No signs of infection or dehiscence. Skin: General skin exam: normal color Extrem: General: normal to inspection Psych: Mental Status: mental status grossly normal DS: Data Data Completed and Pending Pending studies at discharge: Pending at discharge 01/01/25 11:08 Surgical [PTH] Routine Labs on day of discharge: Labs from last 24 hours 01/03/25 01/03/25 01/03/25 11:17 07:27 05:29 WBC 7.8 RBC 3.09 L Hgb 7.5 L Hct 25.4 L MCV 82.2 MCH 24.3 L MCHC 29.5 L RDW 18.2 H Plt Count 334 MPV 8.9 Sodium 138 Potassium 3.9 Chloride 106 Carbon Dioxide 28 Anion Gap 4 BUN 10 Creatinine 1.05 Estim Creat Clear Calc 50 Estimated GFR > 60 Glucose 85 POC Capillary Glucose 145 H 93 Calcium 8.2 L 01/02/25 01/02/25 19:54 17:03 WBC RBC Hgb Hct MCV MCH MCHC RDW Plt Count MPV Sodium Potassium Chloride Carbon Dioxide Anion Gap BUN Creatinine Estim Creat Clear Calc Estimated GFR Glucose POC Capillary Glucose 239 H 159 H Calcium Procedures/Treatments: Procedures Operation Date: 01/01/25 08:30 Actual Procedure Side Surgeon p Laparoscopic Right Hemicolectomy, DaVinci Assisted Not Applicable Anil Reyna DO Discharge Plan Discharge Attending physician on discharge: Anil Reyna Discharging Clinician: Marci Rey Anticipated Discharge Date/Time: 01/03/25 13:56 Patient Disposition: Home Activity: may shower Diet: diabetic and low fiber Wound Care Instructions: follow printed instructions Discharge Instructions: Okay to shower. No soaking in a bath, pool, or other body of water for the next 2 weeks. No lifting more than 10-15 lb for the next 2 weeks. Up and walking 10-30 minutes 3 times a day. Resume previous home medications. Take Tylenol 500 mg every 6 hours and ibuprofen 600 mg every 6 hours as needed for pain. No driving for 3 days after surgery or while taking narcotic pain medication. Continue your regular diet as tolerated. Keep regularly scheduled appointment with General Surgery Clinic on 01/17/2025. Call [phone] with any questions. Call the office or go to the Emergency Department for: -Bleeding or increased drainage from wounds -Severe pain -Chest pain, vomiting, dizziness, difficulty breathing -Fever greater than 101 degrees Patient Instructions: Antibiotic Form Patient Language: Luxembourger Stand Alone Forms: General Discharge Information Follow-up/Referrals: Anil Reyna DO [Physician, General Surgery] - Keep Reg. Scheduled Appt. Referral Note: 01/17/25 Discharge Medications: Continued famotidine 40 mg tablet 40 mg PO HS rosuvastatin 40 mg tablet 40 mg PO DAILY Qty: 90 3RF insulin glargine [Basaglar KwikPen U-100 Insulin] 100 unit/mL (3 mL) insulin pen See Rx Instructions .ROUTE .COMPLEX MDD 30 Qty: 27 3RF Rx Instructions: 15 units in morning, 12 units in evening (DME) lancets 30 gauge misc See Rx Instructions .ROUTE .COMPLEX Qty: 400 1RF Dose Instruction: USE TWICE DAILY DIRECTED Rx Instructions: USE four times DAILY DIRECTED (DME) True Metrix Glucose Test Strip Strip See Rx Instructions .ROUTE .COMPLEX Qty: 400 2RF Dose Instruction: TEST BEFORE MEALS Rx Instructions: TEST BEFORE MEALS 4 times a day Zyrtec 10 mg Capsule 10 mg PO DAILY cyanocobalamin (vitamin B-12) [Vitamin B-12] 1,000 mcg Tablet 1,000 mcg PO QAM Qty: 90 0RF multivitamin with minerals Capsule 1 cap PO DAILY Qty: 90 3RF omeprazole 40 mg capsule,delayed release(DR/EC) See Rx Instructions .ROUTE .COMPLEX Qty: 90 1RF Dose Instruction: TAKE 1 CAPSULE BY MOUTH EVERY DAY Patient Comments: QAM Rx Instructions: TAKE 1 CAPSULE BY MOUTH EVERY DAY dapagliflozin propanediol 10 mg tablet See Rx Instructions .ROUTE .COMPLEX Qty: 90 1RF Dose Instruction: TAKE 1 TABLET BY MOUTH EVERY DAY Rx Instructions: TAKE 1 TABLET BY MOUTH EVERY DAY (DME) pen needle, diabetic [UltiCare Pen Needle] 31 gauge x 1/4 needle See Rx Instructions .Route Qty: 400 1RF Rx Instructions: Use four times daily Discontinued ciprofloxacin HCl 500 mg tablet 500 mg PO .COMPLEX Qty: 1 0RF Rx Instructions: 500 mg orally at 2:00pm the day before surgery; metronidazole 500 mg tablet 500 mg PO .COMPLEX Qty: 3 0RF Rx Instructions: 500 mg orally at 1:00pm, 2:00pm, and 11:00pm the day before surgery; Date of admission: 01/01/25 12:28 Primary Care Provider: Shawn Vargas Admitting Provider: Anil Reyna Attending physician on admission: Anil Reyna Condition: Improved
== END 2025-01-03 15:10 | disposition home or self-care (01) | DRG 330 ==
LOC: ANH3MEDSUR 12:37
PROVIDERS: Admitting Provider Surgery; PCP Internal Medicine
PROC: 0DTF4ZZ Resection of Right Large Intestine, Percutaneous Endoscopic Approach (ICD-10-PCS; principal; 2025-01-01 08:30)
DX: C18.0 Malignant neoplasm of cecum (principal); C77.2 Secondary and unspecified malignant neoplasm of intra-abdominal lymph nodes; D50.0 Iron deficiency anemia secondary to blood loss (chronic); K57.30 Diverticulosis of large intestine without perforation or abscess without bleeding; K64.8 Other hemorrhoids; K76.89 Other specified diseases of liver; E78.5 Hyperlipidemia, unspecified; E11.65 Type 2 diabetes mellitus with hyperglycemia; E53.8 Deficiency of other specified B group vitamins; G20.A1 Parkinson's disease without dyskinesia, without mention of fluctuations; E11.51 Type 2 diabetes mellitus with diabetic peripheral angiopathy without gangrene; E11.43 Type 2 diabetes mellitus with diabetic autonomic (poly)neuropathy; Z87.891 Personal history of nicotine dependence; Z79.4 Long term (current) use of insulin; Z79.2 Long term (current) use of antibiotics
CPT/HCPCS: 36415; 80048; 82948; 85014; 85018; 85027; 88309; 88342; J0690; A9270; J1171; J1650; J1756; J1815; J1885; J2003; J2405; J2704; J3010; J7030; J7120

== ENCOUNTER 2025-01-17 13:37 | Outpatient (CLI) | payer BC, SELFPAY ==
[2025-01-17 13:55] LABS: Hematocrit 32.3 % (42.0-52.0); Hemoglobin 9.5 g/dL (14.0-18.0); Mean Corpuscular HGB Conc 29.4 g/dl (32-36); Mean Corpuscular Hemoglobin 24.4 pg (26-34); Mean Corpuscular Volume 83.0 fl (80-100); Platelet Count Result 345 k/mm3 (150-375); Red Blood Count 3.89 M/mm3 (4.6-6.20); White Blood Count 7.0 K/mm3 (4.5-10.0)
[2025-01-17 14:41] LABS: Anion Gap 9 mmol/L (4-12); Blood Urea Nitrogen 18 mg/dL (9-20); Calcium 8.9 mg/dL (8.4-10.2); Carbon Dioxide 26 mmol/L (22-30); Chloride 102 mmol/L (98-107); Estimated Glomerular Filt Rate > 60; Glucose 258 mg/dL (65-110); Potassium 4.6 mmol/L (3.4-5.0); Sodium 137 mmol/L (137-145)
--- OUTSIDE RECORDS SUMMARY | 2025-01-17 16:53 | XMS_ITS ---
Care Plan - [facility] Created on: January 17, 2025 WENCESLAO COTA : 1945 Sex: Male Author Organization [facility] Address [address] [place] [address] Phone Care Team Providers Care Senior Reactor Operator Name Role Phone ROSEANN BARRERA, [place] Primary Care Provider [phone]
--- OUTSIDE RECORDS SUMMARY | 2025-01-17 16:53 | XMS_ITS | Encounter Summary ---
Author Organization [facility] Address [address] [place] [address] Phone Care Team Providers Care Manager Service Desk Name Role Phone Shawn Vargas MD Primary Care Provider [phone] Anurag Avila MD Unavailable [phone] Reason for Visit * Reason Comments Medication Refill Encounter Details Date Type Department Care Team (Late Contact Info) Description 12/15/2023 [facility] [address] [place] [address] Anurag Avila MD [address] [place] [address] Medication Refill Social History Tobacco [...] Description 08/08/2025 2:30 PM CDT Office Visit [facility] [address] [place] [phone] Anurag Avila MD [address] [place] [phone] documented as of this encounter Visit Diagnoses Not on filedocumented in this encounter Care Teams Manager Service Desk Relationship Specialty Start Date End Date Shawn Vargas MD [address] [place] [address] PCP - General Internal Medicine 02/22/23 Anurag Avila MD [address] [place] [phone] Consulting Physician Neurology 03/29/23 documented as of this encounter
--- OUTSIDE RECORDS SUMMARY | 2025-01-17 16:53 | XMS_ITS | Encounter Summary ---
Author Organization [facility] Address [address] [place] [address] Phone Care Team Providers Care Cast Iron Dipper Name Role Phone Shawn Vargas MD Primary Care Provider [phone] Anurag Avila MD Unavailable [phone] Reason for Visit * Reason Comments Medication Refill Encounter Details Date Type Department Care Team (Late Contact Info) Description 04/08/[facility] [address] [place] [address] Anurag Avila MD [address] [place] [address] Medication Refill Social History Tobacco [...] CDT Office Visit [facility] [address] [place] [phone] Anurag Avila MD [address] [place] [phone] documented as of this encounter Visit Diagnoses Not on filedocumented in this encounter Care Teams Cast Iron Dipper Relationship Specialty Start Date End Date Shawn Vargas MD [address] [place] [address] PCP - General Internal Medicine 02/22/23 Anurag Avila MD [address] [place] [phone] Consulting Physician Neurology 03/29/23 documented as of this encounter
--- OUTSIDE RECORDS SUMMARY | 2025-01-17 16:53 | XMS_ITS | Clinical Summary ---
Author Organization [facility] Address [address] [place] [address] Phone Care Team Providers Care Oil Burner Journeyman Name Role Phone ROSEANN BARRERA, [facility] Primary Care Provider [phone] Reason for Visit and Chief Complaint The Chief Complaint is: rEFERRED BY dR. [facility] FOR lUMBAR SPINE AND CHRONIC PAIN Problems Includes: Problems addressed during this encounter and other active Problems Current Visit Onset Date Resolved Date Provider Conditio n Status Chronic Kidney Disease (Nkf Classification) Unknown RENE Jolley MANJEET PHOTO BOOTH OPERATOR-FPA, PAYROLL MACHINE OPERATOR-BC Active Last Documented On 2 10:05AM ; [facility] Diabetes Mellitus Unknown RENE Jolley MANJEET APR N-FPA, PAYROLL MACHINE OPERATOR-BC Active Last Documented On 2 9:14AM ; [facility] 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 Unknown RENE Jolley MANJEET PHOTO BOOTH OPERATOR-FPA, PAYROLL MACHINE OPERATOR-BC Active Last Documented On 2 10:06AM ; [facility] Hyperlipidemia Unknown RENE Jolley MANJEET PHOTO BOOTH OPERATOR-F PA, PAYROLL MACHINE OPERATOR-BC Active Last Documented On 2 9:14AM ; [facility] Plan of Treatment Patient was [...] notes, laboratory data, patient self-report questionnaires, and [place] prescription monitoring database entries. Significant social barriers exist to compliance resulting in limited prognosis. Decision to proceed with interventional therapies was made at the time of today's visit. - Last Documented On 10/22/2021 10:14AM ; [facility] Referrals To Diagnosis Pain Management [facility] - [address] [place] [id number] - Radiculopathy, lumbar region Note: consent for Right L2-3 and L3-4 transforaminal epidural steroid injection under fluoroscopyNo need to hold NSAIDs/ASA Last Documented On 2 1:31PM ; [facility] Education and Decision Aids were provided during visit for: Lifestyle education Last Documented On 10:08AM ; [facility] Assessments Includes: Assessments from this encounter Findings - [M47.896 - Other spondylosis, lumbar region] Lumbar spondylosis - Last Documented On 10/22/2021 10:14AM ; [facility] - [M48.062 - Spinal stenosis, lumbar region with neurogenic claudication] Lumbar stenosis with neurogenic claudication - Last Documented On 10/22/2021 10:14AM ; [facility] - [M54.16 - Radiculopathy, lumbar region] Lumbar radiculopathy - Last Documented On 10/22/2021 10:14AM ; [facility] - [G89.4 - Chronic pain syndrome] Chronic pain syndrome - Last Documented On 10/22/2021 10:14AM ; [facility] Instructions Includes: Instructions from this encounter Education and Decision Aids were provided during visit for: Lifestyle education Last Documented On 10:08AM ; [facility] Medical Equipment - Implanted Devices Includes: Current Devices No Medical Equipment Recorded Medications Includes: Medications discussed during this encounter and other current Medications New / Renewed during this visit COSME BANKS on 10/22/2021 Gabapentin 100 MG Oral Capsule Provider: COSME ROJAS 14 day supply: 84 capsule, 0 refills Diagnosis: Radiculopathy, lumbar region 1-2 capsules three times daily Pharmacy: [facility]/pharmacy #[id number], [address] - Last Documented On 2 10:13AM By RENE AGUIAR ; [facility] Current Medications (continue as prescribed) Basaglar KwikPen 100 UNIT/ML Subcutaneous Solution Pen-injector 10/19/2021 Provider: YESSI WHITFIELD MD Diagnosis: 40 UNITS A DAY. Last Documented On 2 10:13AM By RENE AGUIAR ; [facility] DULoxetine HCl 20 MG Oral Ca psule Delayed Release Particles 10/14/2021 Provider: YESSI WHITFIELD MD Diagnosis: Last Documented On 2 10:13AM By RENE AGUIAR ; [facility] Trulicity 1.5 MG/0.5ML Subcu taneous Solution Pen-injector 10/05/2021 Provider: YESSI WHITFIELD MD Diagnosis: 1 INJECTION A WEEK. Last Documented On 2 10:13AM By RENE AGUIAR ; [facility] Pantoprazole Sodium 40 MG Or al Tablet Delayed Release 08/17/2021 Provider: YESSI WHITFIELD MD Diagnosis: NEEDED. Last Documented On 2 10:13AM By RENE AGUIAR ; [facility] Rosuvastatin Calcium 20 MG Oral Tablet 08/15/2021 Pr ovider: YESSI WHITFIELD MD Diagnosis: Last Documented On 2 10:13AM By RENE AGUIAR ; [facility] Adult Aspirin Regimen 81 MG Oral Tablet Delayed Release 07/28/2021 Provider: YESSI WHITFIELD MD Diagnosis: Last Documented On 2 10:13AM By RENE AGUIAR ; [facility] Medications Administered Includes: Administered [...] 97 Last Documented: On 10/22/2021 9:09AM ; [facility] Results Includes: Results discussed [...] pain exponentially. He is not taking any [id number] pain medication. His primary started him on [...] for surgery consultation on November 03 at [facility] but would like to avoid surgery if [...] 10/22/2021 Last Documented On 2 10:14AM ; [facility] Smoking Status Unknown Procedures and Surgical History Includes: Procedures from this encounter Procedures Code Diagnosis Performing Provider Service L ocation Service Date plan of care reviewed and agreed to Last Documented On 2 10:08AM ; [facility] plan of care reviewed and agreed to by t he patient Last Documented On 2 10:08AM ; [facility] use of tobacco assessment performed 1000F Last Documented On 2 8:47AM ; [facility] patient screened for future fall risk: documentation of any fall with injury in past year 1100F Last Documented On 2 8:50AM ; [facility] review of medications documented 1160F Last Documented On 2 8:47AM ; [facility] screening for adult depression: impressi on and score six Last Documented On 2 8:47AM ; [facility] standardized depression screening: posit avery for symptoms Last Documented On 2 8:47AM ; [facility] encouragement to exercise Last Documented On 2 10:08AM ; [facility] Clinical summary provided to patient Last Documented On 2 8:47AM ; [facility] Medical History Includes: Medical History addressed during this encounter Description Last Updated Has a fear of falling. 10/22/2021 Last Documented On 2 10:14AM ; [facility] Has had a fall in the last 12 months. Last Documented On 2 10:14AM ; [facility] Family History Includes: Family History addressed [...] Diagnosis PAIN MANAGEMENT NEW CONSULT RENE BURROUGHS PHOTO BOOTH OPERATOR-FPA, PAYROLL MACHINE OPERATOR-BC [facility] ON 10/23/19 22 8:37AM 9:53AM Lumbar Spondylosis,Chr onic Pain Syndrome,Lumbar Radiculopathy,S hermilo Stenosis Lumbar with Neurogenic Claudication Insurance Includes: Active Insurance Policies Plan Name Member ID Group # Subscriber Relationship Effect avery Dates 1 - [facility] [id number] WENCESLAO COTA Self Clinical Notes Includes: Clinical Notes from this encounter No Clinical Notes Recorded
--- OUTSIDE RECORDS SUMMARY | 2025-01-17 16:53 | XMS_ITS | Clinical Summary ---
Author Organization [facility] Address [address] [place] [address] Phone Care Team Providers Care Show Design Supervisor Name Role Phone Shawn Vargas MD Primary Care Provider [phone] Anurag Avila MD Unavailable [phone] Allergies Active Allergy Reactions Criticality Noted Date [...] Visit [facility] - Neurology [facility] [address] [place] [address] Anurag Avila MD [address] [place] [address] Health Maintenance Due Date Last Done Comments [...] patient's age to complete this topic Insurance [facility] MEDICARE Care Teams Show Design Supervisor Relationship Specialty Start Date End Date Shawn Vargas MD [address] [place] [address] PCP - General Internal Medicine 02/22/23 Anurag Avila MD [address] [place] [address] Consulting Physician Neurology 03/29/23
--- OUTSIDE RECORDS SUMMARY | 2025-01-17 16:53 | XMS_ITS ---
Author Organization [facility] Address [address] [place] [address] Phone Care Team Providers Care Trustee Of Estate Name Role Phone ROSEANN BARRERA YESSI Primary Care Provider [phone] Problems Includes: Active, inactive, and resolved Problems All Visits Onset Date Resolved Date Provider Condition S tatus Chronic Kidney Disease (Nkf Classification) Unknown RENE Jolley MANJEET STEAM TURBINE OPERATOR-FPA, RN CARE MANAGER-BC Active Last Documented On 2 10:05AM ; [facility] Diabetes Mellitus Unknown RENE oJlley MANJEET APR N-FPA, RN CARE MANAGER-BC Active Last Documented On 2 9:14AM ; [facility] 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 Unknown RENE Jolley MANJEET STEAM TURBINE OPERATOR-FPA, RN CARE MANAGER-BC Active Last Documented On 2 10:06AM ; [facility] Hyperlipidemia Unknown RENE Jolley MANJEET STEAM TURBINE OPERATOR-F PA, RN CARE MANAGER-BC Active Last Documented On 2 9:14AM ; [facility] Plan of Treatment Referrals To Diagnosis Pain Management [facility] - [address] [place] [address] - Radiculopathy, lumbar region Note: consent for Right L2-3 and L3-4 transforaminal epidural steroid injection under fluoroscopyNo need to hold NSAIDs/ASA Last Documented On 2 1:31PM ; [facility] Education and Decision Aids were provided during visit for: Lifestyle education Last Documented On 2 10:08AM ; [facility] Assessments Includes: Assessments for all patient encounters Findings Encounter Date Chronic pain syndrome PAIN MANAGEMENT NE W CONSULT with RENE BURROUGHS STEAM TURBINE OPERATOR-FPPatt, RN CARE MANAGER-BC 10/22/2021 Last Documented On 2 10:14AM ; [facility] Lumbar radiculopathy PAIN MANAGEMENT NEW CONSULT with RENE BURROUGHS STEAM TURBINE OPERATOR-FPA, RN CARE MANAGER-BC 10/22/2021 Last Documented On 2 10:14AM ; [facility] Lumbar spondylosis PAIN MANAGEMENT NEW CONSULT with RENE BURROUGHS STEAM TURBINE OPERATOR-FPA, RN CARE MANAGER-BC 10/22/2021 Last Documented On 2 10:14AM ; [facility] Lumbar stenosis with neuroge harinder claudication PAIN MANAGEMENT NEW CONSULT with RENE BURROUGHS STEAM TURBINE OPERATOR-FPA, RN CARE MANAGER-BC 10/22/2021 Last Documented On 2 10:14AM ; [facility] Instructions Includes: Instructions for all patient encounters Education and Decision Aids were provided during visit for: Lifestyle education Last Documented On 2 10:08AM ; [facility] Medical Equipment - Implanted Devices Includes: Current and historical Devices No Medical Equipment Recorded Medications Includes: Current and historical Medications Current Medications (continue as prescribed) Gabapentin 100 MG Oral Capsule 10/22/2021 Provider: REMINGTON ROJASBC Diagnosis: Radiculopathy, l umbar region 1-2 capsules three times daily Last Documented On 2 10:13AM By RENE AGUIAR ; [facility] Basaglar KwikPen 100 UNIT/ML Subcutaneous Solution Pen-injector 10/19/2021 Provider: YESSI WHITFIELD MD Diagnosis: 40 UNITS A DAY. Last Documented On 2 10:13AM By RENE AGUIAR ; [facility] DULoxetine HCl 20 MG Oral Ca psule Delayed Release Particles 10/14/2021 Provider: YESSI WHITFIELD MD Diagnosis: Last Documented On 2 10:13AM By RENE AGUIAR ; [facility] Trulicity 1.5 MG/0.5ML Subcu taneous Solution Pen-injector 10/05/2021 Provider: YESSI WHITFIELD MD Diagnosis: 1 INJECTION A WEEK. Last Documented On 2 10:13AM By RENE AGUIAR ; [facility] Pantoprazole Sodium 40 MG Or al Tablet Delayed Release 08/17/2021 Provider: YESSI WHITFIELD MD Diagnosis: NEEDED. Last Documented On 2 10:13AM By RENE AGUIAR ; [facility] Rosuvastatin Calcium 20 MG Oral Tablet 08/15/2021 Pr ovider: YESSI WHITFIELD MD Diagnosis: Last Documented On 2 10:13AM By RENE AGUIAR ; [facility] Adult Aspirin Regimen 81 MG Oral Tablet Delayed Release 07/28/2021 Provider: YESSI WHITFIELD MD Diagnosis: Last Documented On 2 10:13AM By RENE AGUIAR ; [facility] Medications Administered Includes: Administered Medications in patient's chart No Administered Medications Recorded Results Includes: Results from 01/18/2024 through 01/17/2025 No Results Recorded For Specified Dates History of Present Illness History of Present Illness not supported for this document type No History of Present Illness Recorded Social History Description Last Updated Tobacco non-user 10/22/2021 Last Documented On 2 10:14AM ; [facility] Smoking Status Unknown Medical History Includes: Medical History in patient's chart Description Last Updated Has a fear of falling. 10/22/2021 Last Documented On 2 10:14AM ; [facility] Has had a fall in the last 12 months. Last Documented On 2 10:14AM ; [facility] Family History Includes: Family History in patient's [...] avery Dates 1 - [facility] [id number] WENCESLAO Davis Clinical Notes Includes: Signed Clinical Notes starting from 03/19/2022 No Clinical Notes Recorded
== END 2025-01-17 13:38 | disposition home or self-care (01) ==
LOC: ANHLAB 13:39
PROVIDERS: PCP Internal Medicine; Visit Provider Surgery
DX: C18.0 Malignant neoplasm of cecum (principal)
CPT/HCPCS: 36415; 80048; 85027

== ENCOUNTER 2025-01-18 10:04 | Outpatient (CLI) | payer BC, SELFPAY ==
--- OUTSIDE RECORDS SUMMARY | 2025-01-18 09:00 | XMS_ITS | Encounter Summary ---
Author Organization [facility] Address [address] [place] [address] Care Team Providers Care Procurement Analyst Name Role Phone Unavailable Primary Care Provider Unavailabl e Reason for Referral * MRI (Routine) - Pending Review Specialty Diagnoses / Procedures Referred By Rob brower Referred To Contact Diagnoses Colon cancer high risk Left-sided weakness Procedures MRI BRAIN W WO CONTRAST Funmilayo Trinidad MD [address] [place] [address] Phone: tel: fax: Referral ID Status Reason Start Date Expiration Date V isits Requested Visits Authorized [id number] Pending Review 01/18/2025 02/18/2026 1 1 HARGE PLANNER Encounter Details Date Type Department Care Team (Late st Contact Info) Description 01/18/2025 9:00 AM DISCHARGE PLANNER Office Visit [facility] Oncology and Hematology - [place] [place] [address] Funmilayo Trinidad MD [address] [place] [address] Colon cancer high risk (Primary Dx); Left-sided weakness Social History Tobacco Use Types Packs/Day Years Used Date Smoking Tobacco: Former Cigarettes 0.5 35 1 03/20/1959 - 01/18/1995 Pipe Quit: 01/18/19 95 Cigars Quit: 01/18/19 95 Smokeless Tobacco: Never Alcohol Use Standard Drinks/Week Comments Not Currently 0 (1 standard drink = 0.6 oz pur e alcohol) Socially before Sex and Gender Information Value Date Recorded Sex Assigned at Not on file Legal Sex Male 11:41 AM DISCHARGE PLANNER Gender Identity Not on file Sexual Orientation Not on file documented as of this encounter Last Filed Vital Signs Vital Sign Reading Time Taken Comments Blood Pressure 128/57 01/18/2025 8:51 AM DISCHARGE PLANNER Pulse 81 01/18/2025 8:51 AM DISCHARGE PLANNER Temperature 36.7 C (98 F) 01/18/2025 8:51 AM DISCHARGE PLANNER Respiratory Rate 15 01/18/2025 8:51 AM DISCHARGE PLANNER Oxygen Saturation 93% 01/18/2025 8:51 AM DISCHARGE PLANNER Inhaled Oxygen Concentration - - Weight 72.7 kg (160 lb 3.2 oz) 01/18/2025 8:51 A M DISCHARGE PLANNER Height 185.4 cm (6' 1) 01/18/2025 8:51 AM DISCHARGE PLANNER Body Mass Index 21.14 01/18/2025 8:51 AM DISCHARGE PLANNER documented in this encounter Plan of Treatment Upcoming Encounters Date Type Department Care Team (Late st Contact Info) Description 01/31/2025 4:30 PM DISCHARGE PLANNER Telephone Check Up [facility] Oncology and Hematology - [address] [facility] [address] [place] [address] South Cardoza MD [address] [facility] [address] [place] [address] Scheduled Orders Name Type Priority Associated Diagnoses Orde r Schedule IRON, TIBC, AND PERCENT SATURATION Lab Routine Colon cancer high risk Ordered: 01/18/2025 FERRITIN Lab Routine Colon cancer high risk Ordered: 01/18/2025 VITAMIN B12 AND FOLATE Lab Routine Colon cancer high risk Ordered: 01/18/2025 MRI BRAIN W WO CONTRAST Imaging Routine Colon cancer high risk Left-sided weakness Expected: 01/18/2025, Expires: 01/18/2026 documented as of this encounter Visit Diagnoses Diagnosis Colon cancer high risk- Primary Other specified conditions influencing health status Left-sided weakness Muscle weakness (generalized) documented in this encounter
--- OUTSIDE RECORDS SUMMARY | 2025-01-18 10:07 | XMS_ITS | Encounter Summary ---
Author Organization [facility] Address [address] [place] [address] Care Team Providers Care Rope Walker Name Role Phone Woo Hurtado MD Unavailable [phone] Shawn Vargas MD Primary Care Provider [phone] Shiva Ugarte MD Unavailable [phone] Ne[facility]ida [facility] Unavailable [phone] Emile Veras MD Unavailable Encounter Details Date Type Department Care Team (Late st Contact Info) Description 08/13/2022 Hospital Orders Only [place] [employer] Handling Supervisor Pre/Post [address] [place] [address] Woo Hurtado MD [address] [facility], [address] [place] [address] Social History Tobacco Use Types [...] on filedocumented in this encounter Care Teams Rope Walker Relationship Specialty Start Date End Date Shawn Vargas MD [address] [place] [address] PCP - General INTERNAL MEDICINE 07/15/22 Woo Hurtado MD Consulting Physician INTERVENTIONAL CARDIOLOGY 07/15/22 05/21/24 Shiva Ugarte MD [address] [place] [address] CARDIOTHORACIC SURGERY 08/25/22 Nereida Acosta AGACNP- [address] [place] [address] Nurse Practitioner NURSE PRACTITIONER 09/30/22 Emile Veras MD [address] [place] [address] Consulting Physician CARDIOVASCULAR DISEASE 05/22/24 documented as of this encounter
--- OUTSIDE RECORDS SUMMARY | 2025-01-18 10:08 | XMS_ITS | Clinical Summary ---
Author Organization [facility] Address [address] [place] [address] Phone Care Team Providers Care Remnants Cutter Name Role Phone Shawn Vargas MD Primary Care Provider [phone] Anurag Avila MD Unavailable [phone] Allergies Active Allergy Reactions Criticality Noted Date [...] Visit [facility] - Neurology [facility] [address] [place] [address] Anurag Avila MD [address] [place] [address] Health Maintenance Due Date Last Done Comments [...] patient's age to complete this topic Insurance [facility] MEDICARE Care Teams Remnants Cutter Relationship Specialty Start Date End Date Shawn Vargas MD [address] [place] [address] PCP - General Internal Medicine 02/22/23 Anurag Avila MD [address] [place] [address] Consulting Physician Neurology 03/29/23
--- OUTSIDE RECORDS SUMMARY | 2025-01-18 10:08 | XMS_ITS | Clinical Summary ---
Author Organization [facility] Address [address] [place] [address] Care Team Providers Care Business Services Coordinator Name Role Phone Shawn Vargas MD Primary Care Provider [phone] Shiva Ugarte MD Unavailable [phone] Nereida Acosta AGACNP- Unavailable [phone] Emile Veras MD Unavailable Allergies Active Allergy [...] Rider RN Medical Devices Implanted Type Area Public Affairs Officer Device Identifier Shelf Expiration Date Model / Serial / Lot Graft Patch [employer] [place] 0.8cmx7.6cm - [id number] Implanted:Qty: 1 on 09/13/2022 by Shiva Ugarte MD at [facility] Graft Left: Neck [employer] [id number] / / Procedures Procedure Name Priority [...] 8.0(H) <5.7 % 09/02/2022 1:18 PM CDT [facility] ESTIMATED AVG GLUCOSE 183(H) 74 - 114 MG/DL 09/02/2022 1:18 PM CDT [facility] 09/02/2022 11:5 5 AM CDT Shiva Ugarte MD LABORATORY Final Resul t Performing Organization Address [facility] Co de Phone Number [facility] [address] [place] [address], [phone] * (ABNORMAL) LIPID PANEL (09/02/2022 11:55 AM CDT) CHOLESTEROL 163 MG/DL 09/02/2022 12:52 PM CDT [facility] Comment:DESIRABLE: <200 TRIGLYCERIDES 238 MG/DL 09/02/2022 12:52 PM CDT [facility] Comment:200-499 HIGH HDL 33(L) >39 MG/DL 09/02/2022 12:52 PM CDT [facility] LDL (CALCULATED) 82 MG/DL 09/03/19 23 12:52 PM CDT [facility] Comment:<100 OPTIMAL VLDL CALCULATION 48 MG/DL 09/03/19 12:52 PM CDT [facility] Comment:REFERENCE RANGE NOT ESTABLISHED CHOL/HDL RATIO 4.9 09/02/2022 12:52 PM CDT [facility] Comment:REFERENCE RANGE NOT ESTABLISHED LDL/HDL 2.5 09/02/2022 12:52 PM CDT [facility] Comment:REFERENCE RANGE NOT ESTABLISHED NON HDL CHOLESTEROL 130 MG/DL 09/02/2022 12:52 PM CDT [facility] Comment:REFERENCE RANGE NOT ESTABLISHED 09/02/2022 11:5 5 AM CDT Shiva Ugarte MD LABORATORY Final Resul t Performing Organization Address [facility] Co de Phone Number [facility] [address] [place] [address], [place] [phone] [id number] from Last 3 Months or Most Recently Relevant to Health Maintenance Insurance [facility] MEDICARE PART A Advance Directives Documents on File Type Date Recorded Patient Patternmaker Hand Expl anation Power of Executive Chef 09/13/2022 2:32 PM * Full Code (Latest Code Status on File) Date Activated Date Inactivated Comments 09/13/2022 10:05 AM 09/14/2022 3:54 PM * Full Code Date Activated Date Inactivated Comments 08/18/2022 4:18 PM 08/19/2022 9:54 AM Care Teams Business Services Coordinator Relationship Specialty Start Date End Date Shawn Vargas MD [address] [place] [phone] PCP - General INTERNAL MEDICINE 07/15/22 Shiva Ugarte MD [address] [place] [address] CARDIOTHORACIC SURGERY 08/25/22 Nereida Acosta, [facility]- [address] [place] [address] Nurse Practitioner NURSE PRACTITIONER 09/30/22 Emile Veras MD [address] [place] [address] Consulting Physician CARDIOVASCULAR DISEASE 05/22/24
--- OUTSIDE RECORDS SUMMARY | 2025-01-18 10:08 | XMS_ITS | Clinical Summary ---
Author Organization [facility] Address [address] [place] [address] Phone Care Team Providers Care Hand Alterations Seamstress Name Role Phone ROSEANN BARRERA, [facility] Primary Care Provider [phone] Reason for Visit and Chief Complaint The Chief Complaint is: rEFERRED BY dR. 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 Significant social barriers exist to compliance resulting in limited prognosis. Decision to proceed with interventional therapies was made at the time of today's visit. - Last Documented On 10/22/2021 10:14AM ; [facility] Referrals To Diagnosis [facility] [address] [place] [phone] - Radiculopathy, lumbar region Note: consent for Right L2-3 and L3-4 transforaminal epidural steroid injection under fluoroscopyNo need to hold NSAIDs/ASA Last Documented On 2 1:31PM ; [facility] Education and Decision Aids were provided during visit for: Lifestyle education Last Documented On 10:08AM ; [facility] Assessments Includes: Assessments from this encounter Findings - [M47.896 - Other spondylosis, lumbar region] Lumbar spondylosis - Last Documented On 10/22/2021 10:14AM ; [facility] - [M48.062 - Spinal stenosis, lumbar region with neurogenic claudication] Lumbar stenosis with neurogenic claudication - Last Documented On 10/22/2021 10:14AM ; [facility] - [M54.16 - Radiculopathy, lumbar region] Lumbar radiculopathy - Last Documented On 10/22/2021 10:14AM ; [facility] - [G89.4 - Chronic pain syndrome] Chronic pain syndrome - Last Documented On 10/22/2021 10:14AM ; [facility] Instructions Includes: Instructions from this encounter Education and Decision Aids were provided during visit for: Lifestyle education Last Documented On 10:08AM ; [facility] Medical Equipment - Implanted Devices Includes: Current Devices No Medical Equipment Recorded Medications Includes: Medications discussed during this encounter and other current Medications New / Renewed during this visit COSME BANKS on 10/22/2021 Gabapentin 100 MG Oral Capsule Provider: COSME ROJAS 14 day supply: 84 capsule, 0 refills Diagnosis: Radiculopathy, lumbar region 1-2 capsules three times daily Pharmacy: [facility]/pharmacy #[id number], [address] - Last Documented On 2 10:13AM By RENE AGUIAR ; [facility] Current Medications (continue as prescribed) Basaglar KwikPen 100 UNIT/ML Subcutaneous Solution Pen-injector 10/19/2021 Provider: YESSI WHITFIELD MD Diagnosis: 40 UNITS A DAY. Last Documented On 2 10:13AM By RENE AGUIAR ; [facility] DULoxetine HCl 20 MG Oral Ca psule Delayed Release Particles 10/14/2021 Provider: YESSI WHITFIELD MD Diagnosis: Last Documented On 2 10:13AM By RENE AGUIAR ; [facility] Trulicity 1.5 MG/0.5ML Subcu taneous Solution Pen-injector 10/05/2021 Provider: YESSI WHITFIELD MD Diagnosis: 1 INJECTION A WEEK. Last Documented On 2 10:13AM By RENE AGUIAR ; [facility] Pantoprazole Sodium 40 MG Or al Tablet Delayed Release 08/17/2021 Provider: YESSI WHITFIELD MD Diagnosis: NEEDED. Last Documented On 2 10:13AM By RENE AGUIAR ; [facility] Rosuvastatin Calcium 20 MG Oral Tablet 08/15/2021 Pr ovider: YESSI WHITFIELD MD Diagnosis: Last Documented On 2 10:13AM By RENE AGUIAR ; [facility] Adult Aspirin Regimen 81 MG Oral Tablet Delayed Release 07/28/2021 Provider: YESSI WHITFIELD MD Diagnosis: Last Documented On 2 10:13AM By RENE AGUIAR ; [facility] Medications Administered Includes: Administered [...] 97 Last Documented: On 10/22/2021 9:09AM ; [facility] Results Includes: Results discussed [...] pain exponentially. He is not taking any xfak-tya-zkiwoul pain medication. His primary started him on [...] for surgery consultation on November 03 at [facility] but would like to avoid surgery [...] 10/22/2021 Last Documented On 2 10:14AM ; [facility] Smoking Status Unknown Procedures and Surgical History Includes: Procedures from this encounter Procedures Code Diagnosis Performing Provider Service L ocation Service Date plan of care reviewed and agreed to Last Documented On 2 10:08AM ; [facility] plan of care reviewed and agreed to by t he patient Last Documented On 2 10:08AM ; [facility] use of tobacco assessment performed 1000F Last Documented On 2 8:47AM ; [facility] patient screened for future fall risk: documentation of any fall with injury in past year 1100F Last Documented On 2 8:50AM ; [facility] review of medications documented 1160F Last Documented On 2 8:47AM ; [facility] screening for adult depression: impressi on and score six Last Documented On 2 8:47AM ; [facility] standardized depression screening: posit avery for symptoms Last Documented On 2 8:47AM ; [facility] encouragement to exercise Last Documented On 2 10:08AM ; [facility] Clinical summary provided to patient Last Documented On 2 8:47AM ; [facility] Medical History Includes: Medical History addressed during this encounter Description Last Updated Has a fear of falling. 10/22/2021 Last Documented On 2 10:14AM ; [facility] Has had a fall in the last 12 months. Last Documented On 2 10:14AM ; [facility] Family History Includes: Family History addressed [...] Diagnosis PAIN MANAGEMENT NEW CONSULT RENE BURROUGHS INSTRUMENT TESTER-FPA, SHANK SANDER-BC [facility] ON 10/23/19 22 8:37AM 9:53AM Lumbar Spondylosis,Chr onic Pain Syndrome,Lumbar Radiculopathy,S hermilo Stenosis Lumbar with Neurogenic Claudication Insurance Includes: Active Insurance Policies Plan Name Member ID Group # Subscriber Relationship Effect avery Dates 1 - [facility] [id number] WENCESLAO COTA Self Clinical Notes Includes: Clinical Notes from this encounter No Clinical Notes Recorded
--- OUTSIDE RECORDS SUMMARY | 2025-01-18 10:08 | XMS_ITS | Encounter Summary ---
Author Organization [facility] Address [address] [place] [address] Phone Care Team Providers Care Boarder Steam Name Role Phone Shawn Vargas MD Primary Care Provider [phone] Anurag Avila MD Unavailable [phone] Reason for Visit * Reason Comments Medication Refill Encounter Details Date Type Department Care Team (Late Contact Info) Description [facility] [address] [place] [address] Anurag Avila MD [address] [place] [address] Medication Refill Social History Tobacco [...] Description 08/08/2025 2:30 PM CDT Office Visit [facility] [address] [place] [address] Anurag Avila MD [address] [place] [address] documented as of this encounter Visit Diagnoses Not on filedocumented in this encounter Care Teams Boarder Steam Relationship Specialty Start Date End Date Shawn Vargas MD [address] [place] [address] PCP - General Internal Medicine 02/22/23 Anurag Avila MD [address] [place] [phone] Consulting Physician Neurology 03/29/23 documented as of this encounter
--- OUTSIDE RECORDS SUMMARY | 2025-01-18 10:08 | XMS_ITS | Clinical Summary ---
Author Organization [facility] Ree Crooks Address [address] [place] [address] Care Team Providers Care Record Changer Name Role Phone Unavailable Primary Care Provider Unavailabl e Allergies Active Allergy Reactions Criticality Noted Date Comments Lisinopril Anaphylaxis,Angioedema High 09/04/2020 angioedema Pt states tongue swelled, couldn't breathe, couldn't talk well Medications cetirizine (ZyrTEC) 10 mg tablet Take 10 mg by mouth daily. Active dapagliflozin propanediol (FARXIGA) 10 mg Tablet 5 Active insulin glargine (Basaglar KwikPen U-100 Insulin) 100 unit/mL pen syringe Inject by subcutaneous injection 2 times daily. 3 Active omeprazole (PriLOSEC) 40 mg Capsule, Delayed Release(E.C.) Take 40 mg by mouth daily. 5 Active cyanocobalamin 1,000 mcg Tablet Take 1,000 mcg by mouth daily. Active multivitamin (DAILY-MARTELL) tablet Take 1 Tablet by mouth daily. Active Encounters Date Type Department Care Team Description 01/18/2025 9:00 AM SPRING TACKER Office Visit [facility] Oncology and Hematology - [place] [address] [place] [address] Funmilayo Trinidad MD Colon cancer high risk (Primary Dx); Left-sided weakness from Last 3 Months Family History Medical History Relation Name Comments No Known Problems Brother No Known Problems Child No Known Problems Father No Known Problems Mother No Known Problems Sister Relation Name Status Comments Brother Alive Child Alive Father Mother Sister Alive Social History Tobacco Use [...] on file Legal Sex Male 11:41 AM SPRING TACKER Gender Identity Not on file Sexual Orientation Not on file Last Filed Vital Signs Vital Sign Reading Time Taken Comments Blood Pressure 128/57 01/18/2025 8:51 AM SPRING TACKER Pulse 81 01/18/2025 8:51 AM SPRING TACKER Temperature 36.7 C (98 F) 01/18/2025 8:51 AM SPRING TACKER Respiratory Rate 15 01/18/2025 8:51 AM SPRING TACKER Oxygen Saturation 93% 01/18/2025 8:51 AM SPRING TACKER Inhaled Oxygen Concentration - - Weight 72.7 kg (160 lb 3.2 oz) 01/18/2025 8:51 A M SPRING TACKER Height 185.4 cm (6' 1) 01/18/2025 8:51 AM SPRING TACKER Body Mass Index 21.14 01/18/2025 8:51 AM SPRING TACKER Plan of Treatment Upcoming Encounters Date Type Department Care Team (Late st Contact Info) Description 01/31/2025 4:30 PM SPRING TACKER Telephone Check Up [facility] Oncology and Hematology - [place] [address] [facility] [address] [place] [address] oSuth Cardoza MD [address] [facility] [address] [place] [address] Health Maintenance Due Date Last Done Comments DTAP/TDAP/TD VACCINES (1 - Tdap) 06/12/1964 PNEUMOCOCCAL VACCINE 50+ YEARS (1 of 1 - PCV) 06/11/18 95 10/30/2019 ZOSTER VACCINE (1 of 2) 1994 RSV VACCINE (60+ or ) (1 - 1-dose 75+ series) 06/12/2019 Preventative Visit- Commercial 02/29/2024 INFLUENZA VACCINE (#1) 2024 10/29/2020 COVID-19 Vaccine (2 - season) 10/29/202402/2020 Insurance [facility]
--- OUTSIDE RECORDS SUMMARY | 2025-01-18 10:08 | XMS_ITS ---
Author Organization [facility] Address [address] [place] [address] Phone Care Team Providers Care Esol Teacher Assistant Name Role Phone ROSEANN BARRERA YESSI Primary Care Provider [phone] Problems Includes: Active, inactive, and resolved Problems All Visits Onset Date Resolved Date Provider Condition S tatus Chronic Kidney Disease (Nkf Classification) Unknown RENE Jolley MANJEET RISK CONTROL CONSULTANT-FPA, TOBACCO STRIPPING MACHINE OPERATOR-BC Active Last Documented On 2 10:05AM ; [facility] Diabetes Mellitus Unknown RENE Jolley MANJEET APR N-FPA, TOBACCO STRIPPING MACHINE OPERATOR-BC Active Last Documented On 2 9:14AM ; [facility] 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 Unknown RENE Jolley MANJEET RISK CONTROL CONSULTANT-FPA, TOBACCO STRIPPING MACHINE OPERATOR-BC Active Last Documented On 2 10:06AM ; [facility] Hyperlipidemia Unknown RENE Jolley MANJEET RISK CONTROL CONSULTANT-F PA, TOBACCO STRIPPING MACHINE OPERATOR-BC Active Last Documented On 2 9:14AM ; [facility] Plan of Treatment Referrals To [facility] - [address] [place] [address] - Radiculopathy, lumbar region Note: consent for Right L2-3 and L3-4 transforaminal epidural steroid injection under fluoroscopyNo need to hold NSAIDs/ASA Last Documented On 2 1:31PM ; [facility] Education and Decision Aids were provided during visit for: Lifestyle education Last Documented On 2 10:08AM ; [facility] Assessments Includes: Assessments for all patient encounters Findings Encounter Date Chronic pain syndrome PAIN MANAGEMENT NE W CONSULT with RENE BURROUGHS RISK CONTROL CONSULTANT-FPPatt, TOBACCO STRIPPING MACHINE OPERATOR-BC 10/22/2021 Last Documented On 2 10:14AM ; [facility] Lumbar radiculopathy PAIN MANAGEMENT NEW CONSULT with RENE BURROUGHS RISK CONTROL CONSULTANT-FPA, TOBACCO STRIPPING MACHINE OPERATOR-BC 10/22/2021 Last Documented On 2 10:14AM ; [facility] Lumbar spondylosis PAIN MANAGEMENT NEW CONSULT with RENE BURROUGHS RISK CONTROL CONSULTANT-FPA, TOBACCO STRIPPING MACHINE OPERATOR-BC 10/22/2021 Last Documented On 2 10:14AM ; [facility] Lumbar stenosis with neuroge harinder claudication PAIN MANAGEMENT NEW CONSULT with RENE BURROUGHS RISK CONTROL CONSULTANT-FPA, TOBACCO STRIPPING MACHINE OPERATOR-BC 10/22/2021 Last Documented On 2 10:14AM ; [facility] Instructions Includes: Instructions for all patient encounters Education and Decision Aids were provided during visit for: Lifestyle education Last Documented On 2 10:08AM ; [facility] Medical Equipment - Implanted Devices Includes: Current and historical Devices No Medical Equipment Recorded Medications Includes: Current and historical Medications Current Medications (continue as prescribed) Gabapentin 100 MG Oral Capsule 10/22/2021 Provider: REMINGTON ROJASBC Diagnosis: Radiculopathy, l umbar region 1-2 capsules three times daily Last Documented On 2 10:13AM By RENE AGUIAR ; [facility] Basaglar KwikPen 100 UNIT/ML Subcutaneous Solution Pen-injector 10/19/2021 Provider: YESSI WHITFIELD MD Diagnosis: 40 UNITS A DAY. Last Documented On 2 10:13AM By RENE AGUIAR ; [facility] DULoxetine HCl 20 MG Oral Ca psule Delayed Release Particles 10/14/2021 Provider: YESSI WHITFIELD MD Diagnosis: Last Documented On 2 10:13AM By RENE AGUIAR ; [facility] Trulicity 1.5 MG/0.5ML Subcu taneous Solution Pen-injector 10/05/2021 Provider: YESSI WHITFIELD MD Diagnosis: 1 INJECTION A WEEK. Last Documented On 2 10:13AM By RENE AGUIAR ; [facility] Pantoprazole Sodium 40 MG Or al Tablet Delayed Release 08/17/2021 Provider: YESSI WHITFIELD MD Diagnosis: NEEDED. Last Documented On 2 10:13AM By RENE AGUIAR ; [facility] Rosuvastatin Calcium 20 MG Oral Tablet 08/15/2021 Pr ovider: YESSI WHITFIELD MD Diagnosis: Last Documented On 2 10:13AM By RENE AGUIAR ; [facility] Adult Aspirin Regimen 81 MG Oral Tablet Delayed Release 07/28/2021 Provider: YESSI WHITFIELD MD Diagnosis: Last Documented On 2 10:13AM By RENE AGUIAR ; [facility] Medications Administered Includes: Administered Medications in patient's chart No Administered Medications Recorded Results Includes: Results from 01/19/2024 through 01/18/2025 No Results Recorded For Specified Dates History of Present Illness History of Present Illness not supported for this document type No History of Present Illness Recorded Social History Description Last Updated Tobacco non-user 10/22/2021 Last Documented On 2 10:14AM ; [facility] Smoking Status Unknown Medical History Includes: Medical History in patient's chart Description Last Updated Has a fear of falling. 10/22/2021 Last Documented On 2 10:14AM ; [facility] Has had a fall in the last 12 months. Last Documented On 2 10:14AM ; [facility] Family History Includes: Family History in patient's [...] Relationship Effect avery Dates 1 - [facility] [id number] WENCESLAO Davis Clinical Notes Includes: Signed Clinical Notes starting from 03/19/2022 No Clinical Notes Recorded
--- OUTSIDE RECORDS SUMMARY | 2025-01-18 10:08 | XMS_ITS | Encounter Summary ---
Author Organization [facility] Address [address] [place] [address] Phone Care Team Providers Care Shuttle Veneering Supervisor Name Role Phone Shawn Vargas MD Primary Care Provider [phone] Anurag Avila MD Unavailable Reason for Visit * Reason Comments Medication Refill Encounter Details Date Type Department Care Team (Late Contact Info) Description 04/08[facility] [address] [place] [address] Anurag Avila MD [address] [place] [address] Medication Refill Social History Tobacco [...] [facility] [address] [place] [id number] Anurag Avila MD [address] [place] [phone] documented as of this encounter Visit Diagnoses Not on filedocumented in this encounter Care Teams Shuttle Veneering Supervisor Relationship Specialty Start Date End Date Shawn Vargas MD [address] [place] [address] PCP - General Internal Medicine 02/22/23 Anurag Avila MD [address] [place] [phone] Consulting Physician Neurology 03/29/23 documented as of this encounter
--- OUTSIDE RECORDS SUMMARY | 2025-01-18 10:08 | XMS_ITS | Clinical Summary ---
Author Organization [facility] Address [address] [place] [address] Phone Care Team Providers Care Muck Farmer Name Role Phone Shawn Vargas MD Primary Care Provider [phone] Allergies Active Allergy Reactions Criticality Noted Date Comments Lisinopril 09/04/2020 angioedema Medications [facility] D3 50 MCG (1999) capsule Take 1 tablet by mouth 1 (one) time each day 07/25/2020 Active Basaglar KwikPen 100 UNIT/ML injection INJECT 40UNITS UNDER THE SKIN IN THE MORNING 08/05/2020 Active UltiCare Mini Pen [place] 31G X 6 MM misc USE WITH [...] Comments Blood Pressure 124/70 02/19/2021 9:30 AM GREASE CUP FILLER Pulse 72 02/19/2021 9:30 AM GREASE CUP FILLER Temperature 35.7 C (96.3 F) 02/19/2021 9:30 AM GREASE CUP FILLER Respiratory Rate - - Oxygen Saturation - - Inhaled Oxygen Concentration - - Weight 78.9 kg (174 lb) 02/19/2021 9:30 AM GREASE CUP FILLER Height 185.4 cm (6' 1) 02/19/2021 9:30 AM GREASE CUP FILLER Body Mass Index 22.96 02/19/2021 9:30 AM GREASE CUP FILLER Plan of Treatment Health Maintenance Due Date Last Done Comments Pneumococcal PPSV23/PCV13 65 + Years / Low and Medium Risk (1 of 2 - PCV) 1994 Influenza Vaccine (#1) 2024 10/29/2020 Insurance [facility] Care Teams Muck Farmer Relationship Specialty Start Date End Date Shawn Vargas MD [address] [place] [address] PCP - General Internal Medicine 08/18/21
--- OUTSIDE RECORDS SUMMARY | 2025-01-18 10:08 | XMS_ITS ---
Care Plan - [facility] Created on: January 18, 2025 WENCESLAO COTA : 1945 Sex: Male Author Organization [facility] Address [address] [place] [address] Phone Care Team Providers Care Bridge Ironworker Name Role Phone ROSEANN BARRERA, [facility] Primary Care Provider [phone]
[2025-01-18 12:55] LABS: Iron 41 ug/dL (49-181)
[2025-01-18 13:06] LABS: Percent Iron Saturation 10 % (20-50)
[2025-01-18 13:37] LABS: Ferritin 44.30 ng/mL (11.1-264)
[2025-01-18 14:02] LABS: Vitamin B12 923.0 pg/mL (239-931)
== END 2025-01-18 10:05 | disposition home or self-care (01) ==
LOC: ANHLAB 10:05
PROVIDERS: PCP Internal Medicine; Visit Provider Internal Medicine Hematology & Oncology
DX: C18.9 Malignant neoplasm of colon, unspecified (principal); Z91.89 Other specified personal risk factors, not elsewhere classified
CPT/HCPCS: 36415; 82607; 82728; 82746; 83540; 83550